=== PATIENT | male | born 1955 | race Caucasian/White ===

== ENCOUNTER 2017-11-09 10:06 | Outpatient (CLI) | payer MEDICAID | END 2017-11-09 10:07 | disposition critical access hospital (66) | LOC: EMS 10:06 | PROVIDERS: ATTEND Surgery | DX: R07.9 Chest pain, unspecified (principal); R00.2 Palpitations; R06.02 Shortness of breath | CPT/HCPCS: A0425; A0427 ==

== ENCOUNTER 2017-11-09 10:30 | Emergency (ER) | payer MEDICAID ==
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
[2017-11-09 10:54] LABS: BASOPHILS # (AUTO) 0.1 10^3/uL (0.0-0.1); BASOPHILS % (AUTO) 0.6 %; EOSINOPHILS # (AUTO) 0.1 10^3/uL (0.0-0.7); EOSINOPHILS % (AUTO) 1.2 %; HGB - HEMOGLOBIN 14.5 g/dL (14.0-18.0); LYMPHOCYTES # (AUTO) 1.8 10^3/uL (1.5-3.5); LYMPHOCYTES % (AUTO) 19.7 %; MEAN CORPUSCULAR HEMOGLOBIN 30.2 pg (27.0-31.0); MEAN CORPUSCULAR HGB CONC 33.7 g/dL (32.0-36.0); MEAN CORPUSCULAR VOLUME 89.5 fL (80.0-94.0); MEAN PLATELET VOLUME 8.1 fL (7.4-11.4); MONOCYTES # (AUTO) 0.6 10^3/uL (0.0-1.0); MONOCYTES % (AUTO) 6.6 %; NEUTROPHILS # (AUTO) 6.4 10^3/uL (1.5-6.6); NEUTROPHILS % (AUTO) 71.9 %; PLT - PLATELET COUNT 297 10^3/uL (130-450); RED BLOOD COUNT 4.79 10^6/uL (4.70-6.10); RED CELL DISTRIBUTION WIDTH 13.5 % (12.0-15.0)
[2017-11-09 11:07] LABS: ALBUMIN 4.2 g/dL (3.2-5.5); ALBUMIN/GLOBULIN RATIO 1.2 (1.0-2.2); BILIRUBIN,TOTAL 0.7 mg/dL (0.2-1.0); CALCIUM 9.1 mg/dL (8.5-10.3); CREATININE 0.8 mg/dL (0.6-1.2); TOTAL PROTEIN 7.6 g/dL (6.7-8.2)
--- NOTE | 2017-11-09 11:44 | XRAY Report ---
EXAM: CHEST RADIOGRAPHY EXAM DATE: 11/09/2017 11:29 AM. CLINICAL HISTORY: Chest pain. COMPARISON: None. TECHNIQUE: 1 view. FINDINGS: Lungs/Pleura: There are bandlike opacities of the lower lungs. Bodies may represent atelectasis or co nsolidation. This is seen in the context of low lung volumes. Mediastinum: Within exam limitations, the cardiomediastinal contour appears likely normal. IMPRESSION: Low lung volumes. Bibasilar bandlike opacities are nonspecific. Atelectasis versus consol idation. Follow-up is available as indicated. [facility] Referring Provider Line: [phone] SITE ID: [id number]
[2017-11-09 13:14] VITALS: BP 131/87
== END 2017-11-09 13:22 | disposition home or self-care (01) ==
LOC: ED 10:30
DX: R07.89 Other chest pain (principal); I10 Essential (primary) hypertension; I48.91 Unspecified atrial fibrillation; E78.00 Pure hypercholesterolemia, unspecified; J44.9 Chronic obstructive pulmonary disease, unspecified; Z79.01 Long term (current) use of anticoagulants
CPT/HCPCS: 36415; 71045; 80053; 83690; 84484; 85025; 93005; 99284

== ENCOUNTER 2019-08-25 03:03 | Outpatient (CLI) | payer MEDICARE, MEDICAID | END 2019-08-25 03:04 | disposition critical access hospital (66) | LOC: EMS 03:03 | PROVIDERS: ATTEND Surgery | DX: R47.81 Slurred speech (principal); R53.1 Weakness; R29.810 Facial weakness | CPT/HCPCS: A0425; A0429 ==

== ENCOUNTER 2019-08-25 03:17 | Emergency (ER) | payer MEDICARE, MEDICAID ==
--- NOTE | 2019-08-25 03:20 | ED Physician Documentation ---
History of Present Illness - Stated complaint Stated Complaint: SLURRED SPEECH - History obtained from History obtained from: Patient (the patient is a 63 y/o m who is a poor historian presents via EMS with a cc of right shoulder pain. patient states he was drinking etoh tonight and fell around 7 hours prior to presenting to the ed. he states he called 911 because he could not get up and his right shoulder was hurting him, he is on xarelto and has a hx of a previous cva that left him with chronic left sided weakness. remainder of the history is unknown.) Review of Systems Constitutional: reports: Reviewed and negative Eyes: reports: Reviewed and negative Ears: reports: Reviewed and negative Nose: reports: Reviewed and negative Throat: reports: Reviewed and negative Cardiac: reports: Reviewed and negative Respiratory: reports: Reviewed and negative GI: reports: Reviewed and negative : reports: Reviewed and negative Skin: reports: Reviewed and negative Musculoskeletal: reports: Extremity pain, Other (right shoulder pain) Neurologic: reports: Reviewed and negative Psychiatric: reports: Reviewed and negative Endocrine: reports: Reviewed and negative Immunocompromised: reports: Reviewed and negative PD PAST MEDICAL HISTORY - Past Medical History Cardiovascular: Hypertension, High cholesterol, Atrial fibrillation Respiratory: COPD Psych: Anxiety, Bipolar disorder - Past Surgical History Past Surgical History: Yes Ortho: Arthroscopic surgery - Present Medications Home Medications: Ambulatory Orders Medication Instructions Recorded Confirmed Amitriptyline [Elavil] 25 mg PO QPM 11/09/17 11/09/17 Atorvastatin [Lipitor] 80 mg 11/09/17 Benzonatate 100 mg PO 11/09/17 Levothyroxine [Synthroid] 75 mcg PO QDAC 11/09/17 11/09/17 Losartan [Cozaar] 100 mg ORAL DAILY 11/09/17 11/09/17 Omeprazole 40 mg PO 11/09/17 Rivaroxaban [Xarelto] 20 mg PO 11/09/17 diltiaZEM [Cardizem] 240 mg ORAL DAILY 11/09/17 11/09/17 - Allergies Allergies/Adverse Reactions: Allergies Allergy/AdvReac Type Severity Reaction Status Date / Time Penicillins Allergy Unknown Verified 08/25/19 03:32 - Social History Does the pt smoke?: Yes Smoking Status: Former smoker Does the pt drink ETOH?: No Does the pt have substance abuse?: No - Immunizations Immunizations are current?: No Immunizations: TDAP >10years/unknown PD ED PE NORMAL - Vitals Vital signs reviewed: Yes - General General: No acute distress, Well developed/nourished, Other (non toxic and non septic appearing, awake, protecting his airway, no obvious facial droop, chronic left sided weakness.) - HEENT HEENT: Atraumatic, PERRL - Neck Neck: Supple, no meningeal sign, No JVD - Cardiac Cardiac: RRR, No murmur, Strong equal pulses - Respiratory Respiratory: No respiratory distress, Clear bilaterally - Abdomen Abdomen: Normal bowel sounds, Soft, Non tender, Non distended, No organomegaly - Back Back: No CVA TTP, No spinal TTP - Derm Derm: Normal color, Warm and dry, No rash - Extremities Extremities: Other (right shoulder is tender to palpation diffusely, decreased ROM secondary to pain, compartments are soft, nv intact, cap refill < 2 sec, no open wound, no gross deformity, ) - Neuro Neuro: Alert and oriented X 3, Other (chronic left sided deficits in upper and lower extremity. ) - Psych Psych: Normal mood, Normal affect Results - Vitals Vitals: Vital Signs - 24 hr 08/25/19 08/25/19 03:20 05:41 Temperature 36.5 C Heart Rate 79 88 Respiratory 17 17 Rate Blood Pressure 110/59 L 127/83 H O2 Saturation 94 94 Oxygen O2 Source Room air - EKG (time done) 03:35 Rate: Other (no stemi) - Labs Labs: Laboratory Tests 08/25/19 08/25/19 08/25/19 03:30 03:30 03:30 WBC 14.5 H RBC 4.93 Hgb 14.1 Hct 44.9 MCV 91.1 MCH 28.6 MCHC 31.4 L RDW 14.0 Plt Count 317 MPV 9.9 Neut # (Auto) 11.7 H Lymph # (Auto) 1.7 [place] # (Auto) 0.9 Eos # (Auto) 0.1 Baso # (Auto) 0.1 Absolute Nucleated RBC 0.00 Nucleated RBC % 0.0 PT 29.1 H INR 2.7 H APTT 51.6 H Sodium 143 Potassium 3.9 Chloride 106 Carbon Dioxide 24 Anion Gap 13.0 BUN 12 Creatinine 0.7 Estimated GFR (MDRD) 113 Glucose 133 H Calcium 9.0 Total Bilirubin 0.3 AST 25 ALT 23 Alkaline Phosphatase 88 CK-MB (CK-2) Troponin I High Sens B-Natriuretic Peptide Total Protein 7.7 Albumin 4.4 Globulin 3.3 Albumin/Globulin Ratio 1.3 Lipase 27 Salicylates < 6.0 Acetaminophen < 10 L Ethyl Alcohol 170.1 08/25/19 08/25/19 08/25/19 03:30 03:30 03:30 WBC RBC Hgb Hct MCV MCH MCHC RDW Plt Count MPV Neut # (Auto) Lymph # (Auto) [place] # (Auto) Eos # (Auto) Baso # (Auto) Absolute Nucleated RBC Nucleated RBC % PT INR APTT Sodium Potassium Chloride Carbon Dioxide Anion Gap BUN Creatinine Estimated GFR (MDRD) Glucose Calcium Total Bilirubin AST ALT Alkaline Phosphatase CK-MB (CK-2) 4.9 Troponin I High Sens 4.4 B-Natriuretic Peptide 22 Total Protein Albumin Globulin Albumin/Globulin Ratio Lipase Salicylates Acetaminophen Ethyl Alcohol PD MEDICAL DECISION MAKING - ED course Complexity details: reviewed old records, reviewed results, re-evaluated patient (04:35 patient updated, he has slurred speech but unsure of his baseline, he is intoxicated. he has a closed right clavicle fracture. placed in sling, nv i ntact, compartments soft. ), considered differential (hx and exam are inconsistent and unreliable, patient and ems reports that his last known normal time was around 7 hours prior to arrival, patient's primary complaint is right shoulder pain, he is on xarelto and has chronic left sided deficits, last know normal was around 8 pm yesterday over 7 hours prior to presenting in the ed. will get cth as well as accucheck and right ue radiographs.), d/w patient (06:10 am Patient has a negative CT scan of the head, negative CTA of the head and neck. Had an extensive discussion with this patient and reexamined him multiple times. 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 Patient will be kept in a sling and discharge when he is sober and he should follow-up with his primary care provider. 06:26 I did offer to admit this patient for observation, however the patient is clinically sober at this time and admits to drinking alcohol last night and falling, states he has chronic left sided weakness and chronic slurred speech and would like to be dcd home at this time. i feel this is reasonable given he has a negative cth and neg cta h/n and he denies any new neurological symptoms now that he is sober and admits to etoh and a fall. ) - Critical Care Time(min): 30 Time Includes: Direct patient care, Review records, Reassess patient, Document care, Coordinate care Data interpretation: Labs, CXR Procedures included in critical care time: Peripheral IV Procedures excluded from critical care time: EKG Departure - Departure Disposition: Home, Self Care Clinical Impression: Right clavicle fracture Qualifiers: Encounter type: initial encounter Clavicle location: shaft Fracture type: closed Fracture alignment: displaced Qualified Code(s): S42.021A - Displaced fracture of shaft of right clavicle, initial encounter for closed fracture Alcohol intoxication Qualifiers: Complication of substance-induced condition: with unspecified complication Q ualified Code(s): F10.929 - Alcohol use, unspecified with intoxication, unspecified Leukocytosis Qualifiers: Leukocytosis type: unspecified Qualified Code(s): D72.829 - Elevated white blood cell count, unspecified Condition: Stable Instructions: ED Fx Clavicle, ED Alcohol Intoxication Follow-Up: Nora Briones DO [Primary Care Provider] - 08/25/19
[2019-08-25 03:40] LABS: BASOPHILS # (AUTO) 0.1 10^3/uL (0.0-0.1); BASOPHILS % (AUTO) 0.5 %; EOSINOPHILS # (AUTO) 0.1 10^3/uL (0.0-0.7); EOSINOPHILS % (AUTO) 0.5 %; HGB - HEMOGLOBIN 14.1 g/dL (14.0-18.0); LYMPHOCYTES # (AUTO) 1.7 10^3/uL (1.5-3.5); MEAN CORPUSCULAR HEMOGLOBIN 28.6 pg (27.0-31.0); MEAN CORPUSCULAR HGB CONC 31.4 g/dL (32.0-36.0); MEAN CORPUSCULAR VOLUME 91.1 fL (80.0-94.0); MEAN PLATELET VOLUME 9.9 fL (7.4-11.4); MONOCYTES # (AUTO) 0.9 10^3/uL (0.0-1.0); MONOCYTES % (AUTO) 5.9 %; NEUTROPHILS # (AUTO) 11.7 10^3/uL (1.5-6.6); NEUTROPHILS % (AUTO) 80.5 %; PLT - PLATELET COUNT 317 10^3/uL (130-450); RED BLOOD COUNT 4.93 10^6/uL (4.70-6.10); WHITE BLOOD COUNT 14.5 x10^3/uL (4.8-10.8)
[2019-08-25 03:46] LABS: INR 2.7 (0.8-1.2); PT - PROTHROMBIN TIME 29.1 secs (9.9-12.6)
[2019-08-25 03:53] LABS: PARTIAL THROMBOPLASTIN TIME 51.6 secs (24.9-33.3)
[2019-08-25 03:54] LABS: ACETAMINOPHEN < 10 ug/mL (10-30); ALBUMIN 4.4 g/dL (3.2-5.5); ALBUMIN/GLOBULIN RATIO 1.3 (1.0-2.2); ALKALINE PHOSPHATASE 88 IU/L (42-121); ALT ALANINE AMINOTRANSFERASE 23 IU/L (10-60); AST ASPARTATE AMINOTRANSFERASE 25 IU/L (10-42); BILIRUBIN,TOTAL 0.3 mg/dL (0.2-1.0); BUN - BLOOD UREA NITROGEN 12 mg/dL (6-20); CARBON DIOXIDE - CO2 24 mmol/L (21-32); CHLORIDE 106 mmol/L (101-111); CREATININE 0.7 mg/dL (0.6-1.2); GFR - MDRD 113 (>89); GLUCOSE 133 mg/dL (70-100); LIPASE 27 U/L (22-51); SALICYLATE < 6.0 mg/dL; SODIUM 143 mmol/L (135-145); TOTAL PROTEIN 7.7 g/dL (6.7-8.2)
--- NOTE | 2019-08-25 04:11 | CT Report ---
Reason: AMS Procedure Date: 08/25/2019 Accession Number: [id number] / [id number] Procedure: CT - HEAD WO CPT Code: Final Report FULL RESULT: EXAM: CT HEAD EXAM DATE: 08/25/2019 04:00 AM. CLINICAL HISTORY: Altered mental status. COMPARISON: None. TECHNIQUE: Multiaxial CT images were obtained from the foramen magnum to the vertex. Reformats: Sagittal and coronal. IV contrast: None. In accordance with CT protocol optimization, one or more of the following dose reduction techniques were utilized for this exam: automated exposure control, adjustment of mA and/or KV based on patient size, or use of iterative reconstructive technique. FINDINGS: Parenchyma: No intraparenchymal hemorrhage. No evidence of mass, midline shift, or CT findings of acute infarction. There is encephalomalacia involving the right insula and adjacent portions of the right frontal and superior temporal lobes compatible with a chronic infarct involving part of the right MCA territory. [place]-white matter differentiation otherwise appears distinct. Extraaxial Spaces: Normal for age. No subdural or epidural collections identified. Ventricles: No hydrocephalus. Sinuses and Orbits: There is moderate mucosal thickening in the right maxillary sinus and mild right ethmoid air cell mucosal thickening. Remaining visualized sinuses and mastoid air cells are clear. Visualized orbits are unremarkable. Bones: No evidence of fracture or calvarial defect. Other: None. IMPRESSION: 1. No acute intracranial abnormality. 2. No intracranial mass, mass-effect, or hydrocephalus. 3. Chronic infarct involving part of the right MCA distribution. [facility]
--- NOTE | 2019-08-25 04:13 | XRAY Report ---
Reason: pain Procedure Date: 08/25/2019 Accession Number: [id number] / [id number] Procedure: XR - Shoulder 3 View RT CPT Code: Final Report FULL RESULT: EXAM: RIGHT SHOULDER RADIOGRAPHY EXAM DATE: 08/25/2019 04:03 AM. CLINICAL HISTORY: Pain. COMPARISON: None. TECHNIQUE: 3 views. FINDINGS: Bones: Minimally displaced proximal right clavicular fracture. Joints: Glenohumeral osteoarthritis, with bulky humeral osteophytes. No dislocation. The acromioclavicular joint appears unremarkable. Soft tissues: The visualized hemithorax is unremarkable. No soft tissue swelling. IMPRESSION: Minimally displaced proximal right clavicular fracture. Osteoarthritis of the glenohumeral joint. [facility]
--- NOTE | 2019-08-25 04:14 | XRAY Report ---
Reason: AMS Procedure Date: 08/25/2019 Accession Number: [id number] / [id number] Procedure: XR - Chest 1 View X-Ray CPT Code: 15907 Final Report FULL RESULT: EXAM: CHEST RADIOGRAPHY EXAM DATE: 08/25/2019 03:55 AM. CLINICAL HISTORY: AMS. COMPARISON: CHEST 1 VIEW 11/09/2017 11:18 AM. TECHNIQUE: 1 view. FINDINGS: Lungs/Pleura: Low lung volumes, producing basilar atelectasis. No focal infiltrate, effusion, or pneumothorax. Mediastinum: Cardiomegaly. Atherosclerotic calcifications. Other: Minimally displaced medial right clavicle fracture. IMPRESSION: Low lung volumes. Cardiomegaly, but no evidence of acute cardiopulmonary disease. [facility]
[2019-08-25] MEDS ORDERED: MORPHINE 2 MG/ML CARPUJECT IVP STA (04:23)
[2019-08-25] MEDS ORDERED: ONDANSETRON 4 MG/2 ML VIAL IVP STA (04:23)
[2019-08-25] MEDS ORDERED: FOLIC ACID INJ 1 MG, THIAMINE INJ 100 MG, MAGNESIUM SULFATE 2 GM, MULTIVITAMIN 10 ML in... IV STA ×5 (04:25)
[2019-08-25] MEDS ORDERED: FOLIC ACID 5 MG/1 ML 10ML MDV ONE (04:29)
[2019-08-25] MEDS ORDERED: THIAMINE 100 MG/1 ML 2 ML MDV ONE (04:29)
[2019-08-25] MEDS ORDERED: MAGNESIUM SULFATE 1 GM/2 ML VIAL ONE (04:29)
[2019-08-25] MEDS ORDERED: IOVERSOL 320 100 ML VIAL IVP ONE ×2 (04:51→05:23)
--- NOTE | 2019-08-25 05:54 | CT Report ---
Reason: L sided facial droop Procedure Date: 08/25/2019 Accession Number: [id number] / [id number] Procedure: CT - ANGIO HEAD W/WO CPT Code: Final Report FULL RESULT: EXAM: CT ANGIOGRAM HEAD. CT SCAN OF THE HEAD WITH CONTRAST. EXAM DATE: 08/25/2019 05:27 AM CLINICAL HISTORY: L sided facial droop. COMPARISON: CT HEAD W/O 08/25/2019 3:44 AM. TECHNIQUE: - CT Scan Head: Using a multidetector scanner, axial images were acquired from the foramen magnum to the skull vertex following contrast administration. - CT Angiogram: Using a multidetector scanner, high-resolution axial images were acquired from the skull base through vertex following rapid infusion of intravenous contrast. Reformats: Multiplanar MIP reformats were reconstructed. NASCET criteria used for stenosis measurement. IV Contrast: OPTIRAY 320-80 mL. In accordance with CT protocol optimization, one or more of the following dose reduction techniques were utilized for this exam: automated exposure control, adjustment of mA and/or KV based on patient size, or use of iterative reconstructive technique. FINDINGS: POST-CONTRAST HEAD: Precontrast CT of the brain has been previously reported and demonstrated no obvious acute abnormality. There is a chronic infarct involving part of the right MCA distribution. Postcontrast imaging of the brain demonstrates no abnormal enhancement. CT ANGIOGRAM HEAD: There is no evidence of large vessel occlusion. There is atherosclerotic calcification in the carotid siphons bilaterally. This results in mild narrowing of the proximal supraclinoid ICAs bilaterally. There is no significant high-grade stenosis. The middle cerebral and anterior cerebral artery distributions appear patent bilaterally without significant stenosis. Mild atherosclerotic calcification in the V4 segments of bilateral vertebral arteries. There is no significant stenosis. Basilar artery is patent and normal in caliber. Posterior cerebral arteries and remainder the posterior circulation also appear patent. No aneurysm or AVM is identified. Dural venous sinuses are patent. IMPRESSION: CT Head with IV contrast: 1. No evidence of acute intracranial abnormality. 2. Chronic right MCA infarct. 3. No mass lesion, mass-effect, or abnormal enhancement. CTA Head: 1. No evidence of large vessel occlusion. 2. Atherosclerotic calcification involving bilateral carotid siphons results in mild narrowing of the proximal supraclinoid ICAs bilaterally. There is no significant intracranial stenosis. 3. No aneurysm is identified. 4. Dural venous sinuses are patent. [facility]
--- NOTE | 2019-08-25 06:03 | CT Report ---
Reason: L sided facial droop, L neck pain Procedure Date: 08/25/2019 Accession Number: [id number] / [id number] Procedure: CT - ANGIO NECK W CPT Code: Final Report FULL RESULT: EXAM: CT ANGIOGRAM NECK EXAM DATE: 08/25/2019 05:27 AM. CLINICAL HISTORY: L sided facial droop, L neck pain. COMPARISON: HEAD W/O 08/25/2019 3:44 AM. TECHNIQUE: Routine axial helical imaging was performed from the skull base through the aortic arch. Reconstructions: Routine multiplanar 3D MIP reconstructions. IV Contrast: OPTIRAY 320-80 cc. Evaluation of arterial stenosis is based on a NASCET method of measurement. In accordance with CT protocol optimization, one or more of the following dose reduction techniques were utilized for this exam: automated exposure control, adjustment of mA and/or KV based on patient size, or use of iterative reconstructive technique. FINDINGS: Aortic arch: There is mild scattered atherosclerotic calcification in the aortic arch. Visualized arch is otherwise unremarkable. Great vessels are patent without significant stenosis. Right Carotid: The common carotid, internal carotid, and external carotid arteries are widely patent. Mild calcified plaque in the distal common carotid and proximal internal carotid artery. There is no stenosis or dissection. Left Carotid: The common carotid, internal carotid, and external carotid arteries are widely patent. There is minimal calcified plaque in the left carotid bulb and proximal ICA. No evidence of stenosis or dissection. Vertebrals: Both vertebral arteries are patent and contribute to the basilar artery. The right vertebral artery is dominant and demonstrates no stenosis or dissection. There is a 50% stenosis at the origin of the left vertebral artery. The left vertebral artery is otherwise normal in caliber. No evidence of dissection. Other: Neck soft tissues and visualized lung apices are unremarkable. There is mild to moderate degenerative change of the cervical spine. No acute osseous abnormality is identified. IMPRESSION: 1. There is no evidence of carotid artery stenosis or dissection in the neck. There is minimal calcified plaque in the carotid bifurcations bilaterally. 2. Both vertebral arteries are patent. Right vertebral artery is dominant and normal in caliber. There is a 50% stenosis at the origin of the nondominant left vertebral artery. No evidence of vertebral artery dissection. [facility]
[2019-08-25 07:46] VITALS: BP 123/74
[2019-08-25] MEDS ORDERED: ACETAMINOPHEN 325 MG TABLET PO STA (07:50)
== END 2019-08-25 08:55 | disposition home or self-care (01) ==
LOC: EDUNIT# → ED 03:17
DX: S42.021A Displaced fracture of shaft of right clavicle, initial encounter for closed fracture (principal); W19.XXXA Unspecified fall, initial encounter; Y93.E9 Activity, other interior property and clothing maintenance; Y92.003 Bedroom of unspecified non-institutional (private) residence as the place of occurrence of the external cause; D72.829 Elevated white blood cell count, unspecified; F10.129 Alcohol abuse with intoxication, unspecified; I10 Essential (primary) hypertension; Z87.891 Personal history of nicotine dependence
CPT/HCPCS: 36415; 70496; 70498; 71045; 73030; 80053; 82553; 83690; 83880; 84484; 85025; 85610; 85730; 93005; 96365; 96366; 96375; 99284; 99291; A9270; J3411; Q9967; 70450; 80307; 80320; 80329

== ENCOUNTER 2020-05-08 19:15 | Outpatient (CLI) | payer MEDICARE, MEDICAID | END 2020-05-08 19:16 | disposition critical access hospital (66) | LOC: EMS 19:15 | PROVIDERS: ATTEND Surgery | DX: R06.00 Dyspnea, unspecified (principal); R22.1 Localized swelling, mass and lump, neck | CPT/HCPCS: A0425; A0427 ==

== ENCOUNTER 2020-05-08 19:35 | Emergency (ER) | payer MEDICARE, MEDICAID ==
--- NOTE | 2020-05-08 20:27 | ED Physician Documentation ---
History of Present Illness - Stated complaint Stated Complaint: - Chief complaint Chief Complaint: Resp - History obtained from History obtained from: Patient - History of Present Illness Timing: Prior to arrival - Additonal information Additional information: 64-year-old male presents the emergency department with 2 concerns. 1. He reports 3 days of shortness of air. He has a history of COPD but denies any new cough or fever. He had been using his albuterol nebulizers at home without relief. He reports compliance with his Spiriva and Advair inhalers. EMS was summoned to the house and he received nebulizer with marked improvement in his symptoms. He was also given 125 mg of Solu-Medrol. 2. He reports about 3 days of right submandibular pain and swelling. He reports that it hurts to chew or eat. He has grossly poor dentition with all of the teeth in his mouth rotted or missing to the gumline. This gentleman does have a history of COPD, previous cerebral vascular event with left-sided deficits as well as multiple pulmonary emboli in the past. He is on Xarelto and reports compliance with that medication. He denies that he has any unilateral leg swelling calf pain or tenderness. Patient presented via EMS with a nonrebreather mask in place. He was saturating 100%. He reports to me that he uses 2 L nasal cannula at home at nighttime only. The nonrebreather was removed and he was placed on 2 L nasal cannula. Saturations 94 to 97% PD PAST MEDICAL HISTORY - Past Medical History Past Medical History: Yes Cardiovascular: Hypertension, High cholesterol, Atrial fibrillation Respiratory: COPD Psych: Anxiety, Bipolar disorder - Past Surgical History Past Surgical History: Yes Ortho: Arthroscopic surgery - Present Medications Home Medications: Ambulatory Orders Medication Instructions Recorded Confirmed Amitriptyline [Elavil] 25 mg PO QPM 11/09/17 05/08/20 Atorvastatin [Lipitor] 80 mg PO DAILY 11/09/17 05/08/20 Benzonatate 100 mg PO 11/09/17 Levothyroxine [Synthroid] 75 mcg PO QDAC 11/09/17 05/08/20 Losartan [Cozaar] 100 mg ORAL DAILY 11/09/17 05/08/20 Omeprazole 40 mg PO DAILY 11/09/17 05/08/20 Rivaroxaban [Xarelto] 20 mg PO DAILY 06/04/18 12/01/20 diltiaZEM [Cardizem] 240 mg ORAL DAILY 11/09/17 05/08/20 Albuterol Sulf [Ventolin Hfa 05/08/20 Inhaler] Albuterol Sulf [Ventolin Hfa INH PRN 05/08/20 Inhaler] Azithromycin [Zithromax] 250 mg PO TID 05/08/20 05/08/20 predniSONE [Deltasone] 40 mg PO DAILY #8 tab 05/08/20 - Allergies Allergies/Adverse Reactions: Allergies Allergy/AdvReac Type Severity Reaction Status Date / Time Penicillins Allergy Unknown Verified 05/08/20 19:46 - Social History Does the pt smoke?: Yes Smoking Status: Current every day smoker Does the pt drink ETOH?: No Does the pt have substance abuse?: No - Immunizations Immunizations are current?: No Immunizations: TDAP >10years/unknown - POLST Patient has POLST: No PD ED PE EXPANDED - General General: Alert, No acute distress, Well developed/nourished - HEENT HEENT: Atraumatic (Left-sided facial droop at baseline.), PERRL, Other (Mild swelling and tenderness right submandibular area. No lymphadenopathy. No swelling under tongue or on floor of mouth. Full range of motion of neck. Patient has some dysphonia at bedside secondary to previous CVA.) - Cardiac Cardiac: Regular Rate, Murmur Present, Radial strong equal, Pedal strong equal, Cap refill < 2 sec - Respiratory Respiratory: Clear to ausultation meron. No: Distress, Labored, Stridor, Gasping - Abdomen Abdomen: Normal Bowel sounds. No: Tender to palpation - Extremities Extremities: Normal. No: Deformity, Tenderness - Neuro Neuro: Alert and Oriented X 3, Other (Mild left-sided facial droop at bedside with weakness in the left arm. No contractures). No: Nystagmus - GCS Eye Opening: Spontaneous Motor: Obeys Commands Verbal: Oriented Total: 15 Results - Vitals Vitals: Vital Signs - 24 hr 05/08/20 05/08/20 05/08/20 19:46 19:50 20:36 Temperature 36.5 C 36.5 C 36.5 C Heart Rate 82 81 80 Respiratory 28 H 25 H 27 H Rate Blood Pressure 129/90 H 129/90 H 126/87 H O2 Saturation 100 100 95 Oxygen O2 Source Nasal cannula Oxygen Flow Rate 11 - EKG (time done) 2013 Rate: Rate (enter#) (77) Rhythm: NSR [place]: Normal Intervals: Other (RBB and LAFB) QRS: LVH Ischemia: Normal ST segments Compare to prior EKG: Unchanged from prior EKG Computer interpretation: Agree with computer - Labs Labs: Laboratory Tests 05/08/20 05/08/20 05/08/20 20:16 20:26 20:26 WBC 10.4 RBC 4.64 L Hgb 14.0 Hct 42.6 MCV 91.8 MCH 30.2 MCHC 32.9 RDW 13.2 Plt Count 363 MPV 9.3 Neut # (Auto) 7.7 H Lymph # (Auto) 2.0 [place] # (Auto) 0.4 Eos # (Auto) 0.2 Baso # (Auto) 0.1 Absolute Nucleated RBC 0.00 Nucleated RBC % 0.0 Sodium 141 Potassium 4.0 Chloride 103 Carbon Dioxide 23 Anion Gap 15.0 H BUN 16 Creatinine 0.9 Estimated GFR (MDRD) 84 L Glucose 125 H Calcium 9.4 Total Bilirubin 0.7 AST 26 ALT 25 Alkaline Phosphatase 106 Troponin I High Sens Total Protein 7.7 Albumin 4.5 Globulin 3.2 Albumin/Globulin Ratio 1.4 Lipase 21 L Nasal Adenovirus (PCR) NOT DETECTED Nasal B. parapertussis DNA (PCR) NOT DETECTED Nasal Coronavir 229E PCR NOT DETECTED Nasal Coronavir HKU1 PCR NOT DETECTED Nasal Coronavir NL63 PCR NOT DETECTED Nasal Coronavir OC43 PCR NOT DETECTED Nasal Enterovir/Rhinovir PCR NOT DETECTED Nasal Influenza B PCR NOT DETECTED Nasal Influenza A PCR NOT DETECTED Nasal Parainfluen 1 PCR NOT DETECTED Nasal Parainfluen 2 PCR NOT DETECTED Nasal Parainfluen 3 PCR NOT DETECTED Nasal Parainfluen 4 PCR NOT DETECTED Nasal RSV (PCR) NOT DETECTED Nasal B.pertussis DNA PCR NOT DETECTED Nasal C.pneumoniae (PCR) NOT DETECTED Vinny Human Metapneumo PCR NOT DETECTED Nasal M.pneumoniae (PCR) NOT DETECTED Nasal SARS-CoV-2 (PCR) NOT DETECTED 05/08/20 20:26 WBC RBC Hgb Hct MCV MCH MCHC RDW Plt Count MPV Neut # (Auto) Lymph # (Auto) [place] # (Auto) Eos # (Auto) Baso # (Auto) Absolute Nucleated RBC Nucleated RBC % Sodium Potassium Chloride Carbon Dioxide Anion Gap BUN Creatinine Estimated GFR (MDRD) Glucose Calcium Total Bilirubin AST ALT Alkaline Phosphatase Troponin I High Sens 5.0 Total Protein Albumin Globulin Albumin/Globulin Ratio Lipase Nasal Adenovirus (PCR) Nasal B. parapertussis DNA (PCR) Nasal Coronavir 229E PCR Nasal Coronavir HKU1 PCR Nasal Coronavir NL63 PCR Nasal Coronavir OC43 PCR Nasal Enterovir/Rhinovir PCR Nasal Influenza B PCR Nasal Influenza A PCR Nasal Parainfluen 1 PCR Nasal Parainfluen 2 PCR Nasal Parainfluen 3 PCR Nasal Parainfluen 4 PCR Nasal RSV (PCR) Nasal B.pertussis DNA PCR Nasal C.pneumoniae (PCR) Vinny Human Metapneumo PCR Nasal M.pneumoniae (PCR) Nasal SARS-CoV-2 (PCR) - Rads (name of study) cxr Radiology: Final report received (Cardiomegaly and mild congestion. Left basilar atelectasis, small infiltrates cannot be excluded. No significant pleur al effusion or gross pneumothorax) [facility] ct Radiology: Final report received (Subcentimeter right submandibular lymph node measuring up to 7,000,000 m in short axis. No soft tissue mass or fluid collection. No lymphadenopathy by size criteria no abscess collection. Chronic appearing right-sided sinusitis. No nasal bone or facial fracture. Bilateral parotid glands and sub) PD MEDICAL DECISION MAKING - ED course Complexity details: reviewed results, re-evaluated patient, considered differential, d/w patient ED course: 64-year-old male presents the ER with 2 chief complaints. The first is 3 days of shortness of breath. He does have a history of 3 previously known pulmonary embolus and he is compliant with Xarelto. He had been using a nebulizer at without relief. He summoned 911 and EMS gave him 125 Solu-Medrol as well as a nebulizer. At the time he presented to the emergency department he reported that his shortness of air had resolved. Given the presence of Xarelto and the quickly resolved shortness of air it is unlikely that this represents a recurre nt or new pulmonary embolus. He denies that he has any new productive cough but this may represent a COPD exacerbation. Chest x-ray shows LEFT BASILAR ATELECTASIS, INFILTRATES COULD NOT BE excluded. However, as he denies a productive cough, has no fevers or leukocytosis, will defer tx for pna. Pt takes azithromycin daily secondary to COPD. I will plan to discharge this gentleman home with a 4-day burst of prednisone. Rapid PCR respiratory panel pending He also reported that he had 3 days of pain in the submandibular area on the right side of his jaw as well as pain with eating. He has globally poor dentition. He did have some very subtle swelling on the right side of the jaw. Clinically he did not have an exam consistent with [place]. ED CT of the max face was completed and it did show a small right submandibular lymph node measuring up to 7 mm but no suspicious lymphadenopathy by size criteria. Certainly no abscess collection was seen. defer abx at this time as no deeper sp vannesa infection exists This gentleman will be discharged home. During the time that he has been in the ER he has been clinically stable. He has been on 2 L nasal cannula with saturations of 94 to 97%. The shortness of air that initially brought him to the emergency department was resolved following a nebulizer treatment given by EMS as well as Solu-Medrol. I will give him a additional 4-day course of prednisone burst. emergent return precautions discussed Departure - Departure Disposition: 01 Home, Self Care Clinical Impression: COPD exacerbation, Jaw pain, non-TMJ Condition: Stable Record reviewed to determine appropriate education?: Yes Instructions: COPD Dc Follow-Up: Ortiz Khan ARNP [Primary Care Provider] - Prescriptions: predniSONE [Deltasone] 40 mg PO DAILY #8 tab Comments: Suraj today the labs look pretty normal. The Covid testing that we did for you was negative. The shortness of air that you had may have been COPD ex acerbation. The nebulizer that the EMS gave you as well as the steroids seem to have helped. I would like you to take the steroids every day for the next [address] of your face and neck did not show any abscesses or deep infections. The tenderness that you have is a mildly swollen lymph node. This should get better on its own. No further treatment is needed. If at any point you develop chest pain, have a return of shortness of air, have any fevers or productive cough please return immediately to the ER
--- NOTE | 2020-05-08 20:32 | XRAY Report ---
PROCEDURE: Chest 1 View X-Ray INDICATIONS: Chest Pain TECHNIQUE: One view of the chest was acquired. COMPARISON: 08/25/2019 FINDINGS: Surgical changes and devices: None. Lungs and pleura: No pleural effusions or pneumothorax. Mild pulmonary vascular congestion is seen w ith left basilar platelike atelectasis/small infiltrates. Mediastinum: Mediastinal contours appear normal. Heart size is enlarged. Bones and chest wall: No suspicious bony lesions. Overlying soft tissues appear unremarkable. IMPRESSION: Cardiomegaly and mild congestion. Left basilar atelectasis, small infiltrates cannot be excluded. No significant pleural effusion or gross pneumothorax. Reviewed by: Chuckie Payne MD on 05/08/2020 8:31 PM PST Approved by: Chuckie Payne MD on 05/08/2020 8:31 PM PST Station ID: [id number]
[2020-05-08] MEDS ORDERED: IOVERSOL 320 100 ML VIAL IVP ONE ×2 (20:34→21:23)
[2020-05-08 20:48] LABS: BASOPHILS # (AUTO) 0.1 10^3/uL (0.0-0.1); BASOPHILS % (AUTO) 0.6 %; EOSINOPHILS # (AUTO) 0.2 10^3/uL (0.0-0.7); EOSINOPHILS % (AUTO) 1.8 %; LYMPHOCYTES % (AUTO) 19.6 %; MEAN CORPUSCULAR HEMOGLOBIN 30.2 pg (27.0-31.0); MEAN CORPUSCULAR HGB CONC 32.9 g/dL (32.0-36.0); MEAN CORPUSCULAR VOLUME 91.8 fL (80.0-94.0); MEAN PLATELET VOLUME 9.3 fL (7.4-11.4); MONOCYTES # (AUTO) 0.4 10^3/uL (0.0-1.0); MONOCYTES % (AUTO) 3.7 %; NEUTROPHILS # (AUTO) 7.7 10^3/uL (1.5-6.6); NEUTROPHILS % (AUTO) 73.9 %; PLT - PLATELET COUNT 363 10^3/uL (130-450); RED BLOOD COUNT 4.64 10^6/uL (4.70-6.10); RED CELL DISTRIBUTION WIDTH 13.2 % (12.0-15.0); WHITE BLOOD COUNT 10.4 x10^3/uL (4.8-10.8)
[2020-05-08 20:57] LABS: ALBUMIN 4.5 g/dL (3.2-5.5); ALBUMIN/GLOBULIN RATIO 1.4 (1.0-2.2); BILIRUBIN,TOTAL 0.7 mg/dL (0.2-1.0); CALCIUM 9.4 mg/dL (8.5-10.3); CREATININE 0.9 mg/dL (0.6-1.2); TOTAL PROTEIN 7.7 g/dL (6.7-8.2)
[2020-05-08 21:29] LABS: C. PNEUMONIAE- RESP PCR PANEL NOT DETECTED
--- NOTE | 2020-05-08 21:40 | CT Report ---
PROCEDURE: MAXILLOFACIAL W INDICATIONS: rigth submandibular swelling CONTRAST: IV CONTRAST: Optiray 320 ml: 100 PO CONTRAST: *NO PO CONTRAST TECHNIQUE: After the administration of intravenous contrast, 3.0 mm axial sections acquired from the mid-neck to the frontal sinuses, with coronal reformatting. For radiation dose reduction, the following was use d: automated exposure control, adjustment of mA and/or kV according to patient size. COMPARISON: None. FINDINGS: Image quality: Excellent. Soft tissues: No edema, masses, or fluid collections. No enlarged lymph nodes. Small right submand ibular lymph nodes are noted measures up to 7 mm in short axis diameter. Vascular: Visualized vascular structures appear patent throughout. Bony vascular foramina and canal s appear normal. Bones: Facial bones appear intact, without fractures, erosions, or destruction. Visualized portions of the skull base and auditory canals also appear normal. Sinuses: Large retention cyst versus mucocele is seen within right maxillary sinus. Mild mucosal thic kening is noted in right sphenoid and ethmoid sinuses. Mastoid air cells are aerated. IMPRESSION: 1. Subcentimeter right submandibular lymph node measures up to 7 mm in short axis diameter. No soft t issue mass or fluid collection. No lymphadenopathy by size criteria. No abscess collection. 2. Chronic appearing right-sided sinusitis. 3. No nasal bone or facial bone fracture. No suspicious bony lesion. 4. Bilateral parotid glands and submandibular glands are within normal limits. Reviewed by: Chuckie Payne MD on 05/08/2020 9:39 PM PST Approved by: Chuckie Payne MD on 05/08/2020 9:39 PM PST Station ID: [id number]
[2020-05-08 23:02] VITALS: BP 132/82
== END 2020-05-08 23:00 | disposition home or self-care (01) ==
LOC: EDUNIT# → ED 19:35
DX: J44.1 Chronic obstructive pulmonary disease with (acute) exacerbation (principal); R59.0 Localized enlarged lymph nodes; I10 Essential (primary) hypertension; I48.91 Unspecified atrial fibrillation; F17.200 Nicotine dependence, unspecified, uncomplicated; Z86.711 Personal history of pulmonary embolism; Z79.01 Long term (current) use of anticoagulants; Z20.828 Contact with and (suspected) exposure to other viral communicable diseases
CPT/HCPCS: 36415; 70487; 71045; 80053; 83690; 84484; 85025; 87631; 93005; 99283; 99284; Q9967; 0202U

== ENCOUNTER 2020-09-15 22:49 | Outpatient (CLI) | payer MEDICARE, MEDICAID | END 2020-09-15 22:50 | disposition critical access hospital (66) | LOC: EMS 22:49 | DX: R06.00 Dyspnea, unspecified (principal); R42 Dizziness and giddiness | CPT/HCPCS: A0425; A0427 ==

== ENCOUNTER 2020-09-15 23:07 | Emergency (ER) | payer MEDICARE, MEDICAID ==
--- NOTE | 2020-09-15 23:07 | ED Physician Documentation ---
PD HPI DYSPNEA - Stated complaint Stated Complaint: SOA - History obtained from History obtained from: Patient, EMS - History of Present Illness Timing - onset: Today (this morning) Timing - onset during: Light activity Timing - duration: Hours Timing - details: Gradual onset, Still present Pain level max: 0 Pain level now: 0 Improved by: O2, Rest Worsened by: Exertion Associated symptoms: Cough (nonproductive). No: Fever, Hemoptysis, Wheezing, Chest pain / discomfort, Bilateral edema, Unilateral edema Similar symptoms before: Diagnosis (COPD) Recently seen: Not recently seen - Additional information Additional information: BIBA. Patient c/o gradual onset dyspnea since this morning. He uses oxygen but only at night. He has COPD but had inadequate improvement in symptoms despite using his nebulizer prior to calling 911. Also has h/o DVT and PE. Given 125mg IV solumedrol by medics en route but not given neb treatments, as he had just completed an albuterol neb when they arrived and was in no obvious respiratory distress with clear breath sounds on auscultation Review of Systems Constitutional: denies: Fever, Chills, Sweats Cardiac: reports: Reviewed and negative Respiratory: reports: Dyspnea, Cough. denies: Hemoptysis, Wheezing GI: reports: Reviewed and negative Musculoskeletal: reports: Reviewed and negative PD PAST MEDICAL HISTORY - Past Medical History Past Medical History: Yes Cardiovascular: Hypertension, High cholesterol, Deep vein thrombosis, Pulmonary embolism Respiratory: COPD Endocrine/Autoimmune: HyPOthyroidism - Present Medications Home Medications: Ambulatory Orders Medication Instructions Recorded Confirmed Amitriptyline [Elavil] 25 mg PO QPM 11/09/17 09/16/20 Atorvastatin [Lipitor] 80 mg PO DAILY 11/09/17 09/16/20 Benzonatate 100 mg PO 11/09/17 Levothyroxine [Synthroid] 75 mcg PO QDAC 11/09/17 09/16/20 Losartan [Cozaar] 100 mg ORAL DAILY 11/09/17 09/16/20 Omeprazole 40 mg PO DAILY 11/09/17 09/16/20 Rivaroxaban [Xarelto] 20 mg PO DAILY 11/09/17 09/16/20 diltiaZEM [Cardizem] 240 mg ORAL DAILY 11/09/17 09/16/20 Albuterol Sulf [Ventolin Hfa 05/08/20 Inhaler] Azithromycin [Zithromax] 250 mg PO TID 05/08/20 09/16/20 predniSONE [Deltasone] 40 mg PO DAILY #8 tab 05/08/20 09/16/20 predniSONE [Deltasone] 40 mg PO DAILY 4 Days #8 tablet 09/16/20 - Allergies Allergies/Adverse Reactions: Allergies Allergy/AdvReac Type Severity Reaction Status Date / Time Penicillins Allergy Unknown Verified 09/15/20 23:17 - Living Situation Living Arrangement: reports: At home PD ED PE NORMAL - Vitals Vital signs reviewed: Yes - General General: Alert and oriented X 3, No acute distress, Well developed/nourished - HEENT HEENT: Moist mucous membranes - Neck Neck: Supple, no meningeal sign - Cardiac Cardiac: RRR, No murmur (occasional extra beats) - Respiratory Respiratory: No respiratory distress, Clear bilaterally - Abdomen Abdomen: Soft, Non tender - Derm Derm: Normal color, Warm and dry - Extremities Extremities: No edema Results - Vitals Vitals: Vital Signs - 24 hr 09/15/20 09/15/20 09/16/20 23:17 23:27 00:25 Temperature 36.9 C 36.9 C 36.7 C Heart Rate 90 90 97 Respiratory 18 18 22 Rate Blood Pressure 136/99 H 136/99 H 133/81 H O2 Saturation 98 98 95 09/16/20 09/16/20 09/16/20 01:30 01:49 02:49 Temperature 36.2 C L Heart Rate 90 89 89 Respiratory 20 22 18 Rate Blood Pressure 124/95 H 131/85 H O2 Saturation 95 94 09/16/20 09/16/20 09/16/20 04:26 05:06 06:01 Temperature 36.7 C Heart Rate 88 99 93 Respiratory 18 25 H 19 Rate Blood Pressure 131/84 H 137/81 H 125/89 H O2 Saturation 94 99 94 09/16/20 06:12 Temperature Heart Rate 96 Respiratory 18 Rate Blood Pressure 146/89 H O2 Saturation 96 Oxygen O2 Source Room air Oxygen Flow Rate 2 - EKG (time done) No standard instances Rate: Rate (enter#) (91) Rhythm: NSR [place]: LAD Intervals: Prolonged DC, RBBB Ischemia: Normal ST segments Compare to prior EKG: Unchanged from prior EKG - Labs Labs: Laboratory Tests 09/15/20 09/15/20 09/15/20 23:41 23:41 23:41 WBC 9.0 RBC 4.58 L Hgb 13.8 L Hct 41.6 L MCV 90.8 MCH 30.1 MCHC 33.2 RDW 13.0 Plt Count 393 MPV 9.4 Neut # (Auto) 4.9 Lymph # (Auto) 3.3 [place] # (Auto) 0.7 Eos # (Auto) 0.1 Baso # (Auto) 0.1 Absolute Nucleated RBC 0.00 Nucleated RBC % 0.0 Sodium 139 Potassium 4.2 Chloride 106 Carbon Dioxide 21 Anion Gap 12.0 BUN 20 Creatinine 0.9 Estimated GFR (MDRD) 84 L Glucose 134 H Calcium 9.0 Total Bilirubin 0.9 AST 26 ALT 26 Alkaline Phosphatase 94 Troponin I High Sens B-Natriuretic Peptide 30 Total Protein 7.6 Albumin 4.7 Globulin 2.9 Albumin/Globulin Ratio 1.6 Lipase 26 Nasal Adenovirus (PCR) Nasal B. parapertussis DNA (PCR) Nasal Coronavir 229E PCR Nasal Coronavir HKU1 PCR Nasal Coronavir NL63 PCR Nasal Coronavir OC43 PCR Nasal Enterovir/Rhinovir PCR Nasal Influenza B PCR Nasal Influenza A PCR Nasal Parainfluen 1 PCR Nasal Parainfluen 2 PCR Nasal Parainfluen 3 PCR Nasal Parainfluen 4 PCR Nasal RSV (PCR) Nasal B.pertussis DNA PCR Nasal C.pneumoniae (PCR) [place] Human Metapneumo PCR Nasal M.pneumoniae (PCR) Nasal SARS-CoV-2 (PCR) 09/15/20 09/15/20 23:41 23:44 WBC RBC Hgb Hct MCV MCH MCHC RDW Plt Count MPV Neut # (Auto) Lymph # (Auto) [place] # (Auto) Eos # (Auto) Baso # (Auto) Absolute Nucleated RBC Nucleated RBC % Sodium Potassium Chloride Carbon Dioxide Anion Gap BUN Creatinine Estimated GFR (MDRD) Glucose Calcium Total Bilirubin AST ALT Alkaline Phosphatase Troponin I High Sens 5.8 B-Natriuretic Peptide Total Protein Albumin Globulin Albumin/Globulin Ratio Lipase Nasal Adenovirus (PCR) NOT DETECTED Nasal B. parapertussis DNA (PCR) NOT DETECTED Nasal Coronavir 229E PCR NOT DETECTED Nasal Coronavir HKU1 PCR NOT DETECTED Nasal Coronavir NL63 PCR NOT DETECTED Nasal Coronavir OC43 PCR NOT DETECTED Nasal Enterovir/Rhinovir PCR NOT DETECTED Nasal Influenza B PCR NOT DETECTED Nasal Influenza A PCR NOT DETECTED Nasal Parainfluen 1 PCR NOT DETECTED Nasal Parainfluen 2 PCR NOT DETECTED Nasal Parainfluen 3 PCR NOT DETECTED Nasal Parainfluen 4 PCR NOT DETECTED Nasal RSV (PCR) NOT DETECTED Nasal B.pertussis DNA PCR NOT DETECTED Nasal C.pneumoniae (PCR) NOT DETECTED [place] Human Metapneumo PCR NOT DETECTED Nasal M.pneumoniae (PCR) NOT DETECTED Nasal SARS-CoV-2 (PCR) NOT DETECTED - Rads (name of study) chest xray Radiology: Prelim report reviewed, See rad report PD MEDICAL DECISION MAKING - ED course Complexity details: reviewed old records, reviewed results, re-evaluated patient, considered differential, d/w patient ED course: NAD on arrival as well as on reexamination after tests resulted. His lungs are CTA bilaterally and test results do not demonstrate new or emergent pathology. On reevaluation, he says he still feels dyspneic and is thus given duoneb; on subsequent reevaluation he is asleep and in NAD with stable vital signs in cluding mid-90s pulse ox on 2 liters [place] oxygen. Departure - Departure Disposition: 01 Home, Self Care Clinical Impression: COPD exacerbation Condition: Good Instructions: ED COPD Flare Follow-Up: Ortiz Khan ARNP [Primary Care Provider] - Within 3 Days Prescriptions: predniSONE [Deltasone] 40 mg PO DAILY 4 Days #8 tablet Discharge Date/Time: 09/16/20 06:21
[2020-09-15 23:47] LABS: BASOPHILS # (AUTO) 0.1 10^3/uL (0.0-0.1); BASOPHILS % (AUTO) 0.7 %; EOSINOPHILS # (AUTO) 0.1 10^3/uL (0.0-0.7); EOSINOPHILS % (AUTO) 1.6 %; HCT - HEMATOCRIT 41.6 % (42.0-52.0); HGB - HEMOGLOBIN 13.8 g/dL (14.0-18.0); LYMPHOCYTES # (AUTO) 3.3 10^3/uL (1.5-3.5); LYMPHOCYTES % (AUTO) 36.4 %; MEAN CORPUSCULAR HEMOGLOBIN 30.1 pg (27.0-31.0); MEAN CORPUSCULAR HGB CONC 33.2 g/dL (32.0-36.0); MEAN CORPUSCULAR VOLUME 90.8 fL (80.0-94.0); MEAN PLATELET VOLUME 9.4 fL (7.4-11.4); MONOCYTES # (AUTO) 0.7 10^3/uL (0.0-1.0); MONOCYTES % (AUTO) 7.4 %; NEUTROPHILS # (AUTO) 4.9 10^3/uL (1.5-6.6); NEUTROPHILS % (AUTO) 53.8 %; PLT - PLATELET COUNT 393 10^3/uL (130-450); RED BLOOD COUNT 4.58 10^6/uL (4.70-6.10)
--- OUTSIDE RECORDS SUMMARY | 2020-09-15 23:57 | EXTERNAL MEDICAL SUMMARY RPT | Continuity of Care Document ---
:1955 Demographics Phone Unavailable Preferred Language Vietnamese Marital Status Unknown Voodoo Affiliation Unknown Race Unknown Ethnic Group Unknown Author Organization [facility] Address [address] [phone] Phone Care Team Providers Name Role Phone Bill Unavailable Unavailable Problems date description facility [id number] Chronic obstructive pulmonary disease w [facility] ([facility] Social History date description facility [phone]
[2020-09-16 00:04] LABS: ALBUMIN 4.7 g/dL (3.2-5.5); ALBUMIN/GLOBULIN RATIO 1.6 (1.0-2.2); BILIRUBIN,TOTAL 0.9 mg/dL (0.2-1.0); CREATININE 0.9 mg/dL (0.6-1.2); POTASSIUM 4.2 mmol/L (3.5-5.0); TOTAL PROTEIN 7.6 g/dL (6.7-8.2)
[2020-09-16 00:35] LABS: B. PARAPERTUSSIS- RESP PCR PAN NOT DETECTED; B. PERTUSSIS- RESP PCR PANEL NOT DETECTED; C. PNEUMONIAE- RESP PCR PANEL NOT DETECTED; CORONAVIRUS 229E-RESP PCR NOT DETECTED; CORONAVIRUS HKU1-RESP PCR NOT DETECTED; CORONAVIRUS NL63-RESP PCR NOT DETECTED; CORONAVIRUS OC43-RESP PCR NOT DETECTED; HUMAN METAPNEUMOVIRUS NOT DETECTED; INFLUENZA A- RESP PCR PANEL NOT DETECTED; INFLUENZA B - RESP PCR PANEL NOT DETECTED; M. PNEUMONIAE- RESP PCR PANEL NOT DETECTED; PARAINFLUENZA VIRUS 1 NOT DETECTED; PARAINFLUENZA VIRUS 2 NOT DETECTED; PARAINFLUENZA VIRUS 3 NOT DETECTED; PARAINFLUENZA VIRUS 4 NOT DETECTED; RHINOVIRUS/ENTEROVIRUS NOT DETECTED; RSV- RESP PCR PANEL NOT DETECTED; SARS-CoV-2 -RESP PCR PANEL NOT DETECTED
[2020-09-16] MEDS ORDERED: IPRATROPIUM/ALBUTEROL 3 ML NEB INH STA (01:14)
[2020-09-16 06:13] VITALS: BP 146/89
--- NOTE | 2020-09-16 07:24 | XRAY Report ---
PROCEDURE: Chest 2 View X-Ray INDICATIONS: dyspnea TECHNIQUE: 2 view(s) of the chest. COMPARISON: 05/08/2020, 08/25/2019 FINDINGS: Surgical changes and devices: None. Lungs and pleura: An incomplete inspiratory result is noted, with low lung volumes and crowding of t he vascular markings. No focal infiltrates are seen. No large pneumothorax or large pleural effusion can be seen. Stable minimal reticular markings are seen. Mediastinum: Mediastinal contours are normal. Heart size is normal. Calcification is seen of the a ortic arch. Bones and chest wall: No suspicious bony abnormalities. Age-appropriate degenerative changes are se en. There is accentuated thoracic kyphosis. Soft tissues appear unremarkable. IMPRESSION: Low lung volumes, without a kendall, acute abnormality seen. Stable reticular markings are seen, which are consistent with mild underlying fibrotic change. Note: No significant discrepancy from the preliminary report. Reviewed by: Sebas Tilley MD on 09/16/2020 6:23 AM LUCIA Approved by: Sebas Tilley MD on 09/16/2020 6:23 AM LUCIA Station ID: [id number]
== END 2020-09-16 06:21 | disposition home or self-care (01) ==
LOC: EDUNIT# → ED 23:07
DX: J44.1 Chronic obstructive pulmonary disease with (acute) exacerbation (principal); Z20.822 Contact with and (suspected) exposure to COVID-19; I49.3 Ventricular premature depolarization; I45.10 Unspecified right bundle-branch block; I10 Essential (primary) hypertension; Z86.718 Personal history of other venous thrombosis and embolism; Z86.711 Personal history of pulmonary embolism; Z79.01 Long term (current) use of anticoagulants
CPT/HCPCS: 0202U; 36415; 80053; 83690; 83880; 84484; 85025; 93005; 94640; 99284

== ENCOUNTER 2020-10-25 | Outpatient (CLI) | payer MEDICARE, MEDICAID | END 2020-10-25 13:01 | disposition short-term general hospital (02) | CPT/HCPCS: A0425; A0429 ==

== ENCOUNTER 2021-05-25 05:09 | Outpatient (CLI) | payer MEDICARE, MEDICAID | END 2021-05-25 05:10 | disposition short-term general hospital (02) | LOC: EMS 05:09 | DX: R06.02 Shortness of breath (principal); F41.9 Anxiety disorder, unspecified | CPT/HCPCS: A0425; A0429 ==

== ENCOUNTER 2021-06-04 21:00 | Emergency (ER) | payer MEDICARE, MEDICAID ==
[2021-06-04] MEDS ORDERED: ALBUTEROL NEB 2.5 MG/3 ML INH STA (21:07)
[2021-06-04] MEDS ORDERED: IPRATROPIUM/ALBUTEROL 3 ML NEB INH STA (21:07)
--- NOTE | 2021-06-04 21:11 | ED Physician Documentation ---
History of Present Illness - Stated complaint Stated Complaint: COPD - Chief complaint Chief Complaint: Resp - History obtained from History obtained from: Patient - Additonal information Additional information: 65-year-old man with history of COPD on 2 L home of oxygen, A. fib with right bundle branch block, presents with shortness of breath he states is consistent with his usual COPD exacerbation. Patient was discharged 10 days ago from [facility] for COPD exacerbation and states his been short of breath since that time. He has not refilled his albuterol. He called EMS and was given 1 DuoNeb and 125 of IV Solu-Medrol. Denies fever, hemoptysis, productive cough, leg swelling, orthopnea. Review of Systems Ten Systems: 10 systems reviewed and negative Constitutional: denies: Fever Cardiac: denies: Chest pain / pressure Respiratory: reports: Dyspnea, Cough (nonproductive) PD PAST MEDICAL HISTORY - Past Medical History Cardiovascular: Hypertension, High cholesterol, Deep vein thrombosis, Pulmonary embolism Respiratory: COPD Neuro: CVA Endocrine/Autoimmune: HyPOthyroidism Psych: Anxiety, Bipolar disorder - Past Surgical History Past Surgical History: Yes Ortho: Arthroscopic surgery - Present Medications Home Medications: Ambulatory Orders Medication Instructions Recorded Confirmed Amitriptyline [Elavil] 25 mg PO QPM 11/09/17 09/16/20 Atorvastatin [Lipitor] 80 mg PO DAILY 11/09/17 09/16/20 Benzonatate 100 mg PO 11/09/17 Levothyroxine [Synthroid] 75 mcg PO QDAC 11/09/17 09/16/20 Losartan [Cozaar] 100 mg ORAL DAILY 11/09/17 09/16/20 Omeprazole 40 mg PO DAILY 11/09/17 09/16/20 Rivaroxaban [Xarelto] 20 mg PO DAILY 11/09/17 09/16/20 diltiaZEM [Cardizem] 240 mg ORAL DAILY 11/09/17 09/16/20 Albuterol Sulf [Ventolin Hfa 05/08/20 Inhaler] Azithromycin [Zithromax] 250 mg PO TID 05/08/20 09/16/20 predniSONE [Deltasone] 40 mg PO DAILY #8 tab 05/08/20 09/16/20 predniSONE [Deltasone] 40 mg PO DAILY 4 Days #8 tablet 09/16/20 - Allergies Allergies/Adverse Reactions: Allergies Allergy/AdvReac Type Severity Reaction Status Date / Time Penicillins Allergy Unknown Verified 06/04/21 21:05 - Social History Does the pt smoke?: Yes Smoking Status: Current every day smoker Does the pt drink ETOH?: Yes Does the pt have substance abuse?: No - Immunizations Immunizations are current?: No Immunizations: TDAP >10years/unknown - POLST Patient has POLST: No PD ED PE NORMAL - Vitals Vital signs reviewed: Yes - General General: Alert and oriented X 3, Well developed/nourished, Other (mild respiratory distress) - HEENT HEENT: Atraumatic, PERRL, EOMI - Neck Neck: Supple, no meningeal sign - Cardiac Cardiac: RRR - Respiratory Respiratory: No respiratory distress, Clear bilaterally - Abdomen Abdomen: Non tender, Non distended - Derm Derm: Normal color, Warm and dry - Extremities Extremities: No deformity, No edema - Neuro Neuro: Alert and oriented X 3 - Psych Psych: Other (anxious affect) Results - Vitals Vitals: Vital Signs - 24 hr 06/04/21 06/04/21 06/04/21 21:05 21:18 21:38 Temperature 36.9 C Heart Rate 91 88 106 H Respiratory 27 H 22 21 Rate Blood Pressure 131/95 H 133/92 H O2 Saturation 96 95 06/04/21 22:08 Temperature Heart Rate 91 Respiratory 22 Rate Blood Pressure 137/99 H O2 Saturation 93 Oxygen O2 Source Nasal cannula - EKG (time done) 2200 Rate: Rate (enter#) (102) Rhythm: Sinus tachycardia Other comments: Other comments (RBBB) Compare to prior EKG: Unchanged from prior EKG (09/15/20) - Labs Labs: Laboratory Tests 06/04/21 06/04/21 06/04/21 21:13 21:13 21:13 WBC 15.2 H RBC 4.60 L Hgb 13.3 L Hct 41.3 L MCV 89.8 MCH 28.9 MCHC 32.2 RDW 15.2 H Plt Count 403 MPV 9.3 Neut # (Auto) 9.6 H Lymph # (Auto) 4.2 H Bertie # (Auto) 1.3 H Eos # (Auto) 0.0 Baso # (Auto) 0.0 Absolute Nucleated RBC 0.00 Nucleated RBC % 0.0 VBG pH 7.373 VBG pCO2 38.3 L VBG pO2 51.3 H VBG HCO3 21.8 L VBG Total CO2 23.0 L VBG O2 Saturation 84.1 H VBG Base Excess -3.0 L Sodium 140 Potassium 4.3 Chloride 102 Carbon Dioxide 25 Anion Gap 13.0 BUN 13 Creatinine 1.0 Estimated GFR (MDRD) 75 L Glucose 124 H Calcium 9.6 Total Bilirubin 0.7 AST 22 ALT 33 Alkaline Phosphatase 69 Total Protein 7.6 Albumin 4.4 Globulin 3.2 Albumin/Globulin Ratio 1.4 Lipase 25 PD MEDICAL DECISION MAKING - ED course ED course: 65yM, noncompliant with meds, p/w SOA bibems despite refusing care en route. steroids and first neb given by ems. will administer additional treatments here. patient with o2 sat in low to mid 90s on RA. Placed on 2L o2 since he says he uses that amount at home. Patient noncompliant in the ED, arguing with staff, refusing to stay in his room, ripped out IV and took off oxygen. VBG normal with elevated oxygen. Leukocytosis may be c/w his recent steroid administration today and 10 days ago vs infectious cause. patient refusing further blood draws for blood culture and lactic acid. I d/w him that he has fluid on his lungs and possible pneumonia and he states he is currently undertaking a full course of doxycycline at home and is not having fever or productive cough. Patient is AOX3 and has capacity to refuse care. Advised him he needs to f/u with his PMD for referral to pulmonology. Will dc home with strict return precautions. Departure - Departure Disposition: 01 Home, Self Care Clinical Impression: Pleural effusion, Shortness of breath Condition: Stable Instructions: Effusion Pleural Comments: You were seen in the emergency department for evaluation of shortness of breath. Your labwork doesn't look like you are having a copd exacerbation but you do have fluid on your lungs on xray (pleural effusion) and need to see your primary doctor for referral to pulmonology. Return to the ED if you have new or worsening symptoms or other concerns.
[2021-06-04] MEDS ORDERED: LORazepam 2 MG/ML VIAL IVP STA (21:12)
[2021-06-04 21:19] LABS: BASOPHILS % (AUTO) 0.2 %; EOSINOPHILS % (AUTO) 0.1 %; HCT - HEMATOCRIT 41.3 % (42.0-52.0); HGB - HEMOGLOBIN 13.3 g/dL (14.0-18.0); LYMPHOCYTES # (AUTO) 4.2 10^3/uL (1.5-3.5); LYMPHOCYTES % (AUTO) 27.7 %; MEAN CORPUSCULAR HEMOGLOBIN 28.9 pg (27.0-31.0); MEAN CORPUSCULAR HGB CONC 32.2 g/dL (32.0-36.0); MEAN CORPUSCULAR VOLUME 89.8 fL (80.0-94.0); MEAN PLATELET VOLUME 9.3 fL (7.4-11.4); MONOCYTES # (AUTO) 1.3 10^3/uL (0.0-1.0); MONOCYTES % (AUTO) 8.3 %; NEUTROPHILS # (AUTO) 9.6 10^3/uL (1.5-6.6); NEUTROPHILS % (AUTO) 63.2 %; PLT - PLATELET COUNT 403 10^3/uL (130-450); RED CELL DISTRIBUTION WIDTH 15.2 % (12.0-15.0); WHITE BLOOD COUNT 15.2 x10^3/uL (4.8-10.8)
[2021-06-04 21:23] LABS: VBG HCO3 21.8 mmol/L (23-28); VBG OXYGEN SATURATION 84.1 % (60-80); VBG PCO2 38.3 mmHg (41-51); VBG PH 7.373 (7.31-7.41); VBG PO2 51.3 mmHg (25-47)
[2021-06-04 21:35] LABS: ALBUMIN 4.4 g/dL (3.2-5.5); ALBUMIN/GLOBULIN RATIO 1.4 (1.0-2.2); BILIRUBIN,TOTAL 0.7 mg/dL (0.2-1.0); CALCIUM 9.6 mg/dL (8.5-10.3); POTASSIUM 4.3 mmol/L (3.5-5.0); TOTAL PROTEIN 7.6 g/dL (6.7-8.2)
--- NOTE | 2021-06-04 22:08 | XRAY Report ---
PROCEDURE: Chest 1 View X-Ray INDICATIONS: Chest Pain TECHNIQUE: One view of the chest was acquired. COMPARISON: 09/15/2020 FINDINGS: Surgical changes and devices: None. Lungs and pleura: There are low lung volumes. There is persistent pulmonary edema which appears viki lar to the prior study. Left retrocardiac opacities consistent with atelectasis or consolidation also appear similar to the prior study. There is a small left pleural effusion which appears slightly inc reased. Mediastinum: Mediastinal contours appear unchanged. Heart size is enlarged. Bones and chest wall: No suspicious bony lesions. Overlying soft tissues appear unremarkable. IMPRESSION: 1. Persistent pulmonary edema with small left pleural effusion and left retrocardiac atelectasis or c onsolidation. Reviewed by: Greg Chamberlain MD on 06/04/2021 10:07 PM PST Approved by: Greg Chamberlain MD on 06/04/2021 10:07 PM [facility] Station ID: [id number]
[2021-06-04] MEDS ORDERED: SODIUM CHLORIDE 0.9% 500 ML IV STA (22:14)
[2021-06-04 23:08] VITALS: BP 135/89
== END 2021-06-04 23:06 | disposition home or self-care (01) ==
LOC: EDUNIT# → ED 21:00
DX: J90 Pleural effusion, not elsewhere classified (principal); F17.200 Nicotine dependence, unspecified, uncomplicated
CPT/HCPCS: 36415; 71045; 80053; 82803; 83690; 85025; 93005; 94640; 94664; 96374; 99283; 99284; J2060; 83605; 87040

== ENCOUNTER 2021-08-31 20:51 | Emergency (ER) | payer MEDICARE, MEDICAID ==
--- NOTE | 2021-08-31 21:12 | ED Physician Documentation ---
PD HPI DYSPNEA - Stated complaint Stated Complaint: DIFF BREATHING - Chief complaint Chief Complaint: Resp - History obtained from History obtained from: Patient - Additional information Additional information: Patient is a 65-year-old gentleman with a history significant for COPD. This evening he noticed sugar ants in his kitchen And sprayed Zevo And spray in the kitchen. He then started to watch we [place] but was breathing the fumes and felt shortness of breath.He activated EMS. When EMS arrived, his O2 saturations were 90% on room air. He is supposed to wear 2 L of oxygen. He was given an MDI inhaler and Solu-Medrol 125 mg. He reports improvement in his symptoms. He reports being hospitalized approximately 1 month ago for pneumonia and completed a course of prednisone and Antibiotics.He denies recent illness otherwise. He denies recent fever, productive cough, chest pain, abdominal pain, leg swelling. Review of Systems Constitutional: denies: Fever Nose: denies: Congestion Cardiac: denies: Chest pain / pressure Respiratory: reports: Dyspnea, Cough GI: denies: Abdominal Pain, Vomiting : denies: Dysuria Skin: denies: Rash Musculoskeletal: denies: Back pain Neurologic: denies: Headache PD PAST MEDICAL HISTORY - Past Medical History Cardiovascular: Hypertension, High cholesterol, Deep vein thrombosis, Pulmonary embolism Respiratory: COPD Neuro: CVA Endocrine/Autoimmune: HyPOthyroidism Psych: Anxiety, Bipolar disorder - Past Surgical History Past Surgical History: Yes Ortho: Arthroscopic surgery - Present Medications Home Medications: Ambulatory Orders Medication Instructions Recorded Confirmed Amitriptyline [Elavil] 25 mg PO QPM 11/09/17 09/16/20 Atorvastatin [Lipitor] 80 mg PO DAILY 11/09/17 09/16/20 Benzonatate 100 mg PO 11/09/17 Levothyroxine [Synthroid] 75 mcg PO QDAC 11/09/17 09/16/20 Losartan [Cozaar] 100 mg ORAL DAILY 11/09/17 09/16/20 Omeprazole 40 mg PO DAILY 11/09/17 09/16/20 Rivaroxaban [Xarelto] 20 mg PO DAILY 11/09/17 09/16/20 diltiaZEM [Cardizem] 240 mg ORAL DAILY 11/09/17 09/16/20 Albuterol Sulf [Ventolin Hfa 05/08/20 Inhaler] Azithromycin [Zithromax] 250 mg PO TID 05/08/20 09/16/20 predniSONE [Deltasone] 40 mg PO DAILY #8 tab 05/08/20 09/16/20 predniSONE [Deltasone] 40 mg PO DAILY 4 Days #8 tablet 09/16/20 predniSONE [Deltasone] 40 mg PO DAILY 5 Days #10 tablet 08/31/21 - Allergies Allergies/Adverse Reactions: Allergies Allergy/AdvReac Type Severity Reaction Status Date / Time Penicillins Allergy Unknown Verified 08/31/21 21:06 - Social History Does the pt smoke?: Yes Smoking Status: Current every day smoker Does the pt drink ETOH?: Yes Does the pt have substance abuse?: No - Immunizations Immunizations are current?: No Immunizations: TDAP >10years/unknown - POLST Patient has POLST: No PD ED PE NORMAL - General General: Alert and oriented X 3, No acute distress, Well developed/nourished - HEENT HEENT: Atraumatic - Neck Neck: Supple, no meningeal sign - Cardiac Cardiac: RRR, No murmur, Strong equal pulses - Respiratory Respiratory: No respiratory distress, Clear bilaterally - Abdomen Abdomen: Normal bowel sounds, Soft, Non tender, Non distended - Derm Derm: Normal color, Warm and dry - Extremities Extremities: No edema, No calf tenderness / cord - Neuro Neuro: Alert and oriented X 3, No motor deficit, Normal speech - Psych Psych: Normal mood, Normal affect Results - Vitals Vitals: Vital Signs - 24 hr 08/31/21 08/31/21 08/31/21 20:58 21:05 22:57 Temperature 37.2 C 37.2 C 37.0 C Heart Rate 101 H 101 H 90 Respiratory 23 23 20 Rate Blood Pressure 136/74 H 136/74 H 130/76 O2 Saturation 98 98 98 08/31/21 23:54 Temperature 37.0 C Heart Rate 88 Respiratory 18 Rate Blood Pressure 128/78 O2 Saturation 94 Oxygen O2 Source Room air Oxygen Flow Rate 4 - EKG (time done) 1 Rate: Rate (enter#) (79) Rhythm: NSR Intervals: Prolonged SC (226), RBBB Ischemia: No: ST elevation c/w ischemia - Labs Labs: Laboratory Tests 08/31/21 08/31/21 08/31/21 21:14 21:14 21:14 WBC 6.7 RBC 4.58 L Hgb 13.2 L Hct 40.1 L MCV 87.6 MCH 28.8 MCHC 32.9 RDW 14.9 Plt Count 398 MPV 9.1 Neut # (Auto) 2.7 Lymph # (Auto) 3.1 [place] # (Auto) 0.7 Eos # (Auto) 0.1 Baso # (Auto) 0.1 Absolute Nucleated RBC 0.00 Nucleated RBC % 0.0 Sodium 144 Potassium 4.1 Chloride 105 Carbon Dioxide 25 Anion Gap 14.0 H BUN 19 Creatinine 1.1 Estimated GFR (MDRD) 67 L Glucose 119 H Calcium 8.9 Total Bilirubin 0.6 AST 30 ALT 31 Alkaline Phosphatase 78 Troponin I High Sens 5.9 Total Protein 7.7 Albumin 4.5 Globulin 3.2 Albumin/Globulin Ratio 1.4 PD MEDICAL DECISION MAKING - ED course ED course: Patient evaluated for shortness of breath after usingAnd spray at his home. EMS had given him breathing treatment and steroids prior to my assessment. Upon my assessment he is nonlabored with clear breath sounds and reassuring vital signs. EKG is without acute ischemic changes, labs are reassuring, x-ray without focal consolidation. COPD likely triggered by fragrance related to the ant spray he had used. Patient is breathing comfortably here and is comfortable with plan for discharge. 1015 - Patient is sleeping, Not labored with breathing. Upon awakening, states his breathing feels improved.Heart rate has improved into the 80s. Oxygen saturation is stable. Discussed labs and x-ray findings.Lung sounds are clear. Patient agreeable to discharge.Aware of strict return precautions. He has breathing treatments available at home. Will give a short course of prednisone. Departure - Departure Disposition: 01 Home, Self Care Clinical Impression: COPD exacerbation Condition: Stable Instructions: ED COPD Flare Prescriptions: predniSONE [Deltasone] 40 mg PO DAILY 5 Days #10 tablet Comments: You were evaluated for issues related to your breathing. I believe you have had an exacerbation of your COPD. Please use your nebulizers at home as prescribed. You will also be given a short course of steroid pills. Prescription was sent to the [facility] in [place].Please wear your oxygen as prescribed. If your breathing worsens or you develop new symptoms such as chest pain,Abdominal pain, weakness Return to the emergency department. Otherwise please follow-up with your primary care doctor in 1 week. A Covid swab was performed tonight and results will be available in the next 1 to 2 days. If it is abnormal you will receive a phone call. Discharge Date/Time: 08/31/21 23:54
[2021-08-31 21:22] LABS: BASOPHILS # (AUTO) 0.1 10^3/uL (0.0-0.1); BASOPHILS % (AUTO) 0.7 %; EOSINOPHILS # (AUTO) 0.1 10^3/uL (0.0-0.7); EOSINOPHILS % (AUTO) 1.9 %; HCT - HEMATOCRIT 40.1 % (42.0-52.0); HGB - HEMOGLOBIN 13.2 g/dL (14.0-18.0); LYMPHOCYTES # (AUTO) 3.1 10^3/uL (1.5-3.5); LYMPHOCYTES % (AUTO) 46.3 %; MEAN CORPUSCULAR HEMOGLOBIN 28.8 pg (27.0-31.0); MEAN CORPUSCULAR HGB CONC 32.9 g/dL (32.0-36.0); MEAN CORPUSCULAR VOLUME 87.6 fL (80.0-94.0); MEAN PLATELET VOLUME 9.1 fL (7.4-11.4); MONOCYTES # (AUTO) 0.7 10^3/uL (0.0-1.0); MONOCYTES % (AUTO) 9.7 %; NEUTROPHILS # (AUTO) 2.7 10^3/uL (1.5-6.6); NEUTROPHILS % (AUTO) 41.1 %; PLT - PLATELET COUNT 398 10^3/uL (130-450); RED BLOOD COUNT 4.58 10^6/uL (4.70-6.10); RED CELL DISTRIBUTION WIDTH 14.9 % (12.0-15.0); WHITE BLOOD COUNT 6.7 x10^3/uL (4.8-10.8)
[2021-08-31 21:34] LABS: ALBUMIN 4.5 g/dL (3.2-5.5); ALBUMIN/GLOBULIN RATIO 1.4 (1.0-2.2); BILIRUBIN,TOTAL 0.6 mg/dL (0.2-1.0); CALCIUM 8.9 mg/dL (8.5-10.3); CREATININE 1.1 mg/dL (0.6-1.2); POTASSIUM 4.1 mmol/L (3.5-5.0); TOTAL PROTEIN 7.7 g/dL (6.7-8.2)
--- OUTSIDE RECORDS SUMMARY | 2021-08-31 21:51 | EXTERNAL MEDICAL SUMMARY RPT | Continuity of Care Document ---
:1955 Author Organization [facility] Address [address] [place] [address] Phone Care Team Providers Name Role Phone Bill Unavailable Unavailable Allergies No information. Encounters No information. Medications date description facility [id number] Losartan Potassium 100 MG Oral Tablet [facility] [id number] Albuterol 0.83 MG/ML Inhalant Solution [facility] Problems Procedures date description facility [id number] General Physician [facility] Results No information.
--- NOTE | 2021-08-31 22:20 | XRAY Report ---
PROCEDURE: Chest 1 View X-Ray INDICATIONS: SOB TECHNIQUE: One view of the chest was acquired. COMPARISON: Chest plain films from 06/04/2021 and 09/16/2020 reviewed. FINDINGS: Surgical changes and devices: None. Lungs and pleura: No pleural effusions or pneumothorax. Lungs are difficult to accurately assess du e to body habitus and reduced inspiratory volume. Crowding of the bronchovascular markings may simply represent atelectasis. A focal pneumonia or evidence of pneumothorax is not seen.. Mediastinum: Mediastinal contours appear normal. Heart size is normal. Bones and chest wall: No suspicious bony lesions. Overlying soft tissues appear unremarkable. IMPRESSION: Large body habitus, reduced inspiration, probable atelectasis rather than CHF or mild generalized pne umonia. Reviewed by: Raffi Richardson MD on 08/31/2021 10:18 PM PDT Approved by: Raffi Richardson MD on 08/31/2021 10:18 PM PDT Station ID: [id number]
[2021-08-31 23:55] VITALS: BP 128/78
== END 2021-08-31 23:54 | disposition home or self-care (01) ==
LOC: EDUNIT# → ED 20:51
DX: J44.1 Chronic obstructive pulmonary disease with (acute) exacerbation (principal); Z99.81 Dependence on supplemental oxygen; I10 Essential (primary) hypertension; Z86.718 Personal history of other venous thrombosis and embolism; Z79.01 Long term (current) use of anticoagulants; F17.200 Nicotine dependence, unspecified, uncomplicated
CPT/HCPCS: 36415; 71045; 80053; 84484; 85025; 93005; 99284; U0004

== ENCOUNTER 2021-09-14 16:04 | Outpatient (CLI) | payer MEDICARE, MEDICAID | END 2021-09-14 16:05 | disposition EMS.NT | LOC: EMS 16:04 | DX: S80.11XA Contusion of right lower leg, initial encounter (principal); X58.XXXA Exposure to other specified factors, initial encounter ==

== ENCOUNTER 2021-10-09 17:23 | Outpatient (CLI) | payer MEDICARE, MEDICAID | END 2021-10-09 17:24 | disposition critical access hospital (66) | LOC: EMS 17:23 | DX: R06.02 Shortness of breath (principal); R41.0 Disorientation, unspecified | CPT/HCPCS: A0425; A0427 ==

== ENCOUNTER 2021-10-09 17:43 | Emergency (ER) | payer MEDICARE, MEDICAID ==
[2021-10-09] MEDS ORDERED: IPRATROPIUM/ALBUTEROL 3 ML NEB INH STA (17:49)
[2021-10-09] MEDS ORDERED: methylPREDNISolone SUCCINATE 125 MG/2 ML VIAL IVP STA (17:50)
--- NOTE | 2021-10-09 17:52 | ED Physician Documentation ---
History of Present Illness - Stated complaint Stated Complaint: SOA - History obtained from History obtained from: Patient, EMS - History of Present Illness Timing: Today Pain level max: 0 Pain level now: 0 - Additonal information Additional information: Patient is a 65-year-old male who presents to the emergency department with difficulty breathing. He states that this started today. Has a history of oxygen dependent COPD. He is supposed to be on 2 to 3 L at home. He states that he uses this intermittently. He states that today he has used his inhalers 4-5 times and continues to have difficulty breathing. 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 No fevers. No chills. Mild dry cough, chronic, unchanged. Review of Systems Ten Systems: 10 systems reviewed and negative Constitutional: denies: Fever, Chills Nose: denies: Rhinorrhea / runny nose Throat: denies: Sore throat Cardiac: denies: Chest pain / pressure Respiratory: reports: Dyspnea, Wheezing Skin: denies: Rash Musculoskeletal: denies: Neck pain, Back pain Neurologic: denies: Headache PD PAST MEDICAL HISTORY - Past Medical History Cardiovascular: Hypertension, High cholesterol, Deep vein thrombosis, Pulmonary embolism Respiratory: COPD Neuro: CVA Endocrine/Autoimmune: HyPOthyroidism Psych: Anxiety, Bipolar disorder - Past Surgical History Past Surgical History: Yes Ortho: Arthroscopic surgery - Present Medications Home Medications: Ambulatory Orders Medication Instructions Recorded Confirmed Amitriptyline [Elavil] 25 mg PO QPM 11/09/17 10/09/21 Atorvastatin [Lipitor] 80 mg PO DAILY 11/09/17 10/09/21 Levothyroxine [Synthroid] 75 mcg PO QDAC 11/09/17 10/09/21 Losartan [Cozaar] 100 mg ORAL DAILY 11/09/17 10/09/21 Omeprazole 40 mg PO DAILY 11/09/17 10/09/21 Rivaroxaban [Xarelto] 20 mg PO DAILY 11/09/17 10/09/21 diltiaZEM [Cardizem] 240 mg ORAL DAILY 11/09/17 10/09/21 Albuterol 1 amp NEB PRN PRN 10/09/21 10/09/21 predniSONE [Deltasone] 10 mg PO [id number] #42 tab 10/09/21 - Allergies Allergies/Adverse Reactions: Allergies Allergy/AdvReac Type Severity Reaction Status Date / Time Penicillins Allergy Unknown Verified 10/09/21 17:53 - Social History Does the pt smoke?: Yes Smoking Status: Current every day smoker Does the pt drink ETOH?: Yes Does the pt have substance abuse?: No - Immunizations Immunizations are current?: No Immunizations: TDAP >10years/unknown - POLST Patient has POLST: No PD ED PE NORMAL - Vitals Vital signs reviewed: Yes - General General: Alert and oriented X 3, Other (Mild respiratory distress.) - HEENT HEENT: PERRL, Moist mucous membranes - Neck Neck: Supple, no meningeal sign - Cardiac Cardiac: RRR - Respiratory Respiratory: Other (Diminished breath sounds and wheezing bilaterally) - Abdomen Abdomen: Soft, Non tender, Non distended - Derm Derm: Warm and dry, No rash - Extremities Extremities: No edema, No calf tenderness / cord - Neuro Neuro: Alert and oriented X 3 - Psych Psych: Normal mood, Normal affect Results - Vitals Vitals: Vital Signs - 24 hr 10/09/21 10/09/21 10/09/21 17:50 18:02 18:57 Temperature 36.9 C Heart Rate 79 70 126 H Respiratory 20 22 21 Rate Blood Pressure 161/107 H O2 Saturation 94 10/09/21 10/09/21 19:53 20:24 Temperature 36.8 C Heart Rate 87 85 Respiratory 14 15 Rate Blood Pressure 126/83 H 126/81 H O2 Saturation 93 93 Oxygen O2 Source Nasal cannula Oxygen Flow Rate 2 - Labs Labs: Laboratory Tests 10/09/21 10/09/21 10/09/21 18:00 18:07 18:07 WBC 7.8 RBC 4.67 L Hgb 13.2 L Hct 41.1 L MCV 88.0 MCH 28.3 MCHC 32.1 RDW 15.0 Plt Count 440 MPV 9.4 Neut # (Auto) 3.8 Lymph # (Auto) 3.2 [place] # (Auto) 0.7 Eos # (Auto) 0.1 Baso # (Auto) 0.1 Absolute Nucleated RBC 0.00 Nucleated RBC % 0.0 Sodium 144 Potassium 4.3 Chloride 106 Carbon Dioxide 26 Anion Gap 12.0 BUN 14 Creatinine 1.1 Estimated GFR (MDRD) 67 L Glucose 105 H Calcium 9.3 Total Bilirubin 0.6 AST 26 ALT 25 Alkaline Phosphatase 79 Total Protein 7.8 Albumin 4.5 Globulin 3.3 Albumin/Globulin Ratio 1.4 Nasal Adenovirus (PCR) NOT DETECTED Nasal B. parapertussis DNA (PCR) NOT DETECTED Nasal Coronavir 229E PCR NOT DETECTED Nasal Coronavir HKU1 PCR NOT DETECTED Nasal Coronavir NL63 PCR NOT DETECTED Nasal Coronavir OC43 PCR NOT DETECTED Nasal Enterovir/Rhinovir PCR NOT DETECTED Nasal Influenza B PCR NOT DETECTED Nasal Influenza A PCR NOT DETECTED Nasal Parainfluen 1 PCR NOT DETECTED Nasal Parainfluen 2 PCR NOT DETECTED Nasal Parainfluen 3 PCR NOT DETECTED Nasal Parainfluen 4 PCR NOT DETECTED Nasal RSV (PCR) NOT DETECTED Nasal B.pertussis DNA PCR NOT DETECTED Nasal C.pneumoniae (PCR) NOT DETECTED Vinny Human Metapneumo PCR NOT DETECTED Nasal M.pneumoniae (PCR) NOT DETECTED Nasal SARS-CoV-2 (PCR) NOT DETECTED - Rads (name of study) Chest x-ray Radiology: Final report received, EMP read contemporaneously, See rad report (Trace costophrenic angle blunting possibly related to scarring versus trace eff usions. ) PD MEDICAL DECISION MAKING - ED course Complexity details: reviewed results, re-evaluated patient, considered differential, d/w patient ED course: 65-year-old male with COPD appears to have an acute exacerbation. Given Solu- Medrol as well as breathing treatments. Tachypnea and dyspnea resolved. He is stable on his home O2 at approximately 94%. Ambulating without any difficulty. We will place on a steroid taper for home. He states he has plenty of inhalers at home. No fevers. No chills. No evidence of pneumonia. No indication for antibiotics. Patient counseled regarding signs and symptoms for which I believe and urgent re-evaluation would be necessary. Patient with good understanding of and agreement to plan and is comfortable going home at this time This document was made in part using voice recognition software. While efforts are made to proofread this document, sound alike and grammatical errors may occur. Departure - Departure Disposition: 01 Home, Self Care Clinical Impression: COPD exacerbation Condition: Good Instructions: ED COPD Flare Follow-Up: your,doctor in 1 week [Other] Prescriptions: predniSONE [Deltasone] 10 mg PO [id number] #42 tab Comments: Continue your current medications at home. Please follow-up with your doctor for further care. Return if you worsen. Your prescriptions were sent to [facility]. Discharge Date/Time: 10/09/21 20:35
[2021-10-09 18:13] LABS: BASOPHILS # (AUTO) 0.1 10^3/uL (0.0-0.1); BASOPHILS % (AUTO) 0.9 %; EOSINOPHILS # (AUTO) 0.1 10^3/uL (0.0-0.7); HCT - HEMATOCRIT 41.1 % (42.0-52.0); HGB - HEMOGLOBIN 13.2 g/dL (14.0-18.0); LYMPHOCYTES # (AUTO) 3.2 10^3/uL (1.5-3.5); LYMPHOCYTES % (AUTO) 40.9 %; MEAN CORPUSCULAR HEMOGLOBIN 28.3 pg (27.0-31.0); MEAN CORPUSCULAR HGB CONC 32.1 g/dL (32.0-36.0); MEAN PLATELET VOLUME 9.4 fL (7.4-11.4); MONOCYTES # (AUTO) 0.7 10^3/uL (0.0-1.0); MONOCYTES % (AUTO) 8.4 %; NEUTROPHILS # (AUTO) 3.8 10^3/uL (1.5-6.6); NEUTROPHILS % (AUTO) 48.5 %; PLT - PLATELET COUNT 440 10^3/uL (130-450); RED BLOOD COUNT 4.67 10^6/uL (4.70-6.10); WHITE BLOOD COUNT 7.8 x10^3/uL (4.8-10.8)
--- NOTE | 2021-10-09 18:17 | XRAY Report ---
PROCEDURE: Chest 1 View X-Ray INDICATIONS: dyspnea, wheezing TECHNIQUE: One view of the chest was acquired. COMPARISON: Chest x-ray 08/31/2021 FINDINGS: Surgical changes and devices: None. Lungs and pleura: There is trace costophrenic angle blunting, unchanged. Mediastinum: Mediastinal contours appear normal. Heart size is enlarged. Bones and chest wall: No suspicious bony lesions. Overlying soft tissues appear unremarkable. IMPRESSION: Trace costophrenic angle blunting possibly related to scarring versus trace effusions. Reviewed by: Sapna Lopez MD on 10/09/2021 5:15 PM [facility] Approved by: Sanpa Lopez MD on 10/09/2021 5:15 PM [facility] Station ID: [id number]
[2021-10-09 18:26] LABS: ALBUMIN 4.5 g/dL (3.2-5.5); ALBUMIN/GLOBULIN RATIO 1.4 (1.0-2.2); BILIRUBIN,TOTAL 0.6 mg/dL (0.2-1.0); CALCIUM 9.3 mg/dL (8.5-10.3); CREATININE 1.1 mg/dL (0.6-1.2); POTASSIUM 4.3 mmol/L (3.5-5.0); TOTAL PROTEIN 7.8 g/dL (6.7-8.2)
[2021-10-09] MEDS ORDERED: ALBUTEROL NEB 2.5 MG/3 ML INH STA (18:35)
[2021-10-09] MEDS ORDERED: ACETAMINOPHEN 325 MG TABLET PO STA (18:39)
[2021-10-09 19:07] LABS: CORONAVIRUS 229E-RESP PCR NOT DETECTED; CORONAVIRUS HKU1-RESP PCR NOT DETECTED; CORONAVIRUS NL63-RESP PCR NOT DETECTED; CORONAVIRUS OC43-RESP PCR NOT DETECTED; HUMAN METAPNEUMOVIRUS NOT DETECTED; RHINOVIRUS/ENTEROVIRUS NOT DETECTED; SARS-CoV-2 -RESP PCR PANEL NOT DETECTED
[2021-10-09 19:08] LABS: B. PARAPERTUSSIS- RESP PCR PAN NOT DETECTED; B. PERTUSSIS- RESP PCR PANEL NOT DETECTED; C. PNEUMONIAE- RESP PCR PANEL NOT DETECTED; INFLUENZA A- RESP PCR PANEL NOT DETECTED; INFLUENZA B - RESP PCR PANEL NOT DETECTED; M. PNEUMONIAE- RESP PCR PANEL NOT DETECTED; PARAINFLUENZA VIRUS 1 NOT DETECTED; PARAINFLUENZA VIRUS 2 NOT DETECTED; PARAINFLUENZA VIRUS 3 NOT DETECTED; PARAINFLUENZA VIRUS 4 NOT DETECTED; RSV- RESP PCR PANEL NOT DETECTED
[2021-10-09 20:25] VITALS: BP 126/81
== END 2021-10-09 20:35 | disposition home or self-care (01) ==
LOC: EDUNIT# → ED 17:43
DX: J44.1 Chronic obstructive pulmonary disease with (acute) exacerbation (principal); Z99.81 Dependence on supplemental oxygen; I10 Essential (primary) hypertension; F17.200 Nicotine dependence, unspecified, uncomplicated
CPT/HCPCS: 36415; 71045; 80053; 85025; 87633; 94640; 96374; 99283; 99285; A9270

== ENCOUNTER 2021-10-10 22:57 | Outpatient (CLI) | payer MEDICARE, MEDICAID | END 2021-10-10 23:59 | disposition critical access hospital (66) | LOC: EMS 22:57 | DX: R06.00 Dyspnea, unspecified (principal); R07.89 Other chest pain | CPT/HCPCS: A0425; A0427 ==

== ENCOUNTER 2021-10-10 23:16 | Emergency (ER) | payer MEDICARE, MEDICAID ==
[2021-10-10] MEDS ORDERED: LORazepam 2 MG/ML VIAL IVP STA (23:25)
--- NOTE | 2021-10-10 23:29 | ED Physician Documentation ---
History of Present Illness - Stated complaint Stated Complaint: SOA - Chief complaint Chief Complaint: Resp - History obtained from History obtained from: Patient, EMS - Additonal information Additional information: The patient is brought to the emergency department by EMS for chief complaint of difficulty breathing. Patient has a history of COPD and was just seen here yesterday for the same symptoms. However, he states that although he has been on steroids and his inhalers at home, he believes that this particular episode was triggered by himself getting upset with the pharmacy because they did not have his medication ready. He states they told him they had never received the prescription and he had to call back a couple of times because they would hang up on him. Patient states he got upset and it triggered some difficulty breathing. The patient tried taking his inhalers at home and it did not seem to help. The patient called EMS, who found the patient to not be wearing his oxygen and his O2 sat was 79% on room air. When they put him in the ambulance, they initially put him on a nonrebreather at 100%, and his sats very quickly came up to 100% on that. They removed the nonrebreather and found the patient was 94% on room air. They gave him a DuoNeb which they state he was only partially compliant with, and he maintained his oxygen saturation of 94% the entire way. Patient seems to have calm down in the ambulance, per medics, and is doing much better. The patient states that he does not want another breathing treatment because it will just tire him out. No fevers recently. The patient's chest x- ray yesterday was unremarkable and labs were also done and unremarkable. Review of Systems Ten Systems: 10 systems reviewed and negative Constitutional: reports: Reviewed and negative Eyes: reports: Reviewed and negative Ears: reports: Reviewed and negative Nose: reports: Reviewed and negative Throat: reports: Reviewed and negative Cardiac: reports: Reviewed and negative Respiratory: reports: Dyspnea, Wheezing GI: reports: Reviewed and negative : reports: Reviewed and negative Skin: reports: Reviewed and negative Musculoskeletal: reports: Reviewed and negative Neurologic: reports: Reviewed and negative Psychiatric: reports: Reviewed and negative Endocrine: reports: Reviewed and negative Immunocompromised: reports: Reviewed and negative PD PAST MEDICAL HISTORY - Past Medical History Cardiovascular: Hypertension, High cholesterol, Deep vein thrombosis, Pulmonary embolism Respiratory: COPD Neuro: CVA Endocrine/Autoimmune: HyPOthyroidism Psych: Anxiety, Bipolar disorder - Past Surgical History Past Surgical History: Yes Ortho: Arthroscopic surgery - Present Medications Home Medications: Ambulatory Orders Medication Instructions Recorded Confirmed Amitriptyline [Elavil] 25 mg PO QPM 11/09/17 10/09/21 Atorvastatin [Lipitor] 80 mg PO DAILY 11/09/17 10/09/21 Levothyroxine [Synthroid] 75 mcg PO QDAC 11/09/17 10/09/21 Losartan [Cozaar] 100 mg ORAL DAILY 11/09/17 10/09/21 Omeprazole 40 mg PO DAILY 11/09/17 10/09/21 Rivaroxaban [Xarelto] 20 mg PO DAILY 11/09/17 10/09/21 diltiaZEM [Cardizem] 240 mg ORAL DAILY 11/09/17 10/09/21 Albuterol 1 amp NEB PRN PRN 10/09/21 10/09/21 predniSONE [Deltasone] 10 mg PO [id number] #42 tab 10/09/21 - Allergies Allergies/Adverse Reactions: Allergies Allergy/AdvReac Type Severity Reaction Status Date / Time Penicillins Allergy Unknown Verified 10/09/21 17:53 - Social History Does the pt smoke?: Yes Smoking Status: Current every day smoker Does the pt drink ETOH?: Yes Does the pt have substance abuse?: No - Immunizations Immunizations are current?: No Immunizations: TDAP >10years/unknown - POLST Patient has POLST: No PD ED PE NORMAL - Vitals Vital signs reviewed: Yes - General General: Alert and oriented X 3, Well developed/nourished, Other (Patient appears somewhat anxious, but is speaking in full sentences and is in mild respiratory distress as evidenced by mildly labored respirations.) - HEENT HEENT: Atraumatic, PERRL, EOMI, Moist mucous membranes - Neck Neck: Supple, no meningeal sign - Cardiac Cardiac: RRR, No murmur, Strong equal pulses - Respiratory Respiratory: Clear bilaterally, Other (Mild laboring of respirations but patient speaks in full sentences. Moderately diminished air movement in bilateral lower lung beltran.) - Abdomen Abdomen: Soft, Non tender, Non distended - Derm Derm: Normal color, Warm and dry, No rash - Extremities Extremities: No deformity, No edema, No calf tenderness / cord - Neuro Neuro: Alert and oriented X 3, product safety professional 2-12 intact, Normal speech - Psych Psych: Normal mood, Normal affect Results - Vitals Vitals: Vital Signs - 24 hr 10/10/21 10/10/21 10/10/21 23:05 23:27 23:35 Heart Rate 92 89 Respiratory 23 22 Rate Blood Pressure 150/94 H 132/84 H O2 Saturation 93 93 90 L 10/10/21 10/11/21 10/11/21 23:52 00:05 00:23 Heart Rate 95 Respiratory Rate Blood Pressure O2 Saturation 89 L 96 93 Oxygen O2 Source Room air - EKG (time done) 2325 Rate: Rate (enter#) (95), Tachy Rhythm: NSR [place]: Normal Intervals: Normal CT, RBBB, Other (Left anterior fascicular block) QRS: Normal Ischemia: Normal ST segments Compare to prior EKG: Old EKG unavailable Computer interpretation: Agree with computer PD MEDICAL DECISION MAKING - ED course Complexity details: reviewed results, re-evaluated patient, considered differential, d/w patient ED course: The patient did not wish to have another breathing treatment and actually, his oxygen saturation was 94% consistently in the emergency department on just room air and his lungs were clear though breath sounds were diminished at the bases, consistent with his COPD. The patient was already on steroids and his episode of shortness of breath seem to be more related to emotional upset than anything. He had also been given a DuoNeb in route and an IV dose of Solu-Medrol by medics, as well. He was given a milligram of Ativan IV. After some observation time, the patient was found to be feeling much better and was ready to be discharged. I have advised him to continue his home inhalers and nebulizer treatment, as well as his prescribed steroids. We have discussed the usual indications for return. Departure - Departure Disposition: 01 Home, Self Care Clinical Impression: Anxiety, COPD exacerbation Condition: Stable Instructions: COPD Dc
[2021-10-10 23:36] VITALS: BP 132/84
== END 2021-10-11 00:37 | disposition home or self-care (01) ==
LOC: EDUNIT# → ED 23:16
DX: J44.1 Chronic obstructive pulmonary disease with (acute) exacerbation (principal); F41.9 Anxiety disorder, unspecified; F17.200 Nicotine dependence, unspecified, uncomplicated
CPT/HCPCS: 93005; 96374; 99283; J2060

== ENCOUNTER 2021-10-12 02:02 | Outpatient (CLI) | payer MEDICARE, MEDICAID | END 2021-10-12 02:03 | disposition critical access hospital (66) | LOC: EMS 02:02 | DX: R06.02 Shortness of breath (principal); J44.9 Chronic obstructive pulmonary disease, unspecified | CPT/HCPCS: A0425; A0427 ==

== ENCOUNTER 2021-10-12 02:20 | Observation (INO) | payer MEDICARE, MEDICAID ==
--- NOTE | 2021-10-12 02:41 | ED Physician Documentation ---
PD HPI DYSPNEA - Stated complaint Stated Complaint: SOA - Chief complaint Chief Complaint: Resp - History obtained from History obtained from: Patient, EMS - History of Present Illness Timing - onset: How many days ago (4-5) Timing - onset during: Rest, Light activity Timing - duration: Days (4-5) Timing - details: Gradual onset, Still present (worsening dyspnea at rest and with just walking in house over baseline the past several days, despite increased home nebs and now 2 days of oral steroid dosing. Seen here the past 2 nights in ER for same, with transient improvement with nebs. Has nebulizer at home, O2 at night and PRN.) Inciting event(s): No: Out of meds, URI (did not feel having fevers, chills, aches. Has some sputum production over baseline.) Improved by: Inhaler/neb (but only briefly, has albuterol for nebulizer at home.), Sitting up Worsened by: Exertion (just walking in room at home, to bathroom, etc. This is worse than baseline, per patient.), Laying flat, Coughing Associated symptoms: Cough, Wheezing, Anxiety. 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 Home nebs and MDIs, inhaled steroids. Oxygen concentrator uses at night for sleep.) Recently seen: Emergency Dept (2 nights ago and last night, with brief improvement with nebs. Patient says not consistent improved and having worse breathing again today despite nebs at home.) Review of Systems Constitutional: reports: Fatigue. denies: Fever, Chills Nose: reports: Congestion. denies: Rhinorrhea / runny nose Throat: denies: Sore throat Cardiac: denies: Chest pain / pressure, Palpitations, Pedal edema Respiratory: reports: Dyspnea, Cough, Wheezing GI: reports: Nausea. denies: Abdominal Pain, Vomiting, Diarrhea Skin: denies: Rash, Lesions Neurologic: reports: Generalized weakness. denies: Near syncope PD PAST MEDICAL HISTORY - Past Medical History Cardiovascular: Hypertension, High cholesterol, Deep vein thrombosis, Pulmonary embolism Respiratory: COPD Neuro: CVA Endocrine/Autoimmune: HyPOthyroidism Psych: Anxiety, Bipolar disorder - Past Surgical History Past Surgical History: Yes Ortho: Arthroscopic surgery - Present Medications Home Medications: Ambulatory Orders Medication Instructions Recorded Confirmed Amitriptyline [Elavil] 25 mg PO QPM 11/09/17 10/12/21 Atorvastatin [Lipitor] 80 mg PO DAILY 11/09/17 10/12/21 Levothyroxine [Synthroid] 75 mcg PO QDAC 11/09/17 10/12/21 Losartan [Cozaar] 100 mg ORAL DAILY 11/09/17 10/12/21 Omeprazole 40 mg PO DAILY 11/09/17 10/12/21 Rivaroxaban [Xarelto] 20 mg PO DAILY 11/09/17 10/12/21 diltiaZEM [Cardizem] 240 mg ORAL DAILY 11/09/17 10/12/21 Albuterol 1 amp NEB PRN PRN 10/09/21 10/12/21 predniSONE [Deltasone] 10 mg PO [id number] #42 tab 10/09/21 10/12/21 - Allergies Allergies/Adverse Reactions: Allergies Allergy/AdvReac Type Severity Reaction Status Date / Time Penicillins Allergy Unknown Verified 10/12/21 02:29 - Social History Does the pt smoke?: Yes Smoking Status: Current every day smoker Does the pt drink ETOH?: Yes Does the pt have substance abuse?: No - Immunizations Immunizations are current?: No Immunizations: TDAP >10years/unknown - POLST Patient has POLST: No PD ED PE NORMAL - Vitals Vital signs reviewed: Yes - General General: Alert and oriented X 3, Well developed/nourished, Other (appears anxious, and also with few word conversational dyspnea initially. ) - HEENT HEENT: Pharynx benign - Neck Neck: Supple, no meningeal sign, No adenopathy, No JVD - Cardiac Cardiac: No: RRR (tachycardia but regular. ) - Respiratory Respiratory: Other (partial sentence dyspnea, accessory muscle use initially, and anxious. ). No: Clear bilaterally - Abdomen Abdomen: Soft, Non tender - Derm Derm: Normal color, Warm and dry - Extremities Extremities: Normal ROM s pain, No edema, No calf tenderness / cord - Neuro Neuro: Alert and oriented X 3, No motor deficit. No: Normal speech (articulate, but partial sentence dyspnea. ) Eye Opening: Spontaneous Motor: Obeys Commands Verbal: Oriented GCS Score: 15 - Psych Psych: No: Normal affect (anxious) Results - Vitals Vitals: Vital Signs - 24 hr 10/12/21 10/12/21 10/12/21 02:23 02:44 03:00 Temperature 37.1 C Heart Rate 102 H 92 100 Respiratory 25 H 22 22 Rate Blood Pressure 140/65 H 117/73 O2 Saturation 94 97 10/12/21 04:20 Temperature Heart Rate 97 Respiratory 26 H Rate Blood Pressure O2 Saturation Oxygen O2 Source Room air - EKG (time done) 03:43 Rate: Rate (enter#) (98) Rhythm: NSR [place]: LAD Intervals: Wide QRS, RBBB QRS: Poor R wave progression Ischemia: Non specific changes - Labs Labs: Laboratory Tests 10/12/21 10/12/21 10/12/21 03:01 03:01 03:01 WBC 13.3 H RBC 4.42 L Hgb 12.6 L Hct 38.7 L MCV 87.6 MCH 28.5 MCHC 32.6 RDW 15.5 H Plt Count 456 H MPV 9.7 Neut # (Auto) 11.2 H Lymph # (Auto) 1.1 L [place] # (Auto) 0.9 Eos # (Auto) 0.0 Baso # (Auto) 0.0 Absolute Nucleated RBC 0.00 Nucleated RBC % 0.0 Sodium 140 Potassium 3.7 Chloride 105 Carbon Dioxide 20 L Anion Gap 15.0 H BUN 22 H Creatinine 0.8 Estimated GFR (MDRD) 96 Glucose 190 H Calcium 9.3 Magnesium 2.3 Total Bilirubin 0.5 AST 28 ALT 27 Alkaline Phosphatase 67 B-Natriuretic Peptide 117 H Total Protein 7.7 Albumin 4.5 Globulin 3.2 Albumin/Globulin Ratio 1.4 Lipase 25 - Rads (name of study) chest xray Radiology: Prelim report reviewed, EMP read contemporaneously (low lung volumes. No focal infiltrate. ), See rad report PD MEDICAL DECISION MAKING - ED course Complexity details: reviewed old records, re-evaluated patient (after nebs x 3 (EMS and 2 here)), considered differential, d/w patient ED course: Increased dysepna and exac COPD over baseline for several days despite increased nebs and oral steroids. Third ED visit. Having accessory muscle use and anxious, dpsyena. Sats are adequate at 92-94% but still worsening general symptoms. [place] [facility] [place], this would fit for Observation criteria. I talked with Hospitlaist. Departure - Departure Disposition: ED Place in Observation Clinical Impression: COPD exacerbation, Failure of outpatient treatment Dyspnea Qualifiers: Dyspnea type: shortness of breath Qualified Code(s): R06.02 - Shortness of breath Condition: Stable Record reviewed to determine appropriate education?: Yes
[2021-10-12] MEDS ORDERED: IPRATROPIUM/ALBUTEROL 3 ML NEB INH STA ×2 (02:44→03:32)
[2021-10-12] MEDS ORDERED: MORPHINE 2 MG/ML CARPUJECT IVP STA (02:45)
[2021-10-12 03:07] LABS: BASOPHILS % (AUTO) 0.1 %; HCT - HEMATOCRIT 38.7 % (42.0-52.0); HGB - HEMOGLOBIN 12.6 g/dL (14.0-18.0); LYMPHOCYTES # (AUTO) 1.1 10^3/uL (1.5-3.5); LYMPHOCYTES % (AUTO) 8.4 %; MEAN CORPUSCULAR HEMOGLOBIN 28.5 pg (27.0-31.0); MEAN CORPUSCULAR HGB CONC 32.6 g/dL (32.0-36.0); MEAN CORPUSCULAR VOLUME 87.6 fL (80.0-94.0); MEAN PLATELET VOLUME 9.7 fL (7.4-11.4); MONOCYTES # (AUTO) 0.9 10^3/uL (0.0-1.0); MONOCYTES % (AUTO) 6.5 %; NEUTROPHILS # (AUTO) 11.2 10^3/uL (1.5-6.6); NEUTROPHILS % (AUTO) 84.5 %; PLT - PLATELET COUNT 456 10^3/uL (130-450); RED BLOOD COUNT 4.42 10^6/uL (4.70-6.10); RED CELL DISTRIBUTION WIDTH 15.5 % (12.0-15.0); WHITE BLOOD COUNT 13.3 x10^3/uL (4.8-10.8)
[2021-10-12 03:22] LABS: ALBUMIN 4.5 g/dL (3.2-5.5); ALBUMIN/GLOBULIN RATIO 1.4 (1.0-2.2); BILIRUBIN,TOTAL 0.5 mg/dL (0.2-1.0); CALCIUM 9.3 mg/dL (8.5-10.3); CREATININE 0.8 mg/dL (0.6-1.2); MAGNESIUM 2.3 mg/dL (1.7-2.8); POTASSIUM 3.7 mmol/L (3.5-5.0); TOTAL PROTEIN 7.7 g/dL (6.7-8.2)
[2021-10-12] MEDS ORDERED: LORazepam 2 MG/ML VIAL IVP STA (03:33)
[2021-10-12] MEDS ORDERED: cefTRIAXone 1 GM VIAL IVP STA (03:54)
[2021-10-12] MEDS ORDERED: ONDANSETRON 4 MG/2 ML VIAL IVP PRN (05:09)
[2021-10-12] MEDS ORDERED: SODIUM CHLORIDE FLUSH 0.9% 10 ML SYRINGE IVP PRN (05:09)
[2021-10-12] MEDS ORDERED: IPRATROPIUM/ALBUTEROL 3 ML NEB INH PRN (05:13)
[2021-10-12 05:16] LABS: B. PARAPERTUSSIS- RESP PCR PAN NOT DETECTED; B. PERTUSSIS- RESP PCR PANEL NOT DETECTED; C. PNEUMONIAE- RESP PCR PANEL NOT DETECTED; CORONAVIRUS 229E-RESP PCR NOT DETECTED; CORONAVIRUS HKU1-RESP PCR NOT DETECTED; CORONAVIRUS NL63-RESP PCR NOT DETECTED; CORONAVIRUS OC43-RESP PCR NOT DETECTED; HUMAN METAPNEUMOVIRUS NOT DETECTED; INFLUENZA A- RESP PCR PANEL NOT DETECTED; INFLUENZA B - RESP PCR PANEL NOT DETECTED; M. PNEUMONIAE- RESP PCR PANEL NOT DETECTED; PARAINFLUENZA VIRUS 1 NOT DETECTED; PARAINFLUENZA VIRUS 2 NOT DETECTED; PARAINFLUENZA VIRUS 3 NOT DETECTED; PARAINFLUENZA VIRUS 4 NOT DETECTED; RHINOVIRUS/ENTEROVIRUS NOT DETECTED; RSV- RESP PCR PANEL NOT DETECTED; SARS-CoV-2 -RESP PCR PANEL NOT DETECTED
[2021-10-12] MEDS ORDERED: FUROSEMIDE 20 MG/2 ML VIAL IVP STA (05:17)
--- NOTE | 2021-10-12 05:30 | HISTORY & PHYSICAL EXAMINATION ---
Chief Complaint - Chief Complaint Chief Complaint: SOB History of Present Illness - Admitted From Admitted From:: ED - History Obtained From History obtained from: ED provider and the patient - History of Present Illness HPI Comment/Other: This is a 65-year-old white male with history of COPD, on home oxygen at 2 to 3 L continuously but he wears it only at night or as needed. He has a nebulizer machine at home and sees a Cell Room Operator at . He has a history of HTN, Hy potjyroidism, prior "DVT and PE and takes Xarelto. The patient was seen in our ED 2 days ago for worsening shortness of breath and a cough, chest x-ray showed no evidence of pneumonia, he received nebulizers, iv steroids and was able to be sent home with oral steroids prescribed. He presented to the ED again yesterday for shortness of breath but this time it appeared to be related to him being anxious over a delay in his pharmacy releasing his medications. He then again received nebulizers and IV steroids and was sent home. He presented again today at 0200 with complaints of worsening shortness of breath, despite taking oral steroids for 2 days and using his nebulizer, he has had no improvement. He describes a wet cough but cannot expectorate the sputum. there has been no fever. He has respiratory distress with visible increased work of breathing and conversational tachypnea. In the ED, he received IV morphine, IV lorazepam, nebulizer treatment and is presented to the Hospitalist team for further management of a COPD exacerbation, having failed outpatient treatment. We discussed his CODE BLUE wishes and he wants to be a Full Code. History - Past Medical History Cardiovascular: reports: Hypertension, High cholesterol, Deep vein thrombosis, Pulmonary embolism Respiratory: reports: COPD Neuro: reports: CVA Endocrine/Autoimmune: reports: HyPOthyroidism GI: reports: None : reports: None HEENT: reports: None Psych: reports: Anxiety, Bipolar disorder MRSA Hx?: No - Past Surgical History Ortho: reports: Arthroscopic surgery - Family & Social History Family History: Mother: (Mother after heart transplant, father d of pneumonia), Father: , Brother: Alcoholism, Mental Illness Family History Comment/Other: There is family history of diabetes. His mother had a heart transplant after having scarlet fever. He has 2 half-brothers and 2 natural brothers. 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 Living arrangement: At home Living Situation: Alone Social History Notes: He used to drink beer heavily, now only 2 beers per week. He used to smoke unfiltered cigarettes, but quit cigarette smoking 10 years ago. He used to use "drugs" and marijuana, but none currently. - Substance History Use: Uses substance without health or social issues: NONE - POLST Patient has POLST: No Meds/Allgy - Home Medications Home Medications: Ambulatory Orders Medication Instructions Recorded Confirmed Amitriptyline [Elavil] 25 mg PO QPM 11/09/17 10/12/21 Atorvastatin [Lipitor] 80 mg PO DAILY 11/09/17 10/12/21 Levothyroxine [Synthroid] 75 mcg PO QDAC 11/09/17 10/12/21 Losartan [Cozaar] 100 mg ORAL DAILY 11/09/17 10/12/21 Omeprazole 40 mg PO DAILY 11/09/17 10/12/21 Rivaroxaban [Xarelto] 20 mg PO DAILY 11/09/17 10/12/21 diltiaZEM [Cardizem] 240 mg ORAL DAILY 11/09/17 10/12/21 Albuterol 1 amp NEB PRN PRN 10/09/21 10/12/21 predniSONE [Deltasone] 10 mg PO [id number] #42 tab 10/09/21 10/12/21 - Allergies Allergies/Adverse Reactions: Allergies Allergy/AdvReac Type Severity Reaction Status Date / Time Penicillins Allergy Unknown Verified 10/12/21 02:29 Review of Systems - Respiratory Respiratory: reports: Cough, Wheezing, SOB at rest, SOB with exertion - All Other Systems All Other Systems: reports: Reviewed and negative Exam - Vital Signs Vital Signs: Vital Signs x48h Temp Pulse Resp BP Pulse Ox 10/12/21 04:20 97 26 H 10/12/21 03:00 100 22 10/12/21 02:44 92 22 117/73 97 10/12/21 02:23 37.1 C 102 H 25 H 140/65 H 94 - Physical Exam General Appearance: positive: Mild distress (He has a wet cough, is short of breath and has to pause for a breath during speaking) Eyes Bilateral: positive: Normal inspection ENT: positive: No signs of dehydration Neck: positive: Nml inspection, No JVD Respiratory: positive: Wheezes (prolonged expiratory phase, diminished breath sounds in all lung field) Cardiovascular: positive: Regular rate & rhythm, No murmur Abdomen: positive: Non-tender, No distention Skin: positive: Warm, Dry, Other (Many tattoos of his upper extremities and jewelry on fingers.) Extremities: positive: Non-tender, Nml appearance, No pedal edema Neurologic/Psychiatric: positive: Oriented x3 (Non-focal) Conclusion/Plan - Problem List (1) COPD exacerbation Conclusion/Plan: The patient has presented for his third day in a row to the ED because of marked shortness of breath. He has visible increased work of breathing, use of accessory muscles, is tachypneic with resp rate 26. His saturations are adequate however he is on supplemental oxygen. He is COVID neg. There was some improvement with nebulizer treatments and with IV steroids that he has received for the past 2 days and today also. Will place the patient in Observation status for further aggressive management of his COPD to include DuoNebs scheduled q.i.d and prn every 4 hours, add inhaled steroids, continue tid IV Solu-Medrol, supplemental oxygen, start Singulair at bedtime and give empiric antibiotics for probable bronchitis causing this COPD exacerbation. (2) RBBB Conclusion/Plan: His RBBB suggests he has significant COPD Will obtain an echo to evaluate his RV size and function (3) Pleural effusion Conclusion/Plan: Patient is a mildly elevated BNP of 117. His CXR shows blunted costophrenic angles consistent with pleural effusion, which may be adding to his shortness of breath. Will give a single dose of IV Lasix 20 mg IV. Follow I's and O's and BNP daily Will obtain an echo to evaluate for depressed LVEF (4) Hypothyroidism Conclusion/Plan: Will check the patient's TSH to assess if his thyroid replacement dose is adequate and continue his home Synthroid (5) Hx of pulmonary embolus Conclusion/Plan: We will continue with his oral anticoagulant (Eliquis will be substituted for Xarelto, which is nonformulary here) - Lab Results Fish Bones: 10/12/21 03:01 10/12/21 03:01 - Diagnostic Imaging Results Diagnostic Imaging Results: positive: Final report reviewed - EKG Results EKG Interpreted Independently: Yes EKG Comparison: Unchanged from prior EKG
[2021-10-12] MEDS ORDERED: methylPREDNISolone SUCCINATE 40 MG/ML VIAL IVP SCH (06:00)
[2021-10-12] MEDS: LEVOTHYROXINE 75 MCG TABLET PO SCH (06:16)
[2021-10-12] MEDS: PANTOPRAZOLE 40 MG TABLET PO SCH (06:16)
[2021-10-12] MEDS: BUDESONIDE 0.5 MG/2 ML NEB INH SCH ×2 (07:08→19:27)
[2021-10-12] MEDS: IPRATROPIUM/ALBUTEROL 3 ML NEB INH SCH ×4 (07:08→19:27)
--- NOTE | 2021-10-12 08:12 | XRAY Report ---
PROCEDURE: Chest 1 View X-Ray INDICATIONS: chest pain TECHNIQUE: One view of the chest was acquired. COMPARISON: Chest x-ray one view, 08/09/2021. FINDINGS: Surgical changes and devices: None. Lungs and pleura: Retrocardiac opacity may be infiltrate or atelectasis. No pleural effusions or pneu mothorax. Lungs are clear. Mediastinum: Mediastinal contours appear normal. Heart size is normal. Bones and chest wall: No suspicious bony lesions. Overlying soft tissues appear unremarkable. Mariama re left and moderate right glenohumeral joint degeneration. Superior migration of the left humeral he ad suggesting chronic rotator cuff tendon tear. IMPRESSION: Retrocardiac infiltrate or atelectasis. No significant discrepancy with the preliminary interpretation. Reviewed by: Antonio Downey MD on 10/12/2021 7:11 AM LUCIA Approved by: Antonio Downey MD on 10/12/2021 7:11 AM AKTYLOR Station ID: [id number]
[2021-10-12] MEDS: diltiaZEM CD 240 MG CAPSULE PO SCH (08:16)
[2021-10-12] MEDS: SODIUM CHLORIDE FLUSH 0.9% 10 ML SYRINGE IVP SCH ×2 (08:16→17:30)
[2021-10-12] MEDS: AZITHROMYCIN 250 MG TABLET PO SCH (08:16)
[2021-10-12] MEDS: LOSARTAN 50 MG TABLET PO SCH (08:16)
[2021-10-12] MEDS: APIXABAN 5 MG TABLET PO SCH ×2 (08:16→21:43)
[2021-10-12] MEDS ORDERED: NON FORMULARY MED (Omeprazole [Omeprazole] 40 MG Capsule.Dr) PO SCH (09:00)
--- NOTE | 2021-10-12 09:53 | PHARMACY PROGRESS NOTE ---
- Best Possible Medication History Admit Date and Time: 10/12/21 0509 Processed by: Nursing Medication History completed: Yes As the person ultimately responsible for medication therapy, providers are able to order a medication from an existing home medication list in [facility] via the "Reconcile Routine" prior to Confirmation of that medication by director decision support. Such practice is discouraged except when the physician, in their clinical judgment, deems that a medical need exists for a medication without regard to previous use.
[2021-10-12] MEDS: levETIRAcetam 250 MG TABLET PO SCH ×2 (11:11→21:43)
[2021-10-12] MEDS: methylPREDNISolone SUCCINATE 125 MG/2 ML VIAL IVP SCH ×2 (13:35→21:42)
[2021-10-12] MEDS ORDERED: METOPROLOL 5 MG/5 ML VIAL IVP STA (13:39)
[2021-10-12] MEDS: ACETAMINOPHEN 325 MG TABLET PO PRN ×2 (15:02→22:05)
[2021-10-12] MEDS ORDERED: AMITRIPTYLINE 25 MG TABLET PO SCH (21:00)
[2021-10-12] MEDS ORDERED: LORazepam 0.5 MG TABLET PO PRN (21:50)
[2021-10-12] MEDS ORDERED: LEVETIRACETAM 750 MG PO SCH (22:00)
[2021-10-12] MEDS ORDERED: levETIRAcetam 250 MG TABLET PO SCH (22:00)
[2021-10-12] MEDS: guaiFENesin 600 MG TABLET PO SCH (22:05)
[2021-10-13] MEDS: SODIUM CHLORIDE FLUSH 0.9% 10 ML SYRINGE IVP SCH ×2 (00:11→08:19)
[2021-10-13] MEDS: PANTOPRAZOLE 40 MG TABLET PO SCH (06:02)
[2021-10-13] MEDS: methylPREDNISolone SUCCINATE 125 MG/2 ML VIAL IVP SCH (06:02)
[2021-10-13] MEDS: LEVOTHYROXINE 75 MCG TABLET PO SCH (06:02)
[2021-10-13] MEDS: ACETAMINOPHEN 325 MG TABLET PO PRN (06:03)
[2021-10-13] MEDS: IPRATROPIUM/ALBUTEROL 3 ML NEB INH SCH ×2 (06:13→10:35)
[2021-10-13] MEDS: BUDESONIDE 0.5 MG/2 ML NEB INH SCH (06:13)
[2021-10-13] MEDS: guaiFENesin 600 MG TABLET PO SCH (08:18)
[2021-10-13] MEDS: AZITHROMYCIN 250 MG TABLET PO SCH (08:18)
[2021-10-13] MEDS: LOSARTAN 50 MG TABLET PO SCH (08:18)
[2021-10-13] MEDS: APIXABAN 5 MG TABLET PO SCH (08:18)
[2021-10-13] MEDS: levETIRAcetam 250 MG TABLET PO SCH (08:18)
[2021-10-13] MEDS: diltiaZEM CD 240 MG CAPSULE PO SCH (08:18)
[2021-10-13 08:24] LABS: BASOPHILS % (AUTO) 0.1 %; HCT - HEMATOCRIT 36.9 % (42.0-52.0); LYMPHOCYTES # (AUTO) 0.8 10^3/uL (1.5-3.5); LYMPHOCYTES % (AUTO) 7.9 %; MEAN CORPUSCULAR HEMOGLOBIN 28.7 pg (27.0-31.0); MEAN CORPUSCULAR HGB CONC 32.5 g/dL (32.0-36.0); MEAN CORPUSCULAR VOLUME 88.3 fL (80.0-94.0); MONOCYTES # (AUTO) 0.4 10^3/uL (0.0-1.0); MONOCYTES % (AUTO) 3.7 %; NEUTROPHILS # (AUTO) 8.7 10^3/uL (1.5-6.6); NEUTROPHILS % (AUTO) 87.7 %; PLT - PLATELET COUNT 372 10^3/uL (130-450); RED BLOOD COUNT 4.18 10^6/uL (4.70-6.10); RED CELL DISTRIBUTION WIDTH 15.4 % (12.0-15.0); WHITE BLOOD COUNT 9.9 x10^3/uL (4.8-10.8)
[2021-10-13 08:38] LABS: CALCIUM 9.2 mg/dL (8.5-10.3); CREATININE 0.9 mg/dL (0.6-1.2); POTASSIUM 4.1 mmol/L (3.5-5.0)
[2021-10-13] MEDS ORDERED: FLUTICASONE NASAL SPRAY NAS SCH (09:00)
--- NOTE | 2021-10-13 10:01 | DISCHARGE SUMMARY ---
Discharge Summary Admit Date: 10/12/21 Discharge Date: 10/13/21 Discharging Provider: Amaya Albarran Primary Care Provider: Ortiz Khan Code Status: Attempt Resuscitation Condition at Discharge: Stable Discharge Disposition: 01 Home, Self Care - DIAGNOSES Admission Diagnoses: COPD exacerbation Right bundle branch block Pleural effusion Hypothyroidism History of pulmonary embolus Discharge Diagnoses with Status of Each Condition: COPD exacerbation: Acute on chronic. Improved/resolved. Patient breathing comfortably on room air with oxygen saturation at 93% by time of discharge. He uses 2 L of oxygen via nasal cannula at night at home Right bundle branch block: 2/2 COPD Pleural effusion: Improved with lasix IV Hypothyroidism: Chronic. Stable. Continue home medication History of pulmonary embolus: On eliquis - HPI History of Present Illness: This is a 65-year-old white male with history of COPD, on home oxygen at 2 to 3 L continuously but he wears it only at night or as needed. He has a nebulizer machine at home and sees a Marketing Graphics Specialist at . He has a history of HTN, H ypotjyroidism, prior "DVT and PE and takes Xarelto. The patient was seen in our ED 2 days ago for worsening shortness of breath and a cough, chest x-ray showed no evidence of pneumonia, he received nebulizers, iv steroids and was able to be sent home with oral steroids prescribed. He presented to the ED again yesterday for shortness of breath but this time it appeared to be related to him being anxious over a delay in his pharmacy releasing his medications. He then again received nebulizers and IV steroids and was sent home. He presented again today at 0200 with complaints of worsening shortness of breath, despite taking oral steroids for 2 days and using his nebulizer, he has had no improvement. He describes a wet cough but cannot expectorate the sputum. there has been no fever. He has respiratory distress with visible increased work of breathing and conversational tachypnea. In the ED, he received IV morphine, IV lorazepam, nebulizer treatment and is presented to the Hospitalist team for further management of a COPD exacerbation, having failed outpatient treatment. We discussed his CODE BLUE wishes and he wants to be a Full Code. - HOSPITAL COURSE Hospital Course: Patient was admitted to the [facility] floor started on Solu-Medrol 80 mg IV 3 times daily, DuoNeb every 4 hours as needed. He also received 1 dose of Lasix 20 mg IV. Over the course of his 24-hour hospital stay he is resting status improved. By the time of discharge she was breathing comfortably on room air with oxygen saturation at 93%. At baseline he uses 2 L of oxygen at home. The rest of his hospital stay was unremarkable. He is to resume his home medications which include a pulmonary regimen upon discharge. He is to follow-up with his primary care physician as needed. - ALLERGIES Allergies/Adverse Reactions: Allergies Allergy/AdvReac Type Severity Reaction Status Date / Time Penicillins Allergy Unknown Verified 10/12/21 02:29 - MEDICATIONS Home Medications: Ambulatory Orders Medication Instructions Recorded Confirmed Amitriptyline [Elavil] 50 mg PO QPM 11/09/17 10/12/21 Atorvastatin [Lipitor] 80 mg PO DAILY 11/09/17 10/12/21 Levothyroxine [Synthroid] 75 mcg PO QDAC 11/09/17 10/12/21 Losartan [Cozaar] 100 mg ORAL DAILY 11/09/17 10/12/21 Omeprazole 40 mg PO DAILY 11/09/17 10/12/21 Rivaroxaban [Xarelto] 20 mg PO QDDINNER 11/09/17 10/12/21 diltiaZEM [Cardizem] 240 mg ORAL DAILY 11/09/17 10/12/21 Albuterol 1 amp NEB PRN PRN 10/09/21 10/12/21 predniSONE [Deltasone] 10 mg PO [id number] #[id number] tab 10/09/21 10/12/21 Fluticasone [Flonase] 2 sprays ZAHEER DAILY 10/12/21 10/12/21 Fluticasone/Salmeterol [Advair Hfa 2 puffs INH BID 10/12/21 10/12/21 230-21 Mcg Inhaler] Levetiracetam [Keppra] 1,125 mg PO BID 10/12/21 10/12/21 Tiotropium Dawn [Spiriva] 1 puffs INJ DAILY 10/12/21 10/12/21 - PHYSICAL EXAM AT DISCHARGE General Appearance: positive: No acute distress, Alert Eyes Bilateral: positive: PERRL, EOMI ENT: positive: No signs of dehydration Neck: positive: No JVD, Trachea midline Respiratory: positive: Chest non-tender, No respiratory distress, Breath sounds nml. negative: Wheezes Cardiovascular: positive: Regular rate & rhythm, No murmur Abdomen: positive: Non-tender, No organomegaly, Nml bowel sounds, No distention. negative: Guarding, Rebound Skin: positive: Color nml, No rash, Warm Extremities: positive: Non-tender, Full ROM, Nml appearance, No pedal edema Neurologic/Psychiatric: positive: Oriented x3, Motor nml, Mood/affect nml - LABS Result Diagrams: 10/13/21 04:39 10/13/21 04:39 - TIME SPENT Time Spent in Discharge (Minutes): 15
--- NOTE | 2021-10-13 10:07 | Discharge Plan ---
Discharge Plan Problem Reviewed?: Yes Disposition: Home, Self Care Condition: Stable Diet: Cardiac Activity Restrictions: Activity as Tolerated Instruction Topics: COPD Dc Health Concerns: You were admitted on 10/12/21 with complaint of shortness of breath. It was felt that you had a mild exacerbation of COPD. You were given DuoNeb breathing treatments through the course of your hospital stay. He also received Solu-Medrol IV steroids and a dose of Lasix IV. Your respiratory status improved significantly prior to discharge. By the time of discharge you were breathing comfortably on room air with oxygen saturation at 93% respiratory rate 20. At home use 2 L of oxygen via nasal cannula at baseline. You are to continue your home pulmonary regimen upon discharge. You may follow-up with your primary care physician as needed. The above plan was explained to you, you expressed understanding and agreeable with the plan. No Smoking: If you smoke, Please STOP! Call for help. Follow-up with: Ortiz Khan ARNP [Primary Care Provider] -
[2021-10-13 10:32] VITALS: BP 138/85
== END 2021-10-13 13:00 | disposition home or self-care (01) ==
LOC: EDUNIT# → ED 02:20 → MS2 05:09
PROVIDERS: ADMIT Internal Medicine; ATTEND Internal Medicine
DX: J44.1 Chronic obstructive pulmonary disease with (acute) exacerbation (principal); I45.10 Unspecified right bundle-branch block; J90 Pleural effusion, not elsewhere classified; E03.9 Hypothyroidism, unspecified; Z86.711 Personal history of pulmonary embolism; Z79.01 Long term (current) use of anticoagulants; Z99.81 Dependence on supplemental oxygen; Z20.822 Contact with and (suspected) exposure to COVID-19; I10 Essential (primary) hypertension; Z86.718 Personal history of other venous thrombosis and embolism
CPT/HCPCS: 36415; 71045; 80048; 80053; 83690; 83735; 83880; 84443; 84484; 85025; 87633; 93005; 94640; 96374; 96375; 96376; 99284; 99285; A9270; G0378; J2060; J7626

== ENCOUNTER 2021-12-27 13:13 | Outpatient (CLI) | payer MEDICARE, MEDICAID | END 2021-12-27 13:14 | disposition short-term general hospital (02) | LOC: EMS 13:13 | DX: S69.91XA Unspecified injury of right wrist, hand and finger(s), initial encounter (principal); S59.902A Unspecified injury of left elbow, initial encounter; W19.XXXA Unspecified fall, initial encounter; Y92.002 Bathroom of unspecified non-institutional (private) residence as the place of occurrence of the external cause | CPT/HCPCS: A0425; A0429 ==

== ENCOUNTER 2021-12-28 15:45 | Outpatient (CLI) | payer MEDICARE, MEDICAID | END 2021-12-28 15:46 | disposition EMS.NT | LOC: EMS 15:45 | DX: M25.521 Pain in right elbow (principal) ==

== ENCOUNTER 2021-12-28 18:06 | Outpatient (CLI) | payer MEDICARE, MEDICAID | END 2021-12-28 18:07 | disposition critical access hospital (66) | LOC: EMS 18:06 | DX: R51.9 Headache, unspecified (principal); M25.521 Pain in right elbow | CPT/HCPCS: A0425; A0429 ==

== ENCOUNTER 2021-12-28 18:25 | Emergency (ER) | payer MEDICARE, MEDICAID ==
[2021-12-28] MEDS ORDERED: ACETAMINOPHEN 500 MG TABLET PO STA (18:34)
--- OUTSIDE RECORDS SUMMARY | 2021-12-28 18:34 | EXTERNAL MEDICAL SUMMARY RPT | Continuity of Care Document ---
:1955 Author Organization [facility] Address [address] [place] [address] Phone Allergies and Intolerances date description facility type (no date) [facility] (unknown) Encounters No information. Functional Status No information. Immunizations No information. Medications date description facility +0000 Cephalexin 500 MG Oral Capsule [facility] Problems No information. Procedures date description facility +0000 General Physician [facility] Results/Labs test date author facility value unit interpret ation Result panel 1 (unknown) (no (unknown) (unknown) (no value) (units (unk nown) date) unknown) (unknown) (no (unknown) (unknown) [address] [place] [address] (units (unknown) date) unknown) (unknown) (no (unknown) (unknown) [place], [place] (units ( unknown) date) [id number] unknown) (unknown) (no (unknown) (unknown) [facility] (units (unknown) date) unknown) (unknown) (no (unknown) (unknown) Signed (units (unkno wn) date) unknown) (unknown) (no (unknown) (unknown) XRay Report (units (un known) date) unknown) (unknown) (no (unknown) (unknown) (no value) (units (unk nown) date) unknown) (unknown) (no (unknown) (unknown) 12/27/21 (units (unkno wn) date) unknown) (unknown) (no (unknown) (unknown) Approved by: (units (u nknown) date) Chuckie Payne M.D. on unknown) 12/27/2021 at 14:16 (unknown) (no (unknown) (unknown) Bones: Patient (units (unknown) date) is status post unknown) prior fusion of right wrist rate surgical (unknown) (no (unknown) (unknown) COMPARISON: (units (un known) date) None. unknown) (unknown) (no (unknown) (unknown) Dictated by: (units (u nknown) date) Chuckie Payne M.D. on unknown) 12/27/2021 at 14:06 (unknown) (no (unknown) (unknown) FINDINGS: (units (unkn own) date) unknown) (unknown) (no (unknown) (unknown) IMPRESSION: (units (un known) date) Likely old unknown) fracture involving 5th metacarpal shaft. Prior fusion (unknown) (no (unknown) (unknown) INDICATIONS: (units (u nknown) date) trauma unknown) (unknown) (no (unknown) (unknown) No gross acute (units (unknown) date) fracture or unknown) dislocation. Osteoarthritic changes are noted (unknown) (no (unknown) (unknown) Soft tissues: (units ( unknown) date) No suspicious unknown) soft tissue calcifications. (unknown) (no (unknown) (unknown) TECHNIQUE: 3 (units ( unknown) date) views of the unknown) wrist were acquired. (unknown) (no (unknown) (unknown) extending from (units (unknown) date) distal radial unknown) shaft to 3rd metacarpal shaft. There is (unknown) (no (unknown) (unknown) hardware (units (unkno wn) date) loosening or unknown) failure. Wrist joint osteoarthritis. Diffuse (unknown) (no (unknown) (unknown) joint with (units (unk nown) date) surgical hardware unknown) in place. No acute fracture or dislocation. No (unknown) (no (unknown) (unknown) old healed (units (unk nown) date) fracture is noted unknown) in 5th metacarpal shaft with chronic appearing (unknown) (no (unknown) (unknown) wrist joints. (units ( unknown) date) No suspicious unknown) bony lesion. No gross hardware loosening or (unknown) (no (unknown) (unknown) [id number] (units (unkno wn) date) unknown) (unknown) (no (unknown) (unknown) Accession (units (unkn own) date) Number: unknown) [id number] (unknown) (no (unknown) (unknown) Age/Sex: 66 / M (units (unknown) date) Date of unknown) Service: (unknown) (no (unknown) (unknown) : 1955 (units (unknown) date) Acct:[id number] unknown) (unknown) (no (unknown) (unknown) Loc: ED (units (unkno wn) date) unknown) (unknown) (no (unknown) (unknown) Ordering (units (unkno wn) date) Provider: unknown) Benedict Camacho MD (unknown) (no (unknown) (unknown) PROCEDURE: XR (units (unknown) date) WRIST RT MIN 3V unknown) (unknown) (no (unknown) (unknown) Patient: (units (unkno wn) date) Suraj Ellis unknown) MR#: [id number] (unknown) (no (unknown) (unknown) Procedure: XR (units ( unknown) date) wrist RT min 3V unknown) (unknown) (no (unknown) (unknown) deformity. (units (unk nown) date) unknown) (unknown) (no (unknown) (unknown) failure. (units (unkno wn) date) unknown) (unknown) (no (unknown) (unknown) gross (units (unkno wn) date) unknown) (unknown) (no (unknown) (unknown) hardware (units (unkno wn) date) unknown) (unknown) (no (unknown) (unknown) of wrist (units (unkno wn) date) unknown) (unknown) (no (unknown) (unknown) osteopenia. (units (un known) date) unknown) (unknown) (no (unknown) (unknown) osteopenia. (units (un known) date) Likely unknown) (unknown) (no (unknown) (unknown) throughout (units (unk nown) date) unknown) Result panel 2 (unknown) (no (unknown) (unknown) Qty: 1 (units (unkno wn) date) unknown) (unknown) (no (unknown) (unknown) (no value) (units (unk nown) date) unknown) (unknown) (no (unknown) (unknown) Date of Service: (units (unknown) date) 12/27/21 unknown) (unknown) (no (unknown) (unknown) (no value) (units (unk nown) date) unknown) (unknown) (no (unknown) (unknown) 1 cap INHALATION (units (unknown) date) DAILY unknown) (unknown) (no (unknown) (unknown) 100 mg PO DAILY (units (unknown) date) Qty: 90 2RF unknown) (unknown) (no (unknown) (unknown) 2 liters at night (units (unknown) date) unknown) (unknown) (no (unknown) (unknown) 2 puff INHALATION (units (unknown) date) BID unknown) (unknown) (no (unknown) (unknown) 2.5 mg INHALATION (units (unknown) date) .COMPLEX Qty: 540 unknown) 12RF (unknown) (no (unknown) (unknown) 20 mg PO QPM Qty: (units (unknown) date) 90 2RF unknown) (unknown) (no (unknown) (unknown) 240 mg PO DAILY (units (unknown) date) Qty: 90 2RF unknown) (unknown) (no (unknown) (unknown) 250 mg PO DAILY (units (unknown) date) unknown) (unknown) (no (unknown) (unknown) 40 mg PO DAILY (units (unknown) date) unknown) (unknown) (no (unknown) (unknown) 50 mg PO BEDTIME (units (unknown) date) Qty: 180 2RF unknown) (unknown) (no (unknown) (unknown) 75 mcg PO DAILY (units (unknown) date) Qty: 90 3RF unknown) (unknown) (no (unknown) (unknown) 750 mg PO Q12H (units (unknown) date) unknown) (unknown) (no (unknown) (unknown) 80 mg PO DAILY (units (unknown) date) Qty: 90 2RF unknown) (unknown) (no (unknown) (unknown) Allergies (units (unkn own) date) unknown) (unknown) (no (unknown) (unknown) As directed (units (un known) date) unknown) (unknown) (no (unknown) (unknown) Dose Instruction: (units (unknown) date) unknown) (unknown) (no (unknown) (unknown) ED Orders (units (unkn own) date) unknown) (unknown) (no (unknown) (unknown) Emergency Report (units (unknown) date) unknown) (unknown) (no (unknown) (unknown) Home Medications (units (unknown) date) unknown) (unknown) (no (unknown) (unknown) [facility] (units (unknown) date) [address] unknown) [place] [address] (unknown) (no (unknown) (unknown) Label Comments: (units (unknown) date) unknown) (unknown) (no (unknown) (unknown) Previous Rx's (units ( unknown) date) unknown) (unknown) (no (unknown) (unknown) Rx Instructions: (units (unknown) date) unknown) (unknown) (no (unknown) (unknown) See Rx (units (unkno wn) date) Instructions unknown) .ROUTE .COMPLEX Qty: 18 11RF (unknown) (no (unknown) (unknown) Stop: 12/27/21 (units (unknown) date) 13:55 unknown) (unknown) (no (unknown) (unknown) Use one vial with (units (unknown) date) nebulizer six unknown) times a day. (unknown) (no (unknown) (unknown) inhale 2 puffs by (units (unknown) date) mouth and INTO THE unknown) LUNGS twice a day Rinse mouth after use (unknown) (no (unknown) (unknown) inhale 2 puffs by (units (unknown) date) mouth every 4 to 6 unknown) hours if needed for shortness of breath (unknown) (no (unknown) (unknown) inhale contents (units (unknown) date) of 1 capsule by unknown) mouth once daily (unknown) (no (unknown) (unknown) take 1 tablet by (units (unknown) date) mouth once daily unknown) (unknown) (no (unknown) (unknown) (no value) (units (unk nown) date) unknown) (unknown) (no (unknown) (unknown) (DME) oxygen (units (u nknown) date) unknown) (unknown) (no (unknown) (unknown) Advair HFA 230-21 (units (unknown) date) mcg/actuation HFA unknown) aerosol inhaler (unknown) (no (unknown) (unknown) Spiriva with (units (u nknown) date) HandiHaler 18 mcg unknown) capsule, w/inhalation device (unknown) (no (unknown) (unknown) Xarelto 20 mg (units ( unknown) date) tablet unknown) (unknown) (no (unknown) (unknown) albuterol sulfate (units (unknown) date) 2.5 mg /3 mL unknown) (0.083 %) solution for nebulization (unknown) (no (unknown) (unknown) albuterol sulfate (units (unknown) date) [Ventolin HFA] 90 unknown) mcg/actuation HFA aerosol inhaler (unknown) (no (unknown) (unknown) amitriptyline 25 (units (unknown) date) mg tablet unknown) (unknown) (no (unknown) (unknown) atorvastatin 80 (units (unknown) date) mg tablet unknown) (unknown) (no (unknown) (unknown) azithromycin 250 (units (unknown) date) mg tablet unknown) (unknown) (no (unknown) (unknown) diltiazem HCl 240 (units (unknown) date) mg unknown) capsule,extended release 24 hr (unknown) (no (unknown) (unknown) levetiracetam 750 (units (unknown) date) mg tablet unknown) (unknown) (no (unknown) (unknown) levothyroxine 75 (units (unknown) date) mcg tablet unknown) (unknown) (no (unknown) (unknown) losartan 100 mg (units (unknown) date) tablet unknown) (unknown) (no (unknown) (unknown) omeprazole 40 mg (units (unknown) date) capsule,delayed unknown) release(DR/EC) (unknown) (no (unknown) (unknown) Medication (units (unk nown) date) Instructions unknown) Recorded (unknown) (no (unknown) (unknown) Medication (units (unk nown) date) Instructions unknown) Recorded Confirmed (unknown) (no (unknown) (unknown) (0.083 %) (units (unkn own) date) solution for unknown) nebulization #540 mL (unknown) (no (unknown) (unknown) [id number] (units (unkno wn) date) unknown) (unknown) (no (unknown) (unknown) 12/27/21 13:54 (units (unknown) date) unknown) (unknown) (no (unknown) (unknown) 58-year-old man (units (unknown) date) who lives unknown) independently with a history of stroke and is very (unknown) (no (unknown) (unknown) Acetaminophen (units ( unknown) date) (Acetaminophen 325 unknown) Mg Tablet) 975 mg PO NOW ONE (unknown) (no (unknown) (unknown) Age/Sex: 66 / M (units (unknown) date) unknown) (unknown) (no (unknown) (unknown) Allergy/AdvReac (units (unknown) date) Type Severity unknown) Reaction Status Date / Time (unknown) (no (unknown) (unknown) Asthma (units (unkno wn) date) unknown) (unknown) (no (unknown) (unknown) Atrial (units (unkno wn) date) fibrillation unknown) (unknown) (no (unknown) (unknown) BACK: Normal (units ( unknown) date) inspection, no CVA unknown) tenderness. (unknown) (no (unknown) (unknown) CARDIOVASCULAR: (units (unknown) date) Normal rate and unknown) rhythm without murmur gallop or rub. (unknown) (no (unknown) (unknown) COPD (chronic (units ( unknown) date) obstructive unknown) pulmonary disease) (unknown) (no (unknown) (unknown) Colon cancer (units (u nknown) date) screening unknown) (unknown) (no (unknown) (unknown) Course (units (unkno wn) date) unknown) (unknown) (no (unknown) (unknown) : 1955 (units (unknown) date) Acct:[id number] unknown) (unknown) (no (unknown) (unknown) Departure (units (unkn own) date) unknown) (unknown) (no (unknown) (unknown) Discharge Plan (units (unknown) date) unknown) (unknown) (no (unknown) (unknown) Discontinued (units (u nknown) date) Medications unknown) (unknown) (no (unknown) (unknown) Dyslipidemia (units (u nknown) date) unknown) (unknown) (no (unknown) (unknown) ENT: No (units (unkno wn) date) rhinorrhea. unknown) Oropharynx is moist. Mouth exam is benign. (unknown) (no (unknown) (unknown) ER Physician: (units ( unknown) date) Benedict Camacho MD unknown) (unknown) (no (unknown) (unknown) EXTREMITIES: No (units (unknown) date) edema, full range unknown) of motion. Fused right wrist is tender but (unknown) (no (unknown) (unknown) EYES: Sclera are (units (unknown) date) clear without unknown) icterus. Extraocular movements are full. (unknown) (no (unknown) (unknown) Exam (units (unkno wn) date) unknown) (unknown) (no (unknown) (unknown) Exam Narrative: (units (unknown) date) unknown) (unknown) (no (unknown) (unknown) GASTROINTESTINAL: (units (unknown) date) Abdomen soft, unknown) non-tender, nondistended. (unknown) (no (unknown) (unknown) GENERAL: Alert, (units (unknown) date) cooperative and in unknown) no distress. (unknown) (no (unknown) (unknown) GERD (units (unkno wn) date) (gastroesophageal unknown) reflux disease) (unknown) (no (unknown) (unknown) General (units (unkno wn) date) unknown) (unknown) (no (unknown) (unknown) HEAD: Atraumatic. (units (unknown) date) Normocephalic. unknown) (unknown) (no (unknown) (unknown) HFA inhaler (units (un known) date) (Advair HFA) unknown) (unknown) (no (unknown) (unknown) HPI - Fall (units (unk nown) date) unknown) (unknown) (no (unknown) (unknown) HPI Narrative: (units (unknown) date) unknown) (unknown) (no (unknown) (unknown) History of (units (unk nown) date) Present Illness unknown) (unknown) (no (unknown) (unknown) History of (units (unk nown) date) cerebrovascular unknown) accident (unknown) (no (unknown) (unknown) History of (units (unk nown) date) pulmonary embolism unknown) (unknown) (no (unknown) (unknown) History of (units (unk nown) date) seizures unknown) (unknown) (no (unknown) (unknown) Hx of hand (units (unk nown) date) surgery unknown) (unknown) (no (unknown) (unknown) Hyperglycemia (units ( unknown) date) unknown) (unknown) (no (unknown) (unknown) Ibuprofen (units (unkn own) date) (Ibuprofen 400 Mg unknown) Tablet) 800 mg PO NOW ONE (unknown) (no (unknown) (unknown) Medical History (units (unknown) date) (Updated 07/01/21 unknown) @ 10:48 by LINDSAY Coffman) (unknown) (no (unknown) (unknown) NECK: Supple. (units (unknown) date) Full range of unknown) motion. (unknown) (no (unknown) (unknown) NEURO: Nonfocal (units (unknown) date) examination, unknown) normal speech, normal gait. (unknown) (no (unknown) (unknown) Narrative (units (unkn own) date) unknown) (unknown) (no (unknown) (unknown) Narrative: (units (unk nown) date) unknown) (unknown) (no (unknown) (unknown) No Action (units (unkn own) date) unknown) (unknown) (no (unknown) (unknown) Occult blood (units (u nknown) date) positive stool unknown) (unknown) (no (unknown) (unknown) Ordered: (units (unkno wn) date) unknown) (unknown) (no (unknown) (unknown) Orders (units (unkno wn) date) unknown) (unknown) (no (unknown) (unknown) PSYCH: Normally (units (unknown) date) oriented. Normal unknown) range of affect. Appropriate behavior (unknown) (no (unknown) (unknown) Patient History (units (unknown) date) unknown) (unknown) (no (unknown) (unknown) Patient: (units (unkno wn) date) Suraj Ellis W unknown) MR#: [id number] (unknown) (no (unknown) (unknown) Penicillins (units (un known) date) Allergy unknown) Intermediate hives Verified 11/13/20 10:14 (unknown) (no (unknown) (unknown) Prescriptions: (units (unknown) date) unknown) (unknown) (no (unknown) (unknown) Pulmonary (units (unkn own) date) hypertension unknown) (unknown) (no (unknown) (unknown) RESPIRATORY: Clear (units (unknown) date) to auscultation. unknown) Breath sounds equal bilaterally. No wheezes, (unknown) (no (unknown) (unknown) Referrals: (units (unk nown) date) unknown) (unknown) (no (unknown) (unknown) Related Data (units (u nknown) date) unknown) (unknown) (no (unknown) (unknown) Review of Systems (units (unknown) date) unknown) (unknown) (no (unknown) (unknown) Review of systems (units (unknown) date) is difficult at unknown) best because this patient is very very (unknown) (no (unknown) (unknown) Ortiz Khan, (units ( unknown) date) [employer] [Primary Care unknown) Provider] - (unknown) (no (unknown) (unknown) SKIN: No rash or (units (unknown) date) erythema of unknown) visible areas (unknown) (no (unknown) (unknown) Signed By: (units (unk nown) date) unknown) (unknown) (no (unknown) (unknown) Smoking Status: (units (unknown) date) Former smoker unknown) (unknown) (no (unknown) (unknown) Smoking Status: (units (unknown) date) Former smoker unknown) (unknown) (no (unknown) (unknown) Social History (units (unknown) date) (Reviewed 05/25/21 unknown) @ 06:00 by Mally Mendes DO) (unknown) (no (unknown) (unknown) Stated Complaint: (units (unknown) date) Fall 2 days ago unknown) (unknown) (no (unknown) (unknown) Stroke (units (unkno wn) date) unknown) (unknown) (no (unknown) (unknown) Substance Use (units ( unknown) date) Type: does not use unknown) (unknown) (no (unknown) (unknown) Surgical History (units (unknown) date) (Reviewed 07/01/21 unknown) @ 10:45 by LINDSAY Coffman) (unknown) (no (unknown) (unknown) Time Seen by (units (u nknown) date) Provider: 12/27/21 unknown) 13:53 (unknown) (no (unknown) (unknown) Tobacco: How many (units (unknown) date) years used: 40 unknown) (unknown) (no (unknown) (unknown) XR wrist RT 2V (units (unknown) date) Stat unknown) (unknown) (no (unknown) (unknown) aerosol inhaler (units (unknown) date) (Ventolin HFA) unknown) .COMPLEX #18 grams (unknown) (no (unknown) (unknown) albuterol sulfate (units (unknown) date) 2.5 mg/3 mL 2.5 mg unknown) (3 mL) inhalation .COMPLEX 07/01/21 (unknown) (no (unknown) (unknown) albuterol sulfate (units (unknown) date) 90 mcg/actuation unknown) See Rx Instructions .Route 07/01/21 (unknown) (no (unknown) (unknown) alcohol intake (units (unknown) date) frequency: unknown) holidays/special occasions only (unknown) (no (unknown) (unknown) alcohol intake: (units (unknown) date) never unknown) (unknown) (no (unknown) (unknown) amitriptyline 25 (units (unknown) date) mg tablet 50 mg PO unknown) BEDTIME #180 tabs 07/01/21 (unknown) (no (unknown) (unknown) atorvastatin 80 (units (unknown) date) mg tablet 80 mg PO unknown) DAILY #90 tabs 07/01/21 (unknown) (no (unknown) (unknown) azithromycin 250 (units (unknown) date) mg tablet 250 mg unknown) PO DAILY 10/25/20 11/13/20 (unknown) (no (unknown) (unknown) denies having hit (units (unknown) date) his head. unknown) (unknown) (no (unknown) (unknown) difficult to (units (u nknown) date) understand at unknown) baseline and also has a history of seizures, TIA, a (unknown) (no (unknown) (unknown) difficult to (units (u nknown) date) understand when he unknown) speaks. (unknown) (no (unknown) (unknown) diltiazem HCl 240 (units (unknown) date) mg capsule,24 240 unknown) mg PO DAILY #90 caps 07/01/21 (unknown) (no (unknown) (unknown) fluticasone (units (un known) date) propionate 230 2 unknown) puff inhalation BID 10/25/20 11/13/20 (unknown) (no (unknown) (unknown) has been having (units (unknown) date) wrist pain and unknown) elbow pain since then. Denies any other illness (unknown) (no (unknown) (unknown) household (units (unkn own) date) members: none unknown) (unknown) (no (unknown) (unknown) hr,extended (units (un known) date) release unknown) (unknown) (no (unknown) (unknown) is baseline (units (un known) date) according to them. unknown) They say that he fell a couple of days ago and (unknown) (no (unknown) (unknown) levetiracetam 750 (units (unknown) date) mg tablet 750 mg unknown) PO Q12H 07/01/21 07/01/21 (unknown) (no (unknown) (unknown) levothyroxine 75 (units (unknown) date) mcg tablet 75 mcg unknown) PO DAILY #90 tabs 02/08/21 (unknown) (no (unknown) (unknown) losartan 100 mg (units (unknown) date) tablet 100 mg PO unknown) DAILY #90 tabs 07/01/21 (unknown) (no (unknown) (unknown) mcg-salmeterol 21 (units (unknown) date) mcg/actuation unknown) (unknown) (no (unknown) (unknown) not mobile. It (units (unknown) date) is not warm or unknown) red. Left elbow has full range of motion and a (unknown) (no (unknown) (unknown) omeprazole 40 mg (units (unknown) date) capsule,delayed 40 unknown) mg PO DAILY 04/27/18 11/13/20 (unknown) (no (unknown) (unknown) or injury. Says (units (unknown) date) he has some neck unknown) pain but does not think he broke his neck. He (unknown) (no (unknown) (unknown) or wheezing (units (un known) date) unknown) (unknown) (no (unknown) (unknown) oxygen #1 ea (units (u nknown) date) 08/02/18 11/13/20 unknown) (unknown) (no (unknown) (unknown) rales, or (units (unkn own) date) rhonchi. unknown) (unknown) (no (unknown) (unknown) release (units (unkno wn) date) unknown) (unknown) (no (unknown) (unknown) rivaroxaban 20 mg (units (unknown) date) tablet (Xarelto) unknown) 20 mg PO QPM #90 tabs 07/01/21 (unknown) (no (unknown) (unknown) small abrasion at (units (unknown) date) the tip of the unknown) olecranon. Mild olecranon bursa swelling. No (unknown) (no (unknown) (unknown) tiotropium (units (unk nown) date) bromide 18 mcg unknown) capsule 1 cap inhalation DAILY 10/25/20 11/13/20 (unknown) (no (unknown) (unknown) trial (units (unkno wn) date) fibrillation, unknown) COPD, hypertension comes to the ER by EMS because of right (unknown) (no (unknown) (unknown) typically do lots (units (unknown) date) of extra movements unknown) and very difficult to understand but this (unknown) (no (unknown) (unknown) warmth or (units (unkn own) date) redness. unknown) (unknown) (no (unknown) (unknown) with HandiHaler) (units (unknown) date) unknown) (unknown) (no (unknown) (unknown) with inhalation (units (unknown) date) device (Spiriva unknown) (unknown) (no (unknown) (unknown) wrist and left (units (unknown) date) elbow pain. EMS unknown) contacted him frequently and found him as they Result panel 3 (unknown) (no (unknown) (unknown) Qty: 1 (units (unkno wn) date) unknown) (unknown) (no (unknown) (unknown) (no value) (units (unk nown) date) unknown) (unknown) (no (unknown) (unknown) Radiologist's (units ( unknown) date) Impression: unknown) (unknown) (no (unknown) (unknown) Date of Service: (units (unknown) date) 12/27/21 unknown) (unknown) (no (unknown) (unknown) (no value) (units (unk nown) date) unknown) (unknown) (no (unknown) (unknown) 1 cap INHALATION (units (unknown) date) DAILY unknown) (unknown) (no (unknown) (unknown) 100 mg PO DAILY (units (unknown) date) Qty: 90 2RF unknown) (unknown) (no (unknown) (unknown) 2 liters at night (units (unknown) date) unknown) (unknown) (no (unknown) (unknown) 2 puff INHALATION (units (unknown) date) BID unknown) (unknown) (no (unknown) (unknown) 2.5 mg INHALATION (units (unknown) date) .COMPLEX Qty: 540 unknown) 12RF (unknown) (no (unknown) (unknown) 20 mg PO QPM Qty: (units (unknown) date) 90 2RF unknown) (unknown) (no (unknown) (unknown) 240 mg PO DAILY (units (unknown) date) Qty: 90 2RF unknown) (unknown) (no (unknown) (unknown) 250 mg PO DAILY (units (unknown) date) unknown) (unknown) (no (unknown) (unknown) 40 mg PO DAILY (units (unknown) date) unknown) (unknown) (no (unknown) (unknown) 50 mg PO BEDTIME (units (unknown) date) Qty: 180 2RF unknown) (unknown) (no (unknown) (unknown) 75 mcg PO DAILY (units (unknown) date) Qty: 90 3RF unknown) (unknown) (no (unknown) (unknown) 750 mg PO Q12H (units (unknown) date) unknown) (unknown) (no (unknown) (unknown) 80 mg PO DAILY (units (unknown) date) Qty: 90 2RF unknown) (unknown) (no (unknown) (unknown) Allergies (units (unkn own) date) unknown) (unknown) (no (unknown) (unknown) As directed (units (un known) date) unknown) (unknown) (no (unknown) (unknown) Documented By: AT (units (unknown) date) unknown) (unknown) (no (unknown) (unknown) Dose Instruction: (units (unknown) date) unknown) (unknown) (no (unknown) (unknown) ED Orders (units (unkn own) date) unknown) (unknown) (no (unknown) (unknown) Emergency Report (units (unknown) date) unknown) (unknown) (no (unknown) (unknown) Home Medications (units (unknown) date) unknown) (unknown) (no (unknown) (unknown) [facility] (units (unknown) date) [address] [place] [address] unknown) [place] [address] (unknown) (no (unknown) (unknown) Label Comments: (units (unknown) date) unknown) (unknown) (no (unknown) (unknown) Last Admin: (units (un known) date) 12/27/21 14:06 unknown) Dose: 975 mg (unknown) (no (unknown) (unknown) Last Admin: (units (un known) date) 12/27/21 14:12 unknown) Dose: 800 mg (unknown) (no (unknown) (unknown) Previous Rx's (units ( unknown) date) unknown) (unknown) (no (unknown) (unknown) Rx Instructions: (units (unknown) date) unknown) (unknown) (no (unknown) (unknown) See Rx (units (unkno wn) date) Instructions unknown) .ROUTE .COMPLEX Qty: 18 11RF (unknown) (no (unknown) (unknown) Stop: 12/27/21 (units (unknown) date) 13:55 unknown) (unknown) (no (unknown) (unknown) Use one vial with (units (unknown) date) nebulizer six unknown) times a day. (unknown) (no (unknown) (unknown) Vital Signs - 8 (units (unknown) date) hr unknown) (unknown) (no (unknown) (unknown) inhale 2 puffs by (units (unknown) date) mouth and INTO THE unknown) LUNGS twice a day Rinse mouth after use (unknown) (no (unknown) (unknown) inhale 2 puffs by (units (unknown) date) mouth every 4 to 6 unknown) hours if needed for shortness of breath (unknown) (no (unknown) (unknown) inhale contents (units (unknown) date) of 1 capsule by unknown) mouth once daily (unknown) (no (unknown) (unknown) take 1 tablet by (units (unknown) date) mouth once daily unknown) (unknown) (no (unknown) (unknown) (no value) (units (unk nown) date) unknown) (unknown) (no (unknown) (unknown) (DME) oxygen (units (u nknown) date) unknown) (unknown) (no (unknown) (unknown) Advair HFA 230-21 (units (unknown) date) mcg/actuation HFA unknown) aerosol inhaler (unknown) (no (unknown) (unknown) Spiriva with (units (u nknown) date) HandiHaler 18 mcg unknown) capsule, w/inhalation device (unknown) (no (unknown) (unknown) Xarelto 20 mg (units ( unknown) date) tablet unknown) (unknown) (no (unknown) (unknown) albuterol sulfate (units (unknown) date) 2.5 mg /3 mL unknown) (0.083 %) solution for nebulization (unknown) (no (unknown) (unknown) albuterol sulfate (units (unknown) date) [Ventolin HFA] 90 unknown) mcg/actuation HFA aerosol inhaler (unknown) (no (unknown) (unknown) amitriptyline 25 (units (unknown) date) mg tablet unknown) (unknown) (no (unknown) (unknown) atorvastatin 80 (units (unknown) date) mg tablet unknown) (unknown) (no (unknown) (unknown) azithromycin 250 (units (unknown) date) mg tablet unknown) (unknown) (no (unknown) (unknown) diltiazem HCl 240 (units (unknown) date) mg unknown) capsule,extended release 24 hr (unknown) (no (unknown) (unknown) levetiracetam 750 (units (unknown) date) mg tablet unknown) (unknown) (no (unknown) (unknown) levothyroxine 75 (units (unknown) date) mcg tablet unknown) (unknown) (no (unknown) (unknown) losartan 100 mg (units (unknown) date) tablet unknown) (unknown) (no (unknown) (unknown) omeprazole 40 mg (units (unknown) date) capsule,delayed unknown) release(DR/EC) (unknown) (no (unknown) (unknown) 12/27/21 (units (unkno wn) date) unknown) (unknown) (no (unknown) (unknown) Fall, Contusion (units (unknown) date) of right wrist, unknown) Contusion of elbow, left (unknown) (no (unknown) (unknown) Medication (units (unk nown) date) Instructions unknown) Recorded (unknown) (no (unknown) (unknown) Medication (units (unk nown) date) Instructions unknown) Recorded Confirmed (unknown) (no (unknown) (unknown) (0.083 %) (units (unkn own) date) solution for unknown) nebulization #540 mL (unknown) (no (unknown) (unknown) [id number] (units (unkno wn) date) unknown) (unknown) (no (unknown) (unknown) 12/27/21 13:54 (units (unknown) date) unknown) (unknown) (no (unknown) (unknown) 13:50 (units (unkno wn) date) unknown) (unknown) (no (unknown) (unknown) 58-year-old man (units (unknown) date) who lives unknown) independently with a history of stroke and is very (unknown) (no (unknown) (unknown) ? (units (unkno wn) date) unknown) (unknown) (no (unknown) (unknown) Acetaminophen (units ( unknown) date) (Acetaminophen 325 unknown) Mg Tablet) 975 mg PO NOW ONE (unknown) (no (unknown) (unknown) Age/Sex: 66 / M (units (unknown) date) unknown) (unknown) (no (unknown) (unknown) Allergy/AdvReac (units (unknown) date) Type Severity unknown) Reaction Status Date / Time (unknown) (no (unknown) (unknown) Approved by: Chuckie (units (unknown) date) Armin Payne on unknown) 12/27/2021 at 14:16 ? (unknown) (no (unknown) (unknown) Asthma (units (unkno wn) date) unknown) (unknown) (no (unknown) (unknown) Atrial (units (unkno wn) date) fibrillation unknown) (unknown) (no (unknown) (unknown) BACK: Normal (units ( unknown) date) inspection, no CVA unknown) tenderness. (unknown) (no (unknown) (unknown) Blood Pressure (units (unknown) date) 135/81 12/27/21 unknown) 13:50 (unknown) (no (unknown) (unknown) Blood Pressure (units (unknown) date) 135/81 unknown) (unknown) (no (unknown) (unknown) CARDIOVASCULAR: (units (unknown) date) Normal rate and unknown) rhythm without murmur gallop or rub. (unknown) (no (unknown) (unknown) COPD (chronic (units ( unknown) date) obstructive unknown) pulmonary disease) (unknown) (no (unknown) (unknown) Chief Complaint: (units (unknown) date) Fall unknown) (unknown) (no (unknown) (unknown) Clinical (units (unkno wn) date) Impression: unknown) (unknown) (no (unknown) (unknown) Colon cancer (units (u nknown) date) screening unknown) (unknown) (no (unknown) (unknown) Course (units (unkno wn) date) unknown) (unknown) (no (unknown) (unknown) : 1955 (units (unknown) date) Acct:[id number] unknown) (unknown) (no (unknown) (unknown) Departure (units (unkn own) date) unknown) (unknown) (no (unknown) (unknown) Dictated by: Chuckie (units (unknown) date) Armin Payne on unknown) 12/27/2021 at 14:06 ? ? (unknown) (no (unknown) (unknown) Discharge Plan (units (unknown) date) unknown) (unknown) (no (unknown) (unknown) Discontinued (units (u nknown) date) Medications unknown) (unknown) (no (unknown) (unknown) Dyslipidemia (units (u nknown) date) unknown) (unknown) (no (unknown) (unknown) ENT: No (units (unkno wn) date) rhinorrhea. unknown) Oropharynx is moist. Mouth exam is benign. (unknown) (no (unknown) (unknown) ER Physician: (units ( unknown) date) Benedict Camacho MD unknown) (unknown) (no (unknown) (unknown) EXTREMITIES: No (units (unknown) date) edema, full range unknown) of motion. Fused right wrist is tender but (unknown) (no (unknown) (unknown) EYES: Sclera are (units (unknown) date) clear without unknown) icterus. Extraocular movements are full. (unknown) (no (unknown) (unknown) Exam (units (unkno wn) date) unknown) (unknown) (no (unknown) (unknown) Exam Narrative: (units (unknown) date) unknown) (unknown) (no (unknown) (unknown) Extremity x-ray (units (unknown) date) #1: unknown) (unknown) (no (unknown) (unknown) GASTROINTESTINAL: (units (unknown) date) Abdomen soft, unknown) non-tender, nondistended. (unknown) (no (unknown) (unknown) GENERAL: Alert, (units (unknown) date) cooperative and in unknown) no distress. (unknown) (no (unknown) (unknown) GERD (units (unkno wn) date) (gastroesophageal unknown) reflux disease) (unknown) (no (unknown) (unknown) General (units (unkno wn) date) unknown) (unknown) (no (unknown) (unknown) HEAD: Atraumatic. (units (unknown) date) Normocephalic. unknown) (unknown) (no (unknown) (unknown) HFA inhaler (units (un known) date) (Advair HFA) unknown) (unknown) (no (unknown) (unknown) HPI - Fall (units (unk nown) date) unknown) (unknown) (no (unknown) (unknown) HPI Narrative: (units (unknown) date) unknown) (unknown) (no (unknown) (unknown) History of (units (unk nown) date) Present Illness unknown) (unknown) (no (unknown) (unknown) History of (units (unk nown) date) cerebrovascular unknown) accident (unknown) (no (unknown) (unknown) History of (units (unk nown) date) pulmonary embolism unknown) (unknown) (no (unknown) (unknown) History of (units (unk nown) date) seizures unknown) (unknown) (no (unknown) (unknown) Hx of hand (units (unk nown) date) surgery unknown) (unknown) (no (unknown) (unknown) Hyperglycemia (units ( unknown) date) unknown) (unknown) (no (unknown) (unknown) IMPRESSION:? (units (u nknown) date) Likely old unknown) fracture involving 5th metacarpal shaft.? Prior fusion (unknown) (no (unknown) (unknown) Ibuprofen (units (unkn own) date) (Ibuprofen 400 Mg unknown) Tablet) 800 mg PO NOW ONE (unknown) (no (unknown) (unknown) Imaging Data (units (u nknown) date) unknown) (unknown) (no (unknown) (unknown) Initial Vital (units ( unknown) date) Signs unknown) (unknown) (no (unknown) (unknown) Initial Vital (units ( unknown) date) Signs: unknown) (unknown) (no (unknown) (unknown) MDM - Fall (units (unk nown) date) unknown) (unknown) (no (unknown) (unknown) Medical History (units (unknown) date) (Updated 12/27/21 unknown) @ 14:37 by Benedict Camacho MD) (unknown) (no (unknown) (unknown) NECK: Supple. (units (unknown) date) Full range of unknown) motion. (unknown) (no (unknown) (unknown) NEURO: Nonfocal (units (unknown) date) examination, unknown) normal speech, normal gait. (unknown) (no (unknown) (unknown) Narrative (units (unkn own) date) unknown) (unknown) (no (unknown) (unknown) Narrative: (units (unk nown) date) unknown) (unknown) (no (unknown) (unknown) No Action (units (unkn own) date) unknown) (unknown) (no (unknown) (unknown) Occult blood (units (u nknown) date) positive stool unknown) (unknown) (no (unknown) (unknown) Ordered: (units (unkno wn) date) unknown) (unknown) (no (unknown) (unknown) Orders (units (unkno wn) date) unknown) (unknown) (no (unknown) (unknown) Oxygen Delivery (units (unknown) date) Method 12/27/21 unknown) 13:50 (unknown) (no (unknown) (unknown) Oxygen Delivery (units (unknown) date) Method Nasal unknown) Cannula (unknown) (no (unknown) (unknown) Oxygen Flow Rate (units (unknown) date) 2 12/27/21 13:50 unknown) (unknown) (no (unknown) (unknown) Oxygen Flow Rate (units (unknown) date) 2 unknown) (unknown) (no (unknown) (unknown) PSYCH: Normally (units (unknown) date) oriented. Normal unknown) range of affect. Appropriate behavior (unknown) (no (unknown) (unknown) Patient (units (unkno wn) date) Disposition: Home unknown) (unknown) (no (unknown) (unknown) Patient History (units (unknown) date) unknown) (unknown) (no (unknown) (unknown) Patient: (units (unkno wn) date) Suraj Ellis unknown) MR#: [id number] (unknown) (no (unknown) (unknown) Penicillins (units (un known) date) Allergy unknown) Intermediate hives Verified 12/27/21 13:59 (unknown) (no (unknown) (unknown) Prescriptions: (units (unknown) date) unknown) (unknown) (no (unknown) (unknown) Pulmonary (units (unkn own) date) hypertension unknown) (unknown) (no (unknown) (unknown) Pulse Oximetry (units (unknown) date) 94 12/27/21 unknown) 13:50 (unknown) (no (unknown) (unknown) Pulse Oximetry 94 (units (unknown) date) unknown) (unknown) (no (unknown) (unknown) Pulse Rate 95 H (units (unknown) date) 12/27/21 13:50 unknown) (unknown) (no (unknown) (unknown) Pulse Rate 95 H (units (unknown) date) unknown) (unknown) (no (unknown) (unknown) RESPIRATORY: Clear (units (unknown) date) to auscultation. unknown) Breath sounds equal bilaterally. No wheezes, (unknown) (no (unknown) (unknown) Referrals: (units (unk nown) date) unknown) (unknown) (no (unknown) (unknown) Related Data (units (u nknown) date) unknown) (unknown) (no (unknown) (unknown) Respiratory Rate (units (unknown) date) 20 12/27/21 unknown) 13:50 (unknown) (no (unknown) (unknown) Respiratory Rate (units (unknown) date) 20 unknown) (unknown) (no (unknown) (unknown) Review of Systems (units (unknown) date) unknown) (unknown) (no (unknown) (unknown) Review of systems (units (unknown) date) is difficult at unknown) best because this patient is very very (unknown) (no (unknown) (unknown) Ortiz Khan, (units ( unknown) date) [employer] [Primary Care unknown) Provider] - (unknown) (no (unknown) (unknown) SKIN: No rash or (units (unknown) date) erythema of unknown) visible areas (unknown) (no (unknown) (unknown) Signed By: (units (unk nown) date) unknown) (unknown) (no (unknown) (unknown) Smoking Status: (units (unknown) date) Former smoker unknown) (unknown) (no (unknown) (unknown) Smoking Status: (units (unknown) date) Former smoker unknown) (unknown) (no (unknown) (unknown) Social History (units (unknown) date) (Reviewed 05/25/21 unknown) @ 06:00 by Mally Mendes DO) (unknown) (no (unknown) (unknown) Stated Complaint: (units (unknown) date) Fall 2 days ago unknown) (unknown) (no (unknown) (unknown) Stroke (units (unkno wn) date) unknown) (unknown) (no (unknown) (unknown) Substance Use (units ( unknown) date) Type: does not use unknown) (unknown) (no (unknown) (unknown) Surgical History (units (unknown) date) (Reviewed 07/01/21 unknown) @ 10:45 by LINDSAY Coffman) (unknown) (no (unknown) (unknown) Temperature 99.0 (units (unknown) date) F 12/27/21 13:50 unknown) (unknown) (no (unknown) (unknown) Temperature 99.0 (units (unknown) date) F unknown) (unknown) (no (unknown) (unknown) Time Seen by (units (u nknown) date) Provider: 12/27/21 unknown) 13:53 (unknown) (no (unknown) (unknown) Tobacco: How many (units (unknown) date) years used: 40 unknown) (unknown) (no (unknown) (unknown) Vital Signs (units (un known) date) unknown) (unknown) (no (unknown) (unknown) Vital signs: (units (u nknown) date) unknown) (unknown) (no (unknown) (unknown) XR wrist RT min (units (unknown) date) 3V Stat unknown) (unknown) (no (unknown) (unknown) aerosol inhaler (units (unknown) date) (Ventolin HFA) unknown) .COMPLEX #18 grams (unknown) (no (unknown) (unknown) albuterol sulfate (units (unknown) date) 2.5 mg/3 mL 2.5 mg unknown) (3 mL) inhalation .COMPLEX 07/01/21 (unknown) (no (unknown) (unknown) albuterol sulfate (units (unknown) date) 90 mcg/actuation unknown) See Rx Instructions .Route 07/01/21 (unknown) (no (unknown) (unknown) alcohol intake (units (unknown) date) frequency: unknown) holidays/special occasions only (unknown) (no (unknown) (unknown) alcohol intake: (units (unknown) date) never unknown) (unknown) (no (unknown) (unknown) amitriptyline 25 (units (unknown) date) mg tablet 50 mg PO unknown) BEDTIME #180 tabs 07/01/21 (unknown) (no (unknown) (unknown) atorvastatin 80 (units (unknown) date) mg tablet 80 mg PO unknown) DAILY #90 tabs 07/01/21 (unknown) (no (unknown) (unknown) atrial (units (unkno wn) date) fibrillation, unknown) COPD, hypertension comes to the ER by EMS because of right (unknown) (no (unknown) (unknown) azithromycin 250 (units (unknown) date) mg tablet 250 mg unknown) PO DAILY 10/25/20 11/13/20 (unknown) (no (unknown) (unknown) denies having hit (units (unknown) date) his head. unknown) (unknown) (no (unknown) (unknown) difficult to (units (u nknown) date) understand at unknown) baseline and also has a history of seizures, TIA, (unknown) (no (unknown) (unknown) difficult to (units (u nknown) date) understand when he unknown) speaks. (unknown) (no (unknown) (unknown) diltiazem HCl 240 (units (unknown) date) mg capsule,24 240 unknown) mg PO DAILY #90 caps 07/01/21 (unknown) (no (unknown) (unknown) fluticasone (units (un known) date) propionate 230 2 unknown) puff inhalation BID 10/25/20 11/13/20 (unknown) (no (unknown) (unknown) gross (units (unkno wn) date) unknown) (unknown) (no (unknown) (unknown) hardware loosening (units (unknown) date) or failure.? Wrist unknown) joint osteoarthritis.? Diffuse osteopenia. (unknown) (no (unknown) (unknown) has been having (units (unknown) date) wrist pain and unknown) elbow pain since then. Denies any other illness (unknown) (no (unknown) (unknown) household (units (unkn own) date) members: none unknown) (unknown) (no (unknown) (unknown) hr,extended (units (un known) date) release unknown) (unknown) (no (unknown) (unknown) is baseline (units (un known) date) according to them. unknown) They say that he fell a couple of days ago and (unknown) (no (unknown) (unknown) joint with (units (unk nown) date) surgical hardware unknown) in place.? No acute fracture or dislocation.? No (unknown) (no (unknown) (unknown) levetiracetam 750 (units (unknown) date) mg tablet 750 mg unknown) PO Q12H 07/01/21 07/01/21 (unknown) (no (unknown) (unknown) levothyroxine 75 (units (unknown) date) mcg tablet 75 mcg unknown) PO DAILY #90 tabs 02/08/21 (unknown) (no (unknown) (unknown) losartan 100 mg (units (unknown) date) tablet 100 mg PO unknown) DAILY #90 tabs 07/01/21 (unknown) (no (unknown) (unknown) mcg-salmeterol 21 (units (unknown) date) mcg/actuation unknown) (unknown) (no (unknown) (unknown) not mobile. It (units (unknown) date) is not warm or unknown) red. Left elbow has full range of motion and a (unknown) (no (unknown) (unknown) of wrist (units (unkno wn) date) unknown) (unknown) (no (unknown) (unknown) omeprazole 40 mg (units (unknown) date) capsule,delayed 40 unknown) mg PO DAILY 04/27/18 11/13/20 (unknown) (no (unknown) (unknown) or injury. Says (units (unknown) date) he has some neck unknown) pain but does not think he broke his neck. He (unknown) (no (unknown) (unknown) or wheezing (units (un known) date) unknown) (unknown) (no (unknown) (unknown) oxygen #1 ea (units (u nknown) date) 08/02/18 11/13/20 unknown) (unknown) (no (unknown) (unknown) rales, or (units (unkn own) date) rhonchi. unknown) (unknown) (no (unknown) (unknown) release (units (unkno wn) date) unknown) (unknown) (no (unknown) (unknown) rivaroxaban 20 mg (units (unknown) date) tablet (Xarelto) unknown) 20 mg PO QPM #90 tabs 07/01/21 (unknown) (no (unknown) (unknown) small abrasion at (units (unknown) date) the tip of the unknown) olecranon. Mild olecranon bursa swelling. No (unknown) (no (unknown) (unknown) tiotropium (units (unk nown) date) bromide 18 mcg unknown) capsule 1 cap inhalation DAILY 10/25/20 11/13/20 (unknown) (no (unknown) (unknown) typically do lots (units (unknown) date) of extra movements unknown) and very difficult to understand but this (unknown) (no (unknown) (unknown) warmth or (units (unkn own) date) redness. unknown) (unknown) (no (unknown) (unknown) with HandiHaler) (units (unknown) date) unknown) (unknown) (no (unknown) (unknown) with inhalation (units (unknown) date) device (Spiriva unknown) (unknown) (no (unknown) (unknown) wrist and left (units (unknown) date) elbow pain. EMS unknown) contacted him frequently and found him as they Result panel 4 (unknown) (no (unknown) (unknown) Qty: 1 (units (unkno wn) date) unknown) (unknown) (no (unknown) (unknown) (no value) (units (unk nown) date) unknown) (unknown) (no (unknown) (unknown) Radiologist's (units ( unknown) date) Impression: unknown) (unknown) (no (unknown) (unknown) Date of Service: (units (unknown) date) 12/27/21 unknown) (unknown) (no (unknown) (unknown) (no value) (units (unk nown) date) unknown) (unknown) (no (unknown) (unknown) <Electronically (units (unknown) date) signed by Benedict unknown) MD Janice> (unknown) (no (unknown) (unknown) 12/27/21 1442 (units ( unknown) date) unknown) (unknown) (no (unknown) (unknown) 1 cap INHALATION (units (unknown) date) DAILY unknown) (unknown) (no (unknown) (unknown) 100 mg PO DAILY (units (unknown) date) Qty: 90 2RF unknown) (unknown) (no (unknown) (unknown) 2 liters at night (units (unknown) date) unknown) (unknown) (no (unknown) (unknown) 2 puff INHALATION (units (unknown) date) BID unknown) (unknown) (no (unknown) (unknown) 2.5 mg INHALATION (units (unknown) date) .COMPLEX Qty: 540 unknown) 12RF (unknown) (no (unknown) (unknown) 20 mg PO QPM Qty: (units (unknown) date) 90 2RF unknown) (unknown) (no (unknown) (unknown) 240 mg PO DAILY (units (unknown) date) Qty: 90 2RF unknown) (unknown) (no (unknown) (unknown) 250 mg PO DAILY (units (unknown) date) unknown) (unknown) (no (unknown) (unknown) 40 mg PO DAILY (units (unknown) date) unknown) (unknown) (no (unknown) (unknown) 50 mg PO BEDTIME (units (unknown) date) Qty: 180 2RF unknown) (unknown) (no (unknown) (unknown) 500 mg PO QID 7 (units (unknown) date) Days Qty: 28 0RF unknown) (unknown) (no (unknown) (unknown) 75 mcg PO DAILY (units (unknown) date) Qty: 90 3RF unknown) (unknown) (no (unknown) (unknown) 750 mg PO Q12H (units (unknown) date) unknown) (unknown) (no (unknown) (unknown) 80 mg PO DAILY (units (unknown) date) Qty: 90 2RF unknown) (unknown) (no (unknown) (unknown) Allergies (units (unkn own) date) unknown) (unknown) (no (unknown) (unknown) As directed (units (un known) date) unknown) (unknown) (no (unknown) (unknown) Documented By: AT (units (unknown) date) unknown) (unknown) (no (unknown) (unknown) Dose Instruction: (units (unknown) date) unknown) (unknown) (no (unknown) (unknown) ED Orders (units (unkn own) date) unknown) (unknown) (no (unknown) (unknown) Emergency Report (units (unknown) date) unknown) (unknown) (no (unknown) (unknown) Home Medications (units (unknown) date) unknown) (unknown) (no (unknown) (unknown) [facility] (units (unknown) date) [address] unknown) [place] [address] (unknown) (no (unknown) (unknown) Label Comments: (units (unknown) date) unknown) (unknown) (no (unknown) (unknown) Last Admin: (units (un known) date) 12/27/21 14:06 unknown) Dose: 975 mg (unknown) (no (unknown) (unknown) Last Admin: (units (un known) date) 12/27/21 14:12 unknown) Dose: 800 mg (unknown) (no (unknown) (unknown) Previous Rx's (units ( unknown) date) unknown) (unknown) (no (unknown) (unknown) Rx Instructions: (units (unknown) date) unknown) (unknown) (no (unknown) (unknown) See Rx (units (unkno wn) date) Instructions unknown) .ROUTE .COMPLEX Qty: 18 11RF (unknown) (no (unknown) (unknown) Stop: 12/27/21 (units (unknown) date) 13:55 unknown) (unknown) (no (unknown) (unknown) Use one vial with (units (unknown) date) nebulizer six unknown) times a day. (unknown) (no (unknown) (unknown) Vital Signs - 8 (units (unknown) date) hr unknown) (unknown) (no (unknown) (unknown) inhale 2 puffs by (units (unknown) date) mouth and INTO THE unknown) LUNGS twice a day Rinse mouth after use (unknown) (no (unknown) (unknown) inhale 2 puffs by (units (unknown) date) mouth every 4 to 6 unknown) hours if needed for shortness of breath (unknown) (no (unknown) (unknown) inhale contents (units (unknown) date) of 1 capsule by unknown) mouth once daily (unknown) (no (unknown) (unknown) take 1 tablet by (units (unknown) date) mouth once daily unknown) (unknown) (no (unknown) (unknown) (no value) (units (unk nown) date) unknown) (unknown) (no (unknown) (unknown) (DME) oxygen (units (u nknown) date) unknown) (unknown) (no (unknown) (unknown) Advair HFA 230-21 (units (unknown) date) mcg/actuation HFA unknown) aerosol inhaler (unknown) (no (unknown) (unknown) Spiriva with (units (u nknown) date) HandiHaler 18 mcg unknown) capsule, w/inhalation device (unknown) (no (unknown) (unknown) Xarelto 20 mg (units ( unknown) date) tablet unknown) (unknown) (no (unknown) (unknown) albuterol sulfate (units (unknown) date) 2.5 mg /3 mL unknown) (0.083 %) solution for nebulization (unknown) (no (unknown) (unknown) albuterol sulfate (units (unknown) date) [Ventolin HFA] 90 unknown) mcg/actuation HFA aerosol inhaler (unknown) (no (unknown) (unknown) amitriptyline 25 (units (unknown) date) mg tablet unknown) (unknown) (no (unknown) (unknown) atorvastatin 80 (units (unknown) date) mg tablet unknown) (unknown) (no (unknown) (unknown) azithromycin 250 (units (unknown) date) mg tablet unknown) (unknown) (no (unknown) (unknown) cephalexin 500 mg (units (unknown) date) capsule unknown) (unknown) (no (unknown) (unknown) diltiazem HCl 240 (units (unknown) date) mg unknown) capsule,extended release 24 hr (unknown) (no (unknown) (unknown) levetiracetam 750 (units (unknown) date) mg tablet unknown) (unknown) (no (unknown) (unknown) levothyroxine 75 (units (unknown) date) mcg tablet unknown) (unknown) (no (unknown) (unknown) losartan 100 mg (units (unknown) date) tablet unknown) (unknown) (no (unknown) (unknown) omeprazole 40 mg (units (unknown) date) capsule,delayed unknown) release(DR/EC) (unknown) (no (unknown) (unknown) 12/27/21 (units (unkno wn) date) unknown) (unknown) (no (unknown) (unknown) Fall, Contusion (units (unknown) date) of right wrist, unknown) Contusion of elbow, left, Cellulitis (unknown) (no (unknown) (unknown) Medication (units (unk nown) date) Instructions unknown) Recorded (unknown) (no (unknown) (unknown) Medication (units (unk nown) date) Instructions unknown) Recorded Confirmed (unknown) (no (unknown) (unknown) (0.083 %) (units (unkn own) date) solution for unknown) nebulization #540 mL (unknown) (no (unknown) (unknown) [id number] (units (unkno wn) date) unknown) (unknown) (no (unknown) (unknown) 12/27/21 13:54 (units (unknown) date) unknown) (unknown) (no (unknown) (unknown) 13:50 (units (unkno wn) date) unknown) (unknown) (no (unknown) (unknown) 58-year-old man (units (unknown) date) who lives unknown) independently with a history of stroke and is very (unknown) (no (unknown) (unknown) ? (units (unkno wn) date) unknown) (unknown) (no (unknown) (unknown) Acetaminophen (units ( unknown) date) (Acetaminophen 325 unknown) Mg Tablet) 975 mg PO NOW ONE (unknown) (no (unknown) (unknown) Activity (units (unkno wn) date) Restrictions/Addit unknown) ional Instructions: (unknown) (no (unknown) (unknown) Age/Sex: 66 / M (units (unknown) date) unknown) (unknown) (no (unknown) (unknown) Allergy/AdvReac (units (unknown) date) Type Severity unknown) Reaction Status Date / Time (unknown) (no (unknown) (unknown) Approved by: Chuckie Becerraunits (unknown) date) Armin Payne on unknown) 12/27/2021 at 14:16 ? (unknown) (no (unknown) (unknown) Asthma (units (unkno wn) date) unknown) (unknown) (no (unknown) (unknown) Atrial (units (unkno wn) date) fibrillation unknown) (unknown) (no (unknown) (unknown) BACK: Normal (units ( unknown) date) inspection, no CVA unknown) tenderness. (unknown) (no (unknown) (unknown) Blood Pressure (units (unknown) date) 135/81 12/27/21 unknown) 13:50 (unknown) (no (unknown) (unknown) Blood Pressure (units (unknown) date) 135 unknown) (unknown) (no (unknown) (unknown) CARDIOVASCULAR: (units (unknown) date) Normal rate and unknown) rhythm without murmur gallop or rub. (unknown) (no (unknown) (unknown) COPD (chronic (units ( unknown) date) obstructive unknown) pulmonary disease) (unknown) (no (unknown) (unknown) Chief Complaint: (units (unknown) date) Fall unknown) (unknown) (no (unknown) (unknown) Clinical (units (unkno wn) date) Impression: unknown) (unknown) (no (unknown) (unknown) Colon cancer (units (u nknown) date) screening unknown) (unknown) (no (unknown) (unknown) Course (units (unkno wn) date) unknown) (unknown) (no (unknown) (unknown) : 1955 (units (unknown) date) Acct:[id number] unknown) (unknown) (no (unknown) (unknown) Departure (units (unkn own) date) unknown) (unknown) (no (unknown) (unknown) Dictated by: Chuckie (units (unknown) date) Armin Payne on unknown) 12/27/2021 at 14:06 ? ? (unknown) (no (unknown) (unknown) Discharge Plan (units (unknown) date) unknown) (unknown) (no (unknown) (unknown) Discontinued (units (u nknown) date) Medications unknown) (unknown) (no (unknown) (unknown) Dyslipidemia (units (u nknown) date) unknown) (unknown) (no (unknown) (unknown) ENT: No (units (unkno wn) date) rhinorrhea. unknown) Oropharynx is moist. Mouth exam is benign. (unknown) (no (unknown) (unknown) ER Physician: (units ( unknown) date) Benedict Camacho MD unknown) (unknown) (no (unknown) (unknown) EXTREMITIES: No (units (unknown) date) edema, full range unknown) of motion. Fused right wrist is tender but (unknown) (no (unknown) (unknown) EYES: Sclera are (units (unknown) date) clear without unknown) icterus. Extraocular movements are full. (unknown) (no (unknown) (unknown) Exam (units (unkno wn) date) unknown) (unknown) (no (unknown) (unknown) Exam Narrative: (units (unknown) date) unknown) (unknown) (no (unknown) (unknown) Extremity x-ray (units (unknown) date) #1: unknown) (unknown) (no (unknown) (unknown) GASTROINTESTINAL: (units (unknown) date) Abdomen soft, unknown) non-tender, nondistended. (unknown) (no (unknown) (unknown) GENERAL: Alert, (units (unknown) date) cooperative and in unknown) no distress. (unknown) (no (unknown) (unknown) GERD (units (unkno wn) date) (gastroesophageal unknown) reflux disease) (unknown) (no (unknown) (unknown) General (units (unkno wn) date) unknown) (unknown) (no (unknown) (unknown) HEAD: Atraumatic. (units (unknown) date) Normocephalic. unknown) (unknown) (no (unknown) (unknown) HFA inhaler (units (un known) date) (Advair HFA) unknown) (unknown) (no (unknown) (unknown) HPI - Fall (units (unk nown) date) unknown) (unknown) (no (unknown) (unknown) HPI Narrative: (units (unknown) date) unknown) (unknown) (no (unknown) (unknown) History of (units (unk nown) date) Present Illness unknown) (unknown) (no (unknown) (unknown) History of (units (unk nown) date) cerebrovascular unknown) accident (unknown) (no (unknown) (unknown) History of (units (unk nown) date) pulmonary embolism unknown) (unknown) (no (unknown) (unknown) History of (units (unk nown) date) seizures unknown) (unknown) (no (unknown) (unknown) Hx of hand (units (unk nown) date) surgery unknown) (unknown) (no (unknown) (unknown) Hyperglycemia (units ( unknown) date) unknown) (unknown) (no (unknown) (unknown) IMPRESSION:? (units (u nknown) date) Likely old unknown) fracture involving 5th metacarpal shaft.? Prior fusion (unknown) (no (unknown) (unknown) Ibuprofen (units (unkn own) date) (Ibuprofen 400 Mg unknown) Tablet) 800 mg PO NOW ONE (unknown) (no (unknown) (unknown) Imaging Data (units (u nknown) date) unknown) (unknown) (no (unknown) (unknown) Initial Vital (units ( unknown) date) Signs unknown) (unknown) (no (unknown) (unknown) Initial Vital (units ( unknown) date) Signs: unknown) (unknown) (no (unknown) (unknown) MDM - Fall (units (unk nown) date) unknown) (unknown) (no (unknown) (unknown) Medical History (units (unknown) date) (Updated 12/27/21 unknown) @ 14:40 by Benedict Camacho MD) (unknown) (no (unknown) (unknown) NECK: Supple. (units (unknown) date) Full range of unknown) motion. (unknown) (no (unknown) (unknown) NEURO: Nonfocal (units (unknown) date) examination, unknown) normal speech, normal gait. (unknown) (no (unknown) (unknown) Narrative (units (unkn own) date) unknown) (unknown) (no (unknown) (unknown) Narrative: (units (unk nown) date) unknown) (unknown) (no (unknown) (unknown) New (units (unkno wn) date) unknown) (unknown) (no (unknown) (unknown) No Action (units (unkn own) date) unknown) (unknown) (no (unknown) (unknown) Occult blood (units (u nknown) date) positive stool unknown) (unknown) (no (unknown) (unknown) Ordered: (units (unkno wn) date) unknown) (unknown) (no (unknown) (unknown) Orders (units (unkno wn) date) unknown) (unknown) (no (unknown) (unknown) Oxygen Delivery (units (unknown) date) Method 12/27/21 unknown) 13:50 (unknown) (no (unknown) (unknown) Oxygen Delivery (units (unknown) date) Method Nasal unknown) Cannula (unknown) (no (unknown) (unknown) Oxygen Flow Rate (units (unknown) date) 2 12/27/21 13:50 unknown) (unknown) (no (unknown) (unknown) Oxygen Flow Rate (units (unknown) date) 2 unknown) (unknown) (no (unknown) (unknown) PSYCH: Normally (units (unknown) date) oriented. Normal unknown) range of affect. Appropriate behavior (unknown) (no (unknown) (unknown) Patient (units (unkno wn) date) Disposition: Home unknown) (unknown) (no (unknown) (unknown) Patient History (units (unknown) date) unknown) (unknown) (no (unknown) (unknown) Patient: (units (unkno wn) date) Suraj Ellis W unknown) MR#: [id number] (unknown) (no (unknown) (unknown) Penicillins (units (un known) date) Allergy unknown) Intermediate hives Verified 12/27/21 13:59 (unknown) (no (unknown) (unknown) Prescriptions: (units (unknown) date) unknown) (unknown) (no (unknown) (unknown) Pulmonary (units (unkn own) date) hypertension unknown) (unknown) (no (unknown) (unknown) Pulse Oximetry (units (unknown) date) 94 12/27/21 unknown) 13:50 (unknown) (no (unknown) (unknown) Pulse Oximetry 94 (units (unknown) date) unknown) (unknown) (no (unknown) (unknown) Pulse Rate 95 H (units (unknown) date) 12/27/21 13:50 unknown) (unknown) (no (unknown) (unknown) Pulse Rate 95 H (units (unknown) date) unknown) (unknown) (no (unknown) (unknown) RESPIRATORY: Clear (units (unknown) date) to auscultation. unknown) Breath sounds equal bilaterally. No wheezes, (unknown) (no (unknown) (unknown) Referrals: (units (unk nown) date) unknown) (unknown) (no (unknown) (unknown) Related Data (units (u nknown) date) unknown) (unknown) (no (unknown) (unknown) Respiratory Rate (units (unknown) date) 20 12/27/21 unknown) 13:50 (unknown) (no (unknown) (unknown) Respiratory Rate (units (unknown) date) 20 unknown) (unknown) (no (unknown) (unknown) Review of Systems (units (unknown) date) unknown) (unknown) (no (unknown) (unknown) Review of systems (units (unknown) date) is difficult at unknown) best because this patient is very very (unknown) (no (unknown) (unknown) Ortiz Khan, (units ( unknown) date) [employer] [Primary Care unknown) Provider] - (unknown) (no (unknown) (unknown) SKIN: No rash or (units (unknown) date) erythema of unknown) visible areas (unknown) (no (unknown) (unknown) Signed By: (units (unk nown) date) unknown) (unknown) (no (unknown) (unknown) Smoking Status: (units (unknown) date) Former smoker unknown) (unknown) (no (unknown) (unknown) Smoking Status: (units (unknown) date) Former smoker unknown) (unknown) (no (unknown) (unknown) Social History (units (unknown) date) (Reviewed 05/25/21 unknown) @ 06:00 by Mally Mendes DO) (unknown) (no (unknown) (unknown) Stated Complaint: (units (unknown) date) Fall 2 days ago unknown) (unknown) (no (unknown) (unknown) Stroke (units (unkno wn) date) unknown) (unknown) (no (unknown) (unknown) Substance Use (units ( unknown) date) Type: does not use unknown) (unknown) (no (unknown) (unknown) Surgical History (units (unknown) date) (Reviewed 07/01/21 unknown) @ 10:45 by LINDSAY Coffman) (unknown) (no (unknown) (unknown) Temperature 99.0 (units (unknown) date) F 12/27/21 13:50 unknown) (unknown) (no (unknown) (unknown) Temperature 99.0 (units (unknown) date) F unknown) (unknown) (no (unknown) (unknown) The right wrist (units (unknown) date) x-ray looks okay. unknown) It is located treated with pain medicine like (unknown) (no (unknown) (unknown) Time Seen by (units (u nknown) date) Provider: 12/27/21 unknown) 13:53 (unknown) (no (unknown) (unknown) Tobacco: How many (units (unknown) date) years used: 40 unknown) (unknown) (no (unknown) (unknown) Tylenol and (units (un known) date) ibuprofen for the unknown) next few days. Follow-up with your doctor in (unknown) (no (unknown) (unknown) Vital Signs (units (un known) date) unknown) (unknown) (no (unknown) (unknown) Vital signs: (units (u nknown) date) unknown) (unknown) (no (unknown) (unknown) XR wrist RT min (units (unknown) date) 3V Stat unknown) (unknown) (no (unknown) (unknown) about a week if (units (unknown) date) it still hurts. unknown) The left elbow is not fractured but there may (unknown) (no (unknown) (unknown) aerosol inhaler (units (unknown) date) (Ventolin HFA) unknown) .COMPLEX #18 grams (unknown) (no (unknown) (unknown) albuterol sulfate (units (unknown) date) 2.5 mg/3 mL 2.5 mg unknown) (3 mL) inhalation .COMPLEX 07/01/21 (unknown) (no (unknown) (unknown) albuterol sulfate (units (unknown) date) 90 mcg/actuation unknown) See Rx Instructions .Route 07/01/21 (unknown) (no (unknown) (unknown) alcohol intake (units (unknown) date) frequency: unknown) holidays/special occasions only (unknown) (no (unknown) (unknown) alcohol intake: (units (unknown) date) never unknown) (unknown) (no (unknown) (unknown) amitriptyline 25 (units (unknown) date) mg tablet 50 mg PO unknown) BEDTIME #180 tabs 07/01/21 (unknown) (no (unknown) (unknown) antibiotic. I (units (unknown) date) will send the unknown) antibiotic to your pharmacy. Follow-up with your (unknown) (no (unknown) (unknown) atorvastatin 80 (units (unknown) date) mg tablet 80 mg PO unknown) DAILY #90 tabs 07/01/21 (unknown) (no (unknown) (unknown) atrial (units (unkno wn) date) fibrillation, unknown) COPD, hypertension comes to the ER by EMS because of right (unknown) (no (unknown) (unknown) azithromycin 250 (units (unknown) date) mg tablet 250 mg unknown) PO DAILY 10/25/20 11/13/20 (unknown) (no (unknown) (unknown) be a little bit (units (unknown) date) of a skin unknown) infection there and I wanted treated with an (unknown) (no (unknown) (unknown) cephalexin 500 mg (units (unknown) date) capsule 500 mg PO unknown) QID 7 days #28 caps 12/27/21 (unknown) (no (unknown) (unknown) denies having hit (units (unknown) date) his head. unknown) (unknown) (no (unknown) (unknown) difficult to (units (u nknown) date) understand at unknown) baseline and also has a history of seizures, TIA, (unknown) (no (unknown) (unknown) difficult to (units (u nknown) date) understand when he unknown) speaks. (unknown) (no (unknown) (unknown) diltiazem HCl 240 (units (unknown) date) mg capsule,24 240 unknown) mg PO DAILY #90 caps 07/01/21 (unknown) (no (unknown) (unknown) doctor next week (units (unknown) date) if things are not unknown) way better. (unknown) (no (unknown) (unknown) does have a (units (un known) date) little bit of unknown) redness tracking medially to the swelling of the (unknown) (no (unknown) (unknown) fluticasone (units (un known) date) propionate 230 2 unknown) puff inhalation BID 10/25/20 11/13/20 (unknown) (no (unknown) (unknown) gross (units (unkno wn) date) unknown) (unknown) (no (unknown) (unknown) hardware loosening (units (unknown) date) or failure.? Wrist unknown) joint osteoarthritis.? Diffuse osteopenia. (unknown) (no (unknown) (unknown) has been having (units (unknown) date) wrist pain and unknown) elbow pain since then. Denies any other illness (unknown) (no (unknown) (unknown) household (units (unkn own) date) members: none unknown) (unknown) (no (unknown) (unknown) hr,extended (units (un known) date) release unknown) (unknown) (no (unknown) (unknown) is baseline (units (un known) date) according to them. unknown) They say that he fell a couple of days ago and (unknown) (no (unknown) (unknown) joint with (units (unk nown) date) surgical hardware unknown) in place.? No acute fracture or dislocation.? No (unknown) (no (unknown) (unknown) levetiracetam 750 (units (unknown) date) mg tablet 750 mg unknown) PO Q12H 07/01/21 07/01/21 (unknown) (no (unknown) (unknown) levothyroxine 75 (units (unknown) date) mcg tablet 75 mcg unknown) PO DAILY #90 tabs 02/08/21 (unknown) (no (unknown) (unknown) losartan 100 mg (units (unknown) date) tablet 100 mg PO unknown) DAILY #90 tabs 07/01/21 (unknown) (no (unknown) (unknown) mcg-salmeterol 21 (units (unknown) date) mcg/actuation unknown) (unknown) (no (unknown) (unknown) not mobile. It (units (unknown) date) is not warm or unknown) red. Left elbow has full range of motion and a (unknown) (no (unknown) (unknown) of wrist (units (unkno wn) date) unknown) (unknown) (no (unknown) (unknown) olecranon. This (units (unknown) date) redness is unknown) slightly warm. (unknown) (no (unknown) (unknown) omeprazole 40 mg (units (unknown) date) capsule,delayed 40 unknown) mg PO DAILY 04/27/18 11/13/20 (unknown) (no (unknown) (unknown) or injury. Says (units (unknown) date) he has some neck unknown) pain but does not think he broke his neck. He (unknown) (no (unknown) (unknown) or wheezing (units (un known) date) unknown) (unknown) (no (unknown) (unknown) oxygen #1 ea (units (u nknown) date) 08/02/18 11/13/20 unknown) (unknown) (no (unknown) (unknown) rales, or (units (unkn own) date) rhonchi. unknown) (unknown) (no (unknown) (unknown) release (units (unkno wn) date) unknown) (unknown) (no (unknown) (unknown) rivaroxaban 20 mg (units (unknown) date) tablet (Xarelto) unknown) 20 mg PO QPM #90 tabs 07/01/21 (unknown) (no (unknown) (unknown) small abrasion at (units (unknown) date) the tip of the unknown) olecranon. Mild olecranon bursa swelling. He (unknown) (no (unknown) (unknown) tiotropium (units (unk nown) date) bromide 18 mcg unknown) capsule 1 cap inhalation DAILY 10/25/20 11/13/20 (unknown) (no (unknown) (unknown) typically do lots (units (unknown) date) of extra movements unknown) and very difficult to understand but this (unknown) (no (unknown) (unknown) with HandiHaler) (units (unknown) date) unknown) (unknown) (no (unknown) (unknown) with inhalation (units (unknown) date) device (Spiriva unknown) (unknown) (no (unknown) (unknown) wrist and left (units (unknown) date) elbow pain. EMS unknown) contacted him frequently and found him as they Social History date description facility (no date) Ex-smoker (finding) [facility] Vital Signs date measurement value units +0000 BP_diastolic BP_diastolic 81 mm[H g] +0000 BP_systolic BP_systolic 135 mm[Hg] +0000 heart_rate heart_rate 95 /min +0000 respiration_rate respiration_rate 20 /min [id number]+0000 temperature_metric temperature_metric 37.22 C +0000 temperature_standard temperature_standard 9 9 F
[2021-12-28] MEDS ORDERED: ceFAZolin 1 GM in SODIUM CHLORIDE 0.9% MINIBAG 100 ML IV STA (18:35)
--- NOTE | 2021-12-28 18:35 | ED Physician Documentation ---
PD HPI HEAD INJURY - Stated complaint Stated Complaint: HEADACHE - History obtained from History obtained from: Patient - Additional information Additional information: 66-year-old gentleman on Xarelto for atrial fibrillation took a fall yesterday. States he was in the shower and slipped. He hit his right elbow and his head. He was seen at [facility] where he had reportedly an x-ray of his wrist and they also put him on antibiotics which she did not fill. He called the ambulance few times today with varying complaints noting that they recommended for him to take NSAIDs and he did not have any NSAIDs and then complained of he adache but the time duration was variable depending on when I asked. Review of Systems Ten Systems: 10 systems reviewed and negative Constitutional: reports: Reviewed and negative Eyes: reports: Reviewed and negative Ears: reports: Reviewed and negative PD PAST MEDICAL HISTORY - Past Medical History Cardiovascular: Hypertension, High cholesterol, Deep vein thrombosis, Pulmonary embolism Respiratory: COPD Neuro: CVA Endocrine/Autoimmune: HyPOthyroidism GI: None : None HEENT: None Psych: Anxiety, Bipolar disorder - Past Surgical History Past Surgical History: Yes Ortho: Arthroscopic surgery - Present Medications Home Medications: Ambulatory Orders Medication Instructions Recorded Confirmed Amitriptyline [Elavil] 50 mg PO QPM 11/09/17 10/12/21 Atorvastatin [Lipitor] 80 mg PO DAILY 11/09/17 10/12/21 Levothyroxine [Synthroid] 75 mcg PO QDAC 11/09/17 10/12/21 Losartan [Cozaar] 100 mg ORAL DAILY 11/09/17 10/12/21 Omeprazole 40 mg PO DAILY 11/09/17 10/12/21 Rivaroxaban [Xarelto] 20 mg PO QDDINNER 11/09/17 10/12/21 diltiaZEM [Cardizem] 240 mg ORAL DAILY 11/09/17 10/12/21 Albuterol 1 amp NEB PRN PRN 10/09/21 10/12/21 predniSONE [Deltasone] 10 mg PO [id number] #42 tab 10/09/21 10/12/21 Fluticasone [Flonase] 2 sprays ZAHEER DAILY 10/12/21 10/12/21 Fluticasone/Salmeterol [Advair Hfa 2 puffs INH BID 10/12/21 10/12/21 230-21 Mcg Inhaler] Levetiracetam [Keppra] 1,125 mg PO BID 10/12/21 10/12/21 Tiotropium [place] [Spiriva] 1 puffs INJ DAILY 10/12/21 10/12/21 Doxycycline Monohydrate 100 mg PO BID #20 cap 11/08/21 predniSONE [Deltasone] 10 mg PO [id number] #42 tab 11/08/21 - Allergies Allergies/Adverse Reactions: Allergies Allergy/AdvReac Type Severity Reaction Status Date / Time Penicillins Allergy Unknown Verified 11/08/21 18:28 - Social History Does the pt smoke?: Yes Smoking Status: Current every day smoker Does the pt drink ETOH?: Yes Does the pt have substance abuse?: No - Immunizations Immunizations are current?: No Immunizations: TDAP >10years/unknown - POLST Patient has POLST: No PD ED PE NORMAL - Vitals Vital signs reviewed: Yes - General General: Alert and oriented X 3, Other (Slightly slurred speech, smells of alcohol) - HEENT HEENT: PERRL, EOMI (With nystagmus) - Neck Neck: Supple, no meningeal sign, No bony TTP - Cardiac Cardiac: RRR, No murmur - Respiratory Respiratory: No respiratory distress - Abdomen Abdomen: Soft, Non tender - Back Back: No CVA TTP, No spinal TTP - Derm Derm: Normal color, Warm and dry - Extremities Extremities: Other (Mild tenderness of the right olecranon and unable to extend it fully. Left olecranon is nontender but with a little bit of purulent drainage at a wound at the elbow. Full range of motion on that side.) - Neuro Neuro: Alert and oriented X 3, Normal speech Results - Vitals Vitals: Vital Signs - 24 hr 12/28/21 12/28/21 18:32 19:25 Temperature 36.7 C Heart Rate 88 91 Respiratory 19 18 Rate Blood Pressure 130/81 H 133/80 H O2 Saturation 92 93 Oxygen O2 Source Nasal cannula - Labs Labs: Laboratory Tests 12/28/21 12/28/21 18:43 18:43 WBC 9.3 RBC 4.37 L Hgb 12.6 L Hct 38.9 L MCV 89.0 MCH 28.8 MCHC 32.4 RDW 15.8 H Plt Count 429 MPV 9.1 Neut # (Auto) 5.4 Lymph # (Auto) 2.9 Stephenson # (Auto) 0.8 Eos # (Auto) 0.2 Baso # (Auto) 0.1 Absolute Nucleated RBC 0.00 Nucleated RBC % 0.0 Sodium 142 Potassium 4.0 Chloride 105 Carbon Dioxide 27 Anion Gap 10.0 BUN 17 Creatinine 0.8 Estimated GFR (MDRD) 96 Glucose 137 H Calcium 9.0 Ethyl Alcohol 235.5 PD MEDICAL DECISION MAKING - ED course ED course: 66-year-old gentleman presents by ambulance for evaluation of head injury and a lso injuries to both elbows with left elbow cellulitis for which she also already received an prescription for Keflex but did not fill. He is intoxicated. CT of the head, neck, and bilateral x-rays of the elbows were done and negative for acute findings. He received 1 g of Ancef IV here. Given the intoxication he was observed for a few hours with improvement to clinical sobriety. He could not find a ride home and was given a cab voucher. Departure - Departure Disposition: 01 Home, Self Care Clinical Impression: Anticoagulation adequate, Cellulitis of left elbow Head injury Qualifiers: Encounter type: initial encounter Qualified Code(s): S09.90XA - Unspecified injury of head, initial encounter Contusion of right elbow Qualifiers: Encounter type: initial encounter Qualified Code(s): S50.01XA - Contusion of right elbow, initial encounter Left elbow contusion Qualifiers: Encounter type: initial encounter Qualified Code(s): S50.02XA - Contusion of left elbow, initial encounter Alcohol intoxication Qualifiers: Complication of substance-induced condition: uncomplicated Qualified Code(s): F10.920 - Alcohol use, unspecified with intoxication, uncomplicated Condition: Good Record reviewed to determine appropriate education?: Yes Instructions: ED Infec Skin Cellulitis, ED Alcohol Intoxication, ED Head Injury Closed Comments: Today we did x-rays of both elbows, and a CAT scan of your head and neck. No fractures were identified. The only abnormality we saw was the old stroke ca using your left-sided weakness. We also did labs which demonstrated a blood alcohol of 235. Please refrain from alcohol use. You should fill the antibiotics given to you by [facility] yesterday. We did give you an IV dose here. Call your doctor to arrange a follow-up appointment, make the next available appointment. In the interim, return anytime if worse or if new symptoms develop.
[2021-12-28 18:49] LABS: BASOPHILS # (AUTO) 0.1 10^3/uL (0.0-0.1); EOSINOPHILS # (AUTO) 0.2 10^3/uL (0.0-0.7); EOSINOPHILS % (AUTO) 1.7 %; HCT - HEMATOCRIT 38.9 % (42.0-52.0); HGB - HEMOGLOBIN 12.6 g/dL (14.0-18.0); LYMPHOCYTES # (AUTO) 2.9 10^3/uL (1.5-3.5); LYMPHOCYTES % (AUTO) 31.2 %; MEAN CORPUSCULAR HEMOGLOBIN 28.8 pg (27.0-31.0); MEAN CORPUSCULAR HGB CONC 32.4 g/dL (32.0-36.0); MEAN PLATELET VOLUME 9.1 fL (7.4-11.4); MONOCYTES # (AUTO) 0.8 10^3/uL (0.0-1.0); MONOCYTES % (AUTO) 8.5 %; NEUTROPHILS # (AUTO) 5.4 10^3/uL (1.5-6.6); NEUTROPHILS % (AUTO) 57.5 %; PLT - PLATELET COUNT 429 10^3/uL (130-450); RED BLOOD COUNT 4.37 10^6/uL (4.70-6.10); RED CELL DISTRIBUTION WIDTH 15.8 % (12.0-15.0); WHITE BLOOD COUNT 9.3 x10^3/uL (4.8-10.8)
[2021-12-28] MEDS ORDERED: ceFAZolin 1 GM VIAL ONE (18:55)
[2021-12-28 18:57] LABS: CREATININE 0.8 mg/dL (0.6-1.2); ETOH - ETHANOL 235.5 mg/dL
--- NOTE | 2021-12-28 19:28 | CT Report ---
PROCEDURE: HEAD WO INDICATIONS: head inj TECHNIQUE: Noncontrast 4.5 mm thick angled axial sections acquired from the foramen magnum to the vertex. For r adiation dose reduction, the following was used: automated exposure control, adjustment of mA and/or kV according to patient size. COMPARISON: None. FINDINGS: Image quality: Excellent. CSF spaces: Basal cisterns are patent. No extra-axial fluid collections. Ventricles are normal in size and shape. Brain: No midline shift. 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 No in tracranial masses or hemorrhage. [place]-white matter interface is normal. Skull and face: Calvarium and visualized facial bones are intact, without suspicious lesions. Sinuses: Visualized sinuses and mastoids are clear. IMPRESSION: 1. No acute intracranial abnormality. 2. Remote infarct involving part of the right MCA distribution. Reviewed by: Sergio Fields on 12/28/2021 7:27 PM PDT Approved by: Sergio Fields on 12/28/2021 7:27 PM PDT Station ID: [id number]
--- NOTE | 2021-12-28 19:31 | CT Report ---
PROCEDURE: CERVICAL SPINE WO INDICATIONS: head inj TECHNIQUE: Noncontrast 3 mm thick sections acquired from the skull base to the T4 level. Sagittal and coronal r eformats were then constructed. For radiation dose reduction, the following was used: automated exp osure control, adjustment of mA and/or kV according to patient size. COMPARISON: None. FINDINGS: Image quality: Excellent. Bones: No fractures or dislocations. Visualized superior ribs are intact. Mild multilevel degenera tive changes. Soft tissues: Prevertebral soft tissues are normal in thickness. No paravertebral hematomas. No ap ical pneumothoraces. IMPRESSION: No acute traumatic abnormality of the cervical spine. Reviewed by: Sergio Fields on 12/28/2021 7:30 PM PDT Approved by: Sergio Fields on 12/28/2021 7:30 PM PDT Station ID: [id number]
--- NOTE | 2021-12-28 19:34 | XRAY Report ---
PROCEDURE: Elbow 3 View BILAT INDICATIONS: elbow inj b TECHNIQUE: 6 views of the elbow were acquired. COMPARISON: None FINDINGS: Bones: No definite fracture is identified. There is remodeling of the radial head likely due to prior trauma. A step-off of the medial aspect of the ulna on the AP view (image 1) is likely remote and ap pears well corticated. No suspicious bony lesions. Soft tissues: No elbow joint effusion. No suspicious soft tissue calcifications. IMPRESSION: No definite fracture is identified. Consider CT if clinically indicated. Reviewed by: Sergio Fields on 12/28/2021 7:33 PM PDT Approved by: Sergio Fields on 12/28/2021 7:33 PM PDT Station ID: [id number]
[2021-12-28 22:04] VITALS: BP 144/80
== END 2021-12-28 21:55 | disposition home or self-care (01) ==
LOC: EDUNIT# → ED 18:25
DX: L03.114 Cellulitis of left upper limb (principal); S09.90XA Unspecified injury of head, initial encounter; S50.01XA Contusion of right elbow, initial encounter; S50.02XA Contusion of left elbow, initial encounter; F10.129 Alcohol abuse with intoxication, unspecified; F17.200 Nicotine dependence, unspecified, uncomplicated; I48.91 Unspecified atrial fibrillation; Z79.01 Long term (current) use of anticoagulants; W18.2XXA Fall in (into) shower or empty bathtub, initial encounter; I10 Essential (primary) hypertension; E03.9 Hypothyroidism, unspecified; F10.120 Alcohol abuse with intoxication, uncomplicated
CPT/HCPCS: 36415; 70450; 72125; 73080; 80048; 85025; 96365; 99282; 99284; A9270; G0480; 80320

== ENCOUNTER 2021-12-29 11:21 | Outpatient (CLI) | payer MEDICARE, MEDICAID | END 2021-12-29 11:22 | disposition critical access hospital (66) | LOC: EMS 11:21 | DX: S30.810A Abrasion of lower back and pelvis, initial encounter (principal); X58.XXXA Exposure to other specified factors, initial encounter; Y92.009 Unspecified place in unspecified non-institutional (private) residence as the place of occurrence of the external cause | CPT/HCPCS: A0425; A0429 ==

== ENCOUNTER 2021-12-29 11:42 | Emergency (ER) | payer MEDICARE, MEDICAID ==
--- NOTE | 2021-12-29 11:51 | ED Physician Documentation ---
PD HPI Fall - Stated complaint Stated Complaint: GLF - History obtained from History obtained from: Patient - History of Present Illness Mechanism of injury: Tripped, Lost balance Fall distance: Standing position Where injury occurred: Home Timing - onset: Today (this morning) Injury(ies) location: Chest (Has acute pain in the right posterolateral back lower aspect to the right flank as well as the thoracolumbar spine area. No numbness or weakness. Some pain to the right side abdomen but no general abdominal pain.), Abdomen, Back. No: Head, Neck Quality of pain: Aching, Sharp Associated symptoms: Other (anxious and shaky). No: LOC, AMS Similar symptoms before: Has not had sx before (has not had rib/back pains recently.) Recently seen: Emergency Dept (He had had recent falls over the last several days. Seen yesterday here after fall with striking his head. Denied any injury of the chest at that time. Had normal head and neck CT. Fall several days prior to that and seen for elbow pain with negative x-ray.) Review of Systems Constitutional: denies: Fever, Chills Nose: denies: Rhinorrhea / runny nose, Congestion Throat: denies: Sore throat Cardiac: reports: Chest pain / pressure (right posterior). denies: Palpitations, Pedal edema, Calf pain Respiratory: reports: Dyspnea, Wheezing. denies: Cough GI: reports: Nausea. denies: Abdominal Pain, Vomiting, Diarrhea Skin: denies: Abrasion (s), Laceration (s) Musculoskeletal: reports: Back pain. denies: Neck pain Neurologic: reports: Generalized weakness, Confused. denies: Focal weakness, Numbness, Headache PD PAST MEDICAL HISTORY - Past Medical History Cardiovascular: Hypertension, High cholesterol, Deep vein thrombosis, Pulmonary embolism Respiratory: COPD Neuro: CVA Endocrine/Autoimmune: HyPOthyroidism GI: None : None HEENT: None Psych: Anxiety, Bipolar disorder - Past Surgical History Past Surgical History: Yes Ortho: Arthroscopic surgery - Present Medications Home Medications: Ambulatory Orders Medication Instructions Recorded Confirmed Amitriptyline [Elavil] 50 mg PO QPM 11/09/17 10/12/21 Atorvastatin [Lipitor] 80 mg PO DAILY 11/09/17 10/12/21 Levothyroxine [Synthroid] 75 mcg PO QDAC 11/09/17 10/12/21 Losartan [Cozaar] 100 mg ORAL DAILY 11/09/17 10/12/21 Omeprazole 40 mg PO DAILY 11/09/17 10/12/21 Rivaroxaban [Xarelto] 20 mg PO QDDINNER 11/09/17 10/12/21 diltiaZEM [Cardizem] 240 mg ORAL DAILY 11/09/17 10/12/21 Albuterol 1 amp NEB PRN PRN 10/09/21 10/12/21 predniSONE [Deltasone] 10 mg PO [id number] #42 tab 10/09/21 10/12/21 Fluticasone [Flonase] 2 sprays ZAHEER DAILY 10/12/21 10/12/21 Fluticasone/Salmeterol [Advair Hfa 2 puffs INH BID 10/12/21 10/12/21 230-21 Mcg Inhaler] Levetiracetam [Keppra] 1,125 mg PO BID 10/12/21 10/12/21 Tiotropium [place] [Spiriva] 1 puffs INJ DAILY 10/12/21 10/12/21 Doxycycline Monohydrate 100 mg PO BID #20 cap 11/08/21 predniSONE [Deltasone] 10 mg PO [id number] #42 tab 11/08/21 - Allergies Allergies/Adverse Reactions: Allergies Allergy/AdvReac Type Severity Reaction Status Date / Time Penicillins Allergy Unknown Verified 11/08/21 18:28 - Social History Does the pt smoke?: Yes Smoking Status: Current every day smoker Does the pt drink ETOH?: Yes Does the pt have substance abuse?: No - Immunizations Immunizations are current?: No Immunizations: TDAP >10years/unknown - POLST Patient has POLST: No PD ED PE NORMAL - Vitals Vital signs reviewed: Yes - General General: Alert and oriented X 3, Well developed/nourished, Other (appears in pain due to back/ splinting breathing. ) - Neck Neck: Supple, no meningeal sign, No adenopathy - Cardiac Cardiac: No murmur. No: RRR (rapid and somewhat irregular) - Respiratory Respiratory: No: Clear bilaterally (diminished right lower, with mild diffuse wheezing. ) - Abdomen Abdomen: Normal bowel sounds, Soft, Other (some tenderness right upper abd. ) Results - Vitals Vitals: Vital Signs - 24 hr 12/29/21 12/29/21 12/29/21 12:13 14:57 16:35 Temperature 36.7 C 36.6 C Heart Rate 116 H 103 H 109 H Respiratory 26 H 17 Rate Blood Pressure 120/70 127/94 H O2 Saturation 97 98 94 Oxygen O2 Source Room air - EKG (time done) 15:36 Rate: Rate (enter#) (104) Rhythm: Sinus tachycardia Milo: Normal Intervals: Wide QRS, RBBB Ischemia: Non specific changes Compare to prior EKG: Unchanged from prior EKG - Labs Labs: Laboratory Tests 12/29/21 12/29/21 12/29/21 12:11 12:11 15:24 WBC 16.4 H RBC 4.36 L Hgb 12.7 L Hct 39.0 L MCV 89.4 MCH 29.1 MCHC 32.6 RDW 15.4 H Plt Count 392 MPV 9.3 Neut # (Auto) 13.7 H Lymph # (Auto) 1.4 L [place] # (Auto) 1.1 H Eos # (Auto) 0.1 Baso # (Auto) 0.1 Absolute Nucleated RBC 0.00 Nucleated RBC % 0.0 PT 18.5 H INR 1.7 H APTT 33.6 H Sodium 141 Potassium 4.2 Chloride 102 Carbon Dioxide 22 Anion Gap 17.0 H BUN 20 Creatinine 0.8 Estimated GFR (MDRD) 96 Glucose 168 H Calcium 9.2 Magnesium 2.0 Total Bilirubin 1.1 H AST 57 H ALT 38 Alkaline Phosphatase 75 Total Protein 7.2 Albumin 4.0 Globulin 3.2 Albumin/Globulin Ratio 1.3 Lipase 29 Ethyl Alcohol 63.9 SARS-CoV-2 (PCR) 12/29/21 15:28 WBC RBC Hgb Hct MCV MCH MCHC RDW Plt Count MPV Neut # (Auto) Lymph # (Auto) [place] # (Auto) Eos # (Auto) Baso # (Auto) Absolute Nucleated RBC Nucleated RBC % PT INR APTT Sodium Potassium Chloride Carbon Dioxide Anion Gap BUN Creatinine Estimated GFR (MDRD) Glucose Calcium Magnesium Total Bilirubin AST ALT Alkaline Phosphatase Total Protein Albumin Globulin Albumin/Globulin Ratio Lipase Ethyl Alcohol SARS-CoV-2 (PCR) NOT DETECTED - Rads (name of study) chest/abd/pelvic CT Radiology: Prelim report reviewed (Multiple right rib fractures in the posterolateral aspect 01/14/2010 and 12. L1 transverse process fracture nondisplaced and L2 compression fracture acute.), See rad report head CT Radiology: Prelim report reviewed (no ICH. prior CVA noted. No interval change. ), See rad report PD MEDICAL DECISION MAKING - ED course Complexity details: reviewed results, re-evaluated patient (Pain improved with pain medicine. Tremoring and anxiety improved with benzodiazepine. He is still having splinted breathing and significant back pain in fracture areas.), considered differential (Patient with fall and chest and back pain. He is on anticoagulants. Having some tremor consistent with possible withdrawal from alcohol as well. Modified trauma due to criteria. Concern for rib or organ injury so CT scans were ordered with contrast.), d/w patient, d/w information security consultant (Spoke with [facility] transfer center who discussed with the ER attending for direct transfer by criteria. Patient accepted by Dr. Jacob.) - Critical Care Time(min): 55 Time Includes: Direct patient care, Reassess patient, Document care, Coordinate care Data interpretation: Labs, CXR, See progress note (CT scans) Departure - Departure Disposition: 02 Transfer Acute Care Hosp Clinical Impression: Fall from slip, trip, or stumble, Alcohol abuse, Ribs, multiple fractures, Lumbar transverse process fracture, Lumbar compression fracture, Anticoagulant long-term use, Atrial fibrillation, COPD (chronic obstructive pulmonary disease) Condition: Stable
[2021-12-29] MEDS ORDERED: diazePAM INJ 5 MG/ML SYRINGE IVP STA (12:01)
[2021-12-29] MEDS ORDERED: SODIUM CHLORIDE 0.9% 1,000 ML IV STA ×2 (12:01→15:17)
[2021-12-29] MEDS ORDERED: HYDROmorphone 0.5 MG/0.5 ML SYRINGE IVP STA ×2 (12:02→16:31)
[2021-12-29 12:16] LABS: BASOPHILS # (AUTO) 0.1 10^3/uL (0.0-0.1); BASOPHILS % (AUTO) 0.5 %; EOSINOPHILS # (AUTO) 0.1 10^3/uL (0.0-0.7); EOSINOPHILS % (AUTO) 0.6 %; HGB - HEMOGLOBIN 12.7 g/dL (14.0-18.0); LYMPHOCYTES # (AUTO) 1.4 10^3/uL (1.5-3.5); LYMPHOCYTES % (AUTO) 8.7 %; MEAN CORPUSCULAR HEMOGLOBIN 29.1 pg (27.0-31.0); MEAN CORPUSCULAR HGB CONC 32.6 g/dL (32.0-36.0); MEAN CORPUSCULAR VOLUME 89.4 fL (80.0-94.0); MEAN PLATELET VOLUME 9.3 fL (7.4-11.4); MONOCYTES # (AUTO) 1.1 10^3/uL (0.0-1.0); MONOCYTES % (AUTO) 6.4 %; NEUTROPHILS # (AUTO) 13.7 10^3/uL (1.5-6.6); NEUTROPHILS % (AUTO) 83.5 %; PLT - PLATELET COUNT 392 10^3/uL (130-450); RED BLOOD COUNT 4.36 10^6/uL (4.70-6.10); RED CELL DISTRIBUTION WIDTH 15.4 % (12.0-15.0); WHITE BLOOD COUNT 16.4 x10^3/uL (4.8-10.8)
--- OUTSIDE RECORDS SUMMARY | 2021-12-29 12:24 | EXTERNAL MEDICAL SUMMARY RPT | Continuity of Care Document ---
:1955 Author Organization [facility] Address [address] [place] [address] Phone Allergies and Intolerances date description facility type (no date) [facility] (unknown) Encounters No information. Functional Status No information. Immunizations No information. Medications date description facility +0000 Cephalexin 500 MG Oral Capsule [facility] Problems No information. Procedures date description facility +0000 General Physician [facility] Results/Labs test date author facility value unit interpret ation Result panel 1 (unknown) (no (unknown) (unknown) (no value) (units (unk nown) date) unknown) (unknown) (no (unknown) (unknown) [address] [place] [address] (units (unknown) date) unknown) (unknown) (no (unknown) (unknown) [place], [place] (units ( unknown) date) [address] unknown) (unknown) (no (unknown) (unknown) [facility] (units (unknown) date) unknown) (unknown) (no (unknown) [...] hardware loosening or (unknown) (no (unknown) (unknown) [id number] (units (unkno wn) date) unknown) (unknown) (no (unknown) (unknown) Accession (units (unkn own) date) Number: unknown) [id number] (unknown) (no (unknown) (unknown) Age/Sex: 66 / M (units (unknown) date) Date of unknown) Service: (unknown) (no (unknown) (unknown) : 1955 (units (unknown) date) Acct:[id number] unknown) (unknown) (no (unknown) (unknown) Loc: ED [...] (unknown) date) unknown) (unknown) (no (unknown) (unknown) [facility] (units (unknown) date) [address] unknown) [place] [address] (unknown) (no (unknown) (unknown) Label Comments: (units [...] nebulization #540 mL (unknown) (no (unknown) (unknown) [id number] (units (unkno wn) date) unknown) (unknown) (no [...] (unknown) (unknown) : 1955 (units (unknown) date) Acct:[id number] unknown) (unknown) (no (unknown) (unknown) Departure (units [...] (unknown) Ortiz Khan, (units ( unknown) date) CLINICAL LAB TECHNOLOGIST [Primary Care unknown) Provider] - (unknown) (no [...] (unknown) date) unknown) (unknown) (no (unknown) (unknown) [facility] (units (unknown) date) [address] [place] [address] unknown) [place] [address] (unknown) (no (unknown) (unknown) Label Comments: (units [...] nebulization #540 mL (unknown) (no (unknown) (unknown) [id number] (units (unkno wn) date) unknown) (unknown) (no [...] (unknown) (unknown) : 1955 (units (unknown) date) Acct:[id number] unknown) (unknown) (no (unknown) (unknown) Departure (units [...] (unknown) Ortiz Khan, (units ( unknown) date) CLINICAL LAB TECHNOLOGIST [Primary Care unknown) Provider] - (unknown) (no [...] (unknown) date) unknown) (unknown) (no (unknown) (unknown) [facility] (units (unknown) date) [address] unknown) [place] [address] (unknown) (no (unknown) (unknown) Label Comments: (units [...] nebulization #540 mL (unknown) (no (unknown) (unknown) [id number] (units (unkno wn) date) unknown) (unknown) (no [...] (unknown) (unknown) : 1955 (units (unknown) date) Acct:[id number] unknown) (unknown) (no (unknown) (unknown) Departure (units [...] (unknown) Ortiz Khan, (units ( unknown) date) CLINICAL LAB TECHNOLOGIST [Primary Care unknown) Provider] - (unknown) (no [...] date description facility (no date) Ex-smoker (finding) [facility] Vital Signs date measurement value units +0000 BP_diastolic BP_diastolic 81 mm[H g] +0000 BP_systolic BP_systolic 135 mm[Hg] +0000 heart_rate heart_rate 95 /min +0000 respiration_rate respiration_rate 20 /min [id number]+0000 temperature_metric temperature_metric 37.22 C +0000 temperature_standard temperature_standard 9 9 F
[2021-12-29 12:29] LABS: ALBUMIN/GLOBULIN RATIO 1.3 (1.0-2.2); BILIRUBIN,TOTAL 1.1 mg/dL (0.2-1.0); CALCIUM 9.2 mg/dL (8.5-10.3); CREATININE 0.8 mg/dL (0.6-1.2); ETOH - ETHANOL 63.9 mg/dL; POTASSIUM 4.2 mmol/L (3.5-5.0); TOTAL PROTEIN 7.2 g/dL (6.7-8.2)
[2021-12-29] MEDS ORDERED: iohexoL-300 100 ML VIAL ONE (13:16)
[2021-12-29] MEDS ORDERED: iohexoL-300 100 ML VIAL IVP ONE (13:36)
[2021-12-29] MEDS ORDERED: LORazepam 2 MG/ML VIAL IVP STA (14:11)
--- NOTE | 2021-12-29 14:17 | CT Report ---
PROCEDURE: CHEST W INDICATIONS: fall with anterior chest/abd pain CONTRAST: IV CONTRAST: Optiray 320 ml: 100 PO CONTRAST: *NO PO CONTRAST TECHNIQUE: After the administration of intravenous contrast, 1 mm axial images were acquired from the pulmonary apices through the posterior costophrenic angles. Axial 5 mm soft tissue kernel reconstructions were performed as well as 8 mm axial MIP and coronal and sagittal 5 mm reformations. For radiation dose reduction, the following was used: automated exposure control, adjustment of mA and/or kV according to patient size. COMPARISON: None. FINDINGS: Image quality: Adequate. Lungs and pleura: Trace scattered foci of extrapleural gas seen medially adjacent to the right upper lobe, and anteriorly adjacent to the right middle lobe. There are atelectatic changes and slight pleu ral thickening posteriorly and laterally in the right lung. No visible pleural effusions. Central and peripheral airways are patent. Mediastinum: Normal heart size. No pericardial effusion. No mediastinal hematoma. Great vessels are n ormal caliber. No mediastinal or hilar adenopathy. The esophagus is normal without hiatal hernia. Bones and chest wall: Severe degenerative changes in the right glenohumeral joint. There is a healed, partially imaged proximal right clavicle fracture. No visible acute fractures of either clavicle. Pr obable nondisplaced posterior right fourth and fifth rib fracture. Minimally displaced right lateral eighth, ninth, 10th rib fractures and possible posterior Right 12th rib fracture. no visible left-becki ed rib fractures. Nondisplaced right L1 transverse process fracture. Anterior wedge deformity of the T3 vertebral body of uncertain chronicity. Moderate compression fracture of L2, potentially acute. Abdomen: See separately dictated study. IMPRESSION: 1. Very tiny right extrapleural gas foci consistent with trace pneumothorax. 2. Numerous right rib fractures, nondisplaced. 3. Probably acute L2 vertebral body fracture without retropulsion of fracture fragments. 4. Mild T3 anterior wedge deformity of uncertain chronicity. Correlate clinically. 5. Small peripheral areas of parenchymal opacity in the right lung, likely related to contusions. Reviewed by: Carolina Moseley MD on 12/29/2021 2:16 PM PDT Approved by: Carolina Moseley MD on 12/29/2021 2:16 PM PDT Station ID: [id number]
--- NOTE | 2021-12-29 14:23 | CT Report ---
PROCEDURE: Abdomen/Pelvis W INDICATIONS: fall with thoracolumbar pain; on DOAC. CONTRAST: IV CONTRAST: Optiray 320 ml: 100 PO CONTRAST: *NO PO CONTRAST TECHNIQUE: After the administration of IV contrast, 5 mm thick sections acquired from the diaphragms to the symp hysis. 5 mm thick coronal and sagittal reformats were acquired. For radiation dose reduction, the f ollowing was used: automated exposure control, adjustment of mA and/or kV according to patient size. COMPARISON: None. FINDINGS: Image quality: Excellent. ABDOMEN: Lung bases: Please see separately dictated study Solid organs: Liver and spleen are normal in size and enhancement. No lacerations or subcapsular he matoma. Gallbladder is normal. Biliary system is non dilated. Pancreas appears intact. No adrenal n odules. Kidneys demonstrate normal size and enhancement, without hydronephrosis. No perinephric hem atoma. Peritoneum and bowel: The stomach and small bowel loops are decompressed. No interloop fluid. As mateo tity of solid stool present in the colon. No pericolonic inflammation. Normal appendix. Nodes and vessels: No retroperitoneal or mesenteric adenopathy by size criteria. Aorta and inferior vena cava are normal in size. Moderate atherosclerotic calcification. No retroperitoneal hematoma. Miscellaneous: No ventral hernias. No subcutaneous soft tissue contusions. PELVIS: Genitourinary: Urinary bladder is significantly distended. Bladder wall thickness is normal. The pr ostate gland is mildly enlarged. Miscellaneous: No inguinal hernias or adenopathy. Bones: No suspicious bony lesions. Moderate L1 compression fracture and right L1 transverse process fracture. Moderate leftward scoliosis due to degenerative disc height loss on the right at L2-3. Mariama re disc degeneration L5-S1. L5-S1 anterolisthesis due to L5 pars defects. IMPRESSION: 1. No evidence of solid organ or hollow viscus injury in the abdomen or pelvis. 2. Recommend urinary bladder distention. 3. Acute L1 compression fracture and right transverse process fracture. Reviewed by: Carolina Moseley MD on 12/29/2021 2:21 PM PDT Approved by: Carolina Moseley MD on 12/29/2021 2:21 PM PDT Station ID: [id number]
[2021-12-29] MEDS ORDERED: THIAMINE 100 MG/1 ML 2 ML MDV IM STA (15:15)
[2021-12-29 15:39] LABS: INR 1.7 (0.8-1.2); PT - PROTHROMBIN TIME 18.5 secs (9.9-12.6)
[2021-12-29 15:46] LABS: PARTIAL THROMBOPLASTIN TIME 33.6 secs (24.9-33.3)
[2021-12-29 16:36] VITALS: BP 127/94
--- NOTE | 2021-12-29 16:48 | CT Report ---
PROCEDURE: HEAD WO INDICATIONS: fall on DOAC TECHNIQUE: Noncontrast 4.5 mm thick angled axial sections acquired from the foramen magnum to the vertex. For r adiation dose reduction, the following was used: automated exposure control, adjustment of mA and/or kV according to patient size. COMPARISON: 12/28/2021, 08/25/2019 FINDINGS: Image quality: Motion artifact is noted. Images were repeated, with some improvement. CSF spaces: Basal cisterns are patent. No extra-axial fluid collections. Ventricles are normal in size and shape. Brain: No midline shift. No intracranial masses or hemorrhage. [place]-white matter interface is norm al. A broad area of low density can be seen involving the right frontal lobe and right insula. Skull and face: Calvarium and visualized facial bones are intact, without suspicious lesions. Sinuses: Visualized sinuses and mastoids are clear. IMPRESSION: No interval development of intracranial hemorrhage can be seen. Stable low-density of the right frontal lobe and right insula again seen, which is attributed to a re mote infarction and is not significantly changed compared to 08/25/2019 examination. Reviewed by: Sebas Tilley MD on 12/29/2021 3:47 PM LUCIA Approved by: Sebas Tilley MD on 12/29/2021 3:47 PM LUCIA Station ID: [id number]
== END 2021-12-29 16:53 | disposition short-term general hospital (02) ==
LOC: EDUNIT# → ED 11:42
DX: F17.200 Nicotine dependence, unspecified, uncomplicated (principal); F10.10 Alcohol abuse, uncomplicated; S22.41XA Multiple fractures of ribs, right side, initial encounter for closed fracture; S32.019A Unspecified fracture of first lumbar vertebra, initial encounter for closed fracture; S32.020A Wedge compression fracture of second lumbar vertebra, initial encounter for closed fracture; W01.0XXA Fall on same level from slipping, tripping and stumbling without subsequent striking against object, initial encounter; Y93.01 Activity, walking, marching and hiking; I48.91 Unspecified atrial fibrillation; Z79.01 Long term (current) use of anticoagulants; J44.9 Chronic obstructive pulmonary disease, unspecified; Z20.822 Contact with and (suspected) exposure to COVID-19
CPT/HCPCS: 36415; 70450; 71260; 74177; 80053; 83690; 83735; 85025; 85610; 85730; 87635; 93005; 96372; 96374; 96375; 99285; 99291; G0480; J1170; J2060; J3411; Q9967; 80320

== ENCOUNTER 2021-12-29 16:53 | Outpatient (CLI) | payer MEDICARE, MEDICAID | END 2021-12-29 16:54 | disposition short-term general hospital (02) | LOC: EMS 16:53 | PROVIDERS: ATTEND Emergency Medicine | DX: S22.41XA Multiple fractures of ribs, right side, initial encounter for closed fracture (principal); W01.0XXA Fall on same level from slipping, tripping and stumbling without subsequent striking against object, initial encounter; Y92.002 Bathroom of unspecified non-institutional (private) residence as the place of occurrence of the external cause | CPT/HCPCS: A0425; A0426 ==

== ENCOUNTER 2022-04-15 03:35 | Outpatient (CLI) | payer MEDICARE, MEDICAID | END 2022-04-15 03:36 | disposition critical access hospital (66) | LOC: EMS 03:35 | DX: R06.02 Shortness of breath (principal); R06.2 Wheezing | CPT/HCPCS: A0425; A0427 ==

== ENCOUNTER 2022-04-15 04:12 | Emergency (ER) | payer MEDICARE, MEDICAID ==
--- OUTSIDE RECORDS SUMMARY | 2022-04-15 04:24 | EXTERNAL MEDICAL SUMMARY RPT | Continuity of Care Document ---
:1955 Author Organization [place] Address [address] [place] [address] Phone Care Team Providers Name Role Phone Ortiz Khan Unavailable Unavailable Allergies No information. Encounters No information. Functional Status No information. Immunizations No information. Medications date description facility [id number] [facility] Problems No information. Procedures No information. Results/Labs test date author facility value unit interpret ation Result panel 1 (unknown) (no (unknown) (unknown) (no value) (units (unk nown) date) unknown) (unknown) (no (unknown) (unknown) 07/01/21 [Rx (units (u nknown) date) Confirmed unknown) 02/03/22] (unknown) (no (unknown) (unknown) [id number] (units (unkno wn) date) unknown) (unknown) (no (unknown) (unknown) 02/03/22 (units (unkno wn) date) unknown) (unknown) (no (unknown) (unknown) 02/03/22] (units (unkn own) date) unknown) (unknown) (no (unknown) (unknown) 14:27 (units (unkno wn) date) unknown) (unknown) (no (unknown) (unknown) Accompanied by: (units (unknown) date) Self / Same As unknown) Patient (unknown) (no (unknown) (unknown) Age/Sex: 66 / M (units (unknown) date) Date of Service: unknown) (unknown) (no (unknown) (unknown) Allergies (units (unkn own) date) unknown) (unknown) (no (unknown) (unknown) [place], [place] (units ( unknown) date) [id number] unknown) (unknown) (no (unknown) (unknown) Asthma (units (unkno wn) date) unknown) (unknown) (no (unknown) (unknown) Atrial (units (unkno wn) date) fibrillation unknown) (unknown) (no (unknown) (unknown) Attending Dr: (units ( unknown) date) Ortiz MONTOYA unknown) (unknown) (no (unknown) (unknown) BMI 27.6 (units (unkno wn) date) unknown) (unknown) (no (unknown) (unknown) BP 136/68 (units (unkn own) date) unknown) (unknown) (no (unknown) (unknown) Blood Pressure (units (unknown) date) Location Lt unknown) brachial (unknown) (no (unknown) (unknown) COPD (chronic (units ( unknown) date) obstructive unknown) pulmonary disease) (unknown) (no (unknown) (unknown) Colon cancer (units (u nknown) date) screening unknown) (unknown) (no (unknown) (unknown) Confirmed (units (unkn own) date) 02/03/22] unknown) (unknown) (no (unknown) (unknown) : 1955 (units (unknown) date) Acct:[id number] unknown) (unknown) (no (unknown) (unknown) Dept at (units (unkno wn) date) . unknown) (unknown) (no (unknown) (unknown) Documented By: (units (unknown) date) Ortiz Khan unknown) 02/03/22 1426 (unknown) (no (unknown) (unknown) Draft (units (unkno wn) date) unknown) (unknown) (no (unknown) (unknown) Dyslipidemia (units (u nknown) date) unknown) (unknown) (no (unknown) (unknown) Family Practice (units (unknown) date) Office Visit unknown) (unknown) (no (unknown) (unknown) [facility] ([facility] unknown) (unknown) (no (unknown) (unknown) GERD (units (unkno wn) date) (gastroesophageal unknown) reflux disease) (unknown) (no (unknown) (unknown) HFA) 2 puff (units (un known) date) inhalation BID unknown) 10/25/20 [History Confirmed 02/03/22] (unknown) (no (unknown) (unknown) HandiHaler) 1 cap (units (unknown) date) inhalation DAILY unknown) 10/25/20 [History Confirmed 02/03/22] (unknown) (no (unknown) (unknown) Health Management (units (unknown) date) reviewed with unknown) patient: Yes (unknown) (no (unknown) (unknown) Health Management (units (unknown) date) unknown) (unknown) (no (unknown) (unknown) Height 5 ft 8 in (units (unknown) date) unknown) (unknown) (no (unknown) [...] unknown) date) unknown) (unknown) (no (unknown) (unknown) Instructions (units (u nknown) date) .Route .COMPLEX unknown) #18 grams 07/01/21 [Rx Confirmed 02/03/22] (unknown) (no (unknown) (unknown) Intake Note: (units (u nknown) date) unknown) (unknown) (no (unknown) (unknown) Intake performed (units (unknown) date) by: Mitali Torres unknown) M (unknown) (no (unknown) (unknown) Intake (units (unkno wn) date) unknown) (unknown) (no (unknown) (unknown) Intake- Clincial (units (unknown) date) Staff unknown) (unknown) (no (unknown) (unknown) Loc: [facility] (units (unkno wn) date) unknown) (unknown) (no (unknown) (unknown) Medical History (units (unknown) date) (Updated 01/11/22 unknown) @ 00:00 by ) (unknown) (no (unknown) (unknown) Medications (units (un known) date) unknown) (unknown) (no (unknown) (unknown) Occult blood (units (u nknown) date) positive stool unknown) (unknown) (no (unknown) (unknown) Oxygen Delivery (units (unknown) date) Method room air unknown) (unknown) (no (unknown) (unknown) PFSH (units (unkno wn) date) unknown) (unknown) (no (unknown) (unknown) Patient: (units (unkno wn) date) Suraj Ellis unknown) MR#: [id number] (unknown) (no (unknown) (unknown) Penicillins (units (un known) date) Allergy unknown) (Intermediate, Verified 02/03/22 14:26) (unknown) (no (unknown) (unknown) Position Sitting (units (unknown) date) unknown) (unknown) (no (unknown) (unknown) Pulmonary (units (unkn own) date) hypertension unknown) (unknown) (no (unknown) (unknown) Pulse 82 (units (unkno wn) date) unknown) (unknown) (no (unknown) (unknown) Pulse Oximetry (units (unknown) date) (%) 94 unknown) (unknown) (no (unknown) (unknown) Pulse Source (units (u nknown) date) Monitor unknown) (unknown) (no (unknown) (unknown) Reason For Visit (units (unknown) date) unknown) (unknown) (no (unknown) (unknown) Respiration 16 (units (unknown) date) unknown) (unknown) (no (unknown) (unknown) Signed By: (units (unk nown) date) unknown) (unknown) (no (unknown) (unknown) Smoking Status: (units (unknown) date) Former smoker unknown) (unknown) (no (unknown) (unknown) Social History (units (unknown) date) unknown) (unknown) (no (unknown) (unknown) Stroke (units (unkno wn) date) unknown) (unknown) (no (unknown) (unknown) Surgical History (units (unknown) date) (Reviewed 07/01/21 unknown) @ 10:45 by LINDSAY Coffman) (unknown) (no (unknown) (unknown) Temp 97.5 F L (units ( unknown) date) unknown) (unknown) (no (unknown) (unknown) Temp Source (units (un known) date) Temporal Artery unknown) Scan (unknown) (no (unknown) (unknown) This note may (units ( unknown) date) have been all or unknown) partially generated using voice recognition (unknown) (no (unknown) (unknown) Tobacco + (units (unkn own) date) Substance Use unknown) (unknown) (no (unknown) (unknown) Tobacco Status (units (unknown) date) unknown) (unknown) (no (unknown) (unknown) Tobacco: How many (units (unknown) date) years used: 40 unknown) (unknown) (no (unknown) (unknown) Visit Reasons: (units (unknown) date) F/U [facility] + unknown) spinal center (unknown) (no (unknown) (unknown) Vitals (units (unkno wn) date) unknown) (unknown) (no (unknown) (unknown) Weight 181 lb 6 (units (unknown) date) oz unknown) (unknown) (no (unknown) (unknown) albuterol sulfate (units (unknown) date) 2.5 mg/3 mL (0.083 unknown) %) solution for nebulization 2.5 mg (3 mL) (unknown) (no (unknown) (unknown) albuterol sulfate (units (unknown) date) 90 mcg/actuation unknown) aerosol inhaler (Ventolin HFA) See Rx (unknown) (no (unknown) (unknown) alcohol intake: (units (unknown) date) never unknown) (unknown) (no (unknown) (unknown) amitriptyline 25 (units (unknown) date) mg tablet 50 mg PO unknown) BEDTIME #180 tabs 07/01/21 [Rx Confirmed (unknown) (no (unknown) (unknown) atorvastatin 80 (units (unknown) date) mg tablet 80 mg PO unknown) DAILY #90 tabs 07/01/21 [Rx Confirmed (unknown) (no (unknown) (unknown) diltiazem HCl 240 (units (unknown) date) mg capsule,24 unknown) hr,extended release 240 mg PO DAILY #90 caps (unknown) (no (unknown) (unknown) f/u [facility] + (units (unknown) date) spinal center unknown) (unknown) (no (unknown) (unknown) fluticasone (units (un known) date) propionate 230 unknown) mcg-salmeterol 21 mcg/actuation HFA inhaler (Advair (unknown) (no (unknown) (unknown) have occurred. If (units (unknown) date) there are any unknown) questions, please contact the Medical Records (unknown) (no (unknown) (unknown) hives (units (unkno wn) date) unknown) (unknown) (no (unknown) (unknown) household (units (unkn own) date) members: none unknown) (unknown) (no (unknown) (unknown) inhalation (units (unk nown) date) .COMPLEX #540 mL unknown) 07/01/21 [Rx Confirmed 02/03/22] (unknown) (no (unknown) (unknown) levetiracetam 750 (units (unknown) date) mg tablet 750 mg unknown) PO Q12H 07/01/21 [History Confirmed 02/03/22] (unknown) (no (unknown) (unknown) levothyroxine 75 (units (unknown) date) mcg tablet 75 mcg unknown) PO DAILY #90 tabs 02/08/21 [Rx Confirmed (unknown) (no (unknown) (unknown) losartan 100 mg (units (unknown) date) tablet 100 mg PO unknown) DAILY #90 tabs 07/01/21 [Rx Confirmed 02/03/22] (unknown) (no (unknown) (unknown) may occur. (units (unk nown) date) Occasional unknown) wrong-word or 'sound-alike' substitutions may have (unknown) (no (unknown) (unknown) occurred due to (units (unknown) date) the inherent unknown) limitations of voice recognition software. Please (unknown) (no (unknown) (unknown) omeprazole 40 mg (units (unknown) date) capsule,delayed unknown) release 40 mg PO DAILY 04/27/18 [History (unknown) (no (unknown) (unknown) oxygen #1 ea (units (u nknown) date) 08/02/18 [History unknown) Confirmed 02/03/22] (unknown) (no (unknown) (unknown) read the note (units ( unknown) date) carefully and unknown) recognize, using context, where these substitutions (unknown) (no (unknown) (unknown) rivaroxaban 20 mg (units (unknown) date) tablet (Xarelto) unknown) 20 mg PO QPM #90 tabs 07/01/21 [Rx Confirmed (unknown) (no (unknown) (unknown) software. (units (unkn own) date) Although every unknown) effort is made to edit content, system administrator errors (unknown) (no (unknown) (unknown) tiotropium (units (unk nown) date) bromide 18 mcg unknown) capsule with inhalation device (Spiriva with Result panel 2 (unknown) (no (unknown) (unknown) (no value) (units (unk nown) date) unknown) (unknown) (no (unknown) (unknown) 07/01/21 [Rx (units (u nknown) date) Confirmed unknown) 02/03/22] (unknown) (no (unknown) (unknown) [id number] (units (unkno wn) date) unknown) (unknown) (no (unknown) (unknown) 02/03/22 (units (unkno wn) date) unknown) (unknown) (no (unknown) (unknown) 02/03/22] (units (unkn own) date) unknown) (unknown) (no (unknown) (unknown) 14:27 (units (unkno wn) date) unknown) (unknown) (no (unknown) (unknown) 65-year-old male (units (unknown) date) presents to unknown) follow-up on visit to the ED on May 25 for (unknown) (no (unknown) (unknown) Accompanied by: (units (unknown) date) Self / Same As unknown) Patient (unknown) (no (unknown) (unknown) Age/Sex: 66 / M (units (unknown) date) Date of Service: unknown) (unknown) (no (unknown) (unknown) Allergies (units (unkn own) date) unknown) (unknown) (no (unknown) (unknown) [place], [place] (units ( unknown) date) [id number] unknown) (unknown) (no (unknown) (unknown) Asthma (units (unkno wn) date) unknown) (unknown) (no (unknown) (unknown) Atrial (units (unkno wn) date) fibrillation unknown) (unknown) (no (unknown) (unknown) Attending Dr: (units ( unknown) date) Ortiz MONOTYA unknown) (unknown) (no (unknown) (unknown) BMI 27.6 (units (unkno wn) date) unknown) (unknown) (no (unknown) (unknown) BP 136/68 (units (unkn own) date) unknown) (unknown) (no (unknown) (unknown) Blood Pressure (units (unknown) date) Location Lt unknown) brachial (unknown) (no (unknown) (unknown) COPD (chronic (units ( unknown) date) obstructive unknown) pulmonary disease) (unknown) (no (unknown) (unknown) Chief Complaint (units (unknown) date) unknown) (unknown) (no (unknown) (unknown) Chief Complaint: (units (unknown) date) Follow-up unknown) hospitalization (unknown) (no (unknown) (unknown) Colon cancer (units (u nknown) date) screening unknown) (unknown) (no (unknown) (unknown) Confirmed (units (unkn own) date) 02/03/22] unknown) (unknown) (no (unknown) (unknown) : 1955 (units (unknown) date) Acct:[id number] unknown) (unknown) (no (unknown) (unknown) Dept at (units (unkno wn) date) . unknown) (unknown) (no (unknown) (unknown) Details: (units (unkno wn) date) unknown) (unknown) (no (unknown) (unknown) Documented By: (units (unknown) date) Ortiz Khan unknown) 02/03/22 1426 (unknown) (no (unknown) (unknown) Draft (units (unkno wn) date) unknown) (unknown) (no (unknown) (unknown) Dyslipidemia (units (u nknown) date) unknown) (unknown) (no (unknown) (unknown) Family Practice (units (unknown) date) Office Visit unknown) (unknown) (no (unknown) (unknown) [facility] unknown) (unknown) (no (unknown) (unknown) GERD (units (unkno wn) date) (gastroesophageal unknown) reflux disease) (unknown) (no (unknown) (unknown) HFA) 2 puff (units (un known) date) inhalation BID unknown) 10/25/20 [History Confirmed 02/03/22] (unknown) (no (unknown) (unknown) HPI (units (unkno wn) date) unknown) (unknown) (no (unknown) (unknown) HandiHaler) 1 cap (units (unknown) date) inhalation DAILY unknown) 10/25/20 [History Confirmed 02/03/22] (unknown) (no (unknown) (unknown) Health Management (units (unknown) date) reviewed with unknown) patient: Yes (unknown) (no (unknown) (unknown) Health Management (units (unknown) date) unknown) (unknown) (no (unknown) (unknown) Height 172.72 cm (units (unknown) date) unknown) (unknown) (no (unknown) [...] unknown) date) unknown) (unknown) (no (unknown) (unknown) Instructions (units (u nknown) date) .Route .COMPLEX unknown) #18 grams 07/01/21 [Rx Confirmed 02/03/22] (unknown) (no (unknown) (unknown) Intake Note: (units (u nknown) date) unknown) (unknown) (no (unknown) (unknown) Intake performed (units (unknown) date) by: Mitali Torres unknown) M (unknown) (no (unknown) (unknown) Intake (units (unkno wn) date) unknown) (unknown) (no (unknown) (unknown) Intake- Clincial (units (unknown) date) Staff unknown) (unknown) (no (unknown) (unknown) Loc: [facility] (units (unkno wn) date) unknown) (unknown) (no (unknown) (unknown) Medical History (units (unknown) date) (Updated 01/11/22 unknown) @ 00:00 by ) (unknown) (no (unknown) (unknown) Medications (units (un known) date) unknown) (unknown) (no (unknown) (unknown) No pulmonary (units (u nknown) date) embolism or unknown) pneumothorax or other acute abnormality of the chest (unknown) (no (unknown) (unknown) Occult blood (units (u nknown) date) positive stool unknown) (unknown) (no (unknown) (unknown) Oxygen Delivery (units (unknown) date) Method room air unknown) (unknown) (no (unknown) (unknown) PFSH (units (unkno wn) date) unknown) (unknown) (no (unknown) (unknown) Patient has had (units (unknown) date) the Isidro + unknown) Isidro COVID-19 vaccine and is due for booster. (unknown) (no (unknown) (unknown) Patient reports (units (unknown) date) that his shortness unknown) of breath has improved but still not back to (unknown) (no (unknown) (unknown) Patient: (units (unkno wn) date) Suraj Ellis unknown) MR#: [id number] (unknown) (no (unknown) (unknown) Penicillins (units (un known) date) Allergy unknown) (Intermediate, Verified 02/03/22 14:26) (unknown) (no (unknown) (unknown) Position Sitting (units (unknown) date) unknown) (unknown) (no (unknown) (unknown) Pulmonary (units (unkn own) date) hypertension unknown) (unknown) (no (unknown) (unknown) Pulse 82 (units (unkno wn) date) unknown) (unknown) (no (unknown) (unknown) Pulse Oximetry (units (unknown) date) (%) 94 unknown) (unknown) (no (unknown) (unknown) Pulse Source (units (u nknown) date) Monitor unknown) (unknown) (no (unknown) (unknown) Reason For Visit (units (unknown) date) unknown) (unknown) (no (unknown) (unknown) Respiration 16 (units (unknown) date) unknown) (unknown) (no (unknown) (unknown) Signed By: (units (unk nown) date) unknown) (unknown) (no (unknown) (unknown) Smoking Status: (units (unknown) date) Former smoker unknown) (unknown) (no (unknown) (unknown) Social History (units (unknown) date) unknown) (unknown) (no (unknown) (unknown) Stroke (units (unkno wn) date) unknown) (unknown) (no (unknown) (unknown) Surgical History (units (unknown) date) (Reviewed 07/01/21 unknown) @ 10:45 by LINDSAY Coffman) (unknown) (no (unknown) (unknown) Temp 97.5 F L (units ( unknown) date) unknown) (unknown) (no (unknown) (unknown) Temp Source (units (un known) date) Temporal Artery unknown) Scan (unknown) (no (unknown) (unknown) This note may (units ( unknown) date) have been all or unknown) partially generated using voice recognition (unknown) (no (unknown) (unknown) Tobacco + (units (unkn own) date) Substance Use unknown) (unknown) (no (unknown) (unknown) Tobacco Status (units (unknown) date) unknown) (unknown) (no (unknown) (unknown) Tobacco: How many (units (unknown) date) years used: 40 unknown) (unknown) (no (unknown) (unknown) Visit Reasons: (units (unknown) date) F/U [facility] + unknown) spinal center (unknown) (no (unknown) (unknown) Vitals (units (unkno wn) date) unknown) (unknown) (no (unknown) (unknown) Weight 82.27 kg (units (unknown) date) unknown) (unknown) (no (unknown) (unknown) a year but he (units ( unknown) date) states he is unknown) overdue for a telehealth appointment with her. (unknown) (no (unknown) (unknown) albuterol sulfate (units (unknown) date) 2.5 mg/3 mL (0.083 unknown) %) solution for nebulization 2.5 mg (3 mL) (unknown) (no (unknown) (unknown) albuterol sulfate (units (unknown) date) 90 mcg/actuation unknown) aerosol inhaler (Ventolin HFA) See Rx (unknown) (no (unknown) (unknown) alcohol intake: (units (unknown) date) never unknown) (unknown) (no (unknown) (unknown) amitriptyline 25 (units (unknown) date) mg tablet 50 mg PO unknown) BEDTIME #180 tabs 07/01/21 [Rx Confirmed (unknown) (no (unknown) (unknown) atorvastatin 80 (units (unknown) date) mg tablet 80 mg PO unknown) DAILY #90 tabs 07/01/21 [Rx Confirmed (unknown) (no (unknown) (unknown) baseline. Denies (units (unknown) date) cough, unknown) fever/chills, nasal congestion, sore throat, (unknown) (no (unknown) (unknown) baseline. Patient (units (unknown) date) typically takes a unknown) daily walk but has not been able to return (unknown) (no (unknown) (unknown) chest (units (unkno wn) date) pain/shortness of unknown) breath/cough. After performing lab work, EKG,, CT, (unknown) (no (unknown) (unknown) chest x-ray, (units (u nknown) date) Patient was unknown) discharged with prescription for doxycycline and (unknown) (no (unknown) (unknown) continues to use (units (unknown) date) medications which unknown) are part of a respiratory regimen ordered by (unknown) (no (unknown) (unknown) diltiazem HCl 240 (units (unknown) date) mg capsule,24 unknown) hr,extended release 240 mg PO DAILY #90 caps (unknown) (no (unknown) (unknown) f/u [facility] + (units (unknown) date) spinal center unknown) (unknown) (no (unknown) (unknown) fluticasone (units (un known) date) propionate 230 unknown) mcg-salmeterol 21 mcg/actuation HFA inhaler (Advair (unknown) (no (unknown) (unknown) have occurred. 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) Spiriva, Advair, albuterol HFA as needed, albuterol (unknown) (no (unknown) (unknown) hives (units (unkno wn) date) unknown) (unknown) (no (unknown) (unknown) household (units (unkn own) date) members: none unknown) (unknown) (no (unknown) (unknown) inhalation (units (unk nown) date) .COMPLEX #540 mL unknown) 07/01/21 [Rx Confirmed 02/03/22] (unknown) (no (unknown) (unknown) levetiracetam 750 (units (unknown) date) mg tablet 750 mg unknown) PO Q12H 07/01/21 [History Confirmed 02/03/22] (unknown) (no (unknown) (unknown) levothyroxine 75 (units (unknown) date) mcg tablet 75 mcg unknown) PO DAILY #90 tabs 02/08/21 [Rx Confirmed (unknown) (no (unknown) (unknown) losartan 100 mg (units (unknown) date) tablet 100 mg PO unknown) DAILY #90 tabs 07/01/21 [Rx Confirmed 02/03/22] (unknown) (no (unknown) (unknown) may occur. (units (unk nown) date) Occasional unknown) wrong-word or 'sound-alike' substitutions may have (unknown) (no (unknown) (unknown) nausea/vomiting/d (units (unknown) date) iarrhea. He tested unknown) negative for COVID-19 in the ED. Patient (unknown) (no (unknown) (unknown) nebulizer (units (unkn own) date) scheduled. He only unknown) sees pulmonology for an in-person appointment once (unknown) (no (unknown) (unknown) noted on CT. (units (u nknown) date) Coronary artery unknown) calcifications were noted. (unknown) (no (unknown) (unknown) occurred due to (units (unknown) date) the inherent unknown) limitations of voice recognition software. Please (unknown) (no (unknown) (unknown) omeprazole 40 mg (units (unknown) date) capsule,delayed unknown) release 40 mg PO DAILY 04/27/18 [History (unknown) (no (unknown) (unknown) oxygen #1 ea (units (u nknown) date) 08/02/18 [History unknown) Confirmed 02/03/22] (unknown) (no (unknown) (unknown) prednisone taper. (units (unknown) date) unknown) (unknown) (no (unknown) (unknown) read the note (units ( unknown) date) carefully and unknown) recognize, using context, where these substitutions (unknown) (no (unknown) (unknown) rivaroxaban 20 mg (units (unknown) date) tablet (Xarelto) unknown) 20 mg PO QPM #90 tabs 07/01/21 [Rx Confirmed (unknown) (no (unknown) (unknown) software. (units (unkn own) date) Although every unknown) effort is made to edit content, system administrator errors (unknown) (no (unknown) (unknown) tiotropium (units (unk nown) date) bromide 18 mcg unknown) capsule with inhalation device (Spiriva with (unknown) (no (unknown) (unknown) to that yet as he (units (unknown) date) still has some unknown) degree of shortness of breath beyond his Result panel 3 (unknown) (no (unknown) (unknown) (no value) (units (unk nown) date) unknown) (unknown) (no (unknown) (unknown) 07/01/21 [Rx (units (u nknown) date) Confirmed unknown) 02/03/22] (unknown) (no (unknown) (unknown) [id number] (units (unkno wn) date) unknown) (unknown) (no (unknown) (unknown) 02/03/22 (units (unkno wn) date) unknown) (unknown) (no (unknown) (unknown) 02/03/22] (units (unkn own) date) unknown) (unknown) (no (unknown) (unknown) 14:27 (units (unkno wn) date) unknown) (unknown) (no (unknown) (unknown) 65-year-old male (units (unknown) date) presents to unknown) follow-up on visit to the ED on May 25 for (unknown) (no (unknown) (unknown) Accompanied by: (units (unknown) date) Self / Same As unknown) Patient (unknown) (no (unknown) (unknown) Age/Sex: 66 / M (units (unknown) date) Date of Service: unknown) (unknown) (no (unknown) (unknown) Allergies (units (unkn own) date) unknown) (unknown) (no (unknown) (unknown) [place] (units ( unknown) date) [id number] unknown) (unknown) (no (unknown) (unknown) Asthma (units (unkno wn) date) unknown) (unknown) (no (unknown) (unknown) Atrial (units (unkno wn) date) fibrillation unknown) (unknown) (no (unknown) (unknown) Attending Dr: (units ( unknown) date) Ortiz MONTOYA unknown) (unknown) (no (unknown) (unknown) BMI 27.6 (units (unkno wn) date) unknown) (unknown) (no (unknown) (unknown) BP 136/68 (units (unkn own) date) unknown) (unknown) (no (unknown) (unknown) Blood Pressure (units (unknown) date) Location Lt unknown) brachial (unknown) (no (unknown) (unknown) COPD (chronic (units ( unknown) date) obstructive unknown) pulmonary disease) (unknown) (no (unknown) (unknown) Chief Complaint (units (unknown) date) unknown) (unknown) (no (unknown) (unknown) Chief Complaint: (units (unknown) date) Follow-up unknown) hospitalization (unknown) (no (unknown) (unknown) Colon cancer (units (u nknown) date) screening unknown) (unknown) (no (unknown) (unknown) Confirmed (units (unkn own) date) 02/03/22] unknown) (unknown) (no (unknown) (unknown) : 1955 (units (unknown) date) Acct:[id number] unknown) (unknown) (no (unknown) (unknown) Dept at (units (unkno wn) date) . unknown) (unknown) (no (unknown) (unknown) Details: (units (unkno wn) date) unknown) (unknown) (no (unknown) (unknown) Documented By: (units (unknown) date) Ortiz Khan unknown) 02/03/22 1426 (unknown) (no (unknown) (unknown) Draft (units (unkno wn) date) unknown) (unknown) (no (unknown) (unknown) Dyslipidemia (units (u nknown) date) unknown) (unknown) (no (unknown) (unknown) [facility] (units (unknown) date) Office Visit unknown) (unknown) (no (unknown) (unknown) [facility] (units (unknown[facility] date) [facility] unknown) (unknown) (no (unknown) (unknown) GERD (units (unkno wn) date) (gastroesophageal unknown) reflux disease) (unknown) (no (unknown) (unknown) HFA) 2 puff (units (un known) date) inhalation BID unknown) 10/25/20 [History Confirmed 02/03/22] (unknown) (no (unknown) (unknown) HPI (units (unkno wn) date) unknown) (unknown) (no (unknown) (unknown) HandiHaler) 1 cap (units (unknown) date) inhalation DAILY unknown) 10/25/20 [History Confirmed 02/03/22] (unknown) (no (unknown) (unknown) Health Management (units (unknown) date) reviewed with unknown) patient: Yes (unknown) (no (unknown) (unknown) Health Management (units (unknown) date) unknown) (unknown) (no (unknown) (unknown) Height 172.72 cm (units (unknown) date) unknown) (unknown) (no (unknown) [...] unknown) date) unknown) (unknown) (no (unknown) (unknown) Instructions (units (u nknown) date) .Route .COMPLEX unknown) #18 grams 07/01/21 [Rx Confirmed 02/03/22] (unknown) (no (unknown) (unknown) Intake Note: (units (u nknown) date) unknown) (unknown) (no (unknown) (unknown) Intake performed (units (unknown) date) by: Mitali Torres unknown) M (unknown) (no (unknown) (unknown) Intake (units (unkno wn) date) unknown) (unknown) (no (unknown) (unknown) Intake- Clincial (units (unknown) date) Staff unknown) (unknown) (no (unknown) (unknown) Loc: [facility] (units (unkno wn) date) unknown) (unknown) (no (unknown) (unknown) Medical History (units (unknown) date) (Updated 01/11/22 unknown) @ 00:00 by ) (unknown) (no (unknown) (unknown) Medications (units (un known) date) unknown) (unknown) (no (unknown) (unknown) No pulmonary (units (u nknown) date) embolism or unknown) pneumothorax or other acute abnormality of the chest (unknown) (no (unknown) (unknown) Occult blood (units (u nknown) date) positive stool unknown) (unknown) (no (unknown) (unknown) Oxygen Delivery (units (unknown) date) Method room air unknown) (unknown) (no (unknown) (unknown) PFSH (units (unkno wn) date) unknown) (unknown) (no (unknown) (unknown) Patient has had (units (unknown) date) the Isidro + unknown) Isidro COVID-19 vaccine and is due for booster. (unknown) (no (unknown) (unknown) Patient reports (units (unknown) date) that his shortness unknown) of breath has improved but still not back to (unknown) (no (unknown) (unknown) Patient: (units (unkno wn) date) Suraj Ellis unknown) MR#: [id number] (unknown) (no (unknown) (unknown) Penicillins (units (un known) date) Allergy unknown) (Intermediate, Verified 02/03/22 14:26) (unknown) (no (unknown) (unknown) Position Sitting (units (unknown) date) unknown) (unknown) (no (unknown) (unknown) Pulmonary (units (unkn own) date) hypertension unknown) (unknown) (no (unknown) (unknown) Pulse 82 (units (unkno wn) date) unknown) (unknown) (no (unknown) (unknown) Pulse Oximetry (units (unknown) date) (%) 94 unknown) (unknown) (no (unknown) (unknown) Pulse Source (units (u nknown) date) Monitor unknown) (unknown) (no (unknown) (unknown) Reason For Visit (units (unknown) date) unknown) (unknown) (no (unknown) (unknown) Remebers waking (units (unknown) date) up on floor in unknown) bathroom, thinks hit vanity. called 911. (unknown) (no (unknown) (unknown) Respiration 16 (units (unknown) date) unknown) (unknown) (no (unknown) (unknown) Signed By: (units (unk nown) date) unknown) (unknown) (no (unknown) (unknown) Smoking Status: (units (unknown) date) Former smoker unknown) (unknown) (no (unknown) (unknown) Social History (units (unknown) date) unknown) (unknown) (no (unknown) (unknown) Stroke (units (unkno wn) date) unknown) (unknown) (no (unknown) (unknown) Surgical History (units (unknown) date) (Reviewed 07/01/21 unknown) @ 10:45 by LINDSAY Coffman) (unknown) (no (unknown) (unknown) Temp 97.5 F L (units ( unknown) date) unknown) (unknown) (no (unknown) (unknown) Temp Source (units (un known) date) Temporal Artery unknown) Scan (unknown) (no (unknown) (unknown) This note may (units ( unknown) date) have been all or unknown) partially generated using voice recognition (unknown) (no (unknown) (unknown) Tobacco + (units (unkn own) date) Substance Use unknown) (unknown) (no (unknown) (unknown) Tobacco Status (units (unknown) date) unknown) (unknown) (no (unknown) (unknown) Tobacco: How many (units (unknown) date) years used: 40 unknown) (unknown) (no (unknown) (unknown) Visit Reasons: (units (unknown) date) F/U [facility] + unknown) spinal center (unknown) (no (unknown) (unknown) Vitals (units (unkno wn) date) unknown) (unknown) (no (unknown) (unknown) Weight 82.27 kg (units (unknown) date) unknown) (unknown) (no (unknown) (unknown) a year but he (units ( unknown) date) states he is unknown) overdue for a telehealth appointment with her. (unknown) (no (unknown) (unknown) albuterol sulfate (units (unknown) date) 2.5 mg/3 mL (0.083 unknown) %) solution for nebulization 2.5 mg (3 mL) (unknown) (no (unknown) (unknown) albuterol sulfate (units (unknown) date) 90 mcg/actuation unknown) aerosol inhaler (Ventolin HFA) See Rx (unknown) (no (unknown) (unknown) alcohol intake: (units (unknown) date) never unknown) (unknown) (no (unknown) (unknown) amitriptyline 25 (units (unknown) date) mg tablet 50 mg PO unknown) BEDTIME #180 tabs 07/01/21 [Rx Confirmed (unknown) (no (unknown) (unknown) atorvastatin 80 (units (unknown) date) mg tablet 80 mg PO unknown) DAILY #90 tabs 07/01/21 [Rx Confirmed (unknown) (no (unknown) (unknown) baseline. Denies (units (unknown) date) cough, unknown) fever/chills, nasal congestion, sore throat, (unknown) (no (unknown) (unknown) baseline. Patient (units (unknown) date) typically takes a unknown) daily walk but has not been able to return (unknown) (no (unknown) (unknown) chest (units (unkno wn) date) pain/shortness of unknown) breath/cough. After performing lab work, EKG,, CT, chris (unknown) (no (unknown) (unknown) continues to use (units (unknown) date) medications which unknown) are part of a respiratory regimen ordered by (unknown) (no (unknown) (unknown) diltiazem HCl 240 (units (unknown) date) mg capsule,24 unknown) hr,extended release 240 mg PO DAILY #90 caps (unknown) (no (unknown) (unknown) f/u [facility] + (units (unknown) date) spinal center unknown) (unknown) (no (unknown) (unknown) fluticasone (units (un known) date) propionate 230 unknown) mcg-salmeterol 21 mcg/actuation HFA inhaler (Advair (unknown) (no (unknown) (unknown) have occurred. 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) Spiriva, Advair, albuterol HFA as needed, albuterol (unknown) (no (unknown) (unknown) hives (units (unkno wn) date) unknown) (unknown) (no (unknown) (unknown) household (units (unkn own) date) members: none unknown) (unknown) (no (unknown) (unknown) inhalation (units (unk nown) date) .COMPLEX #540 mL unknown) 07/01/21 [Rx Confirmed 02/03/22] (unknown) (no (unknown) (unknown) levetiracetam 750 (units (unknown) date) mg tablet 750 mg unknown) PO Q12H 07/01/21 [History Confirmed 02/03/22] (unknown) (no (unknown) (unknown) levothyroxine 75 (units (unknown) date) mcg tablet 75 mcg unknown) PO DAILY #90 tabs 02/08/21 [Rx Confirmed (unknown) (no (unknown) (unknown) losartan 100 mg (units (unknown) date) tablet 100 mg PO unknown) DAILY #90 tabs 07/01/21 [Rx Confirmed 02/03/22] (unknown) (no (unknown) (unknown) may occur. (units (unk nown) date) Occasional unknown) wrong-word or 'sound-alike' substitutions may have (unknown) (no (unknown) (unknown) nausea/vomiting/d (units (unknown) date) iarrhea. He tested unknown) negative for COVID-19 in the ED. Patient (unknown) (no (unknown) (unknown) nebulizer (units (unkn own) date) scheduled. He only unknown) sees pulmonology for an in-person appointment once (unknown) (no (unknown) (unknown) noted on CT. (units (u nknown) date) Coronary artery unknown) calcifications were noted. (unknown) (no (unknown) (unknown) occurred due to (units (unknown) date) the inherent unknown) limitations of voice recognition software. Please (unknown) (no (unknown) (unknown) omeprazole 40 mg (units (unknown) date) capsule,delayed unknown) release 40 mg PO DAILY 04/27/18 [History (unknown) (no (unknown) (unknown) oxygen #1 ea (units (u nknown) date) 08/02/18 [History unknown) Confirmed 02/03/22] (unknown) (no (unknown) (unknown) prednisone taper. (units (unknown) date) unknown) (unknown) (no (unknown) (unknown) read the note (units ( unknown) date) carefully and unknown) recognize, using context, where these substitutions (unknown) (no (unknown) (unknown) rivaroxaban 20 mg (units (unknown) date) tablet (Xarelto) unknown) 20 mg PO QPM #90 tabs 07/01/21 [Rx Confirmed (unknown) (no (unknown) (unknown) software. (units (unkn own) date) Although every unknown) effort is made to edit content, system administrator errors (unknown) (no (unknown) (unknown) st x-ray, Patient (units (unknown) date) was discharged unknown) with prescription for doxycycline and (unknown) (no (unknown) (unknown) tiotropium (units (unk nown) date) bromide 18 mcg unknown) capsule with inhalation device (Spiriva with (unknown) (no (unknown) (unknown) to that yet as he (units (unknown) date) still has some unknown) degree of shortness of breath beyond his Result panel 4 (unknown) (no (unknown) (unknown) (no value) (units (unk nown) date) unknown) (unknown) (no (unknown) (unknown) 07/01/21 [Rx (units (u nknown) date) Confirmed unknown) 02/03/22] (unknown) (no (unknown) (unknown) [id number] (units (unkno wn) date) unknown) (unknown) (no (unknown) (unknown) 02/03/22 (units (unkno wn) date) unknown) (unknown) (no (unknown) (unknown) 02/03/22] (units (unkn own) date) unknown) (unknown) (no (unknown) (unknown) 14:27 (units (unkno wn) date) unknown) (unknown) (no (unknown) (unknown) 65-year-old male (units (unknown) date) presents to unknown) follow-up on visit to the ED on May 25 for (unknown) (no (unknown) (unknown) ALSO NEEDS TO (units ( unknown) date) SCHEDULE F/U TH unknown) [facility]. (unknown) (no (unknown) (unknown) Accompanied by: (units (unknown) date) Self / Same As unknown) Patient (unknown) (no (unknown) (unknown) Age/Sex: 66 / M (units (unknown) date) Date of Service: unknown) (unknown) (no (unknown) (unknown) Allergies (units (unkn own) date) unknown) (unknown) (no (unknown) (unknown) [place], [place] (units ( unknown) date) [id number] unknown) (unknown) (no (unknown) (unknown) Asthma (units (unkno wn) date) unknown) (unknown) (no (unknown) (unknown) Atrial (units (unkno wn) date) fibrillation unknown) (unknown) (no (unknown) (unknown) Attending Dr: (units ( unknown) date) Ortiz MONTOYA unknown) (unknown) (no (unknown) (unknown) BMI 27.6 (units (unkno wn) date) unknown) (unknown) (no (unknown) (unknown) BP 136/68 (units (unkn own) date) unknown) (unknown) (no (unknown) (unknown) Blood Pressure (units (unknown) date) Location Lt unknown) brachial (unknown) (no (unknown) (unknown) COPD (chronic (units ( unknown) date) obstructive unknown) pulmonary disease) (unknown) (no (unknown) (unknown) Chief Complaint (units (unknown) date) unknown) (unknown) (no (unknown) (unknown) Chief Complaint: (units (unknown) date) Follow-up unknown) hospitalization (unknown) (no (unknown) (unknown) Colon cancer (units (u nknown) date) screening unknown) (unknown) (no (unknown) (unknown) Confirmed (units (unkn own) date) 02/03/22] unknown) (unknown) (no (unknown) (unknown) : 1955 (units (unknown) date) Acct:[id number] unknown) (unknown) (no (unknown) (unknown) Dept at (units (unkno wn) date) . unknown) (unknown) (no (unknown) (unknown) Details: (units (unkno wn) date) unknown) (unknown) (no (unknown) (unknown) Documented By: (units (unknown) date) Ortiz Khan unknown) 02/03/22 1426 (unknown) (no (unknown) (unknown) Draft (units (unkno wn) date) unknown) (unknown) (no (unknown) (unknown) Dyslipidemia (units (u nknown) date) unknown) (unknown) (no (unknown) (unknown) Family Practice (units (unknown) date) Office Visit unknown) (unknown) (no (unknown) (unknown) [facility] (units ([facility] date) [facility] unknown) (unknown) (no (unknown) (unknown) GERD (units (unkno wn) date) (gastroesophageal unknown) reflux disease) (unknown) (no (unknown) (unknown) HAVE NURSING (units (u nknown) date) STAFF ARRANGE FOR unknown) PT TO GET STUDIES DONE HERE THEN SCHEDULE F/U TH (unknown) (no (unknown) (unknown) HFA) 2 puff (units (un known) date) inhalation BID unknown) 10/25/20 [History Confirmed 02/03/22] (unknown) (no (unknown) (unknown) HPI (units (unkno wn) date) unknown) (unknown) (no (unknown) (unknown) HandiHaler) 1 cap (units (unknown) date) inhalation DAILY unknown) 10/25/20 [History Confirmed 02/03/22] (unknown) (no (unknown) (unknown) Health Management (units (unknown) date) reviewed with unknown) patient: Yes (unknown) (no (unknown) (unknown) Health Management (units (unknown) date) unknown) (unknown) (no (unknown) (unknown) Height 172.72 cm (units (unknown) date) unknown) (unknown) (no (unknown) [...] unknown) date) unknown) (unknown) (no (unknown) (unknown) Instructions (units (u nknown) date) .Route .COMPLEX unknown) #18 grams 07/01/21 [Rx Confirmed 02/03/22] (unknown) (no (unknown) (unknown) Intake Note: (units (u nknown) date) unknown) (unknown) (no (unknown) (unknown) Intake performed (units (unknown) date) by: Mitali Torres unknown) M (unknown) (no (unknown) (unknown) Intake (units (unkno wn) date) unknown) (unknown) (no (unknown) (unknown) Intake- Clincial (units (unknown) date) Staff unknown) (unknown) (no (unknown) (unknown) Loc: [facility] (units (unkno wn) date) unknown) (unknown) (no (unknown) (unknown) Medical History (units (unknown) date) (Updated 01/11/22 unknown) @ 00:00 by ) (unknown) (no (unknown) (unknown) Medications (units (un known) date) unknown) (unknown) (no (unknown) (unknown) No pulmonary (units (u nknown) date) embolism or unknown) pneumothorax or other acute abnormality of the chest (unknown) (no (unknown) (unknown) Occult blood (units (u nknown) date) positive stool unknown) (unknown) (no (unknown) (unknown) Oxygen Delivery (units (unknown) date) Method room air unknown) (unknown) (no (unknown) (unknown) PFSH (units (unkno wn) date) unknown) (unknown) (no (unknown) (unknown) Patient has had (units (unknown) date) the Isidro + unknown) Isidro COVID-19 vaccine and is due for booster. (unknown) (no (unknown) (unknown) Patient reports (units (unknown) date) that his shortness unknown) of breath has improved but still not back to (unknown) (no (unknown) (unknown) Patient: (units (unkno wn) date) Suraj Ellis unknown) MR#: [id number] (unknown) (no (unknown) (unknown) Penicillins (units (un known) date) Allergy unknown) (Intermediate, Verified 02/03/22 14:26) (unknown) (no (unknown) (unknown) Position Sitting (units (unknown) date) unknown) (unknown) (no (unknown) (unknown) Pulmonary (units (unkn own) date) hypertension unknown) (unknown) (no (unknown) (unknown) Pulse 82 (units (unkno wn) date) unknown) (unknown) (no (unknown) (unknown) Pulse Oximetry (units (unknown) date) (%) 94 unknown) (unknown) (no (unknown) (unknown) Pulse Source (units (u nknown) date) Monitor unknown) (unknown) (no (unknown) (unknown) Reason For Visit (units (unknown) date) unknown) (unknown) (no (unknown) (unknown) Remebers waking (units (unknown) date) up on floor in unknown) bathroom, thinks hit vanity. called 911. (unknown) (no (unknown) (unknown) Respiration 16 (units (unknown) date) unknown) (unknown) (no (unknown) (unknown) Signed By: (units (unk nown) date) unknown) (unknown) (no (unknown) (unknown) Smoking Status: (units (unknown) date) Former smoker unknown) (unknown) (no (unknown) (unknown) Social History (units (unknown) date) unknown) (unknown) (no (unknown) (unknown) Stroke (units (unkno wn) date) unknown) (unknown) (no (unknown) (unknown) Surgical History (units (unknown) date) (Reviewed 07/01/21 unknown) @ 10:45 by LINDSAY Coffman) (unknown) (no (unknown) (unknown) Temp 97.5 F L (units ( unknown) date) unknown) (unknown) (no (unknown) (unknown) Temp Source (units (un known) date) Temporal Artery unknown) Scan (unknown) (no (unknown) (unknown) This note may (units ( unknown) date) have been all or unknown) partially generated using voice recognition (unknown) (no (unknown) (unknown) Tobacco + (units (unkn own) date) Substance Use unknown) (unknown) (no (unknown) (unknown) Tobacco Status (units (unknown) date) unknown) (unknown) (no (unknown) (unknown) Tobacco: How many (units (unknown) date) years used: 40 unknown) (unknown) (no (unknown) (unknown) VISIT WITH (units (unk nown) date) PULMONOLOGY. unknown) (unknown) (no (unknown) (unknown) Visit Reasons: (units (unknown) date) F/U [facility] + unknown) spinal center (unknown) (no (unknown) (unknown) Vitals (units (unkno wn) date) unknown) (unknown) (no (unknown) (unknown) Weight 82.27 kg (units (unknown) date) unknown) (unknown) (no (unknown) (unknown) a year but he (units ( unknown) date) states he is unknown) overdue for a telehealth appointment with her. (unknown) (no (unknown) (unknown) albuterol sulfate (units (unknown) date) 2.5 mg/3 mL (0.083 unknown) %) solution for nebulization 2.5 mg (3 mL) (unknown) (no (unknown) (unknown) albuterol sulfate (units (unknown) date) 90 mcg/actuation unknown) aerosol inhaler (Ventolin HFA) See Rx (unknown) (no (unknown) (unknown) alcohol intake: (units (unknown) date) never unknown) (unknown) (no (unknown) (unknown) amitriptyline 25 (units (unknown) date) mg tablet 50 mg PO unknown) BEDTIME #180 tabs 07/01/21 [Rx Confirmed (unknown) (no (unknown) (unknown) atorvastatin 80 (units (unknown) date) mg tablet 80 mg PO unknown) DAILY #90 tabs 07/01/21 [Rx Confirmed (unknown) (no (unknown) (unknown) baseline. Denies (units (unknown) date) cough, unknown) fever/chills, nasal congestion, sore throat, (unknown) (no (unknown) (unknown) baseline. Patient (units (unknown) date) typically takes a unknown) daily walk but has not been able to return (unknown) (no (unknown) (unknown) chest (units (unkno wn) date) pain/shortness of unknown) breath/cough. After performing lab work, EKG,, CT, (unknown) (no (unknown) (unknown) chest x-ray, (units (u nknown) date) Patient was unknown) discharged with prescription for doxycycline and (unknown) (no (unknown) (unknown) continues to use (units (unknown) date) medications which unknown) are part of a respiratory regimen ordered by (unknown) (no (unknown) (unknown) diltiazem HCl 240 (units (unknown) date) mg capsule,24 unknown) hr,extended release 240 mg PO DAILY #90 caps (unknown) (no (unknown) (unknown) f/u [facility] + (units (unknown) date) spinal center unknown) (unknown) (no (unknown) (unknown) fluticasone (units (un known) date) propionate 230 unknown) mcg-salmeterol 21 mcg/actuation HFA inhaler (Advair (unknown) (no (unknown) (unknown) have occurred. 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) Spiriva, Advair, albuterol HFA as needed, albuterol (unknown) (no (unknown) (unknown) hives (units (unkno wn) date) unknown) (unknown) (no (unknown) (unknown) household (units (unkn own) date) members: none unknown) (unknown) (no (unknown) (unknown) inhalation (units (unk nown) date) .COMPLEX #540 mL unknown) 07/01/21 [Rx Confirmed 02/03/22] (unknown) (no (unknown) (unknown) levetiracetam 750 (units (unknown) date) mg tablet 750 mg unknown) PO Q12H 07/01/21 [History Confirmed 02/03/22] (unknown) (no (unknown) (unknown) levothyroxine 75 (units (unknown) date) mcg tablet 75 mcg unknown) PO DAILY #90 tabs 02/08/21 [Rx Confirmed (unknown) (no (unknown) (unknown) losartan 100 mg (units (unknown) date) tablet 100 mg PO unknown) DAILY #90 tabs 07/01/21 [Rx Confirmed 02/03/22] (unknown) (no (unknown) (unknown) may occur. (units (unk nown) date) Occasional unknown) wrong-word or 'sound-alike' substitutions may have (unknown) (no (unknown) (unknown) nausea/vomiting/d (units (unknown) date) iarrhea. He tested unknown) negative for COVID-19 in the ED. Patient (unknown) (no (unknown) (unknown) nebulizer (units (unkn own) date) scheduled. He only unknown) sees pulmonology for an in-person appointment once (unknown) (no (unknown) (unknown) noted on CT. (units (u nknown) date) Coronary artery unknown) calcifications were noted. (unknown) (no (unknown) (unknown) occurred due to (units (unknown) date) the inherent unknown) limitations of voice recognition software. Please (unknown) (no (unknown) (unknown) omeprazole 40 mg (units (unknown) date) capsule,delayed unknown) release 40 mg PO DAILY 04/27/18 [History (unknown) (no (unknown) (unknown) oxygen #1 ea (units (u nknown) date) 08/02/18 [History unknown) Confirmed 02/03/22] (unknown) (no (unknown) (unknown) prednisone taper. (units (unknown) date) unknown) (unknown) (no (unknown) (unknown) read the note (units ( unknown) date) carefully and unknown) recognize, using context, where these substitutions (unknown) (no (unknown) (unknown) rivaroxaban 20 mg (units (unknown) date) tablet (Xarelto) unknown) 20 mg PO QPM #90 tabs 07/01/21 [Rx Confirmed (unknown) (no (unknown) (unknown) software. (units (unkn own) date) Although every unknown) effort is made to edit content, system administrator errors (unknown) (no (unknown) (unknown) states drinks 1 (units (unknown) date) 6pack per week unknown) craft beer. (unknown) (no (unknown) (unknown) tiotropium (units (unk nown) date) bromide 18 mcg unknown) capsule with inhalation device (Spiriva with (unknown) (no (unknown) (unknown) to that yet as he (units (unknown) date) still has some unknown) degree of shortness of breath beyond his Result panel 5 (unknown) (no (unknown) (unknown) (no value) (units (unk nown) date) unknown) (unknown) (no (unknown) (unknown) 07/01/21 [Rx (units (u nknown) date) Confirmed unknown) 02/03/22] (unknown) (no (unknown) (unknown) [id number] (units (unkno wn) date) unknown) (unknown) (no (unknown) (unknown) 02/03/22 (units (unkno wn) date) unknown) (unknown) (no (unknown) (unknown) 02/03/22] (units (unkn own) date) unknown) (unknown) (no (unknown) (unknown) 14:27 (units (unkno wn) date) unknown) (unknown) (no (unknown) (unknown) 65-year-old male (units (unknown) date) presents to unknown) follow-up on visit to the ED on May 25 for (unknown) (no (unknown) (unknown) ALSO NEEDS TO (units ( unknown) date) SCHEDULE F/U TH unknown) [facility]IT WITH [facility]. (unknown) (no (unknown) (unknown) Accompanied by: (units (unknown) date) Self / Same As unknown) Patient (unknown) (no (unknown) (unknown) Age/Sex: 66 / M (units (unknown) date) Date of Service: unknown) (unknown) (no (unknown) (unknown) Allergies (units (unkn own) date) unknown) (unknown) (no (unknown) (unknown) [place], [place] (units ( unknown) date) [id number] unknown) (unknown) (no (unknown) (unknown) Assessment + Plan (units (unknown) date) unknown) (unknown) (no (unknown) (unknown) Asthma (units (unkno wn) date) unknown) (unknown) (no (unknown) (unknown) Atrial (units (unkno wn) date) fibrillation unknown) (unknown) (no (unknown) (unknown) Attending Dr: (units ( unknown) date) Ortiz MONTOYA unknown) (unknown) (no (unknown) (unknown) BMI 27.6 (units (unkno wn) date) unknown) (unknown) (no (unknown) (unknown) BP 136/68 (units (unkn own) date) unknown) (unknown) (no (unknown) (unknown) Blood Pressure (units (unknown) date) Location Lt unknown) brachial (unknown) (no (unknown) (unknown) COPD (chronic (units ( unknown) date) obstructive unknown) pulmonary disease) (unknown) (no (unknown) (unknown) Chief Complaint (units (unknown) date) unknown) (unknown) (no (unknown) (unknown) Chief Complaint: (units (unknown) date) Follow-up unknown) hospitalization (unknown) (no (unknown) (unknown) Colon cancer (units (u nknown) date) screening unknown) (unknown) (no (unknown) (unknown) Confirmed (units (unkn own) date) 02/03/22] unknown) (unknown) (no (unknown) (unknown) : 1955 (units (unknown) date) Acct:[id number] unknown) (unknown) (no (unknown) (unknown) Dept at (units (unkno wn) date) . unknown) (unknown) (no (unknown) (unknown) Details: (units (unkno wn) date) unknown) (unknown) (no (unknown) (unknown) Documented By: (units (unknown) date) Ortiz Khan unknown) 02/03/22 1426 (unknown) (no (unknown) (unknown) Draft (units (unkno wn) date) unknown) (unknown) (no (unknown) (unknown) Dyslipidemia (units (u nknown) date) unknown) (unknown) (no (unknown) (unknown) Family Practice (units (unknown) date) Office Visit unknown) (unknown) (no (unknown) (unknown) [facility] (units ([facility] date[facility] unknown) (unknown) (no (unknown) (unknown) GERD (units (unkno wn) date) (gastroesophageal unknown) reflux disease) (unknown) (no (unknown) (unknown) HAVE NURSING (units (u nknown) date) STAFF ARRANGE FOR unknown) PT TO GET STUDIES DONE HERE THEN SCHEDULE F/U TH (unknown) (no (unknown) (unknown) HFA) 2 puff (units (un known) date) inhalation BID unknown) 10/25/20 [History Confirmed 02/03/22] (unknown) (no (unknown) (unknown) HPI (units (unkno wn) date) unknown) (unknown) (no (unknown) (unknown) HandiHaler) 1 cap (units (unknown) date) inhalation DAILY unknown) 10/25/20 [History Confirmed 02/03/22] (unknown) (no (unknown) (unknown) Health Management (units (unknown) date) reviewed with unknown) patient: Yes (unknown) (no (unknown) (unknown) Health Management (units (unknown) date) unknown) (unknown) (no (unknown) (unknown) Height 172.72 cm (units (unknown) date) unknown) (unknown) (no (unknown) [...] unknown) date) unknown) (unknown) (no (unknown) (unknown) Instructions (units (u nknown) date) .Route .COMPLEX unknown) #18 grams 07/01/21 [Rx Confirmed 02/03/22] (unknown) (no (unknown) (unknown) Intake Note: (units (u nknown) date) unknown) (unknown) (no (unknown) (unknown) Intake performed (units (unknown) date) by: Mitali Torres unknown) M (unknown) (no (unknown) (unknown) Intake (units (unkno wn) date) unknown) (unknown) (no (unknown) (unknown) Intake- Clincial (units (unknown) date) Staff unknown) (unknown) (no (unknown) (unknown) Loc: [facility] (units (unkno wn) date) unknown) (unknown) (no (unknown) (unknown) Medical History (units (unknown) date) (Updated 01/11/22 unknown) @ 00:00 by ) (unknown) (no (unknown) (unknown) Medications (units (un known) date) unknown) (unknown) (no (unknown) (unknown) Medications: (units (u nknown) date) unknown) (unknown) (no (unknown) (unknown) New (units (unkno wn) date) unknown) (unknown) (no (unknown) (unknown) No pulmonary (units (u nknown) date) embolism or unknown) pneumothorax or other acute abnormality of the chest (unknown) (no (unknown) (unknown) Occult blood (units (u nknown) date) positive stool unknown) (unknown) (no (unknown) (unknown) Oxygen Delivery (units (unknown) date) Method room air unknown) (unknown) (no (unknown) (unknown) PFSH (units (unkno wn) date) unknown) (unknown) (no (unknown) (unknown) Patient has had (units (unknown) date) the Isidro + unknown) Isidro COVID-19 vaccine and is due for booster. (unknown) (no (unknown) (unknown) Patient reports (units (unknown) date) that his shortness unknown) of breath has improved but still not back to (unknown) (no (unknown) (unknown) Patient: (units (unkno wn) date) Suraj Ellis unknown) MR#: [id number] (unknown) (no (unknown) (unknown) Penicillins (units (un known) date) Allergy unknown) (Intermediate, Verified 02/03/22 14:26) (unknown) (no (unknown) (unknown) Position Sitting (units (unknown) date) unknown) (unknown) (no (unknown) (unknown) Pulmonary (units (unkn own) date) hypertension unknown) (unknown) (no (unknown) (unknown) Pulse 82 (units (unkno wn) date) unknown) (unknown) (no (unknown) (unknown) Pulse Oximetry (units (unknown) date) (%) 94 unknown) (unknown) (no (unknown) (unknown) Pulse Source (units (u nknown) date) Monitor unknown) (unknown) (no (unknown) (unknown) Reason For Visit (units (unknown) date) unknown) (unknown) (no (unknown) (unknown) Remebers waking (units (unknown) date) up on floor in unknown) bathroom, thinks hit vanity. called 911. (unknown) (no (unknown) (unknown) Respiration 16 (units (unknown) date) unknown) (unknown) (no (unknown) (unknown) Signed By: (units (unk nown) date) unknown) (unknown) (no (unknown) (unknown) Smoking Status: (units (unknown) date) Former smoker unknown) (unknown) (no (unknown) (unknown) Social History (units (unknown) date) unknown) (unknown) (no (unknown) (unknown) Stroke (units (unkno wn) date) unknown) (unknown) (no (unknown) (unknown) Surgical History (units (unknown) date) (Reviewed 07/01/21 unknown) @ 10:45 by LINDSAY Coffman) (unknown) (no (unknown) (unknown) Temp 97.5 F L (units ( unknown) date) unknown) (unknown) (no (unknown) (unknown) Temp Source (units (un known) date) Temporal Artery unknown) Scan (unknown) (no (unknown) (unknown) This note may (units ( unknown) date) have been all or unknown) partially generated using voice recognition (unknown) (no (unknown) (unknown) Tobacco + (units (unkn own) date) Substance Use unknown) (unknown) (no (unknown) (unknown) Tobacco Status (units (unknown) date) unknown) (unknown) (no (unknown) (unknown) Tobacco: How many (units (unknown) date) years used: 40 unknown) (unknown) (no (unknown) (unknown) VISIT WITH (units (unk nown) date) PULMONOLOGY. unknown) (unknown) (no (unknown) (unknown) Visit Reasons: (units (unknown) date) F/U [facility] + unknown) spinal center (unknown) (no (unknown) (unknown) Vitals (units (unkno wn) date) unknown) (unknown) (no (unknown) (unknown) Weight 82.27 kg (units (unknown) date) unknown) (unknown) (no (unknown) (unknown) a year but he (units ( unknown) date) states he is unknown) overdue for a telehealth appointment with her. (unknown) (no (unknown) (unknown) albuterol sulfate (units (unknown) date) 2.5 mg/3 mL (0.083 unknown) %) solution for nebulization 2.5 mg (3 mL) (unknown) (no (unknown) (unknown) albuterol sulfate (units (unknown) date) 90 mcg/actuation unknown) aerosol inhaler (Ventolin HFA) See Rx (unknown) (no (unknown) (unknown) alcohol intake: (units (unknown) date) never unknown) (unknown) (no (unknown) (unknown) amitriptyline 25 (units (unknown) date) mg tablet 50 mg PO unknown) BEDTIME #180 tabs 07/01/21 [Rx Confirmed (unknown) (no (unknown) (unknown) atorvastatin 80 (units (unknown) date) mg tablet 80 mg PO unknown) DAILY #90 tabs 07/01/21 [Rx Confirmed (unknown) (no (unknown) (unknown) baseline. Denies (units (unknown) date) cough, unknown) fever/chills, nasal congestion, sore throat, (unknown) (no (unknown) (unknown) baseline. Patient (units (unknown) date) typically takes a unknown) daily walk but has not been able to return (unknown) (no (unknown) (unknown) chest (units (unkno wn) date) pain/shortness of unknown) breath/cough. After performing lab work, EKG,, CT, (unknown) (no (unknown) (unknown) chest x-ray, (units (u nknown) date) Patient was unknown) discharged with prescription for doxycycline and (unknown) (no (unknown) (unknown) continues to use (units (unknown) date) medications which unknown) are part of a respiratory regimen ordered by (unknown) (no (unknown) (unknown) diltiazem HCl 240 (units (unknown) date) mg capsule,24 unknown) hr,extended release 240 mg PO DAILY #90 caps (unknown) (no (unknown) (unknown) f/u [facility] + (units (unknown) date) spinal center unknown) (unknown) (no (unknown) (unknown) fluticasone (units (un known) date) propionate 230 unknown) mcg-salmeterol 21 mcg/actuation HFA inhaler (Advair (unknown) (no (unknown) (unknown) gabapentin 300 mg (units (unknown) date) PO TID 90 caps 2RF unknown) (unknown) (no (unknown) (unknown) gabapentin 300 mg (units (unknown) date) capsule 300 mg PO unknown) TID #90 caps 02/03/22 [Rx Confirmed (unknown) (no (unknown) (unknown) have occurred. 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) Spiriva, Advair, albuterol HFA as needed, albuterol (unknown) (no (unknown) (unknown) hives (units (unkno wn) date) unknown) (unknown) (no (unknown) (unknown) household (units (unkn own) date) members: none unknown) (unknown) (no (unknown) (unknown) inhalation (units (unk nown) date) .COMPLEX #540 mL unknown) 07/01/21 [Rx Confirmed 02/03/22] (unknown) (no (unknown) (unknown) levetiracetam 750 (units (unknown) date) mg tablet 750 mg unknown) PO Q12H 07/01/21 [History Confirmed 02/03/22] (unknown) (no (unknown) (unknown) levothyroxine 75 (units (unknown) date) mcg tablet 75 mcg unknown) PO DAILY #90 tabs 02/08/21 [Rx Confirmed (unknown) (no (unknown) (unknown) losartan 100 mg (units (unknown) date) tablet 100 mg PO unknown) DAILY #90 tabs 07/01/21 [Rx Confirmed 02/03/22] (unknown) (no (unknown) (unknown) may occur. (units (unk nown) date) Occasional unknown) wrong-word or 'sound-alike' substitutions may have (unknown) (no (unknown) (unknown) nausea/vomiting/d (units (unknown) date) iarrhea. He tested unknown) negative for COVID-19 in the ED. Patient (unknown) (no (unknown) (unknown) nebulizer (units (unkn own) date) scheduled. He only unknown) sees pulmonology for an in-person appointment once (unknown) (no (unknown) (unknown) nerology. will (units (unknown) date) try stopping unknown) methocarbamol since pain gone, slight ttp l1. f/u (unknown) (no (unknown) (unknown) noted on CT. (units (u nknown) date) Coronary artery unknown) calcifications were noted. (unknown) (no (unknown) (unknown) occurred due to (units (unknown) date) the inherent unknown) limitations of voice recognition software. Please (unknown) (no (unknown) (unknown) omeprazole 40 mg (units (unknown) date) capsule,delayed unknown) release 40 mg PO DAILY 04/27/18 [History (unknown) (no (unknown) (unknown) oxygen #1 ea (units (u nknown) date) 08/02/18 [History unknown) Confirmed 02/03/22] (unknown) (no (unknown) (unknown) prednisone taper. (units (unknown) date) unknown) (unknown) (no (unknown) (unknown) prn if pain (units (un known) date) returns and wants unknown) us to refill methocrbamol. (unknown) (no (unknown) (unknown) read the note (units ( unknown) date) carefully and unknown) recognize, using context, where these substitutions (unknown) (no (unknown) (unknown) refilled (units (unkno wn) date) gabapentin helps unknown) with tremor L hand since stroke. will f/u with (unknown) (no (unknown) (unknown) rivaroxaban 20 mg (units (unknown) date) tablet (Xarelto) unknown) 20 mg PO QPM #90 tabs 07/01/21 [Rx Confirmed (unknown) (no (unknown) (unknown) software. (units (unkn own) date) Although every unknown) effort is made to edit content, system administrator errors (unknown) (no (unknown) (unknown) states drinks 1 (units (unknown) date) 6pack per week unknown) craft beer. (unknown) (no (unknown) (unknown) tiotropium (units (unk nown) date) bromide 18 mcg unknown) capsule with inhalation device (Spiriva with (unknown) (no (unknown) (unknown) to that yet as he (units (unknown) date) still has some unknown) degree of shortness of breath beyond his Result panel 6 (unknown) (no (unknown) (unknown) (no value) (units (unk nown) date) unknown) (unknown) (no (unknown) (unknown) (1) Compression (units (unknown) date) fracture of L1 unknown) lumbar vertebra: (unknown) (no (unknown) (unknown) (2) History of (units (unknown) date) seizures: unknown) (unknown) (no (unknown) (unknown) (3) Ribs, (units (unkn own) date) multiple unknown) fractures: (unknown) (no (unknown) (unknown) (4) Interstitial (units (unknown) date) lung disease: unknown) (unknown) (no (unknown) (unknown) (5) COPD (chronic (units (unknown) date) obstructive unknown) pulmonary disease): (unknown) (no (unknown) (unknown) 07/01/21 [Rx (units (u nknown) date) Confirmed unknown) 02/03/22] (unknown) (no (unknown) (unknown) [id number] (units (unkno wn) date) unknown) (unknown) (no (unknown) (unknown) 02/03/22 (units (unkno wn) date) unknown) (unknown) (no (unknown) (unknown) 02/03/22] (units (unkn own) date) unknown) (unknown) (no (unknown) (unknown) 02/07/22 1408 (units ( unknown) date) unknown) (unknown) (no (unknown) (unknown) 14:27 (units (unkno wn) date) unknown) (unknown) (no (unknown) (unknown) 66-year-old male (units (unknown) date) presents to unknown) follow-up on hospitalization at [facility] (unknown) (no (unknown) (unknown) Accompanied by: (units (unknown) date) Self / Same As unknown) Patient (unknown) (no (unknown) (unknown) Affect: normal (units (unknown) date) affect unknown) (unknown) (no (unknown) (unknown) Age/Sex: 66 / M (units (unknown) date) Date of Service: unknown) (unknown) (no (unknown) (unknown) All systems (units (un known) date) reviewed + are unknown) unremarkable except as noted in HPI and below (unknown) (no (unknown) (unknown) Allergies (units (unkn own) date) unknown) (unknown) (no (unknown) (unknown) [address] (units ( unknown) date) [id number] unknown) (unknown) (no (unknown) (unknown) Appearance: (units (un known) date) grossly normal unknown) (unknown) (no (unknown) (unknown) Assessment + Plan (units (unknown) date) unknown) (unknown) (no (unknown) (unknown) Asthma (units (unkno wn) date) unknown) (unknown) (no (unknown) (unknown) Atrial (units (unkno wn) date) fibrillation unknown) (unknown) (no (unknown) (unknown) Attending Dr: (units ( unknown) date) Ortiz MONTOYA unknown) (unknown) (no (unknown) (unknown) Attitude: (units (unkn own) date) cooperative unknown) (unknown) (no (unknown) (unknown) Auscultation: (units ( unknown) date) clear to unknown) auscultation bilaterally (unknown) (no (unknown) (unknown) BMI 27.6 (units (unkno wn) date) unknown) (unknown) (no (unknown) (unknown) BP 136/68 (units (unkn own) date) unknown) (unknown) (no (unknown) (unknown) Blood Pressure (units (unknown) date) Location Lt unknown) brachial (unknown) (no (unknown) (unknown) COPD (chronic (units ( unknown) date) obstructive unknown) pulmonary disease) (unknown) (no (unknown) (unknown) COPD type: (units (unk nown) date) unspecified COPD unknown) Qualified Code(s): J44.9 - Chronic (unknown) (no (unknown) (unknown) CT chest wo con (units (unknown) date) 02/04/22 J84.9 - unknown) Interstitial pulmonary disease, unspecified, (unknown) (no (unknown) (unknown) Cardio (units (unkno wn) date) unknown) (unknown) (no (unknown) (unknown) [facility] for [facility] (units (unknown) date) from ground level unknown) fall.? He does not recall what happened but (unknown) (no (unknown) (unknown) Chief Complaint (units (unknown) date) unknown) (unknown) (no (unknown) (unknown) Chief Complaint: (units (unknown) date) Follow-up unknown) hospitalization (unknown) (no (unknown) (unknown) Cognition: normal (units (unknown) date) cognition unknown) (unknown) (no (unknown) (unknown) Colon cancer (units (u nknown) date) screening unknown) (unknown) (no (unknown) (unknown) Compression (units (un known) date) fracture vertebra: unknown) Patient reports that he has gotten his x-ray (unknown) (no (unknown) (unknown) Confirmed (units (unkn own) date) 02/03/22] unknown) (unknown) (no (unknown) (unknown) Const (units (unkno wn) date) unknown) (unknown) (no (unknown) (unknown) : 1955 (units (unknown) date) Acct:[id number] unknown) (unknown) (no (unknown) (unknown) Dept at (units (unkno wn) date) . unknown) (unknown) (no (unknown) (unknown) Details: (units (unkno wn) date) unknown) (unknown) (no (unknown) (unknown) Documented By: (units (unknown) date) BillOrtiz mcelroy LINDSAY unknown) 02/03/22 1426 (unknown) (no (unknown) (unknown) Dyslipidemia (units (u nknown) date) unknown) (unknown) (no (unknown) (unknown) Effort + (units (unkno wn) date) Inspection: normal unknown) respiratory effort (unknown) (no (unknown) (unknown) Encounter type: (units (unknown) date) subsequent unknown) encounter Fracture healing: with routine (unknown) (no (unknown) (unknown) Encounter type: (units (unknown) date) subsequent unknown) encounter Fracture type: closed Laterality: (unknown) (no (unknown) (unknown) Exam (units (unkno wn) date) unknown) (unknown) (no (unknown) (unknown) Eyes (units (unkno wn) date) unknown) (unknown) (no (unknown) (unknown) Family Practice (units (unknown) date) Office Visit unknown) (unknown) (no (unknown) (unknown) [facility] (units (unknown[facility] date) [facility] unknown) (unknown) (no (unknown) (unknown) GERD (units (unkno wn) date) (gastroesophageal unknown) reflux disease) (unknown) (no (unknown) (unknown) General: (units (unkno wn) date) appearance normal, unknown) both eyes and all related structures (unknown) (no (unknown) (unknown) General: (units (unkno wn) date) cooperative and no unknown) acute distress (unknown) (no (unknown) (unknown) General: patient (units (unknown) date) alert, patient unknown) awake and patient oriented x3 (unknown) (no (unknown) (unknown) HFA) 2 puff (units (un known) date) inhalation BID unknown) 10/25/20 [History Confirmed 02/03/22] (unknown) (no (unknown) (unknown) HPI (units (unkno wn) date) unknown) (unknown) (no (unknown) (unknown) HandiHaler) 1 cap (units (unknown) date) inhalation DAILY unknown) 10/25/20 [History Confirmed 02/03/22] (unknown) (no (unknown) (unknown) [place], with (units (unknown) date) whom patient would unknown) have a telehealth follow-up.? (unknown) (no (unknown) (unknown) Health Management (units (unknown) date) reviewed with unknown) patient: Yes (unknown) (no (unknown) (unknown) Health Management (units (unknown) date) unknown) (unknown) (no (unknown) (unknown) Heart Sounds: S1 (units (unknown) date) normal, S2 normal, unknown) normal S1 and S2 and no murmurs (unknown) (no (unknown) (unknown) Height 172.72 cm (units (unknown) date) unknown) (unknown) (no (unknown) [...] unknown) date) unknown) (unknown) (no (unknown) (unknown) Instructions (units (u nknown) date) .Route .COMPLEX unknown) #18 grams 07/01/21 [Rx Confirmed 02/03/22] (unknown) (no (unknown) (unknown) Intake Note: (units (u nknown) date) unknown) (unknown) (no (unknown) (unknown) Intake performed (units (unknown) date) by: Mitali Torres unknown) M (unknown) (no (unknown) (unknown) Intake (units (unkno wn) date) unknown) (unknown) (no (unknown) (unknown) Intake- Clincial (units (unknown) date) Staff unknown) (unknown) (no (unknown) (unknown) Interstitial lung (units (unknown) date) disease and COPD: unknown) Nursing staff are working with the patient (unknown) (no (unknown) (unknown) Judgment: (units (unkn own) date) judgment good unknown) (unknown) (no (unknown) (unknown) Loc: [facility] (units (unkno wn) date) unknown) (unknown) (no (unknown) (unknown) Medical History (units (unknown) date) (Reviewed 02/07/22 unknown) @ 13:55 by LINDSAY Coffman) (unknown) (no (unknown) (unknown) Medications (units (un known) date) unknown) (unknown) (no (unknown) (unknown) Medications: (units (u nknown) date) unknown) (unknown) (no (unknown) (unknown) Mental Status: (units (unknown) date) mental status unknown) grossly normal (unknown) (no (unknown) (unknown) Mood: congruent (units (unknown) date) mood unknown) (unknown) (no (unknown) (unknown) Multiple (units (unkno wn) date) fractures of ribs, unknown) right side, subsequent encounter for fracture with (unknown) (no (unknown) (unknown) Musc (units (unkno wn) date) unknown) (unknown) (no (unknown) (unknown) Neck (units (unkno wn) date) unknown) (unknown) (no (unknown) (unknown) Neck: normal (units (u nknown) date) visual inspection unknown) and no lymphadenopathy (unknown) (no (unknown) (unknown) Neuro (units (unkno wn) date) unknown) (unknown) (no (unknown) (unknown) Neurology. (units (unk nown) date) unknown) (unknown) (no (unknown) (unknown) New (units (unkno wn) date) unknown) (unknown) (no (unknown) (unknown) No TTP, bony (units (u nknown) date) deformity, or unknown) step-off right side ribcage. TTP over L1 without (unknown) (no (unknown) (unknown) Occult blood (units (u nknown) date) positive stool unknown) (unknown) (no (unknown) (unknown) Orders (units (unkno wn) date) unknown) (unknown) (no (unknown) (unknown) Orders: (units (unkno wn) date) unknown) (unknown) (no (unknown) (unknown) Ortho Spine as (units (unknown) date) well as with unknown) Neurology who he will be seeing for follow-up for (unknown) (no (unknown) (unknown) Ortho spine (units (un known) date) recommended unknown) patient have repeat x-rays performed 1 week after (unknown) (no (unknown) (unknown) Ortho spine was (units (unknown) date) consulted for L1 unknown) compression fracture which was deemed (unknown) (no (unknown) (unknown) Other: (units (unkno wn) date) unknown) (unknown) (no (unknown) (unknown) Oxygen Delivery (units (unknown) date) Method room air unknown) (unknown) (no (unknown) (unknown) PFSH (units (unkno wn) date) unknown) (unknown) (no (unknown) (unknown) Patient is also (units (unknown) date) due 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) 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 [place] and needs to (unknown) (no (unknown) (unknown) Patient reports (units (unknown) date) that at this point unknown) the pain associated with the rib fractures (unknown) (no (unknown) (unknown) Patient was (units (un known) date) started on unknown) gabapentin while hospitalized, presumably as an adjunct (unknown) (no (unknown) (unknown) Patient: (units (unkno wn) date) Suraj Ellis unknown) MR#: [id number] (unknown) (no (unknown) (unknown) Penicillins (units (un known) date) Allergy unknown) (Intermediate, Verified 02/03/22 14:26) (unknown) (no (unknown) (unknown) Plan (units (unkno wn) date) unknown) (unknown) (no (unknown) (unknown) Position Sitting (units (unknown) date) unknown) (unknown) (no (unknown) (unknown) Psych (units (unkno wn) date) unknown) (unknown) (no (unknown) (unknown) Pulmonary (units (unkn own) date) hypertension unknown) (unknown) (no (unknown) (unknown) Pulse 82 (units (unkno wn) date) unknown) (unknown) (no (unknown) (unknown) Pulse Oximetry (units (unknown) date) (%) 94 unknown) (unknown) (no (unknown) (unknown) Pulse Source (units (u nknown) date) Monitor unknown) (unknown) (no (unknown) (unknown) Qualifiers: (units (un known) date) unknown) (unknown) (no (unknown) (unknown) R06.02 - (units (unkno wn) date) Shortness of unknown) breath (unknown) (no (unknown) (unknown) ROS (units (unkno wn) date) unknown) (unknown) (no (unknown) (unknown) Rate: regular (units ( unknown) date) rate unknown) (unknown) (no (unknown) (unknown) Reason For Visit (units (unknown) date) unknown) (unknown) (no (unknown) (unknown) Referral (units (unkno wn) date) Cardio/Pulmonary unknown) Rehab J84.9 - Interstitial pulmonary disease, (unknown) (no (unknown) (unknown) Referrals (units (unkn own) date) unknown) (unknown) (no (unknown) (unknown) Resp (units (unkno wn) date) unknown) (unknown) (no (unknown) (unknown) Respiration 16 (units (unknown) date) unknown) (unknown) (no (unknown) (unknown) Rhythm: regular (units (unknown) date) rhythm unknown) (unknown) (no (unknown) (unknown) Right rib (units (unkn own) date) fractures: Patient unknown) reports no significant residual pain. He states (unknown) (no (unknown) (unknown) Seizure disorder: (units (unknown) date) Advised the unknown) patient to schedule follow-up appointment with (unknown) (no (unknown) (unknown) Signed By: (units (unk nown) date) <Electronically unknown) signed by Ortiz Khan> (unknown) (no (unknown) (unknown) Signed (units (unkno wn) date) unknown) (unknown) (no (unknown) (unknown) Smoking Status: (units (unknown) date) Former smoker unknown) (unknown) (no (unknown) (unknown) Social History (units (unknown) date) unknown) (unknown) (no (unknown) (unknown) Speech: speech (units (unknown) date) normal unknown) (unknown) (no (unknown) (unknown) Status: Acute (units ( unknown) date) unknown) (unknown) (no (unknown) (unknown) Stroke (units (unkno wn) date) unknown) (unknown) (no (unknown) (unknown) Surgical History (units (unknown) date) (Reviewed 02/07/22 unknown) @ 13:55 by LINDSAY Coffman) (unknown) (no (unknown) (unknown) Temp 97.5 F L (units ( unknown) date) unknown) (unknown) (no (unknown) (unknown) Temp Source (units (un known) date) Temporal Artery unknown) Scan (unknown) (no (unknown) (unknown) This note may (units ( unknown) date) have been all or unknown) partially generated using voice recognition (unknown) (no (unknown) (unknown) Thought Content: (units (unknown) date) normal unknown) (unknown) (no (unknown) (unknown) Thought Process: (units (unknown) date) normal unknown) (unknown) (no (unknown) (unknown) Tobacco + (units (unkn own) date) Substance Use unknown) (unknown) (no (unknown) (unknown) Tobacco Status (units (unknown) date) unknown) (unknown) (no (unknown) (unknown) Tobacco: How many (units (unknown) date) years used: 40 unknown) (unknown) (no (unknown) (unknown) Visit Reasons: (units (unknown) date) F/U [facility] + unknown) spinal center (unknown) (no (unknown) (unknown) Vitals (units (unkno wn) date) unknown) (unknown) (no (unknown) (unknown) Weight 82.27 kg (units (unknown) date) unknown) (unknown) (no (unknown) (unknown) [facility] (units (unknown[facility] date) [facility] Center unknown) initially then was transported to [place] due (unknown) (no (unknown) (unknown) adequate O2 (units (un known) date) sats.? On hospital unknown) day 2 the patient was determined to have been in (unknown) (no (unknown) (unknown) albuterol sulfate (units (unknown) date) 2.5 mg/3 mL (0.083 unknown) %) solution for nebulization 2.5 mg (3 mL) (unknown) (no (unknown) (unknown) albuterol sulfate (units (unknown) date) 90 mcg/actuation unknown) aerosol inhaler (Ventolin HFA) See Rx (unknown) (no (unknown) (unknown) alcohol intake: (units (unknown) date) never unknown) (unknown) (no (unknown) (unknown) alcohol (units (unkno wn) date) withdrawal which unknown) was managed with benzodiazepines then subsequently (unknown) (no (unknown) (unknown) amitriptyline 25 (units (unknown) date) mg tablet 50 mg PO unknown) BEDTIME #180 tabs 07/01/21 [Rx Confirmed (unknown) (no (unknown) (unknown) and L1 fracture (units (unknown) date) is essentially unknown) resolved. (unknown) (no (unknown) (unknown) atorvastatin 80 (units (unknown) date) mg tablet 80 mg PO unknown) DAILY #90 tabs 07/01/21 [Rx Confirmed (unknown) (no (unknown) (unknown) consulted during (units (unknown) date) the unknown) hospitalization and recommended continuing the patient's (unknown) (no (unknown) (unknown) continue for this (units (unknown) date) reason. For the unknown) time being I have refilled this, although I (unknown) (no (unknown) (unknown) current Keppra (units (unknown) date) regimen and unknown) following up with outpatient neurologist.? There was (unknown) (no (unknown) (unknown) deemed to be (units (u nknown) date) nonoperative.? unknown) Patient required oxygen supplementation to maintain (unknown) (no (unknown) (unknown) deformity. (units (unk nown) date) unknown) (unknown) (no (unknown) (unknown) diltiazem HCl 240 (units (unknown) date) mg capsule,24 unknown) hr,extended release 240 mg PO DAILY #90 caps (unknown) (no (unknown) (unknown) discharge with (units ( unknown) date) coordination for unknown) results/report being forwarded to Ortho Spine at (unknown) (no (unknown) (unknown) done at an (units (unk n) date) outside facility unknown) but has not yet had a telehealth appointment with (unknown) (no (unknown) (unknown) f/u [facility] + (units (unknown) date) spinal center unknown) (unknown) (no (unknown) (unknown) facilitate (units (unk nown) date) scheduling this unknown) appointment. Patient has a new prescription for (unknown) (no (unknown) (unknown) fell. He was (units (u ) date) hospitalized from unknown) December 29 through January 11.? He presented to (unknown) (no (unknown) (unknown) felt he was doing (units (unknown) date) fine. Follow-up as unknown) needed for concerns. (unknown) (no (unknown) (unknown) fluticasone (units (un known) date) propionate 230 unknown) mcg-salmeterol 21 mcg/actuation HFA inhaler (Advair (unknown) (no (unknown) (unknown) for pain control (units (unknown) date) since there was no unknown) mention of adding this for his anti seizure (unknown) (no (unknown) (unknown) fracture. He (units (u nknown) date) notes that this unknown) seems to help with his tremor and would like to (unknown) (no (unknown) (unknown) gabapentin 300 mg (units (unknown) date) PO TID 90 caps 2RF unknown) (unknown) (no (unknown) (unknown) gabapentin 300 mg (units (unknown) date) capsule 300 mg PO unknown) TID #90 caps 02/03/22 [Rx Confirmed (unknown) (no (unknown) (unknown) gabapentin (units (unk nown) date) documented which unknown) is presumably to address pain associated with this (unknown) (no (unknown) (unknown) have occurred. If (units (unknown) date) there are any unknown) questions, please contact the Medical Records (unknown) (no (unknown) (unknown) have some studies (units (unknown) date) performed here unknown) prior to that appointment. (unknown) (no (unknown) (unknown) healing Qualified (units (unknown) date) Code(s): S32.010D unknown) - Wedge compression fracture of first (unknown) (no (unknown) (unknown) his left hand (units ( unknown) date) tremor which he unknown) has had since his CVA. (unknown) (no (unknown) (unknown) hives (units (unkno wn) date) unknown) (unknown) (no (unknown) (unknown) household (units (unkn own) date) members: none unknown) (unknown) (no (unknown) (unknown) inhalation (units (unk nown) date) .COMPLEX #540 mL unknown) 07/01/21 [Rx Confirmed 02/03/22] (unknown) (no (unknown) (unknown) levetiracetam 750 (units (unknown) date) mg tablet 750 mg unknown) PO Q12H 07/01/21 [History Confirmed 02/03/22] (unknown) (no (unknown) (unknown) levothyroxine 75 (units (unknown) date) mcg tablet 75 mcg unknown) PO DAILY #90 tabs 02/08/21 [Rx Confirmed (unknown) (no (unknown) (unknown) losartan 100 mg (units (unknown) date) tablet 100 mg PO unknown) DAILY #90 tabs 07/01/21 [Rx Confirmed 02/03/22] (unknown) (no (unknown) (unknown) lumbar vertebra, (units (unknown) date) subsequent unknown) encounter for fracture with routine healing (unknown) (no (unknown) (unknown) may occur. (units (unk nown) date) Occasional unknown) wrong-word or 'sound-alike' substitutions may have (unknown) (no (unknown) (unknown) no seizure (units (unk nown) date) activity noted unknown) during his hospitalization although there was concern (unknown) (no (unknown) (unknown) nonoperative.? (units (unknown) date) PT/OT evaluated unknown) the patient and advised home health services. (unknown) (no (unknown) (unknown) obstructive (units (un known) date) pulmonary disease, unknown) unspecified (unknown) (no (unknown) (unknown) occurred due to (units (unknown) date) the inherent unknown) limitations of voice recognition software. Please (unknown) (no (unknown) (unknown) omeprazole 40 mg (units (unknown) date) capsule,delayed unknown) release 40 mg PO DAILY 04/27/18 [History (unknown) (no (unknown) (unknown) oxygen #1 ea (units (u nknown) date) 08/02/18 [History unknown) Confirmed 02/03/22] (unknown) (no (unknown) (unknown) potentially lead (units (unknown) date) to alcohol unknown) withdrawal in this scenario.? Neurology was (unknown) (no (unknown) (unknown) pulmonology (units (un known) date) visit. unknown) (unknown) (no (unknown) (unknown) read the note (units ( unknown) date) carefully and unknown) recognize, using context, where these substitutions (unknown) (no (unknown) (unknown) recommend we (units (u nknown) date) re-evaluate this unknown) in the future. He can discuss this both with (unknown) (no (unknown) (unknown) regimen in the (units (unknown) date) note that I read. unknown) Patient states that this seems to help with (unknown) (no (unknown) (unknown) remembers waking (units (unknown) date) on the floor of unknown) his bathroom, thinks he hit his vanity when he (unknown) (no (unknown) (unknown) resolved prior to (units (unknown) date) discharge. unknown) ?However, patient maintains that he drinks only (unknown) (no (unknown) (unknown) right Fracture (units (unknown) date) healing: with unknown) routine healing Qualified Code(s): S22.41XD (unknown) (no (unknown) (unknown) rivaroxaban 20 mg (units (unknown) date) tablet (Xarelto) unknown) 20 mg PO QPM #90 tabs 07/01/21 [Rx Confirmed (unknown) (no (unknown) (unknown) routine healing (units (unknown) date) unknown) (unknown) (no (unknown) (unknown) seizure disorder. (units (unknown) date) unknown) (unknown) (no (unknown) (unknown) software. (units (unkn own) date) Although every unknown) effort is made to edit content, system administrator errors (unknown) (no (unknown) (unknown) that OT and PT (units (unknown) date) home health unknown) services were offered but he declined these as he (unknown) (no (unknown) (unknown) that seizure was (units (unknown) date) the reason for his unknown) initial fall that led to trauma. (unknown) (no (unknown) (unknown) the [facility] (units (unknown) date) Ortho Spine unknown) providers. I have asked our nursing staff to help (unknown) (no (unknown) (unknown) through 12, L1 and (units (unknown) date) L2 fractures of unknown) uncertain chronicity.? The rib fractures were (unknown) (no (unknown) (unknown) tiotropium (units (unk nown) date) bromide 18 mcg unknown) capsule with inhalation device (Spiriva with (unknown) (no (unknown) (unknown) to arrange for (units (unknown) date) him to get unknown) diagnostics done here prior to his upcoming (unknown) (no (unknown) (unknown) to the (units (unkno wn) date) extensiveness of unknown) the injuries.? He sustained right rib fractures 8 (unknown) (no (unknown) (unknown) unspecified, (units (u nknown) date) R06.02 - Shortness unknown) of breath (unknown) (no (unknown) (unknown) very (units (unkno wn) date) moderately--1 6 unknown) pack of craft beer per week--not nearly enough to have Result panel 7 (unknown) (no (unknown) (unknown) (no value) (units (unk nown) date) unknown) (unknown) (no (unknown) (unknown) [id number] (units (unkno wn) date) unknown) (unknown) (no (unknown) (unknown) 02/20/22 (units (unkno wn) date) unknown) (unknown) (no (unknown) (unknown) 1. Mild (units (unkno wn) date) nonspecific unknown) peripheral reticular thickening. Mild emphysematous (unknown) (no (unknown) (unknown) [address] [place] [address] (units (unknown) date) unknown) (unknown) (no (unknown) (unknown) 2. Secretions in (units (unknown) date) the right unknown) mainstem bronchus and trachea. This could represent (unknown) (no (unknown) (unknown) 3. Mild (units (unkno wn) date) dependent unknown) atelectasis. (unknown) (no (unknown) (unknown) 4. No pleural (units ( unknown) date) effusion. unknown) (unknown) (no (unknown) (unknown) Abdomen: (units (unkno wn) date) Visualized upper unknown) abdominal solid organs and bowel loops appear (unknown) (no (unknown) (unknown) Accession (units (unkn own) date) Number: unknown) [id number] (unknown) (no (unknown) (unknown) Age/Sex: 66 / M (units (unknown) date) Date of Service: unknown) (unknown) (no (unknown) (unknown) [place] (units ( unknown) date) [id number] unknown) (unknown) (no (unknown) (unknown) Approved by: (units (u nknown) date) Quoc Harding M.D. unknown) on 02/20/2022 at 14:43 (unknown) (no (unknown) (unknown) Bones and chest (units (unknown) date) wall: No unknown) suspicious bony lesions. Scoliosis. T5 intraosseous (unknown) (no (unknown) (unknown) COMPARISON: (units (un known) date) [facility], unknown) CT, CT ANGIO CHEST PE PROTOCOL, 05/25/2021, 7:32. (unknown) (no (unknown) (unknown) CT Scan Report (units (unknown) date) unknown) (unknown) (no (unknown) (unknown) : 1955 (units (unknown) date) Acct:[id number] unknown) (unknown) (no (unknown) (unknown) Dictated by: (units (u nknown) date) Quoc Harding M.D. unknown) on 02/20/2022 at 14:32 (unknown) (no (unknown) (unknown) Esophagus is (units (u nknown) date) normal in unknown) caliber. (unknown) (no (unknown) (unknown) FINDINGS: (units (unkn own) date) unknown) (unknown) (no (unknown) (unknown) IMPRESSION: (units (un known) date) unknown) (unknown) (no (unknown) (unknown) INDICATIONS: (units (u nknown) date) ILD, shortness of unknown) breath, change in progression (unknown) (no (unknown) (unknown) Image quality: (units (unknown) date) Good. unknown) (unknown) (no (unknown) (unknown) [facility] (units (unknown) date) unknown) (unknown) (no (unknown) (unknown) Loc: CT (units (unkno wn) date) unknown) (unknown) (no (unknown) (unknown) Lungs: There is (units (unknown) date) a dependent unknown) streaky opacity most pronounced at the left lung (unknown) (no (unknown) (unknown) Mediastinum: (units (u nknown) date) Heart size is unknown) normal. Moderate coronary artery calcifications. (unknown) (no (unknown) (unknown) No (units (unkno wn) date) unknown) (unknown) (no (unknown) (unknown) Noncontrast 1.0 (units (unknown) date) and 5.0 mm thick unknown) contiguous axial sections from the pulmonary (unknown) (no (unknown) (unknown) Ordering (units (unkno wn) date) Provider: unknown) Ortiz Khan (unknown) (no (unknown) (unknown) PROCEDURE: CT (units ( unknown) date) CHEST HIGH unknown) RESOLUTION (unknown) (no (unknown) (unknown) Patient: (units (unkno wn) date) Suraj Ellis W unknown) MR#: [id number] (unknown) (no (unknown) (unknown) Pleura: No (units (unk nown) date) pleural effusions unknown) or pneumothorax. (unknown) (no (unknown) (unknown) Procedure: CT (units ( unknown) date) chest high unknown) resolution (unknown) (no (unknown) (unknown) Respiratory (units (un known) date) unknown) (unknown) (no (unknown) (unknown) Signed (units (unkno wn) date) unknown) (unknown) (no (unknown) (unknown) TECHNIQUE: (units (unk nown) date) unknown) (unknown) (no (unknown) (unknown) angles in the (units ( unknown) date) unknown) (unknown) (no (unknown) (unknown) apex to the (units (un known) date) unknown) (unknown) (no (unknown) (unknown) aspiration or (units ( unknown) date) bronchitis. unknown) (unknown) (no (unknown) (unknown) atelectasis. (units (u nknown) date) There unknown) (unknown) (no (unknown) (unknown) automated (units (unkn own) date) exposure control, unknown) adjustment of mA and/or kV according to patient (unknown) (no (unknown) (unknown) base which (units (unk nown) date) unknown) (unknown) (no (unknown) (unknown) change. (units (unkno wn) date) unknown) (unknown) (no (unknown) (unknown) hemangioma. (units (un known) date) Minimal height unknown) loss at T3, unchanged. (unknown) (no (unknown) (unknown) in size. (units (unkno wn) date) unknown) (unknown) (no (unknown) (unknown) is mild (units (unkno wn) date) emphysematous unknown) change. No significant pulmonary nodules identified. (unknown) (no (unknown) (unknown) is mildly (units (unkn own) date) improved on the unknown) prone series. This is most consistent with (unknown) (no (unknown) (unknown) lungs. 1.0 mm (units ( unknown) date) unknown) (unknown) (no (unknown) (unknown) motion artifact. (units (unknown) date) There is unknown) secretions in the right mainstem bronchus and (unknown) (no (unknown) (unknown) normal. (units (unkno wn) date) unknown) (unknown) (no (unknown) (unknown) pericardial (units (un known) date) effusion. unknown) Thoracic aorta and central pulmonary arteries are normal (unknown) (no (unknown) (unknown) peripheral (units (unk nown) date) reticular unknown) thickening. No honeycombing. No bronchiectasis. (unknown) (no (unknown) (unknown) posterior (units (unkn own) date) costophrenic unknown) angles, with 7 mm thick coronal and sagittal MIP (unknown) (no (unknown) (unknown) prone (units (unkno wn) date) end-inspiration unknown) position. For radiation dose reduction, the following (unknown) (no (unknown) (unknown) reformats. 1 mm (units (unknown) date) unknown) (unknown) (no (unknown) (unknown) silent (units (unkno wn) date) unknown) (unknown) (no (unknown) (unknown) size. (units (unkno wn) date) unknown) (unknown) (no (unknown) (unknown) thick axial (units (un known) date) sections acquired unknown) from the elizabeth to the posterior costophrenic (unknown) (no (unknown) (unknown) thick dynamic (units ( unknown) date) expiratory images unknown) acquired through the upper, mid, and lower (unknown) (no (unknown) (unknown) trachea. Mild (units ( unknown) date) unknown) (unknown) (no (unknown) (unknown) was used: (units (unkn own) date) unknown) Social History date description facility +0000 Ex-smoker (finding) [facility] Vital Signs date measurement value units [id number] BMI BMI 27.6 kg/m2 [id number]+0000 BP_diastolic BP_diastolic 68 mmHg [id number]+0000 BP_systolic BP_systolic 136 mmHg [id number]+0000 heart_rate heart_rate 82 /min [id number]+0000 height_metric height_metric 172.72 cm [id number]+0000 height_standard height_standard 68 in [id number]+0000 respiration_rate respiration_rate 16 /min [id number]+0000 temperature_metric temperature_metric 36.39 C [id number]+0000 temperature_standard temperature_standard 9 7.5 F [id number]+0000 weight_metric weight_metric 82.27 g_ code [id number]+0000 weight_standard weight_standard 82.27 g_code
[2022-04-15] MEDS ORDERED: ALBUTEROL NEB 2.5 MG/3 ML INH STA (04:47)
--- NOTE | 2022-04-15 04:49 | ED Physician Documentation ---
History of Present Illness - Stated complaint Stated Complaint: SOA - Chief complaint Chief Complaint: Resp - History obtained from History obtained from: Patient - Additonal information Additional information: 66yM with pmh anxiety, PE on xarelto, copd on 2L home o2, daily smoker, p/w SOA over the past 3 days with chest congestion and feeling of inability to cough up phlegm properly. denies fever, hemoptysis, leg swelling, nausea, cp. Review of Systems Ten Systems: 10 systems reviewed and negative Constitutional: denies: Fever, Chills, Myalgias, Fatigue Cardiac: denies: Chest pain / pressure Respiratory: reports: Dyspnea, Cough GI: denies: Nausea, Vomiting PD PAST MEDICAL HISTORY - Past Medical History Past Medical History: Yes Cardiovascular: Hypertension, High cholesterol, Deep vein thrombosis, Pulmonary embolism Respiratory: COPD Neuro: CVA Endocrine/Autoimmune: HyPOthyroidism GI: None : None HEENT: None Psych: Anxiety, Bipolar disorder - Past Surgical History Past Surgical History: Yes Ortho: Arthroscopic surgery - Present Medications Home Medications: Ambulatory Orders Medication Instructions Recorded Confirmed Amitriptyline [Elavil] 50 mg PO QPM 11/09/17 10/12/21 Atorvastatin [Lipitor] 80 mg PO DAILY 11/09/17 10/12/21 Levothyroxine [Synthroid] 75 mcg PO QDAC 11/09/17 10/12/21 Losartan [Cozaar] 100 mg ORAL DAILY 11/09/17 10/12/21 Omeprazole 40 mg PO DAILY 11/09/17 10/12/21 Rivaroxaban [Xarelto] 20 mg PO QDDINNER 11/09/17 10/12/21 diltiaZEM [Cardizem] 240 mg ORAL DAILY 11/09/17 10/12/21 Albuterol 1 amp NEB PRN PRN 10/09/21 10/12/21 predniSONE [Deltasone] 10 mg PO [id number] #42 tab 10/09/21 10/12/21 Fluticasone [Flonase] 2 sprays ZAHEER DAILY 10/12/21 10/12/21 Fluticasone/Salmeterol [Advair Hfa 2 puffs INH BID 10/12/21 10/12/21 230-21 Mcg Inhaler] Levetiracetam [Keppra] 1,125 mg PO BID 10/12/21 10/12/21 Tiotropium [place] [Spiriva 1 puffs INJ DAILY 10/12/21 10/12/21 Handihaler] Doxycycline Monohydrate 100 mg PO BID #20 cap 11/08/21 predniSONE [Deltasone] 10 mg PO [id number] #42 tab 11/08/21 - Allergies Allergies/Adverse Reactions: Allergies Allergy/AdvReac Type Severity Reaction Status Date / Time Penicillins Allergy Unknown Verified 04/15/22 04:16 - Social History Does the pt smoke?: Yes Smoking Status: Current every day smoker Does the pt drink ETOH?: Yes Does the pt have substance abuse?: No - Immunizations Immunizations are current?: No Immunizations: TDAP >10years/unknown - POLST Patient has POLST: No PD ED PE NORMAL - Vitals Vital signs reviewed: Yes - General General: Alert and oriented X 3, No acute distress, Well developed/nourished - HEENT HEENT: Atraumatic, PERRL, EOMI, Moist mucous membranes, Pharynx benign - Neck Neck: Supple, no meningeal sign - Cardiac Cardiac: RRR - Respiratory Respiratory: No respiratory distress, Clear bilaterally, Other (mildly tachypneic) - Abdomen Abdomen: Non tender, Non distended - Derm Derm: Normal color, Warm and dry - Extremities Extremities: No edema - Neuro Neuro: No motor deficit, No sensory deficit - Psych Psych: Normal mood, Normal affect Results - Vitals Vitals: Vital Signs - 24 hr 04/15/22 04/15/22 04/15/22 04:16 05:25 06:19 Temperature 36.8 C Heart Rate 88 84 88 Respiratory 25 H 24 21 Rate Blood Pressure 147/91 H 147/83 H O2 Saturation 100 97 If not protocol 2 2 : Oxygen Flow, liters/minute Oxygen O2 Source Nasal cannula Oxygen Flow Rate 2 - Labs Labs: Laboratory Tests 04/15/22 04/15/22 04/15/22 05:21 05:40 05:40 WBC 6.1 RBC 4.62 L Hgb 11.7 L Hct 38.2 L MCV 82.7 MCH 25.3 L MCHC 30.6 L RDW 17.1 H Plt Count 364 MPV 9.3 Neut # (Auto) 4.1 Lymph # (Auto) 1.5 [place] # (Auto) 0.3 Eos # (Auto) 0.1 Baso # (Auto) 0.1 Absolute Nucleated RBC 0.00 Nucleated RBC % 0.0 VBG pH VBG pCO2 VBG pO2 VBG HCO3 VBG Total CO2 VBG O2 Saturation VBG Base Excess Sodium 140 Potassium 4.3 Chloride 107 Carbon Dioxide 23 Anion Gap 10.0 BUN 14 Creatinine 0.8 Estimated GFR (MDRD) 96 Glucose 115 H Calcium 8.8 Total Bilirubin 0.7 AST 21 ALT 22 Alkaline Phosphatase 99 Total Protein 7.6 Albumin 4.1 Globulin 3.5 Albumin/Globulin Ratio 1.2 Lipase 27 Nasal Adenovirus (PCR) NOT DETECTED Nasal B. parapertussis DNA (PCR) NOT DETECTED Nasal Coronavir 229E PCR NOT DETECTED Nasal Coronavir HKU1 PCR NOT DETECTED Nasal Coronavir NL63 PCR NOT DETECTED Nasal Coronavir OC43 PCR NOT DETECTED Nasal Enterovir/Rhinovir PCR NOT DETECTED Nasal Influenza B PCR NOT DETECTED Nasal Influenza A PCR NOT DETECTED Nasal Parainfluen 1 PCR NOT DETECTED Nasal Parainfluen 2 PCR NOT DETECTED Nasal Parainfluen 3 PCR NOT DETECTED Nasal Parainfluen 4 PCR NOT DETECTED Nasal RSV (PCR) NOT DETECTED Nasal B.pertussis DNA PCR NOT DETECTED Nasal C.pneumoniae (PCR) NOT DETECTED [place] Human Metapneumo PCR NOT DETECTED Nasal M.pneumoniae (PCR) NOT DETECTED Nasal SARS-CoV-2 (PCR) NOT DETECTED 04/15/22 05:40 WBC RBC Hgb Hct MCV MCH MCHC RDW Plt Count MPV Neut # (Auto) Lymph # (Auto) [place] # (Auto) Eos # (Auto) Baso # (Auto) Absolute Nucleated RBC Nucleated RBC % VBG pH 7.422 H VBG pCO2 40.6 L VBG pO2 77.2 H VBG HCO3 25.9 VBG Total CO2 27.1 VBG O2 Saturation 95.3 H VBG Base Excess 1.3 Sodium Potassium Chloride Carbon Dioxide Anion Gap BUN Creatinine Estimated GFR (MDRD) Glucose Calcium Total Bilirubin AST ALT Alkaline Phosphatase Total Protein Albumin Globulin Albumin/Globulin Ratio Lipase Nasal Adenovirus (PCR) Nasal B. parapertussis DNA (PCR) Nasal Coronavir 229E PCR Nasal Coronavir HKU1 PCR Nasal Coronavir NL63 PCR Nasal Coronavir OC43 PCR Nasal Enterovir/Rhinovir PCR Nasal Influenza B PCR Nasal Influenza A PCR Nasal Parainfluen 1 PCR Nasal Parainfluen 2 PCR Nasal Parainfluen 3 PCR Nasal Parainfluen 4 PCR Nasal RSV (PCR) Nasal B.pertussis DNA PCR Nasal C.pneumoniae (PCR) Zaheer Human Metapneumo PCR Nasal M.pneumoniae (PCR) Nasal SARS-CoV-2 (PCR) PD MEDICAL DECISION MAKING - ED course ED course: 66yM p/w SOA over past few days, worsening tonight and refractory to home nebulizer treatments. patient received solumedrol and nebs with ems with improvement. will eval further with labs, cxr. VBG with hyperventilatory pattern. Patient not retaining CO2 per bloodwork. Patient ambulatory to bathroom off of oxygen without difficulty. stating that the thickness in his chest is improved. Given he has no leukocytosis, no fever, I will abstain from treating for pneumonia at this time. Patient is compliant with his anticoagulation regimen and VBG pattern is fairly benign, so lower suspicion for PE as inciting cause of his SOA. Since he is improved, will plan to dc home and follow up outpatient with his PCP. return precautions given. Departure - Departure Disposition: 01 Home, Self Care Clinical Impression: Shortness of breath Condition: Stable Instructions: ED Dyspnea Shortness of Breath Comments: You were seen in the ED for shortness of breath. Your workup uncovered no emergent cause for your symptoms. Please follow up with your primary care provider for further management and return to the ED with any new or worsening symptoms or if you have other concerns.
[2022-04-15 05:50] LABS: BASOPHILS # (AUTO) 0.1 10^3/uL (0.0-0.1); BASOPHILS % (AUTO) 0.8 %; EOSINOPHILS # (AUTO) 0.1 10^3/uL (0.0-0.7); EOSINOPHILS % (AUTO) 1.8 %; HCT - HEMATOCRIT 38.2 % (42.0-52.0); HGB - HEMOGLOBIN 11.7 g/dL (14.0-18.0); LYMPHOCYTES # (AUTO) 1.5 10^3/uL (1.5-3.5); LYMPHOCYTES % (AUTO) 24.4 %; MEAN CORPUSCULAR HEMOGLOBIN 25.3 pg (27.0-31.0); MEAN CORPUSCULAR HGB CONC 30.6 g/dL (32.0-36.0); MEAN CORPUSCULAR VOLUME 82.7 fL (80.0-94.0); MEAN PLATELET VOLUME 9.3 fL (7.4-11.4); MONOCYTES # (AUTO) 0.3 10^3/uL (0.0-1.0); MONOCYTES % (AUTO) 5.1 %; NEUTROPHILS # (AUTO) 4.1 10^3/uL (1.5-6.6); NEUTROPHILS % (AUTO) 67.6 %; PLT - PLATELET COUNT 364 10^3/uL (130-450); RED BLOOD COUNT 4.62 10^6/uL (4.70-6.10); RED CELL DISTRIBUTION WIDTH 17.1 % (12.0-15.0); VBG BASE EXCESS 1.3 mmol/L (-2 - +2); VBG HCO3 25.9 mmol/L (23-28); VBG OXYGEN SATURATION 95.3 % (60-80); VBG PCO2 40.6 mmHg (41-51); VBG PH 7.422 (7.31-7.41); VBG PO2 77.2 mmHg (25-47); VBG TOTAL CO2 27.1 mmol/L (24-29); WHITE BLOOD COUNT 6.1 x10^3/uL (4.8-10.8)
[2022-04-15 06:04] LABS: ALBUMIN 4.1 g/dL (3.2-5.5); ALBUMIN/GLOBULIN RATIO 1.2 (1.0-2.2); BILIRUBIN,TOTAL 0.7 mg/dL (0.2-1.0); CALCIUM 8.8 mg/dL (8.5-10.3); CREATININE 0.8 mg/dL (0.6-1.2); POTASSIUM 4.3 mmol/L (3.5-5.0); TOTAL PROTEIN 7.6 g/dL (6.7-8.2)
[2022-04-15 06:20] VITALS: BP 147/83
[2022-04-15 06:24] LABS: B. PARAPERTUSSIS- RESP PCR PAN NOT DETECTED; B. PERTUSSIS- RESP PCR PANEL NOT DETECTED; C. PNEUMONIAE- RESP PCR PANEL NOT DETECTED; CORONAVIRUS 229E-RESP PCR NOT DETECTED; CORONAVIRUS HKU1-RESP PCR NOT DETECTED; CORONAVIRUS NL63-RESP PCR NOT DETECTED; CORONAVIRUS OC43-RESP PCR NOT DETECTED; HUMAN METAPNEUMOVIRUS NOT DETECTED; INFLUENZA A- RESP PCR PANEL NOT DETECTED; INFLUENZA B - RESP PCR PANEL NOT DETECTED; M. PNEUMONIAE- RESP PCR PANEL NOT DETECTED; PARAINFLUENZA VIRUS 1 NOT DETECTED; PARAINFLUENZA VIRUS 2 NOT DETECTED; PARAINFLUENZA VIRUS 3 NOT DETECTED; PARAINFLUENZA VIRUS 4 NOT DETECTED; RHINOVIRUS/ENTEROVIRUS NOT DETECTED; RSV- RESP PCR PANEL NOT DETECTED; SARS-CoV-2 -RESP PCR PANEL NOT DETECTED
--- NOTE | 2022-04-15 08:37 | XRAY Report ---
PROCEDURE: Chest 1 View X-Ray INDICATIONS: Chest Pain TECHNIQUE: One view of the chest was acquired. COMPARISON: CT chest 12/29/2021 FINDINGS: Surgical changes and devices: None. Lungs and pleura: No pleural effusions or pneumothorax. Retrocardiac opacity is present. Increased p ulmonary vascularity is noted. Mediastinum: Mediastinal contours appear normal. Heart size is lisbet l. Bones and chest wall: No suspicious bony lesions. Overlying soft tissues appear unremarkable. IMPRESSION: Increased vascular suggestive of edema. Prominent retrocardiac opacity which could represent pneumoni a. Underlying areas of edema and/or atelectasis cannot be excluded. The above findings are concordant with preliminary report. Reviewed by: Sapna Lopez MD on 04/15/2022 8:36 AM [facility] Approved by: Sapna Lopez MD on 04/15/2022 8:36 AM [facility] Station ID: [id number]
== END 2022-04-15 06:54 | disposition home or self-care (01) ==
LOC: EDUNIT# → ED 04:12
DX: R06.02 Shortness of breath (principal); Z86.711 Personal history of pulmonary embolism; Z79.01 Long term (current) use of anticoagulants; I10 Essential (primary) hypertension; Z86.718 Personal history of other venous thrombosis and embolism; Z20.822 Contact with and (suspected) exposure to COVID-19
CPT/HCPCS: 36415; 80053; 82803; 83690; 85025; 87633; 94640; 94664; 99282; 99284

== ENCOUNTER 2022-05-13 15:42 | Outpatient (CLI) | payer MEDICARE, MEDICAID | END 2022-05-13 15:43 | disposition critical access hospital (66) | LOC: EMS 15:42 | DX: R29.810 Facial weakness (principal); R47.81 Slurred speech | CPT/HCPCS: A0425; A0427 ==

== ENCOUNTER 2022-05-13 15:57 | Emergency (ER) | payer MEDICARE, MEDICAID ==
--- NOTE | 2022-05-13 16:08 | ED Physician Documentation ---
PD HPI FOCAL NEURO - Stated complaint Stated Complaint: CODE STROKE - Chief complaint Chief Complaint: Neuro - History obtained from History obtained from: Patient, EMS - History of Present Illness Timing - duration: Hours (2) Severity of deficit: Moderate Weakness: Face, Left Numbness: Face, Left Associated symptoms: No: Headache, Nausea / vomiting, Seizure, Syncope, Fall, Head injury, Chest pain Contributing factors: positive: Anticoagulated, Atrial fibrillation Baseline status: positive: A&OX3, ambulatory, indep - Additional information Additional information: Patient is a 66-year-old male who is brought in by EMS. He states he was shopping today when he touched the left side of his face and noticed that it felt numb. He states that he noticed this about 2 hours ago. Nothing seems to make it better or worse. He states he has a history of a stroke in the past. Does not recall the specific symptoms. He has dysarthria at baseline. He called 911 and was brought in for evaluation. Patient has no headache. No trauma. No fever. No cough. No abdominal pain. No vomiting. No diarrhea. He is on Xarelto for A. fib. Review of Systems Ten Systems: 10 systems reviewed and negative Constitutional: denies: Fever, Chills Throat: denies: Sore throat Cardiac: denies: Chest pain / pressure Respiratory: denies: Dyspnea, Cough GI: denies: Abdominal Pain, Nausea, Vomiting, Diarrhea Skin: denies: Rash Musculoskeletal: denies: Neck pain, Back pain Neurologic: denies: Headache PD PAST MEDICAL HISTORY - Past Medical History Cardiovascular: Hypertension, High cholesterol, Deep vein thrombosis, Pulmonary embolism Respiratory: COPD Neuro: CVA Endocrine/Autoimmune: HyPOthyroidism GI: None : None HEENT: None Psych: Anxiety, Bipolar disorder - Past Surgical History Past Surgical History: Yes Ortho: Arthroscopic surgery - Present Medications Home Medications: Ambulatory Orders Medication Instructions Recorded Confirmed Amitriptyline [Elavil] 50 mg PO QPM 11/09/17 05/13/22 Atorvastatin [Lipitor] 80 mg PO DAILY 11/09/17 05/13/22 Levothyroxine [Synthroid] 75 mcg PO QDAC 11/09/17 05/13/22 Losartan [Cozaar] 100 mg ORAL DAILY 11/09/17 10/12/21 Omeprazole 40 mg PO DAILY 11/09/17 05/13/22 Rivaroxaban [Xarelto] 20 mg PO QDDINNER 11/09/17 05/13/22 diltiaZEM [Cardizem] 240 mg ORAL DAILY 11/09/17 05/13/22 Albuterol 1 amp NEB PRN PRN 10/09/21 05/13/22 Fluticasone [Flonase] 2 sprays ZAHEER DAILY 10/12/21 05/13/22 Fluticasone/Salmeterol [Advair Hfa 2 puffs INH BID 10/12/21 05/13/22 230-21 Mcg Inhaler] Levetiracetam [Keppra] 1,125 mg PO BID 10/12/21 05/13/22 Tiotropium [place] [Spiriva 1 puffs INJ DAILY 10/12/21 05/13/22 Handihaler] Gabapentin [Neurontin] 300 mg PO TID 05/13/22 05/13/22 Valacyclovir HCl [Valtrex] 1,000 mg PO TID #21 tablet 05/13/22 predniSONE [Deltasone] 10 mg PO [id number] #42 tab 05/13/22 Azithromycin [Zithromax] 0 mg PO DAILY #6 tablet 05/14/22 Cefpodoxime Proxetil [Vantin] 200 mg PO Q12H #28 tablet 05/14/22 Furosemide [Lasix] 40 mg PO DAILY #7 tablet 05/14/22 - Allergies Allergies/Adverse Reactions: Allergies Allergy/AdvReac Type Severity Reaction Status Date / Time Penicillins Allergy Unknown Verified 05/13/22 16:02 - Social History Does the pt smoke?: Yes Smoking Status: Current every day smoker Does the pt drink ETOH?: Yes Does the pt have substance abuse?: No - Immunizations Immunizations are current?: No Immunizations: TDAP >10years/unknown - POLST Patient has POLST: No PD ED PE NORMAL - Vitals Vital signs reviewed: Yes - General General: Alert and oriented X 3, No acute distress, Well developed/nourished - HEENT HEENT: Atraumatic, PERRL, EOMI, Moist mucous membranes - Neck Neck: Supple, no meningeal sign - Cardiac Cardiac: RRR, Strong equal pulses - Respiratory Respiratory: No respiratory distress, Clear bilaterally - Abdomen Abdomen: Soft, Non tender, Non distended - Derm Derm: Warm and dry - Extremities Extremities: No edema, No calf tenderness / cord - Neuro Neuro: Alert and oriented X 3 Eye Opening: Spontaneous Motor: Obeys Commands Verbal: Oriented GCS Score: 15 - Psych Psych: Normal mood, Normal affect NIHSS - Time Time: 16:00 - Level of Consciousness Level of consciousness: (0) Alert, Keenly responsive LOC Questions: (0) Answers both Q's correct LOC Commands: (0) Performs both correctly - Gaze Best Gaze: (0) Normal - Visual Visual: (0) No loss - Facial Palsy Facial Palsy: (2) Partial paralysis - Motor Arms (both separate) Motor Arm (right): (0) No drift Motor Arm (left): (0) No drift - Motor Legs (both separate) Motor Leg (right): (0) No drift Motor Leg (left): (0) No drift - Limb Ataxia Limb Ataxia: (0) Absent - Sensory Sensory: (0) Normal - Best Language Best Language: (0) No aphasia - Dysarthria Dysarthria: (1) Plte-mq-[id number] dysarthria - Extinction and Inattention (formally neg Extinction and inattention: (0) No abnormality - Total Score/Results Total Score/Result: 3 Results - Vitals Vitals: Oxygen O2 Source Room air Oxygen Flow Rate 2 - EKG (time done) 1951 Rate: Rate (enter#) (86) Rhythm: NSR [place]: Anterior hemiblock (LAFB) Intervals: RBBB - Labs Labs: Laboratory Tests 05/13/22 05/13/22 05/13/22 16:32 16:32 16:32 WBC 8.0 RBC 5.03 Hgb 12.5 L Hct 41.5 L MCV 82.5 MCH 24.9 L MCHC 30.1 L RDW 19.3 H Plt Count 384 MPV 9.3 Neut # (Auto) 3.3 Lymph # (Auto) 3.6 H Ellis # (Auto) 0.9 Eos # (Auto) 0.1 Baso # (Auto) 0.1 Absolute Nucleated RBC 0.00 Nucleated RBC % 0.0 PT 11.5 INR 1.0 Sodium 141 Potassium 4.4 Chloride 104 Carbon Dioxide 25 Anion Gap 12.0 BUN 16 Creatinine 0.8 Estimated GFR (MDRD) 96 Glucose 110 H Calcium 8.9 Total Bilirubin 0.6 AST 25 ALT 24 Alkaline Phosphatase 86 Total Protein 7.5 Albumin 4.0 Globulin 3.5 Albumin/Globulin Ratio 1.1 Lipase 29 Urine Color Urine Clarity Urine pH Ur Specific [place] Urine Protein Urine Glucose (UA) Urine Ketones Urine Occult Blood Urine Nitrite Urine Bilirubin Urine Urobilinogen Ur Leukocyte Esterase Ur Microscopic Review Urine Culture Comments Urine Opiates Screen Ur Oxycodone Screen Urine Methadone Screen Ur Propoxyphene Screen Ur Barbiturates Screen Ur Tricyclics Screen Ur Phencyclidine Scrn Ur Amphetamine Screen U Methamphetamines Scrn U Benzodiazepines Scrn Urine Cocaine Screen U Cannabinoids Screen Ethyl Alcohol 05/13/22 05/13/22 16:32 17:56 WBC RBC Hgb Hct MCV MCH MCHC RDW Plt Count MPV Neut # (Auto) Lymph # (Auto) Ellis # (Auto) Eos # (Auto) Baso # (Auto) Absolute Nucleated RBC Nucleated RBC % PT INR Sodium Potassium Chloride Carbon Dioxide Anion Gap BUN Creatinine Estimated GFR (MDRD) Glucose Calcium Total Bilirubin AST ALT Alkaline Phosphatase Total Protein Albumin Globulin Albumin/Globulin Ratio Lipase Urine Color YELLOW Urine Clarity CLEAR Urine pH 6.0 Ur Specific [place] <=1.005 Urine Protein NEGATIVE Urine Glucose (UA) NEGATIVE Urine Ketones NEGATIVE Urine Occult Blood NEGATIVE Urine Nitrite NEGATIVE Urine Bilirubin NEGATIVE Urine Urobilinogen 0.2 (NORMAL) Ur Leukocyte Esterase NEGATIVE Ur Microscopic Review NOT INDICATED Urine Culture Comments NOT INDICATED Urine Opiates Screen NEGATIVE Ur Oxycodone Screen NEGATIVE Urine Methadone Screen NEGATIVE Ur Propoxyphene Screen NEGATIVE Ur Barbiturates Screen NEGATIVE Ur Tricyclics Screen POSITIVE H Ur Phencyclidine Scrn NEGATIVE Ur Amphetamine Screen NEGATIVE U Methamphetamines Scrn NEGATIVE U Benzodiazepines Scrn NEGATIVE Urine Cocaine Screen NEGATIVE U Cannabinoids Screen NEGATIVE Ethyl Alcohol 268.1 - Rads (name of study) CT angiogram head Radiology: Final report received, EMP read contemporaneously, See rad report CT angiogram neck Radiology: Final report received, EMP read contemporaneously, See rad report Brain MRI Radiology: Final report received, EMP read contemporaneously, See rad report PD MEDICAL DECISION MAKING - ED course Complexity details: reviewed results, re-evaluated patient, considered differential, d/w patient ED course: No acute findings on CT angiogram head, neck or brain MRI. 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 I did discuss the case with telestroke neurology. As he is anticoagulated he would not be a tPA candidate. He is also intoxicated and his speech did improve as his alcohol level decreased in the emergency department. He was also coughing. We will place on steroids for a COPD exacerbation. Feels better after nebulizer treatment. No hypoxia or respiratory distress. No indication for antibiotics at this time. No fevers. No chills. Patient counseled regarding signs and symptoms for which I believe and urgent re-evaluation would be necessary. Patient with good understanding of and agreement to plan and is comfortable going home at this time This document was made in part using voice recognition software. While efforts are made to proofread this document, sound alike and grammatical errors may occur. Departure - Departure Disposition: 01 Home, Self Care Clinical Impression: COPD exacerbation, Ronquillo's palsy Alcohol intoxication Qualifiers: Complication of substance-induced condition: uncomplicated Qualified Code(s): F10.920 - Alcohol use, unspecified with intoxication, uncomplicated Condition: Good Instructions: ED Perkins Palsy, ED COPD Flare, ED Alcohol Intoxication Follow-Up: your,doctor in 1 week [Other] Prescriptions: predniSONE [Deltasone] 10 mg PO [id number] #42 tab Valacyclovir HCl [Valtrex] 1,000 mg PO TID #21 tablet Comments: Your prescriptions were sent to [facility]. Please follow-up with your doctor for further care. Your CT scans do not show any acute abnormalities. Your MRI does not show any acute stroke. Please follow-up with your doctor for further care. Discharge Date/Time: 05/13/22 20:55
--- NOTE | 2022-05-13 16:25 | CT Report ---
PROCEDURE: Head W/O Stroke Protocol INDICATIONS: L sided facial weakness/numbness TECHNIQUE: Noncontrast 4.5 mm thick angled axial sections acquired from the foramen magnum to the vertex, with c oronal reformats. For radiation dose reduction, the following was used: automated exposure control, adjustment of mA and/or kV according to patient size. COMPARISON: FINDINGS: Image quality: Excellent. CSF spaces: Basal cisterns are patent. No extra-axial fluid collections. Ventricles are normal in size and shape. Brain: No midline shift. No intracranial masses or hemorrhage. [place]-white matter interface is norm al. An area of low density involving the right frontal lobe and right insula is unchanged compared t o the prior study and consistent with remote infarction. Skull and face: Calvarium and visualized facial bones are intact, without suspicious lesions. Vascu lature has atherosclerotic calcifications. Sinuses: Visualized sinuses and mastoids are clear. IMPRESSION: 1. No acute intracranial abnormality. 2. Remote infarction with encephalomalacia involving the right frontal lobe and right insula. This study fulfills neurological imaging criteria for inclusion or exclusion of acute stroke therapie s based on available published neurological imaging guidelines. Reviewed by: Sergio Fields on 05/13/2022 4:23 PM PST Approved by: Sergio Fields on 05/13/2022 4:23 PM PST Station ID: [id number]
[2022-05-13] MEDS ORDERED: iohexoL-300 100 ML VIAL ONE (16:26)
--- NOTE | 2022-05-13 16:28 | CT Report ---
PROCEDURE: ANGIO HEAD W/WO INDICATIONS: L sided facial weakness/numbness CONTRAST: 80mL Omni 300 TECHNIQUE: Precontrast 4.5 mm thick angled axial sections acquired from the foramen magnum to the vertex. Afte r the administration of intravenous contrast, 1 mm thick sections acquired through the [place] of [place] is. Postcontrast 4.5 mm thick sections then re-acquired from the foramen magnum to the vertex. 3-di mensional dkeekig-dtrgcngst-kcdvnhgkis (MIP) and/or volume rendering reformats were acquired of the c entral intracranial vasculature. For radiation dose reduction, the following was used: automated ex posure control, adjustment of mA and/or kV according to patient size. COMPARISON: None FINDINGS: Image quality: Excellent. Anterior circulation: Intracranial internal carotid arteries are normal in size and flow. The flow within the paired anterior cerebral arteries is normal and symmetric. The flow within the middle cer ebral arteries is normal and symmetric. The anterior communicating artery is seen. No aneurysms are seen. Posterior circulation: Visualized portions of the vertebral arteries demonstrate normal caliber, and join to form a normal appearing basilar artery. Flow within the posterior cerebral arteries is norm al and symmetric. No aneurysms are seen. CSF spaces: Ventricles are normal in size and shape. Basal cisterns are patent. No extra-axial flu id collections. Brain: No midline shift. No intracranial bleeds or masses. [place]-white matter interface appears int act. Skull and face: Calvarium and facial bones appear intact, without suspicious lesions. Sinuses: Visualized sinuses and mastoids are clear. IMPRESSION: Normal CTA head Reviewed by: Sergio Fields on 05/13/2022 4:26 PM PST Approved by: Sergio Fields on 05/13/2022 4:26 PM PST Station ID: [id number]
--- NOTE | 2022-05-13 16:30 | CT Report ---
PROCEDURE: ANGIO NECK W INDICATIONS: L sided facial weakness/numbness CONTRAST: 80mL Omni 300 TECHNIQUE: After the administration of intravenous contrast, 1.5 mm axial sections acquired from the aortic arch to the [place] of [place]. Coronal 3-D maximum intensity projection (MIP) and/or volume rendering ref ormats were then performed. For radiation dose reduction, the following was used: automated exposur e control, adjustment of mA and/or kV according to patient size. COMPARISON: None. FINDINGS: Image quality: Excellent. Carotid system: The great vessels demonstrate a conventional anatomy as they arise from the aortic a rch. The origins of the common carotid arteries appear patent. The common carotid arteries demonstr ate normal calibers and courses. The bifurcation regions appear normal bilaterally. The internal ca rotid arteries demonstrate normal caliber and course. Posterior circulation: The origins of the vertebral arteries appear patent. The more superior porti ons of the vertebral arteries demonstrate normal course and caliber. They join to form a normal appe aring basilar artery. Soft tissues: Visualized neck soft tissues demonstrate no suspicious abnormalities. The thyroid is normal in size and there are no incidental findings. Bones: No suspicious bony lesions. Visualized cervical spine appears normally aligned. IMPRESSION: Normal CTA neck The estimate of stenosis included in the report of the imaging study was calculated using the NASCET method Reviewed by: Sergio Fields on 05/13/2022 4:29 PM PST Approved by: Sergio Fields on 05/13/2022 4:29 PM PST Station ID: [id number]
[2022-05-13 16:38] LABS: BASOPHILS # (AUTO) 0.1 10^3/uL (0.0-0.1); BASOPHILS % (AUTO) 0.8 %; EOSINOPHILS # (AUTO) 0.1 10^3/uL (0.0-0.7); EOSINOPHILS % (AUTO) 1.8 %; HCT - HEMATOCRIT 41.5 % (42.0-52.0); HGB - HEMOGLOBIN 12.5 g/dL (14.0-18.0); LYMPHOCYTES # (AUTO) 3.6 10^3/uL (1.5-3.5); LYMPHOCYTES % (AUTO) 44.9 %; MEAN CORPUSCULAR HEMOGLOBIN 24.9 pg (27.0-31.0); MEAN CORPUSCULAR HGB CONC 30.1 g/dL (32.0-36.0); MEAN CORPUSCULAR VOLUME 82.5 fL (80.0-94.0); MEAN PLATELET VOLUME 9.3 fL (7.4-11.4); MONOCYTES # (AUTO) 0.9 10^3/uL (0.0-1.0); MONOCYTES % (AUTO) 11.2 %; NEUTROPHILS # (AUTO) 3.3 10^3/uL (1.5-6.6); NEUTROPHILS % (AUTO) 41.2 %; PLT - PLATELET COUNT 384 10^3/uL (130-450); RED BLOOD COUNT 5.03 10^6/uL (4.70-6.10); RED CELL DISTRIBUTION WIDTH 19.3 % (12.0-15.0)
[2022-05-13] MEDS ORDERED: iohexoL-300 100 ML VIAL IVP ONE (16:40)
[2022-05-13] MEDS ORDERED: LORazepam 2 MG/ML VIAL IVP STA (16:47)
[2022-05-13 16:48] LABS: PT - PROTHROMBIN TIME 11.5 secs (9.9-12.6)
[2022-05-13 16:51] LABS: ALBUMIN/GLOBULIN RATIO 1.1 (1.0-2.2); BILIRUBIN,TOTAL 0.6 mg/dL (0.2-1.0); CALCIUM 8.9 mg/dL (8.5-10.3); CREATININE 0.8 mg/dL (0.6-1.2); POTASSIUM 4.4 mmol/L (3.5-5.0); TOTAL PROTEIN 7.5 g/dL (6.7-8.2)
[2022-05-13] MEDS ORDERED: IPRATROPIUM/ALBUTEROL 3 ML NEB INH STA (16:54)
[2022-05-13 18:02] LABS: MUDS CUTOFF CONCENTRATIONS CUTOFF CONC BELOW:
[2022-05-13 18:14] LABS: BILIRUBIN,URINE NEGATIVE (NEGATIVE); GLUCOSE, URINE (UA) NEGATIVE (NEGATIVE); KETONES,URINE (UA) NEGATIVE (NEGATIVE); LEUKOCYTE ESTERASE, URINE NEGATIVE (NEGATIVE); NITRITE,URINE NEGATIVE (NEGATIVE); OCCULT BLOOD,URINE NEGATIVE (NEGATIVE); PROTEIN,URINE NEGATIVE (NEGATIVE); UROBILINOGEN,URINE 0.2 (NORMAL) E.U./dL (NORMAL)
[2022-05-13 18:16] LABS: CLARITY,URINE CLEAR (CLEAR)
[2022-05-13 18:34] LABS: AMPHETAMINE SCREEN,URINE NEGATIVE (NEGATIVE); BARBITURATE SCREEN,UR NEGATIVE (NEGATIVE); BENZODIAZEPINES SCREEN, URINE NEGATIVE (NEGATIVE); COCAINE SCREEN URINE NEGATIVE (NEGATIVE); METHADONE SCREEN, URINE NEGATIVE (NEGATIVE); METHAMPHETAMINES SCREEN, URINE NEGATIVE (NEGATIVE); OPIATE SCREEN, URINE NEGATIVE (NEGATIVE); OXYCODONE SCREEN, URINE NEGATIVE (NEGATIVE); PROPOXYPHENE SCREEN, URINE NEGATIVE (NEGATIVE); THC CANNABINOID SCREEN, URINE NEGATIVE (NEGATIVE); TRICYCLIC ANTIDEPRESSANT,URINE POSITIVE (NEGATIVE)
[2022-05-13] MEDS ORDERED: ALBUTEROL NEB 2.5 MG/3 ML INH STA (18:50)
--- NOTE | 2022-05-13 18:54 | MRI Report ---
PROCEDURE: BRAIN WO INDICATIONS: L sided facial weakness/numbness TECHNIQUE: Noncontrast axial T1 spin echo, axial T2 fast spin echo, sagittal and axial FLAIR, coronal T2 fast sp in echo, axial gradient echo, axial diffusion and ADC through the brain. COMPARISON: Correlation is made with the accompanying head and neck CT imaging, 05/13/2022. FINDINGS: Image quality: Motion artifact is noted. CSF Spaces: Basal cisterns are patent. No extra-axial fluid collections. Ventricles are normal in size and shape. Brain: No intracranial masses or hemorrhage. [place]/white matter interface is normal. Brainstem appe ars normal. Diffusion-weighted images demonstrate no acute ischemic insult. There is a remote right MCA territory infarction seen, with volume loss and encephalomalacia. Normal intravascular flow voids are present. In this patient with left-sided facial weakness, scrutiny is given to the course of the left facial n erve, including within the visualized left parotid gland. To the limits of this study, no masses or a bnormal signal can be seen. Skull and face: Calvarium has normal marrow signal. Orbits appear normal. Sinuses: Moderate fluid can be seen within the left mastoid air cells. Sinuses and mastoids are othe rwise relatively clear. IMPRESSION: No findings of acute or subacute infarction are seen. There is a remote right MCA territory infarction. Left mastoid air cell fluid can be seen. Please correlate with potential clinical mastoiditis. Reviewed by: Sebas Tilley MD on 05/13/2022 5:52 PM [place] Approved by: Sebas Tilley MD on 05/13/2022 5:52 PM [facility] Station ID: [id number]
[2022-05-13] MEDS ORDERED: ACETAMINOPHEN 325 MG TABLET PO STA (19:30)
[2022-05-13] MEDS ORDERED: BENZONATATE 100 MG CAPSULE PO STA (19:49)
[2022-05-13] MEDS ORDERED: predniSONE 20 MG TABLET PO STA (20:13)
[2022-05-13] MEDS ORDERED: valACYclovir 500 MG TABLET PO STA (20:14)
[2022-05-13 20:32] VITALS: BP 141/87
== END 2022-05-13 20:55 | disposition home or self-care (01) ==
LOC: EDUNIT# → ED 15:57
DX: F10.920 Alcohol use, unspecified with intoxication, uncomplicated (principal); J44.1 Chronic obstructive pulmonary disease with (acute) exacerbation; G51.0 Bell's palsy; I26.99 Other pulmonary embolism without acute cor pulmonale; Z86.711 Personal history of pulmonary embolism; Z79.01 Long term (current) use of anticoagulants
CPT/HCPCS: 36415; 70450; 70496; 70498; 70551; 80053; 80306; 81003; 83690; 85025; 85610; 93005; 94640; 99283; 99284; A9270; G0480; J7512; Q9967; 80320; 81001; 87086

== ENCOUNTER 2022-05-14 12:17 | Outpatient (CLI) | payer MEDICARE, MEDICAID | END 2022-05-14 12:18 | disposition critical access hospital (66) | LOC: EMS 12:17 | DX: R06.09 Other forms of dyspnea (principal) | CPT/HCPCS: A0425; A0427 ==

== ENCOUNTER 2022-05-14 12:38 | Emergency (ER) | payer MEDICARE, MEDICAID ==
[2022-05-14] MEDS ORDERED: predniSONE 20 MG TABLET PO STA (12:48)
[2022-05-14] MEDS ORDERED: ALBUTEROL NEB 2.5 MG/3 ML INH STA (12:48)
--- NOTE | 2022-05-14 12:52 | ED Physician Documentation ---
History of Present Illness - Stated complaint Stated Complaint: SOA - History obtained from History obtained from: Patient, EMS - History of Present Illness Timing: How many days ago (Several days) Pain level max: 0 Pain level now: 0 - Additonal information Additional information: Patient is a 66-year-old male with a history of COPD. 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 He was prescribed steroids. He states that he had increased work of breathing today. Feels better after nebulizer treatment with EMS. He states he does not use oxygen at home. His normal O2 sat is between 90 and 92% on room air. No fevers. No chills. Worse with walking. No chest pain. Review of Systems Constitutional: denies: Fever, Chills Nose: denies: Rhinorrhea / runny nose, Congestion Throat: denies: Sore throat Cardiac: denies: Chest pain / pressure Respiratory: reports: Dyspnea, Cough, Wheezing GI: denies: Nausea, Vomiting, Diarrhea Skin: denies: Rash Musculoskeletal: denies: Neck pain, Back pain Neurologic: denies: Headache PD PAST MEDICAL HISTORY - Past Medical History Cardiovascular: Hypertension, High cholesterol, Deep vein thrombosis, Pulmonary embolism Respiratory: COPD Neuro: CVA Endocrine/Autoimmune: HyPOthyroidism GI: None : None HEENT: None Psych: Anxiety, Bipolar disorder - Past Surgical History Past Surgical History: Yes Ortho: Arthroscopic surgery - Present Medications Home Medications: Ambulatory Orders Medication Instructions Recorded Confirmed Amitriptyline [Elavil] 50 mg PO QPM 11/09/17 05/13/22 Atorvastatin [Lipitor] 80 mg PO DAILY 11/09/17 05/13/22 Levothyroxine [Synthroid] 75 mcg PO QDAC 11/09/17 05/13/22 Losartan [Cozaar] 100 mg ORAL DAILY 11/09/17 10/12/21 Omeprazole 40 mg PO DAILY 11/09/17 05/13/22 Rivaroxaban [Xarelto] 20 mg PO QDDINNER 11/09/17 05/13/22 diltiaZEM [Cardizem] 240 mg ORAL DAILY 11/09/17 05/13/22 Albuterol 1 amp NEB PRN PRN 10/09/21 05/13/22 Fluticasone [Flonase] 2 sprays ZAHEER DAILY 10/12/21 05/13/22 Fluticasone/Salmeterol [Advair Hfa 2 puffs INH BID 10/12/21 05/13/22 230-21 Mcg Inhaler] Levetiracetam [Keppra] 1,125 mg PO BID 10/12/21 05/13/22 Tiotropium [place] [Spiriva 1 puffs INJ DAILY 10/12/21 05/13/22 Handihaler] Gabapentin [Neurontin] 300 mg PO TID 05/13/22 05/13/22 Valacyclovir HCl [Valtrex] 1,000 mg PO TID #21 tablet 05/13/22 predniSONE [Deltasone] 10 mg PO [id number] #42 tab 05/13/22 Azithromycin [Zithromax] 0 mg PO DAILY #6 tablet 05/14/22 Cefpodoxime Proxetil [Vantin] 200 mg PO Q12H #28 tablet 05/14/22 Furosemide [Lasix] 40 mg PO DAILY #7 tablet 05/14/22 - Allergies Allergies/Adverse Reactions: Allergies Allergy/AdvReac Type Severity Reaction Status Date / Time Penicillins Allergy Unknown Verified 05/13/22 16:02 - Social History Does the pt smoke?: Yes Smoking Status: Current every day smoker Does the pt drink ETOH?: Yes Does the pt have substance abuse?: No - Immunizations Immunizations are current?: No Immunizations: TDAP >10years/unknown - POLST Patient has POLST: No PD ED PE NORMAL - Vitals Vital signs reviewed: Yes - General General: Alert and oriented X 3, No acute distress - HEENT HEENT: PERRL, Moist mucous membranes - Neck Neck: Supple, no meningeal sign - Cardiac Cardiac: RRR - Respiratory Respiratory: Other (Decreased breath sounds bilaterally, mild wheezing. No respiratory distress) - Abdomen Abdomen: Soft, Non tender, Non distended - Derm Derm: Warm and dry - Extremities Extremities: No calf tenderness / cord - Neuro Neuro: Alert and oriented X 3 - Psych Psych: Normal mood, Normal affect Results - Vitals Vitals: Vital Signs - 24 hr 05/14/22 05/14/22 12:50 13:00 Temperature 37.0 C Heart Rate 117 H 105 H Respiratory 24 20 Rate Blood Pressure 159/91 H O2 Saturation 92 Oxygen O2 Source Room air - Labs Labs: Laboratory Tests 05/14/22 05/14/2205/14/22 13:35 13:35 13:35 WBC 8.3 RBC 4.80 Hgb 12.0 L Hct 39.1 L MCV 81.5 MCH 25.0 L MCHC 30.7 L RDW 19.4 H Plt Count 468 H MPV 9.0 Neut # (Auto) 4.6 Lymph # (Auto) 3.0 [place] # (Auto) 0.6 Eos # (Auto) 0.0 Baso # (Auto) 0.0 Absolute Nucleated RBC 0.00 Nucleated RBC % 0.0 Sodium 144 Potassium 4.0 Chloride 104 Carbon Dioxide 25 Anion Gap 15.0 H BUN 18 Creatinine 0.8 Estimated GFR (MDRD) 96 Glucose 114 H Calcium 8.9 Total Bilirubin 0.5 AST 24 ALT 23 Alkaline Phosphatase 87 B-Natriuretic Peptide 77 Total Protein 7.4 Albumin 4.3 Globulin 3.1 Albumin/Globulin Ratio 1.4 - Rads (name of study) Chest x-ray Radiology: Final report received, EMP read contemporaneously, See rad report PD MEDICAL DECISION MAKING - ED course Complexity details: reviewed results, re-evaluated patient, considered differential, d/w patient ED course: Patient appears to have cardiomegaly and pulmonary edema on chest x-ray. He adamantly refuses any Lasix here. Patient feels better after steroids and breathing treatments. He refuses any further care at this time. He states he just wants to be discharged home to go home. He states he will molded goods spot picker his prescriptions as previously prescribed. Patient may have infiltrate on chest x- ray. Will prescribe an antibiotic as well. Patient is well-appearing, nontoxic. He appears to have decision-making capacity at this time. He understands the risks of leaving at this time. He will return if he worsens. Patient counseled regarding signs and symptoms for which I believe and urgent re-evaluation would be necessary. Patient with good understanding of and agreement to plan and is comfortable going home at this time This document was made in part using voice recognition software. While efforts are made to proofread this document, sound alike and grammatical errors may occur. 1. Low lung volumes with vascular crowding. 2. Worsening [id number] pulmonary venous congestive pattern. 3. Stable appearance of patchy left lower lobe atelectasis versus infiltrate. Departure - Departure Disposition: 01 Home, Self Care Clinical Impression: Dyspnea Qualifiers: Dyspnea type: shortness of breath Qualified Code(s): R06.02 - Shortness of breath Pulmonary edema Qualifiers: Chronicity: acute Qualified Code(s): J81.0 - Acute pulmonary edema Condition: Good Instructions: Edema Pulmonary, ED CHF General, ED COPD Flare Follow-Up: your,doctor in 1 week [Other] Prescriptions: Furosemide [Lasix] 40 mg PO DAILY #7 tablet Cefpodoxime Proxetil [Vantin] 200 mg PO Q12H #28 tablet Azithromycin [Zithromax] 0 mg PO DAILY #6 tablet Comments: Your prescriptions were sent to [facility] in [place]. Please follow-up with y our doctor for further care. You have refused any Lasix here today. You do understand that you have fluid buildup in your lungs and that you will need an echocardiogram to evaluate for possible heart failure with your doctor. I will prescribe Lasix for you in hopes that you will take this at home. You are also being prescribed antibiotics for your COPD exacerbation. Please molded goods spot picker the prescriptions that were prescribed yesterday as well. Please return if you change your mind about further care or worsen. Discharge Date/Time: 05/14/22 14:11
[2022-05-14 12:59] VITALS: BP 159/91
--- NOTE | 2022-05-14 13:17 | XRAY Report ---
PROCEDURE: Chest 1 View X-Ray INDICATIONS: cough TECHNIQUE: One view of the chest was acquired. COMPARISON: 04/15/2022 FINDINGS: Surgical changes and devices: None. Lungs and pleura: No pleural effusions or pneumothorax. Lung volumes are low with vascular crowding. There is mild to moderate pulmonary venous congestion present. There is a patchy left lower lobe ate lectasis versus infiltrate stable. Mediastinum: Mediastinal contours appear normal. Heart size is normal. Bones and chest wall: No suspicious bony lesions. Overlying soft tissues appear unremarkable. IMPRESSION: 1. Low lung volumes with vascular crowding. 2. Worsening [id number] pulmonary venous congestive pattern. 3. Stable appearance of patchy left lower lobe atelectasis versus infiltrate. Reviewed by: Tony Padron MD on 05/14/2022 1:16 PM PST Approved by: Tony Padron MD on 05/14/2022 1:16 PM PST Station ID: [id number]
[2022-05-14] MEDS ORDERED: FUROSEMIDE 20 MG TABLET PO STA (13:27)
[2022-05-14 13:44] LABS: BASOPHILS % (AUTO) 0.2 %; HCT - HEMATOCRIT 39.1 % (42.0-52.0); LYMPHOCYTES % (AUTO) 36.3 %; MEAN CORPUSCULAR HGB CONC 30.7 g/dL (32.0-36.0); MEAN CORPUSCULAR VOLUME 81.5 fL (80.0-94.0); MONOCYTES # (AUTO) 0.6 10^3/uL (0.0-1.0); MONOCYTES % (AUTO) 7.4 %; NEUTROPHILS # (AUTO) 4.6 10^3/uL (1.5-6.6); PLT - PLATELET COUNT 468 10^3/uL (130-450); RED CELL DISTRIBUTION WIDTH 19.4 % (12.0-15.0); WHITE BLOOD COUNT 8.3 x10^3/uL (4.8-10.8)
[2022-05-14 13:56] LABS: ALBUMIN 4.3 g/dL (3.2-5.5); ALBUMIN/GLOBULIN RATIO 1.4 (1.0-2.2); BILIRUBIN,TOTAL 0.5 mg/dL (0.2-1.0); CALCIUM 8.9 mg/dL (8.5-10.3); CREATININE 0.8 mg/dL (0.6-1.2); TOTAL PROTEIN 7.4 g/dL (6.7-8.2)
== END 2022-05-14 14:11 | disposition home or self-care (01) ==
LOC: EDUNIT# → ED 12:38
DX: J81.0 Acute pulmonary edema (principal); J44.9 Chronic obstructive pulmonary disease, unspecified; R06.02 Shortness of breath; F17.200 Nicotine dependence, unspecified, uncomplicated
CPT/HCPCS: 36415; 71045; 80053; 83880; 85025; 94640; 99283; 99284; A9270; J7512

== ENCOUNTER 2022-07-05 17:56 | Outpatient (CLI) | payer MEDICARE, MEDICAID | END 2022-07-05 17:57 | disposition short-term general hospital (02) | LOC: EMS 17:56 | DX: R06.02 Shortness of breath (principal); R07.89 Other chest pain | CPT/HCPCS: A0425; A0427 ==

== ENCOUNTER 2022-10-10 02:09 | Outpatient (CLI) | payer MEDICARE, MEDICAID | END 2022-10-10 02:10 | disposition critical access hospital (66) | LOC: EMS 02:09 | DX: S00.81XA Abrasion of other part of head, initial encounter (principal); R40.4 Transient alteration of awareness; R53.1 Weakness; Y93.01 Activity, walking, marching and hiking; W18.2XXA Fall in (into) shower or empty bathtub, initial encounter; Y92.002 Bathroom of unspecified non-institutional (private) residence as the place of occurrence of the external cause | CPT/HCPCS: A0425; A0429 ==

== ENCOUNTER 2022-10-10 02:26 | Emergency (ER) | payer MEDICARE, MEDICAID ==
--- NOTE | 2022-10-10 02:31 | ED Physician Documentation ---
PD HPI Fall - Stated complaint Stated Complaint: FELL, HIT HEAD, LOC - History obtained from History obtained from: Patient, EMS - History of Present Illness Associated symptoms: LOC - Additional information Additional information: HPI from patient as well as EMS. Patient RADHA. Patient says that he was showering at approximately 5 PM today. He does not recall feeling anything unusual at the time, but subsequently found himself on the floor of the bathtub approximately 1 hour later with the water still running. He found that he was too weak to stand for nearly five hours. He eventually had enough strength to get out of the bathtub and to the phone to call 911. Patient's medication list includes xarelto for atrial fibrillation. Past medical history includes CVA which has resulted in residual slurred speech, left facial droop, and left hemiparesis. On my HPI, patient is denying any pain except chronic back pain. He denies headache, denies neck pain. He is not in a cervical collar, as he adamantly refused this in field as well as on arrival to ED. EMS is familiar with this patient and EMS reports to me that patient appears to be at his baseline mentation as well as verbalization (his slurred speech/dysarthria is c/w their previous encounters with this patient). Patient has COPD and is oxygen-dependent, uses 3-4 liters/minute NC at home Review of Systems Eyes: reports: Reviewed and negative Cardiac: reports: Reviewed and negative Respiratory: reports: Reviewed and negative PD PAST MEDICAL HISTORY - Past Medical History Cardiovascular: Hypertension, High cholesterol, Deep vein thrombosis, Pulmonary embolism Respiratory: COPD Neuro: CVA Endocrine/Autoimmune: HyPOthyroidism GI: None : None HEENT: None Psych: Anxiety, Bipolar disorder - Past Surgical History Past Surgical History: Yes Ortho: Arthroscopic surgery - Present Medications Home Medications: Ambulatory Orders Medication Instructions Recorded Confirmed Amitriptyline [Elavil] 50 mg PO QPM 11/09/17 05/13/22 Atorvastatin [Lipitor] 80 mg PO DAILY 11/09/17 05/13/22 Levothyroxine [Synthroid] 75 mcg PO QDAC 11/09/17 05/13/22 Losartan [Cozaar] 100 mg ORAL DAILY 11/09/17 10/12/21 Omeprazole 40 mg PO DAILY 11/09/17 05/13/22 Rivaroxaban [Xarelto] 20 mg PO QDDINNER 11/09/17 05/13/22 diltiaZEM [Cardizem] 240 mg ORAL DAILY 11/09/17 05/13/22 Albuterol 1 amp NEB PRN PRN 10/09/21 05/13/22 Fluticasone [Flonase] 2 sprays ZAHEER DAILY 10/12/21 05/13/22 Fluticasone/Salmeterol [Advair Hfa 2 puffs INH BID 10/12/21 05/13/22 230-21 Mcg Inhaler] Levetiracetam [Keppra] 1,125 mg PO BID 10/12/21 05/13/22 Tiotropium [place] [Spiriva 1 puffs INJ DAILY 10/12/21 05/13/22 Handihaler] Gabapentin [Neurontin] 300 mg PO TID 05/13/22 05/13/22 Valacyclovir HCl [Valtrex] 1,000 mg PO TID #21 tablet 05/13/22 predniSONE [Deltasone] 10 mg PO [id number] #42 tab 05/13/22 Azithromycin [Zithromax] 0 mg PO DAILY #6 tablet 05/14/22 Cefpodoxime Proxetil [Vantin] 200 mg PO Q12H #28 tablet 05/14/22 Furosemide [Lasix] 40 mg PO DAILY #7 tablet 05/14/22 Azithromycin [Zithromax] 250 mg PO DAILY #4 tablet 10/10/22 - Allergies Allergies/Adverse Reactions: Allergies Allergy/AdvReac Type Severity Reaction Status Date / Time Penicillins Allergy Unknown Verified 10/10/22 02:44 - Social History Does the pt smoke?: Yes Smoking Status: Current every day smoker Does the pt drink ETOH?: Yes Does the pt have substance abuse?: No - Immunizations Immunizations are current?: No Immunizations: TDAP >10years/unknown - POLST Patient has POLST: No PD ED PE NORMAL - Vitals Vital signs reviewed: Yes - General General: Alert and oriented X 3, No acute distress, Well developed/nourished - Respiratory Respiratory: No respiratory distress, Other (bilateral expiratory wheezes but good air flow) - Abdomen Abdomen: Soft, Non tender PD ED PE EXPANDED - Neuro Neuro: Alert and Oriented X 3, Weakness (mild LUE/LLE weakness (5/5 right occupational safety specialist, dorsi/plantarflexion, 4/5 left occupational safety specialist, dorsi/plantarflexion)), Left face (subtle left facial droop), Dysarthria (significant dysarthria, has to repeat sometimes for purposes of my understanding of what he is saying) - GCS Eye Opening: Spontaneous Motor: Obeys Commands Verbal: Oriented Total: 15 Results - Vitals Vitals: Oxygen O2 Source Nasal cannula - EKG (time done) No standard instances EKG releavant findings:: EKG personally interpreted by author of this note. Relevant findings are: Rate: Rate (enter#) (73) Rhythm: NSR [place]: LAD, Anterior hemiblock Intervals: Wide QRS, RBBB Ischemia: Normal ST segments Compare to prior EKG: Unchanged from prior EKG - Labs Labs: Laboratory Tests 10/10/22 10/10/22 02:33 02:33 WBC 7.0 RBC 4.69 L Hgb 12.3 L Hct 39.3 L MCV 83.8 MCH 26.2 L MCHC 31.3 L RDW 19.3 H Plt Count 318 MPV 9.6 Neut # (Auto) 3.2 Lymph # (Auto) 2.9 [place] # (Auto) 0.7 Eos # (Auto) 0.1 Baso # (Auto) 0.1 Absolute Nucleated RBC 0.00 Nucleated RBC % 0.0 Sodium 142 Potassium 4.4 Chloride 104 Carbon Dioxide 26 Anion Gap 12.0 BUN 15 Creatinine 0.8 Estimated GFR (MDRD) 96 Glucose 116 H Calcium 9.4 Total Bilirubin 0.5 AST 22 ALT 25 Alkaline Phosphatase 80 Total Protein 8.3 H Albumin 4.3 Globulin 4.0 Albumin/Globulin Ratio 1.1 Lipase 33 Ethyl Alcohol 215.2 - Rads (name of study) chest xray Relevant Findings:: Prelim report reviewed, See rad report CT cervical spine Relevant Findings:: Prelim report reviewed, See rad report CTH Relevant Findings:: Prelim report reviewed, See rad report PD Medical Decision Making - ED course Complexity details: reviewed results, re-evaluated patient, considered differential, d/w patient ED course: No concerning nor diagnostic findings on tonight's tests. 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 CXR with LLL opacities, possible atelectasis or pneumonia; for this, patient is given zithromax 500mg in ED and rx for 250mg PO QD x 4 days is e-prescribed to patient's pharmacy of choice. Mildly elevated hs- cTn but no changes on EKG compared to previous, denies chest pain/tightness/pressure. On reevaluation, patient is sitting on edge of bed (at the end of the stretcher) and requesting discharge. I reviewed results with patient and return precautions are discussed. He is gathering his belongings and starting to get dressed as I discuss results and follow-up recommendations with him, clearly anxious to be discharged. Departure - Departure Disposition: 01 Home, Self Care Clinical Impression: Fall Qualifiers: Encounter type: initial encounter Qualified Code(s): W19.XXXA - Unspecified fall, initial encounter Condition: Good Instructions: ED Fall Uncertain Cause Prescriptions: Azithromycin [Zithromax] 250 mg PO DAILY #4 tablet Comments: There were no concerning nor diagnostic findings on tonight's tests. The CT scan of your head and neck have no acute/new findings; For example, the old stroke is on the CAT scan but there is no evidence of any new stroke, no evidence of any bleeding. There is a lot of degenerative change/arthritis on the CT scan of the neck, but no evidence of any acute injury such as a fracture. There is a haziness in the lower lobe of your left lung on the chest x-ray. While this is of unknown certain significance, as we discussed, because early pneumonia would be a possible explanation, you have been given an antibiotic in the emergency department (azithromycin) and a prescription for 4 more days of this antibiotic has been electronically submitted to the [facility] in [place]. It is unclear what caused you to lose consciousness today. Certainly, seizure would be a possibility. Continue to take your anti-seizure medication as has been prescribed. Please refrain from alcohol use, as this can exacerbate many medical problems including seizures. Contact your primary care provider this morning when the office opens to arrange for next available appointment for reevaluation/follow-up. Discharge Date/Time: 10/10/22 04:40
[2022-10-10 02:44] LABS: BASOPHILS # (AUTO) 0.1 10^3/uL (0.0-0.1); BASOPHILS % (AUTO) 0.7 %; EOSINOPHILS # (AUTO) 0.1 10^3/uL (0.0-0.7); EOSINOPHILS % (AUTO) 1.7 %; HCT - HEMATOCRIT 39.3 % (42.0-52.0); HGB - HEMOGLOBIN 12.3 g/dL (14.0-18.0); LYMPHOCYTES # (AUTO) 2.9 10^3/uL (1.5-3.5); LYMPHOCYTES % (AUTO) 41.9 %; MEAN CORPUSCULAR HEMOGLOBIN 26.2 pg (27.0-31.0); MEAN CORPUSCULAR HGB CONC 31.3 g/dL (32.0-36.0); MEAN CORPUSCULAR VOLUME 83.8 fL (80.0-94.0); MEAN PLATELET VOLUME 9.6 fL (7.4-11.4); MONOCYTES # (AUTO) 0.7 10^3/uL (0.0-1.0); MONOCYTES % (AUTO) 9.9 %; NEUTROPHILS # (AUTO) 3.2 10^3/uL (1.5-6.6); NEUTROPHILS % (AUTO) 45.7 %; PLT - PLATELET COUNT 318 10^3/uL (130-450); RED BLOOD COUNT 4.69 10^6/uL (4.70-6.10); RED CELL DISTRIBUTION WIDTH 19.3 % (12.0-15.0)
[2022-10-10 02:53] LABS: ALBUMIN 4.3 g/dL (3.2-5.5); ALBUMIN/GLOBULIN RATIO 1.1 (1.0-2.2); BILIRUBIN,TOTAL 0.5 mg/dL (0.2-1.0); CALCIUM 9.4 mg/dL (8.5-10.3); CREATININE 0.8 mg/dL (0.6-1.2); ETOH - ETHANOL 215.2 mg/dL; POTASSIUM 4.4 mmol/L (3.5-5.0); TOTAL PROTEIN 8.3 g/dL (6.7-8.2)
--- OUTSIDE RECORDS SUMMARY | 2022-10-10 04:02 | EXTERNAL MEDICAL SUMMARY RPT | Continuity of Care Document ---
:1955 Author Organization [facility] Address [address] [place] [address] Phone Care Team Providers Name Role Phone Ortiz Khan Unavailable Unavailable Allergies No information. Encounters No information. Functional Status No information. Immunizations No information. Medications date description facility 2022-07-23 00:00 Rivaroxaban [facility] 2022-07-23 00:00 Albuterol Sulfate [facility] 2022-07-23 00:00 Atorvastatin [facility] 2022-07-23 00:00 Diltiazem Hcl [facility] 2022-07-23 00:00 Amitriptyline [facility] 2022-07-23 00:00 Levothyroxine [facility] 2022-07-23 00:00 [facility] Problems No information. Procedures No information. Results/Labs test date author facility value unit interpret ation Result panel 1 (unknown) (no (unknown) (unknown) (no value) (units (unk nown) date) unknown) (unknown) (no (unknown) (unknown) 07/01/21 [Rx (units (u nknown) date) Confirmed unknown) 07/23/22] (unknown) (no (unknown) (unknown) 07/23/22 (units (unkno wn) date) unknown) (unknown) (no (unknown) (unknown) 07/23/22] (units (unkn own) date) unknown) (unknown) (no (unknown) (unknown) [id number] (units (unkno wn) date) unknown) (unknown) (no (unknown) (unknown) 11:33 (units (unkno wn) date) unknown) (unknown) (no (unknown) (unknown) 66 yo male (units (unk nown) date) presents today for unknown) ER f/u [facility] for pneumonia. (unknown) (no (unknown) (unknown) Age/Sex: 66 / M (units (unknown) date) Date of Service: unknown) (unknown) (no (unknown) (unknown) Allergies (units (unkn own) date) unknown) (unknown) (no (unknown) (unknown) [place], [place] (units ( unknown) date) [id number] unknown) (unknown) (no (unknown) (unknown) Asthma (units (unkno wn) date) unknown) (unknown) (no (unknown) (unknown) Atrial (units (unkno wn) date) fibrillation unknown) (unknown) (no (unknown) (unknown) Attending Dr: (units ( unknown) date) Ortiz MONTOYA unknown) (unknown) (no (unknown) (unknown) BMI 27.3 (units (unkno wn) date) unknown) (unknown) (no (unknown) (unknown) BP 120/76 (units (unkn own) date) unknown) (unknown) (no (unknown) (unknown) Blood Pressure (units (unknown) date) Location Lt unknown) brachial (unknown) (no (unknown) (unknown) COPD (chronic (units ( unknown) date) obstructive unknown) pulmonary disease) (unknown) (no (unknown) (unknown) Colon cancer (units (u nknown) date) screening unknown) (unknown) (no (unknown) (unknown) Confirmed (units (unkn own) date) 07/23/22] unknown) (unknown) (no (unknown) (unknown) : 1955 (units (unknown) date) Acct:[id number] unknown) (unknown) (no (unknown) (unknown) Dept at (units (unkno wn) date) . unknown) (unknown) (no (unknown) (unknown) Documented By: (units (unknown) date) Ortiz Khan unknown) 07/23/22 1131 (unknown) (no (unknown) (unknown) Draft (units (unkno [...] date) inhalation BID unknown) 10/25/20 [History Confirmed 07/23/22] (unknown) (no (unknown) (unknown) HandiHaler) 1 cap (units (unknown) date) inhalation DAILY unknown) 10/25/20 [History Confirmed 07/23/22] (unknown) (no (unknown) (unknown) Height 5 ft [...] nknown) date) .Route .COMPLEX unknown) #18 grams 04/15/22 [Rx Confirmed 07/23/22] (unknown) (no (unknown) (unknown) Intake Note: (units (u nknown) date) unknown) (unknown) (no (unknown) (unknown) Intake performed (units (unknown) date) by: Selma Grover unknown) (unknown) (no (unknown) (unknown) Intake (units (unkno wn) date) unknown) (unknown) (no (unknown) (unknown) Intake- Clincial (units (unknown) date) Staff unknown) (unknown) (no (unknown) (unknown) Loc: [facility] (units (unkno wn) date) unknown) (unknown) (no (unknown) (unknown) Medical History (units (unknown) date) (Reviewed 02/07/22 unknown) @ 13:55 by LNIDSAY Coffman) (unknown) (no (unknown) (unknown) Medications (units [...] (un known) date) Allergy unknown) (Intermediate, Verified 07/23/22 11:32) (unknown) (no (unknown) (unknown) Position Sitting (units (unknown) date) unknown) (unknown) (no (unknown) (unknown) Pulmonary (units (unkn own) date) hypertension unknown) (unknown) (no (unknown) (unknown) Pulse 97 H (units (unk nown) date) unknown) (unknown) (no (unknown) (unknown) Pulse Oximetry (units (unknown) date) (%) 92 unknown) (unknown) (no (unknown) (unknown) Pulse Source [...] by LINDSAY Coffman) (unknown) (no (unknown) (unknown) This note may [...] unknown) (unknown) (no (unknown) (unknown) Visit Reasons: ER (units (unknown) date) f/u [facility] for unknown) pneumonia (unknown) (no (unknown) (unknown) Vitals (units (unkno wn) date) unknown) (unknown) (no (unknown) (unknown) Weight 179 lb 8 (units (unknown) date) oz unknown) (unknown) (no [...] mg tablet 80 mg PO unknown) DAILY #30 tabs 06/18/22 [Rx Confirmed (unknown) (no (unknown) (unknown) diltiazem HCl 240 (units (unknown) date) mg capsule,24 unknown) hr,extended release 240 mg PO DAILY #90 caps (unknown) (no (unknown) (unknown) fluticasone (units (un [...] .COMPLEX #540 mL unknown) 07/01/21 [Rx Confirmed 07/23/22] (unknown) (no (unknown) (unknown) levetiracetam 750 (units (unknown) date) mg tablet 750 mg unknown) PO Q12H 07/01/21 [History Confirmed 07/23/22] (unknown) (no (unknown) (unknown) levothyroxine 75 (units (unknown) date) mcg tablet 75 mcg unknown) PO DAILY #30 tabs 06/18/22 [Rx Confirmed (unknown) (no (unknown) (unknown) losartan 100 mg (units (unknown) date) tablet 100 mg PO unknown) DAILY #90 tabs 07/01/21 [Rx Confirmed 07/23/22] (unknown) (no (unknown) (unknown) may occur. (units [...] (u nknown) date) 08/02/18 [History unknown) Confirmed 07/23/22] (unknown) (no (unknown) (unknown) read the note (units ( unknown) date) carefully and unknown) recognize, using context, where these substitutions (unknown) (no (unknown) (unknown) rivaroxaban 20 mg (units (unknown) date) tablet (Xarelto) unknown) 20 mg PO QPM #30 tabs 06/18/22 [Rx Confirmed (unknown) (no (unknown) (unknown) software. (units (unkn own) date) Although every unknown) effort is made to edit content, inspector soldering errors (unknown) (no (unknown) (unknown) tiotropium (units (unk nown) date) bromide 18 mcg unknown) capsule with inhalation device (Spiriva with Result panel 2 (unknown) (no (unknown) (unknown) (no value) (units (unk nown) date) unknown) (unknown) (no (unknown) (unknown) 07/01/21 [Rx (units (u nknown) date) Confirmed unknown) 07/23/22] (unknown) (no (unknown) (unknown) 07/23/22 (units (unkno wn) date) unknown) (unknown) (no (unknown) (unknown) 07/23/22] (units (unkn own) date) unknown) (unknown) (no (unknown) (unknown) [id number] (units (unkno wn) date) unknown) (unknown) (no (unknown) (unknown) 11:33 (units (unkno wn) date) unknown) (unknown) (no (unknown) (unknown) 66 yo male (units (unk nown) date) presents today for unknown) ER f/[facility] for pneumonia. (unknown) (no (unknown) (unknown) 66-year-old male (units (unknown) date) presents to unknown) follow-up on hospitalization at [facility] (unknown) (no (unknown) (unknown) Age/Sex: 66 / M (units (unknown) date) Date of Service: unknown) (unknown) (no (unknown) (unknown) Allergies (units (unkn own) date) unknown) (unknown) (no (unknown) (unknown) [place], [place] (units ( unknown) date) [id number] unknown) (unknown) (no (unknown) (unknown) Asthma (units (unkno wn) date) unknown) (unknown) (no (unknown) (unknown) Atrial (units (unkno wn) date) fibrillation unknown) (unknown) (no (unknown) (unknown) Attending Dr: (units ( unknown) date) Ortiz MONTOYA unknown) (unknown) (no (unknown) (unknown) BMI 27.3 (units (unkno wn) date) unknown) (unknown) (no (unknown) (unknown) BP 120/76 (units (unkn own) date) unknown) (unknown) (no (unknown) (unknown) Blood Pressure (units (unknown) date) Location Lt unknown) brachial (unknown) (no (unknown) (unknown) COPD (chronic (units ( unknown) date) obstructive unknown) pulmonary disease) (unknown) (no (unknown) (unknown) [facility] [...] (unknown) (unknown) Confirmed (units (unkn own) date) 07/23/22] unknown) (unknown) (no (unknown) (unknown) : 1955 (units (unknown) date) Acct:[id number] unknown) (unknown) (no (unknown) (unknown) Dept at (units (unkno wn) date) . unknown) (unknown) (no (unknown) (unknown) Details: (units (unkno wn) date) unknown) (unknown) (no (unknown) (unknown) Documented By: (units (unknown) date) Ortiz Khan unknown) 07/23/22 1131 (unknown) (no (unknown) (unknown) Draft (units (unkno [...] date) inhalation BID unknown) 10/25/20 [History Confirmed 07/23/22] (unknown) (no (unknown) (unknown) HPI (units (unkno wn) date) unknown) (unknown) (no (unknown) (unknown) HandiHaler) 1 cap (units (unknown) date) inhalation DAILY unknown) 10/25/20 [History Confirmed 07/23/22] (unknown) (no (unknown) (unknown) [place], with (units (unknown) date) whom patient would unknown) have a telehealth follow-up.? (unknown) (no (unknown) (unknown) Height 172.72 cm [...] nknown) date) .Route .COMPLEX unknown) #18 grams 04/15/22 [Rx Confirmed 07/23/22] (unknown) (no (unknown) (unknown) Intake Note: (units (u nknown) date) unknown) (unknown) (no (unknown) (unknown) Intake performed (units (unknown) date) by: Selma Grover unknown) (unknown) (no (unknown) (unknown) Intake (units (unkno [...] positive stool unknown) (unknown) (no (unknown) (unknown) Ortho spine (units (un known) date) recommended unknown) patient have repeat x-rays performed 1 week after (unknown) (no (unknown) (unknown) Ortho spine was (units (unknown) date) consulted for L1 unknown) compression fracture which was deemed (unknown) (no (unknown) (unknown) Oxygen Delivery (units (unknown) date) Method room air unknown) (unknown) (no (unknown) (unknown) PFSH (units (unkno wn) date) unknown) (unknown) (no (unknown) (unknown) Patient is also (units (unknown) date) due 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 (unknown) (no (unknown) (unknown) [...] (un known) date) Allergy unknown) (Intermediate, Verified 07/23/22 11:32) (unknown) (no (unknown) (unknown) Position Sitting (units (unknown) date) unknown) (unknown) (no (unknown) (unknown) Pulmonary (units (unkn own) date) hypertension unknown) (unknown) (no (unknown) (unknown) Pulse 97 H (units (unk nown) date) unknown) (unknown) (no (unknown) (unknown) Pulse Oximetry (units (unknown) date) (%) 92 unknown) (unknown) (no (unknown) (unknown) Pulse Source [...] by LINDSAY Coffman) (unknown) (no (unknown) (unknown) This note may [...] unknown) (unknown) (no (unknown) (unknown) Visit Reasons: ER (units (unknown) date) f/u [facility] for unknown) pneumonia (unknown) (no (unknown) (unknown) Vitals (units (unkno wn) date) unknown) (unknown) (no (unknown) (unknown) Weight 81.42 kg (units (unknown) date) unknown) (unknown) (no (unknown) (unknown) [facility] (units (unknown) date) [facility] unknown) initially then was [place] due (unknown) (no (unknown) (unknown) adequate O2 [...] mg tablet 80 mg PO unknown) DAILY #30 tabs 06/18/22 [Rx Confirmed (unknown) (no (unknown) (unknown) consulted during (units (unknown) date) the unknown) hospitalization and recommended continuing the patient's (unknown) (no (unknown) (unknown) current Keppra (units (unknown) date) regimen and unknown) following up with outpatient neurologist.? There was (unknown) (no (unknown) (unknown) deemed to be (units (u nknown) date) nonoperative.? unknown) Patient required oxygen supplementation to maintain (unknown) (no (unknown) (unknown) diltiazem HCl 240 (units (unknown) date) mg capsule,24 unknown) hr,extended release 240 mg PO DAILY #90 caps (unknown) (no (unknown) (unknown) discharge with (units ( unknown) date) coordination for unknown) results/report being forwarded to Ortho Spine at (unknown) (no (unknown) (unknown) fell. He was (units (u nknown) date) hospitalized from unknown) December 29 through January 11.? He presented to (unknown) (no (unknown) (unknown) fluticasone (units (un known) date) propionate 230 unknown) mcg-salmeterol 21 mcg/actuation HFA inhaler (Advair (unknown) (no (unknown) (unknown) for pain control (units (unknown) date) since there was no unknown) mention of adding this for his anti seizure (unknown) (no (unknown) (unknown) gabapentin 300 mg (units (unknown) date) capsule 300 mg PO unknown) TID #90 caps 02/03/22 [Rx Confirmed (unknown) (no (unknown) (unknown) have occurred. If (units (unknown) date) there are any unknown) questions, please contact the Medical Records (unknown) (no (unknown) (unknown) have some studies (units (unknown) date) performed here unknown) prior to that appointment. 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 (unknown) (no (unknown) (unknown) hives (units (unkno wn) date) unknown) (unknown) (no (unknown) (unknown) household (units (unkn own) date) members: none unknown) (unknown) (no (unknown) (unknown) inhalation (units (unk nown) date) .COMPLEX #540 mL unknown) 07/01/21 [Rx Confirmed 07/23/22] (unknown) (no (unknown) (unknown) levetiracetam 750 (units (unknown) date) mg tablet 750 mg unknown) PO Q12H 07/01/21 [History Confirmed 07/23/22] (unknown) (no (unknown) (unknown) levothyroxine 75 (units (unknown) date) mcg tablet 75 mcg unknown) PO DAILY #30 tabs 06/18/22 [Rx Confirmed (unknown) (no (unknown) (unknown) losartan 100 mg (units (unknown) date) tablet 100 mg PO unknown) DAILY #90 tabs 07/01/21 [Rx Confirmed 07/23/22] (unknown) (no (unknown) (unknown) may occur. (units (unk nown) date) Occasional unknown) wrong-word or 'sound-alike' substitutions may have (unknown) (no (unknown) (unknown) no seizure (units (unk nown) date) activity noted unknown) during his hospitalization although there was concern (unknown) (no (unknown) (unknown) nonoperative.? (units (unknown) date) PT/OT evaluated unknown) the patient and advised home health services. (unknown) (no (unknown) (unknown) occurred due to (units (unknown) date) the inherent unknown) limitations of voice recognition software. Please (unknown) (no (unknown) (unknown) omeprazole 40 mg (units (unknown) date) capsule,delayed unknown) release 40 mg PO DAILY 04/27/18 [History (unknown) (no (unknown) (unknown) oxygen #1 ea (units (u nknown) date) 08/02/18 [History unknown) Confirmed 07/23/22] (unknown) (no (unknown) (unknown) potentially lead (units (unknown) date) to alcohol unknown) withdrawal in this scenario.? Neurology was (unknown) (no (unknown) (unknown) read the note (units ( unknown) date) carefully and unknown) recognize, using context, where these substitutions (unknown) (no (unknown) (unknown) regimen in the [...] he drinks only (unknown) (no (unknown) (unknown) rivaroxaban 20 mg (units (unknown) date) tablet (Xarelto) unknown) 20 mg PO QPM #30 tabs 06/18/22 [Rx Confirmed (unknown) (no (unknown) (unknown) software. (units (unkn own) date) Although every unknown) effort is made to edit content, inspector soldering errors (unknown) (no (unknown) (unknown) that seizure was (units (unknown) date) the reason for his unknown) initial fall that led to trauma. (unknown) (no (unknown) (unknown) through 12, L1 and (units (unknown) date) L2 fractures of unknown) uncertain chronicity.? The rib fractures were (unknown) (no (unknown) (unknown) tiotropium (units (unk nown) date) bromide 18 mcg unknown) capsule with inhalation device (Spiriva with (unknown) (no (unknown) (unknown) to the (units (unkno wn) date) extensiveness of unknown) the injuries.? He sustained right rib fractures 8 (unknown) (no (unknown) (unknown) very (units (unkno wn) date) moderately--1 6 unknown) pack of craft beer per week--not nearly enough to have Result panel 3 (unknown) (no (unknown) (unknown) (no value) (units (unk nown) date) unknown) (unknown) (no (unknown) (unknown) 07/01/21 [Rx (units (u nknown) date) Confirmed unknown) 07/23/22] (unknown) (no (unknown) (unknown) 07/23/22 (units (unkno wn) date) unknown) (unknown) (no (unknown) (unknown) 07/23/22] (units (unkn own) date) unknown) (unknown) (no (unknown) (unknown) [id number] (units (unkno wn) date) unknown) (unknown) (no (unknown) (unknown) 11:33 (units (unkno wn) date) unknown) (unknown) (no (unknown) (unknown) 66 yo male (units (unk nown) date) presents today for unknown) ER f/u [facility] for pneumonia. (unknown) (no (unknown) (unknown) 66-year-old male (units (unknown) date) presents to unknown) follow-up on hospitalization at [facility] (unknown) (no (unknown) (unknown) Age/Sex: 66 / M (units (unknown) date) Date of Service: unknown) (unknown) (no (unknown) (unknown) Allergies (units (unkn own) date) unknown) (unknown) (no (unknown) (unknown) [place], [place] (units ( unknown) date) [id number] unknown) (unknown) (no (unknown) (unknown) Asthma (units (unkno wn) date) unknown) (unknown) (no (unknown) (unknown) Atrial (units (unkno wn) date) fibrillation unknown) (unknown) (no (unknown) (unknown) Attending Dr: (units ( unknown) date) Ortiz MONTOYA unknown) (unknown) (no (unknown) (unknown) BMI 27.3 (units (unkno wn) date) unknown) (unknown) (no (unknown) (unknown) BP 120/76 (units (unkn own) date) unknown) (unknown) (no (unknown) (unknown) Blood Pressure (units (unknown) date) Location Lt unknown) brachial (unknown) (no (unknown) (unknown) COPD (chronic (units ( unknown) date) obstructive unknown) pulmonary disease) (unknown) (no (unknown) (unknown) [facility] [...] (unknown) (unknown) Confirmed (units (unkn own) date) 07/23/22] unknown) (unknown) (no (unknown) (unknown) : 1955 (units (unknown) date) Acct:[id number] unknown) (unknown) (no (unknown) (unknown) Dept at (units (unkno wn) date) . unknown) (unknown) (no (unknown) (unknown) Details: (units (unkno wn) date) unknown) (unknown) (no (unknown) (unknown) Documented By: (units (unknown) date) Ortiz Khan unknown) 07/23/22 1131 (unknown) (no (unknown) (unknown) Draft (units (unkno [...] date) inhalation BID unknown) 10/25/20 [History Confirmed 07/23/22] (unknown) (no (unknown) (unknown) HPI (units (unkno wn) date) unknown) (unknown) (no (unknown) (unknown) HandiHaler) 1 cap (units (unknown) date) inhalation DAILY unknown) 10/25/20 [History Confirmed 07/23/22] (unknown) (no (unknown) (unknown) [place], with (units (unknown) date) whom patient would unknown) have a telehealth follow-up.? (unknown) (no (unknown) (unknown) Height 172.72 cm [...] nknown) date) .Route .COMPLEX unknown) #18 grams 04/15/22 [Rx Confirmed 07/23/22] (unknown) (no (unknown) (unknown) Intake Note: (units (u nknown) date) unknown) (unknown) (no (unknown) (unknown) Intake performed (units (unknown) date) by: Selma Grover unknown) (unknown) (no (unknown) (unknown) Intake (units (unkno [...] positive stool unknown) (unknown) (no (unknown) (unknown) Ortho spine (units (un known) date) recommended unknown) patient have repeat x-rays performed 1 week after (unknown) (no (unknown) (unknown) Ortho spine was (units (unknown) date) consulted for L1 unknown) compression fracture which was deemed (unknown) (no (unknown) (unknown) Oxygen Delivery (units (unknown) date) Method room air unknown) (unknown) (no (unknown) (unknown) PFSH (units (unkno wn) date) unknown) (unknown) (no (unknown) (unknown) Patient is also (units (unknown) date) due 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 (unknown) (no (unknown) (unknown) [...] (un known) date) Allergy unknown) (Intermediate, Verified 07/23/22 11:32) (unknown) (no (unknown) (unknown) Position Sitting (units (unknown) date) unknown) (unknown) (no (unknown) (unknown) Pulmonary (units (unkn own) date) hypertension unknown) (unknown) (no (unknown) (unknown) Pulse 97 H (units (unk nown) date) unknown) (unknown) (no (unknown) (unknown) Pulse Oximetry (units (unknown) date) (%) 92 unknown) (unknown) (no (unknown) (unknown) Pulse Source [...] by LINDSAY Coffman) (unknown) (no (unknown) (unknown) This note may [...] unknown) (unknown) (no (unknown) (unknown) Visit Reasons: ER (units (unknown) date) f/u [facility] for unknown) pneumonia (unknown) (no (unknown) (unknown) Vitals (units (unkno wn) date) unknown) (unknown) (no (unknown) (unknown) Weight 81.42 kg (units (unknown) date) unknown) (unknown) (no (unknown) (unknown) [facility] initially then was [place] due (unknown) (no (unknown) (unknown) adequate O2 [...] mg tablet 80 mg PO unknown) DAILY #30 tabs 06/18/22 [Rx Confirmed (unknown) (no (unknown) (unknown) consulted during (units (unknown) date) the unknown) hospitalization and recommended continuing the patient's (unknown) (no (unknown) (unknown) current Keppra (units (unknown) date) regimen and unknown) following up with outpatient neurologist.? There was (unknown) (no (unknown) (unknown) deemed to be (units (u nknown) date) nonoperative.? unknown) Patient required oxygen supplementation to maintain (unknown) (no (unknown) (unknown) diltiazem HCl 240 (units (unknown) date) mg capsule,24 unknown) hr,extended release 240 mg PO DAILY #90 caps (unknown) (no (unknown) (unknown) discharge with (units ( unknown) date) coordination for unknown) results/report being forwarded to Ortho Spine at (unknown) (no (unknown) (unknown) emr after a few (units (unknown) date) days of worsening unknown) sob. (unknown) (no (unknown) (unknown) fell. He was (units (u nknown) date) hospitalized from unknown) December 29 through January 11.? He presented to (unknown) (no (unknown) (unknown) fluticasone (units (un known) date) propionate 230 unknown) mcg-salmeterol 21 mcg/actuation HFA inhaler (Advair (unknown) (no (unknown) (unknown) for pain control (units (unknown) date) since there was no unknown) mention of adding this for his anti seizure (unknown) (no (unknown) (unknown) gabapentin 300 mg (units (unknown) date) capsule 300 mg PO unknown) TID #90 caps 02/03/22 [Rx Confirmed (unknown) (no (unknown) (unknown) have occurred. If (units (unknown) date) there are any unknown) questions, please contact the Medical Records (unknown) (no (unknown) (unknown) have some studies (units (unknown) date) performed here unknown) prior to that appointment. 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 (unknown) (no (unknown) (unknown) hives (units (unkno wn) date) unknown) (unknown) (no (unknown) (unknown) household (units (unkn own) date) members: none unknown) (unknown) (no (unknown) (unknown) inhalation (units (unk nown) date) .COMPLEX #540 mL unknown) 07/01/21 [Rx Confirmed 07/23/22] (unknown) (no (unknown) (unknown) levetiracetam 750 (units (unknown) date) mg tablet 750 mg unknown) PO Q12H 07/01/21 [History Confirmed 07/23/22] (unknown) (no (unknown) (unknown) levothyroxine 75 (units (unknown) date) mcg tablet 75 mcg unknown) PO DAILY #30 tabs 06/18/22 [Rx Confirmed (unknown) (no (unknown) (unknown) losartan 100 mg (units (unknown) date) tablet 100 mg PO unknown) DAILY #90 tabs 07/01/21 [Rx Confirmed 07/23/22] (unknown) (no (unknown) (unknown) may occur. (units (unk nown) date) Occasional unknown) wrong-word or 'sound-alike' substitutions may have (unknown) (no (unknown) (unknown) no seizure (units (unk nown) date) activity noted unknown) during his hospitalization although there was concern (unknown) (no (unknown) (unknown) nonoperative.? (units (unknown) date) PT/OT evaluated unknown) the patient and advised home health services. (unknown) (no (unknown) (unknown) occurred due to (units (unknown) date) the inherent unknown) limitations of voice recognition software. Please (unknown) (no (unknown) (unknown) omeprazole 40 mg (units (unknown) date) capsule,delayed unknown) release 40 mg PO DAILY 04/27/18 [History (unknown) (no (unknown) (unknown) oxygen #1 ea (units (u nknown) date) 08/02/18 [History unknown) Confirmed 07/23/22] (unknown) (no (unknown) (unknown) potentially lead (units (unknown) date) to alcohol unknown) withdrawal in this scenario.? Neurology was (unknown) (no (unknown) (unknown) read the note (units ( unknown) date) carefully and unknown) recognize, using context, where these substitutions (unknown) (no (unknown) (unknown) regimen in the [...] he drinks only (unknown) (no (unknown) (unknown) rivaroxaban 20 mg (units (unknown) date) tablet (Xarelto) unknown) 20 mg PO QPM #30 tabs 06/18/22 [Rx Confirmed (unknown) (no (unknown) (unknown) software. (units (unkn own) date) Although every unknown) effort is made to edit content, inspector soldering errors (unknown) (no (unknown) (unknown) that seizure was (units (unknown) date) the reason for his unknown) initial fall that led to trauma. (unknown) (no (unknown) (unknown) through 12, L1 and (units (unknown) date) L2 fractures of unknown) uncertain chronicity.? The rib fractures were (unknown) (no (unknown) (unknown) tiotropium (units (unk nown) date) bromide 18 mcg unknown) capsule with inhalation device (Spiriva with (unknown) (no (unknown) (unknown) to the (units (unkno wn) date) extensiveness of unknown) the injuries.? He sustained right rib fractures 8 (unknown) (no (unknown) (unknown) very (units (unkno wn) date) moderately--1 6 unknown) pack of craft beer per week--not nearly enough to have Result panel 4 (unknown) (no (unknown) (unknown) (no value) (units (unk nown) date) unknown) (unknown) (no (unknown) (unknown) 07/01/21 [Rx (units (u nknown) date) Confirmed unknown) 07/23/22] (unknown) (no (unknown) (unknown) 07/23/22 (units (unkno wn) date) unknown) (unknown) (no (unknown) (unknown) 07/23/22] (units (unkn own) date) unknown) (unknown) (no (unknown) (unknown) [id number] (units (unkno wn) date) unknown) (unknown) (no (unknown) (unknown) 11:33 (units (unkno wn) date) unknown) (unknown) (no (unknown) (unknown) 66 yo male (units (unk nown) date) presents today for unknown) ER f/u [facility] for pneumonia. (unknown) (no (unknown) (unknown) 66-year-old male (units (unknown) date) presents to unknown) follow-up on hospitalization at [facility] (unknown) (no (unknown) (unknown) Age/Sex: 66 / M (units (unknown) date) Date of Service: unknown) (unknown) (no (unknown) (unknown) Allergies (units (unkn own) date) unknown) (unknown) (no (unknown) (unknown) [place], [place] (units ( unknown) date) [id number] unknown) (unknown) (no (unknown) (unknown) Asthma (units (unkno wn) date) unknown) (unknown) (no (unknown) (unknown) Atrial (units (unkno wn) date) fibrillation unknown) (unknown) (no (unknown) (unknown) Attending Dr: (units ( unknown) date) Ortiz MONTOYA unknown) (unknown) (no (unknown) (unknown) BMI 27.3 (units (unkno wn) date) unknown) (unknown) (no (unknown) (unknown) BP 120/76 (units (unkn own) date) unknown) (unknown) (no (unknown) (unknown) Blood Pressure (units (unknown) date) Location Lt unknown) brachial (unknown) (no (unknown) (unknown) COPD (chronic (units ( unknown) date) obstructive unknown) pulmonary disease) (unknown) (no (unknown) (unknown) [facility] [...] (unknown) (unknown) Confirmed (units (unkn own) date) 07/23/22] unknown) (unknown) (no (unknown) (unknown) : 1955 (units (unknown) date) Acct:[id number] unknown) (unknown) (no (unknown) (unknown) Dept at (units (unkno wn) date) . unknown) (unknown) (no (unknown) (unknown) Details: (units (unkno wn) date) unknown) (unknown) (no (unknown) (unknown) Documented By: (units (unknown) date) Ortiz Khan unknown) 07/23/22 1131 (unknown) (no (unknown) (unknown) Draft (units (unkno [...] date) inhalation BID unknown) 10/25/20 [History Confirmed 07/23/22] (unknown) (no (unknown) (unknown) HPI (units (unkno wn) date) unknown) (unknown) (no (unknown) (unknown) HandiHaler) 1 cap (units (unknown) date) inhalation DAILY unknown) 10/25/20 [History Confirmed 07/23/22] (unknown) (no (unknown) (unknown) [place], with (units (unknown) date) whom patient would unknown) have a telehealth follow-up.? (unknown) (no (unknown) (unknown) Height 172.72 cm [...] nknown) date) .Route .COMPLEX unknown) #18 grams 04/15/22 [Rx Confirmed 07/23/22] (unknown) (no (unknown) (unknown) Intake Note: (units (u nknown) date) unknown) (unknown) (no (unknown) (unknown) Intake performed (units (unknown) date) by: Selma Grover unknown) (unknown) (no (unknown) (unknown) Intake (units (unkno [...] positive stool unknown) (unknown) (no (unknown) (unknown) Ortho spine (units (un known) date) recommended unknown) patient have repeat x-rays performed 1 week after (unknown) (no (unknown) (unknown) Ortho spine was (units (unknown) date) consulted for L1 unknown) compression fracture which was deemed (unknown) (no (unknown) (unknown) Oxygen Delivery (units (unknown) date) Method room air unknown) (unknown) (no (unknown) (unknown) PFSH (units (unkno wn) date) unknown) (unknown) (no (unknown) (unknown) Patient is also (units (unknown) date) due 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 (unknown) (no (unknown) (unknown) [...] (un known) date) Allergy unknown) (Intermediate, Verified 07/23/22 11:32) (unknown) (no (unknown) (unknown) Position Sitting (units (unknown) date) unknown) (unknown) (no (unknown) (unknown) Pulmonary (units (unkn own) date) hypertension unknown) (unknown) (no (unknown) (unknown) Pulse 97 H (units (unk nown) date) unknown) (unknown) (no (unknown) (unknown) Pulse Oximetry (units (unknown) date) (%) 92 unknown) (unknown) (no (unknown) (unknown) Pulse Source [...] by LINDSAY Coffman) (unknown) (no (unknown) (unknown) This note may [...] unknown) (unknown) (no (unknown) (unknown) Visit Reasons: ER (units (unknown) date) f/u [facility] for unknown) pneumonia (unknown) (no (unknown) (unknown) Vitals (units (unkno wn) date) unknown) (unknown) (no (unknown) (unknown) Weight 81.42 kg (units (unknown) date) unknown) (unknown) (no (unknown) (unknown) [facility] (units (unknown) date) [facility] unknown) initially then was [place] due (unknown) (no (unknown) (unknown) adequate O2 [...] mg tablet 80 mg PO unknown) DAILY #30 tabs 06/18/22 [Rx Confirmed (unknown) (no (unknown) (unknown) consulted during (units (unknown) date) the unknown) hospitalization and recommended continuing the patient's (unknown) (no (unknown) (unknown) current Keppra (units (unknown) date) regimen and unknown) following up with outpatient neurologist.? There was (unknown) (no (unknown) (unknown) deemed to be (units (u nknown) date) nonoperative.? unknown) Patient required oxygen supplementation to maintain (unknown) (no (unknown) (unknown) diltiazem HCl 240 (units (unknown) date) mg capsule,24 unknown) hr,extended release 240 mg PO DAILY #90 caps (unknown) (no (unknown) (unknown) discharge with (units ( unknown) date) coordination for unknown) results/report being forwarded to Ortho Spine at (unknown) (no (unknown) (unknown) emr after a few (units (unknown) date) days of worsening unknown) sob. (unknown) (no (unknown) (unknown) fell. He was (units (u nknown) date) hospitalized from unknown) December 29 through January 11.? He presented to (unknown) (no (unknown) (unknown) fluticasone (units (un known) date) propionate 230 unknown) mcg-salmeterol 21 mcg/actuation HFA inhaler (Advair (unknown) (no (unknown) (unknown) for pain control (units (unknown) date) since there was no unknown) mention of adding this for his anti seizure (unknown) (no (unknown) (unknown) gabapentin 300 mg (units (unknown) date) capsule 300 mg PO unknown) TID #90 caps 02/03/22 [Rx Confirmed (unknown) (no (unknown) (unknown) had a high fever (units (unknown) date) that day. back to unknown) normal feeling. (unknown) (no (unknown) (unknown) have occurred. If (units (unknown) date) there are any unknown) questions, please contact the Medical Records (unknown) (no (unknown) (unknown) have some studies (units (unknown) date) performed here unknown) prior to that appointment. 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 (unknown) (no (unknown) (unknown) hives (units (unkno wn) date) unknown) (unknown) (no (unknown) (unknown) household (units (unkn own) date) members: none unknown) (unknown) (no (unknown) (unknown) inhalation (units (unk nown) date) .COMPLEX #540 mL unknown) 07/01/21 [Rx Confirmed 07/23/22] (unknown) (no (unknown) (unknown) levetiracetam 750 (units (unknown) date) mg tablet 750 mg unknown) PO Q12H 07/01/21 [History Confirmed 07/23/22] (unknown) (no (unknown) (unknown) levothyroxine 75 (units (unknown) date) mcg tablet 75 mcg unknown) PO DAILY #30 tabs 06/18/22 [Rx Confirmed (unknown) (no (unknown) (unknown) losartan 100 mg (units (unknown) date) tablet 100 mg PO unknown) DAILY #90 tabs 07/01/21 [Rx Confirmed 07/23/22] (unknown) (no (unknown) (unknown) may occur. (units (unk nown) date) Occasional unknown) wrong-word or 'sound-alike' substitutions may have (unknown) (no (unknown) (unknown) no seizure (units (unk nown) date) activity noted unknown) during his hospitalization although there was concern (unknown) (no (unknown) (unknown) nonoperative.? (units (unknown) date) PT/OT evaluated unknown) the patient and advised home health services. (unknown) (no (unknown) (unknown) occurred due to (units (unknown) date) the inherent unknown) limitations of voice recognition software. Please (unknown) (no (unknown) (unknown) omeprazole 40 mg (units (unknown) date) capsule,delayed unknown) release 40 mg PO DAILY 04/27/18 [History (unknown) (no (unknown) (unknown) oxygen #1 ea (units (u nknown) date) 08/02/18 [History unknown) Confirmed 07/23/22] (unknown) (no (unknown) (unknown) potentially lead (units (unknown) date) to alcohol unknown) withdrawal in this scenario.? Neurology was (unknown) (no (unknown) (unknown) read the note (units ( unknown) date) carefully and unknown) recognize, using context, where these substitutions (unknown) (no (unknown) (unknown) regimen in the [...] he drinks only (unknown) (no (unknown) (unknown) rivaroxaban 20 mg (units (unknown) date) tablet (Xarelto) unknown) 20 mg PO QPM #30 tabs 06/18/22 [Rx Confirmed (unknown) (no (unknown) (unknown) software. (units (unkn own) date) Although every unknown) effort is made to edit content, inspector soldering errors (unknown) (no (unknown) (unknown) that seizure was (units (unknown) date) the reason for his unknown) initial fall that led to trauma. (unknown) (no (unknown) (unknown) through 12, L1 and (units (unknown) date) L2 fractures of unknown) uncertain chronicity.? The rib fractures were (unknown) (no (unknown) (unknown) tiotropium (units (unk nown) date) bromide 18 mcg unknown) capsule with inhalation device (Spiriva with (unknown) (no (unknown) (unknown) to the (units (unkno wn) date) extensiveness of unknown) the injuries.? He sustained right rib fractures 8 (unknown) (no (unknown) (unknown) very (units (unkno wn) date) moderately--1 6 unknown) pack of craft beer per week--not nearly enough to have Result panel 5 (unknown) (no (unknown) (unknown) (no value) (units (unk nown) date) unknown) (unknown) (no (unknown) (unknown) (1) Interstitial (units (unknown) date) lung disease: unknown) (unknown) (no (unknown) (unknown) (2) COPD (chronic (units (unknown) date) obstructive unknown) pulmonary disease): (unknown) (no (unknown) (unknown) (3) Atrial (units (unk nown) date) fibrillation: unknown) (unknown) (no (unknown) (unknown) 07/01/21 [Rx (units (u nknown) date) Confirmed unknown) 07/23/22] (unknown) (no (unknown) (unknown) 07/23/22 (units (unkno wn) date) unknown) (unknown) (no (unknown) (unknown) 07/23/22] (units (unkn own) date) unknown) (unknown) (no (unknown) (unknown) [id number] (units (unkno wn) date) unknown) (unknown) (no (unknown) (unknown) 11:33 (units (unkno wn) date) unknown) (unknown) (no (unknown) (unknown) 66 yo male (units (unk nown) date) presents today for unknown) ER f/u [facility] for pneumonia. (unknown) (no (unknown) (unknown) 66-year-old male (units (unknown) date) presents to unknown) follow-up on hospitalization at [facility] (unknown) (no (unknown) (unknown) Age/Sex: 66 / M (units (unknown) date) Date of Service: unknown) (unknown) (no (unknown) (unknown) Allergies (units (unkn own) date) unknown) (unknown) (no (unknown) (unknown) [place], [place] (units ( unknown) date) [id number] unknown) (unknown) (no (unknown) (unknown) Assessment + Plan (units (unknown) date) unknown) (unknown) (no (unknown) (unknown) Asthma (units (unkno wn) date) unknown) (unknown) (no (unknown) (unknown) Atrial (units (unkno wn) date) fibrillation type: unknown) unspecified Qualified Code(s): I48.91 (unknown) (no (unknown) (unknown) Atrial (units (unkno wn) date) fibrillation unknown) (unknown) (no (unknown) (unknown) Attending Dr: (units ( unknown) date) Ortiz MONTOYA unknown) (unknown) (no (unknown) (unknown) BMI 27.3 (units (unkno wn) date) unknown) (unknown) (no (unknown) (unknown) BP 120/76 (units (unkn own) date) unknown) (unknown) (no (unknown) (unknown) Blood Pressure (units (unknown) date) Location Lt unknown) brachial (unknown) (no (unknown) (unknown) COPD (chronic (units ( unknown) date) obstructive unknown) pulmonary disease) (unknown) (no (unknown) (unknown) [facility] [...] (unknown) (unknown) Confirmed (units (unkn own) date) 07/23/22] unknown) (unknown) (no (unknown) (unknown) : 1955 (units (unknown) date) Acct:[id number] unknown) (unknown) (no (unknown) (unknown) Dept at (units (unkno wn) date) . unknown) (unknown) (no (unknown) (unknown) Details: (units (unkno wn) date) unknown) (unknown) (no (unknown) (unknown) Documented By: (units (unknown) date) Ortiz Khan unknown) 07/23/22 1131 (unknown) (no (unknown) (unknown) Draft (units (unkno [...] date) inhalation BID unknown) 10/25/20 [History Confirmed 07/23/22] (unknown) (no (unknown) (unknown) HPI (units (unkno wn) date) unknown) (unknown) (no (unknown) (unknown) HandiHaler) 1 cap (units (unknown) date) inhalation DAILY unknown) 10/25/20 [History Confirmed 07/23/22] (unknown) (no (unknown) (unknown) [place], with (units (unknown) date) whom patient would unknown) have a telehealth follow-up.? (unknown) (no (unknown) (unknown) Height 172.72 cm [...] nknown) date) .Route .COMPLEX unknown) #18 grams 04/15/22 [Rx Confirmed 07/23/22] (unknown) (no (unknown) (unknown) Intake Note: (units (u nknown) date) unknown) (unknown) (no (unknown) (unknown) Intake performed (units (unknown) date) by: Selma Grover unknown) (unknown) (no (unknown) (unknown) Intake (units (unkno [...] positive stool unknown) (unknown) (no (unknown) (unknown) Orders: (units (unkno wn) date) unknown) (unknown) (no (unknown) (unknown) Ortho spine (units (un known) date) recommended unknown) patient have repeat x-rays performed 1 week after (unknown) (no (unknown) (unknown) Ortho spine was (units (unknown) date) consulted for L1 unknown) compression fracture which was deemed (unknown) (no (unknown) (unknown) Oxygen Delivery (units (unknown) date) Method room air unknown) (unknown) (no (unknown) (unknown) PFSH (units (unkno wn) date) unknown) (unknown) (no (unknown) (unknown) Patient is also (units (unknown) date) due 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 (unknown) (no (unknown) (unknown) [...] (un known) date) Allergy unknown) (Intermediate, Verified 07/23/22 11:32) (unknown) (no (unknown) (unknown) Position Sitting (units (unknown) date) unknown) (unknown) (no (unknown) (unknown) Pulmonary (units (unkn own) date) hypertension unknown) (unknown) (no (unknown) (unknown) Pulse 97 H (units (unk nown) date) unknown) (unknown) (no (unknown) (unknown) Pulse Oximetry (units (unknown) date) (%) 92 unknown) (unknown) (no (unknown) (unknown) Pulse Source (units (u nknown) date) Monitor unknown) (unknown) (no (unknown) (unknown) Qualifiers: (units (un known) date) unknown) (unknown) (no (unknown) (unknown) Reason For Visit (units (unknown) date) unknown) (unknown) (no (unknown) (unknown) Referral (units (unkno wn) date) Cardiology I48.91 unknown) - Unspecified atrial fibrillation (unknown) (no (unknown) (unknown) Referral (units (unkno wn) date) Pulmonology J44.9 unknown) - Chronic obstructive pulmonary disease, (unknown) (no (unknown) (unknown) Referrals (units (unkn own) date) unknown) (unknown) (no (unknown) (unknown) Respiration 16 (units (unknown) date) unknown) (unknown) (no (unknown) (unknown) Signed By: (units (unk nown) date) unknown) (unknown) (no (unknown) (unknown) Smoking Status: (units (unknown) date) Former smoker unknown) (unknown) (no (unknown) (unknown) Social History (units (unknown) date) unknown) (unknown) (no (unknown) (unknown) Status: Acute (units ( unknown) date) unknown) (unknown) (no (unknown) (unknown) Status: Chronic (units (unknown) date) unknown) (unknown) (no (unknown) (unknown) Stroke (units (unkno wn) date) unknown) (unknown) (no (unknown) (unknown) Surgical History (units (unknown) date) (Reviewed 02/07/22 unknown) @ 13:55 by LINDSAY Coffman) (unknown) (no (unknown) (unknown) This note may (units ( unknown) date) have been all or unknown) partially generated using voice recognition (unknown) (no (unknown) (unknown) Tobacco + (units (unkn own) date) Substance Use unknown) (unknown) (no (unknown) (unknown) Tobacco Status (units (unknown) date) unknown) (unknown) (no (unknown) (unknown) Tobacco: How many (units (unknown) date) years used: 40 unknown) (unknown) (no (unknown) (unknown) Unspecified (units (un known) date) atrial unknown) fibrillation (unknown) (no (unknown) (unknown) Visit Reasons: ER (units (unknown) date) f/u [facility] for unknown) pneumonia (unknown) (no (unknown) (unknown) Vitals (units (unkno wn) date) unknown) (unknown) (no (unknown) (unknown) Weight 81.42 kg (units (unknown) date) unknown) (unknown) (no (unknown) (unknown) [facility]) initially then was [place] due (unknown) (no (unknown) (unknown) adequate O2 [...] mg tablet 80 mg PO unknown) DAILY #30 tabs 06/18/22 [Rx Confirmed (unknown) (no (unknown) (unknown) consulted during (units (unknown) date) the unknown) hospitalization and recommended continuing the patient's (unknown) (no (unknown) (unknown) current Keppra (units (unknown) date) regimen and unknown) following up with outpatient neurologist.? There was (unknown) (no (unknown) (unknown) deemed to be (units (u nknown) date) nonoperative.? unknown) Patient required oxygen supplementation to maintain (unknown) (no (unknown) (unknown) diltiazem HCl 240 (units (unknown) date) mg capsule,24 unknown) hr,extended release 240 mg PO DAILY #90 caps (unknown) (no (unknown) (unknown) discharge with (units ( unknown) date) coordination for unknown) results/report being forwarded to Ortho Spine at (unknown) (no (unknown) (unknown) emr after a few (units (unknown) date) days of worsening unknown) sob. (unknown) (no (unknown) (unknown) fell. He was (units (u nknown) date) hospitalized from unknown) December 29 through January 11.? He presented to (unknown) (no (unknown) (unknown) fluticasone (units (un known) date) propionate 230 unknown) mcg-salmeterol 21 mcg/actuation HFA inhaler (Advair (unknown) (no (unknown) (unknown) for pain control (units (unknown) date) since there was no unknown) mention of adding this for his anti seizure (unknown) (no (unknown) (unknown) gabapentin 300 mg (units (unknown) date) capsule 300 mg PO unknown) TID #90 caps 02/03/22 [Rx Confirmed (unknown) (no (unknown) (unknown) had a high fever (units (unknown) date) that day. back to unknown) normal feeling. (unknown) (no (unknown) (unknown) have occurred. If (units (unknown) date) there are any unknown) questions, please contact the Medical Records (unknown) (no (unknown) (unknown) have some studies (units (unknown) date) performed here unknown) prior to that appointment. 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 (unknown) (no (unknown) (unknown) hives (units (unkno wn) date) unknown) (unknown) (no (unknown) (unknown) household (units (unkn own) date) members: none unknown) (unknown) (no (unknown) (unknown) inhalation (units (unk nown) date) .COMPLEX #540 mL unknown) 07/01/21 [Rx Confirmed 07/23/22] (unknown) (no (unknown) (unknown) levetiracetam 750 (units (unknown) date) mg tablet 750 mg unknown) PO Q12H 07/01/21 [History Confirmed 07/23/22] (unknown) (no (unknown) (unknown) levothyroxine 75 (units (unknown) date) mcg tablet 75 mcg unknown) PO DAILY #30 tabs 06/18/22 [Rx Confirmed (unknown) (no (unknown) (unknown) losartan 100 mg (units (unknown) date) tablet 100 mg PO unknown) DAILY #90 tabs 07/01/21 [Rx Confirmed 07/23/22] (unknown) (no (unknown) (unknown) may occur. (units (unk nown) date) Occasional unknown) wrong-word or 'sound-alike' substitutions may have (unknown) (no (unknown) (unknown) no seizure (units (unk nown) date) activity noted unknown) during his hospitalization although there was concern (unknown) (no (unknown) (unknown) nonoperative.? (units (unknown) date) PT/OT evaluated unknown) the patient and advised home health services. (unknown) (no (unknown) (unknown) occurred due to (units (unknown) date) the inherent unknown) limitations of voice recognition software. Please (unknown) (no (unknown) (unknown) omeprazole 40 mg (units (unknown) date) capsule,delayed unknown) release 40 mg PO DAILY 04/27/18 [History (unknown) (no (unknown) (unknown) oxygen #1 ea (units (u nknown) date) 08/02/18 [History unknown) Confirmed 07/23/22] (unknown) (no (unknown) (unknown) potentially lead (units (unknown) date) to alcohol unknown) withdrawal in this scenario.? Neurology was (unknown) (no (unknown) (unknown) read the note (units ( unknown) date) carefully and unknown) recognize, using context, where these substitutions (unknown) (no (unknown) (unknown) regimen in the [...] he drinks only (unknown) (no (unknown) (unknown) rivaroxaban 20 mg (units (unknown) date) tablet (Xarelto) unknown) 20 mg PO QPM #30 tabs 06/18/22 [Rx Confirmed (unknown) (no (unknown) (unknown) software. (units (unkn own) date) Although every unknown) effort is made to edit content, inspector soldering errors (unknown) (no (unknown) (unknown) that seizure was (units (unknown) date) the reason for his unknown) initial fall that led to trauma. (unknown) (no (unknown) (unknown) through 12, L1 and (units (unknown) date) L2 fractures of unknown) uncertain chronicity.? The rib fractures were (unknown) (no (unknown) (unknown) tiotropium (units (unk nown) date) bromide 18 mcg unknown) capsule with inhalation device (Spiriva with (unknown) (no (unknown) (unknown) to the (units (unkno wn) date) extensiveness of unknown) the injuries.? He sustained right rib fractures 8 (unknown) (no (unknown) (unknown) unspecified, (units (u nknown) date) J84.9 - unknown) Interstitial pulmonary disease, unspecified (unknown) (no (unknown) (unknown) very (units (unkno wn) date) moderately--1 6 unknown) pack of craft beer per week--not nearly enough to have Result panel 6 (unknown) (no (unknown) (unknown) (no value) (units (unk nown) date) unknown) (unknown) (no (unknown) (unknown) (1) Interstitial (units (unknown) date) lung disease: unknown) (unknown) (no (unknown) (unknown) (2) COPD (chronic (units (unknown) date) obstructive unknown) pulmonary disease): (unknown) (no (unknown) (unknown) (3) Atrial (units (unk nown) date) fibrillation: unknown) (unknown) (no (unknown) (unknown) 07/01/21 [Rx (units (u nknown) date) Confirmed unknown) 07/23/22] (unknown) (no (unknown) (unknown) 07/23/22 (units (unkno wn) date) unknown) (unknown) (no (unknown) (unknown) 07/23/22] (units (unkn own) date) unknown) (unknown) (no (unknown) (unknown) [id number] (units (unkno wn) date) unknown) (unknown) (no (unknown) (unknown) 11:33 (units (unkno wn) date) unknown) (unknown) (no (unknown) (unknown) 66 yo male (units (unk nown) date) presents today for unknown) ER f/u [facility] for pneumonia. (unknown) (no (unknown) (unknown) 66-year-old male (units (unknown) date) presents to unknown) follow-up on hospitalization at [facility] (unknown) (no (unknown) (unknown) Age/Sex: 66 / M (units (unknown) date) Date of Service: unknown) (unknown) (no (unknown) (unknown) Allergies (units (unkn own) date) unknown) (unknown) (no (unknown) (unknown) [place], [place] (units ( unknown) date) [id number] unknown) (unknown) (no (unknown) (unknown) Assessment + Plan (units (unknown) date) unknown) (unknown) (no (unknown) (unknown) Asthma (units (unkno wn) date) unknown) (unknown) (no (unknown) (unknown) Atrial (units (unkno wn) date) fibrillation type: unknown) unspecified Qualified Code(s): I48.91 (unknown) (no (unknown) (unknown) Atrial (units (unkno wn) date) fibrillation unknown) (unknown) (no (unknown) (unknown) Attending Dr: (units ( unknown) date) Ortiz MONTOYA unknown) (unknown) (no (unknown) (unknown) BMI 27.3 (units (unkno wn) date) unknown) (unknown) (no (unknown) (unknown) BP 120/76 (units (unkn own) date) unknown) (unknown) (no (unknown) (unknown) Blood Pressure (units (unknown) date) Location Lt unknown) brachial (unknown) (no (unknown) (unknown) COPD (chronic (units ( unknown) date) obstructive unknown) pulmonary disease) (unknown) (no (unknown) (unknown) [facility] [...] (unknown) (unknown) Confirmed (units (unkn own) date) 07/23/22] unknown) (unknown) (no (unknown) (unknown) : 1955 (units (unknown) date) Acct:[id number] unknown) (unknown) (no (unknown) (unknown) Dept at (units (unkno wn) date) . unknown) (unknown) (no (unknown) (unknown) Details: (units (unkno wn) date) unknown) (unknown) (no (unknown) (unknown) Documented By: (units (unknown) date) Ortiz Khan unknown) 07/23/22 1131 (unknown) (no (unknown) (unknown) Draft (units (unkno [...] date) inhalation BID unknown) 10/25/20 [History Confirmed 07/23/22] (unknown) (no (unknown) (unknown) HPI (units (unkno wn) date) unknown) (unknown) (no (unknown) (unknown) HandiHaler) 1 cap (units (unknown) date) inhalation DAILY unknown) 10/25/20 [History Confirmed 07/23/22] (unknown) (no (unknown) (unknown) [place] [facility], with (units (unknown) date) whom patient would unknown) have a telehealth follow-up.? (unknown) (no (unknown) (unknown) Height 172.72 cm [...] nknown) date) .Route .COMPLEX unknown) #18 grams 04/15/22 [Rx Confirmed 07/23/22] (unknown) (no (unknown) (unknown) Intake Note: (units (u nknown) date) unknown) (unknown) (no (unknown) (unknown) Intake performed (units (unknown) date) by: Selma Grover unknown) (unknown) (no (unknown) (unknown) Intake (units (unkno wn) date) unknown) (unknown) (no (unknown) (unknown) Intake- Clincial (units (unknown) date) Staff unknown) (unknown) (no (unknown) (unknown) Loc: [facility] (units (unkno wn) date) unknown) (unknown) (no (unknown) (unknown) Medical History (units (unknown) date) (Reviewed 02/07/22 unknown) @ 13:55 by LINDSAY Coffman) (unknown) (no (unknown) (unknown) Medications (units (un known) date) unknown) (unknown) (no (unknown) (unknown) ORDER LINCARE 2L (units (unknown) date) OXYGEN FOR HOME unknown) FOR NIGHTTIME. [place] [employer] 6L [employer]. (unknown) (no (unknown) (unknown) Occult blood (units (u nknown) date) positive stool unknown) (unknown) (no (unknown) (unknown) Orders: (units (unkno wn) date) unknown) (unknown) (no (unknown) (unknown) Ortho spine (units (un known) date) recommended unknown) patient have repeat x-rays performed 1 week after (unknown) (no (unknown) (unknown) Ortho spine was (units (unknown) date) consulted for L1 unknown) compression fracture which was deemed (unknown) (no (unknown) (unknown) Oxygen Delivery (units (unknown) date) Method room air unknown) (unknown) (no (unknown) (unknown) PFSH (units (unkno wn) date) unknown) (unknown) (no (unknown) (unknown) Patient is also (units (unknown) date) due 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 (unknown) (no (unknown) (unknown) [...] (un known) date) Allergy unknown) (Intermediate, Verified 07/23/22 11:32) (unknown) (no (unknown) (unknown) Position Sitting (units (unknown) date) unknown) (unknown) (no (unknown) (unknown) Pulmonary (units (unkn own) date) hypertension unknown) (unknown) (no (unknown) (unknown) Pulse 97 H (units (unk nown) date) unknown) (unknown) (no (unknown) (unknown) Pulse Oximetry (units (unknown) date) (%) 92 unknown) (unknown) (no (unknown) (unknown) Pulse Source (units (u nknown) date) Monitor unknown) (unknown) (no (unknown) (unknown) Qualifiers: (units (un known) date) unknown) (unknown) (no (unknown) (unknown) Reason For Visit (units (unknown) date) unknown) (unknown) (no (unknown) (unknown) Referral (units (unkno wn) date) Cardiology I48.91 unknown) - Unspecified atrial fibrillation (unknown) (no (unknown) (unknown) Referral (units (unkno wn) date) Pulmonology J44.9 unknown) - Chronic obstructive pulmonary disease, (unknown) (no (unknown) (unknown) Referrals (units (unkn own) date) unknown) (unknown) (no (unknown) (unknown) Respiration 16 (units (unknown) date) unknown) (unknown) (no (unknown) (unknown) Signed By: (units (unk nown) date) unknown) (unknown) (no (unknown) (unknown) Smoking Status: (units (unknown) date) Former smoker unknown) (unknown) (no (unknown) (unknown) Social History (units (unknown) date) unknown) (unknown) (no (unknown) (unknown) Status: Acute (units ( unknown) date) unknown) (unknown) (no (unknown) (unknown) Status: Chronic (units (unknown) date) unknown) (unknown) (no (unknown) (unknown) Stroke (units (unkno wn) date) unknown) (unknown) (no (unknown) (unknown) Surgical History (units (unknown) date) (Reviewed 02/07/22 unknown) @ 13:55 by LINDSAY Coffman) (unknown) (no (unknown) (unknown) This note may (units ( unknown) date) have been all or unknown) partially generated using voice recognition (unknown) (no (unknown) (unknown) Tobacco + (units (unkn own) date) Substance Use unknown) (unknown) (no (unknown) (unknown) Tobacco Status (units (unknown) date) unknown) (unknown) (no (unknown) (unknown) Tobacco: How many (units (unknown) date) years used: 40 unknown) (unknown) (no (unknown) (unknown) Unspecified (units (un known) date) atrial unknown) fibrillation (unknown) (no (unknown) (unknown) Visit Reasons: ER (units (unknown) date) [facility]u [facility] for unknown) pneumonia (unknown) (no (unknown) (unknown) Vitals (units (unkno wn) date) unknown) (unknown) (no (unknown) (unknown) Weight 81.42 kg (units (unknown) date) unknown) (unknown) (no (unknown) (unknown) [facility] (units (unknown) date) [facility] unknown) initially then was [place] due (unknown) (no (unknown) (unknown) adequate O2 [...] mg tablet 80 mg PO unknown) DAILY #30 tabs 06/18/22 [Rx Confirmed (unknown) (no (unknown) (unknown) consulted during (units (unknown) date) the unknown) hospitalization and recommended continuing the patient's (unknown) (no (unknown) (unknown) current Keppra (units (unknown) date) regimen and unknown) following up with outpatient neurologist.? There was (unknown) (no (unknown) (unknown) deemed to be (units (u nknown) date) nonoperative.? unknown) Patient required oxygen supplementation to maintain (unknown) (no (unknown) (unknown) diltiazem HCl 240 (units (unknown) date) mg capsule,24 unknown) hr,extended release 240 mg PO DAILY #90 caps (unknown) (no (unknown) (unknown) discharge with (units ( unknown) date) coordination for unknown) results/report being forwarded to Ortho Spine at (unknown) (no (unknown) (unknown) emr after a few (units (unknown) date) days of worsening unknown) sob. (unknown) (no (unknown) (unknown) fell. He was (units (u nknown) date) hospitalized from unknown) December 29 through January 11.? He presented to (unknown) (no (unknown) (unknown) fluticasone (units (un known) date) propionate 230 unknown) mcg-salmeterol 21 mcg/actuation HFA inhaler (Advair (unknown) (no (unknown) (unknown) for pain control (units (unknown) date) since there was no unknown) mention of adding this for his anti seizure (unknown) (no (unknown) (unknown) gabapentin 300 mg (units (unknown) date) capsule 300 mg PO unknown) TID #90 caps 02/03/22 [Rx Confirmed (unknown) (no (unknown) (unknown) had a high fever (units (unknown) date) that day. back to unknown) normal feeling. (unknown) (no (unknown) (unknown) have occurred. If (units (unknown) date) there are any unknown) questions, please contact the Medical Records (unknown) (no (unknown) (unknown) have some studies (units (unknown) date) performed here unknown) prior to that appointment. 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 (unknown) (no (unknown) (unknown) hives (units (unkno wn) date) unknown) (unknown) (no (unknown) (unknown) household (units (unkn own) date) members: none unknown) (unknown) (no (unknown) (unknown) inhalation (units (unk nown) date) .COMPLEX #540 mL unknown) 07/01/21 [Rx Confirmed 07/23/22] (unknown) (no (unknown) (unknown) levetiracetam 750 (units (unknown) date) mg tablet 750 mg unknown) PO Q12H 07/01/21 [History Confirmed 07/23/22] (unknown) (no (unknown) (unknown) levothyroxine 75 (units (unknown) date) mcg tablet 75 mcg unknown) PO DAILY #30 tabs 06/18/22 [Rx Confirmed (unknown) (no (unknown) (unknown) losartan 100 mg (units (unknown) date) tablet 100 mg PO unknown) DAILY #90 tabs 07/01/21 [Rx Confirmed 07/23/22] (unknown) (no (unknown) (unknown) may occur. (units (unk nown) date) Occasional unknown) wrong-word or 'sound-alike' substitutions may have (unknown) (no (unknown) (unknown) no seizure (units (unk nown) date) activity noted unknown) during his hospitalization although there was concern (unknown) (no (unknown) (unknown) nonoperative.? (units (unknown) date) PT/OT evaluated unknown) the patient and advised home health services. (unknown) (no (unknown) (unknown) occurred due to (units (unknown) date) the inherent unknown) limitations of voice recognition software. Please (unknown) (no (unknown) (unknown) omeprazole 40 mg (units (unknown) date) capsule,delayed unknown) release 40 mg PO DAILY 04/27/18 [History (unknown) (no (unknown) (unknown) oxygen #1 ea (units (u nknown) date) 08/02/18 [History unknown) Confirmed 07/23/22] (unknown) (no (unknown) (unknown) potentially lead (units (unknown) date) to alcohol unknown) withdrawal in this scenario.? Neurology was (unknown) (no (unknown) (unknown) read the note (units ( unknown) date) carefully and unknown) recognize, using context, where these substitutions (unknown) (no (unknown) (unknown) referred (units (unkno wn) date) cardiology. unknown) (unknown) (no (unknown) (unknown) regimen in the [...] he drinks only (unknown) (no (unknown) (unknown) rivaroxaban 20 mg (units (unknown) date) tablet (Xarelto) unknown) 20 mg PO QPM #30 tabs 06/18/22 [Rx Confirmed (unknown) (no (unknown) (unknown) software. (units (unkn own) date) Although every unknown) effort is made to edit content, inspector soldering errors (unknown) (no (unknown) (unknown) that seizure was (units (unknown) date) the reason for his unknown) initial fall that led to trauma. (unknown) (no (unknown) (unknown) through 12, L1 and (units (unknown) date) L2 fractures of unknown) uncertain chronicity.? The rib fractures were (unknown) (no (unknown) (unknown) tiotropium (units (unk nown) date) bromide 18 mcg unknown) capsule with inhalation device (Spiriva with (unknown) (no (unknown) (unknown) to the (units (unkno wn) date) extensiveness of unknown) the injuries.? He sustained right rib fractures 8 (unknown) (no (unknown) (unknown) unspecified, (units (u nknown) date) J84.9 - unknown) Interstitial pulmonary disease, unspecified (unknown) (no (unknown) (unknown) very (units (unkno wn) date) moderately--1 6 unknown) pack of craft beer per week--not nearly enough to have Result panel 7 (unknown) (no (unknown) (unknown) (no value) (units (unk nown) date) unknown) (unknown) (no (unknown) (unknown) (1) Interstitial (units (unknown) date) lung disease: unknown) (unknown) (no (unknown) (unknown) (2) COPD (chronic (units (unknown) date) obstructive unknown) pulmonary disease): (unknown) (no (unknown) (unknown) (3) Atrial (units (unk nown) date) fibrillation: unknown) (unknown) (no (unknown) (unknown) 07/23/22 [Rx (units (u nknown) date) Confirmed unknown) 07/23/22] (unknown) (no (unknown) (unknown) 07/23/22 (units (unkno wn) date) unknown) (unknown) (no (unknown) (unknown) 07/23/22] (units (unkn own) date) unknown) (unknown) (no (unknown) (unknown) [id number] (units (unkno wn) date) unknown) (unknown) (no (unknown) (unknown) 11:33 (units (unkno wn) date) unknown) (unknown) (no (unknown) (unknown) 4 to 6 hours if (units (unknown) date) needed for unknown) shortness of breath or wheezing 18 grams 11RF (unknown) (no (unknown) (unknown) 66 yo male (units (unk nown) date) presents today for unknown) ER f/u [facility] for pneumonia. (unknown) (no (unknown) (unknown) 66-year-old male (units (unknown) date) presents to unknown) follow-up on hospitalization at [facility] (unknown) (no (unknown) (unknown) Age/Sex: 66 / M (units (unknown) date) Date of Service: unknown) (unknown) (no (unknown) (unknown) Allergies (units (unkn own) date) unknown) (unknown) (no (unknown) (unknown) [place] (units ( unknown) date) [id number] unknown) (unknown) (no (unknown) (unknown) Assessment + Plan (units (unknown) date) unknown) (unknown) (no (unknown) (unknown) Asthma (units (unkno wn) date) unknown) (unknown) (no (unknown) (unknown) Atrial (units (unkno wn) date) fibrillation type: unknown) unspecified Qualified Code(s): I48.91 (unknown) (no (unknown) (unknown) Atrial (units (unkno wn) date) fibrillation unknown) (unknown) (no (unknown) (unknown) Attending Dr: (units ( unknown) date) Ortiz MONTOYA unknown) (unknown) (no (unknown) (unknown) BMI 27.3 (units (unkno wn) date) unknown) (unknown) (no (unknown) (unknown) BP 120/76 (units (unkn own) date) unknown) (unknown) (no (unknown) (unknown) Blood Pressure (units (unknown) date) Location Lt unknown) brachial (unknown) (no (unknown) (unknown) COPD (chronic (units ( unknown) date) obstructive unknown) pulmonary disease) (unknown) (no (unknown) (unknown) [facility] [...] (unknown) (unknown) Confirmed (units (unkn own) date) 07/23/22] unknown) (unknown) (no (unknown) (unknown) : 1955 (units (unknown) date) Acct:[id number] unknown) (unknown) (no (unknown) (unknown) Dept at (units (unkno wn) date) . unknown) (unknown) (no (unknown) (unknown) Details: (units (unkno wn) date) unknown) (unknown) (no (unknown) (unknown) Documented By: (units (unknown) date) Ortiz Khan unknown) 07/23/22 1131 (unknown) (no (unknown) (unknown) Draft (units (unkno [...] date) inhalation BID unknown) 10/25/20 [History Confirmed 07/23/22] (unknown) (no (unknown) (unknown) HPI (units (unkno wn) date) unknown) (unknown) (no (unknown) (unknown) HandiHaler) 1 cap (units (unknown) date) inhalation DAILY unknown) 10/25/20 [History Confirmed 07/23/22] (unknown) (no (unknown) (unknown) [place], with (units (unknown) date) whom patient would unknown) have a telehealth follow-up.? (unknown) (no (unknown) (unknown) Height 172.72 cm [...] nknown) date) .Route .COMPLEX unknown) #18 grams 07/23/22 [Rx Confirmed 07/23/22] (unknown) (no (unknown) (unknown) Intake Note: (units (u nknown) date) unknown) (unknown) (no (unknown) (unknown) Intake performed (units (unknown) date) by: Selma Grover unknown) (unknown) (no (unknown) (unknown) Intake (units (unkno [...] nknown) date) unknown) (unknown) (no (unknown) (unknown) ORDER LINCARE 2L (units (unknown) date) OXYGEN FOR HOME unknown) FOR NIGHTTIME. [place] [employer]. (unknown) (no (unknown) (unknown) Occult blood (units (u nknown) date) positive stool unknown) (unknown) (no (unknown) (unknown) Orders: (units (unkno wn) date) unknown) (unknown) (no (unknown) (unknown) Ortho spine (units (un known) date) recommended unknown) patient have repeat x-rays performed 1 week after (unknown) (no (unknown) (unknown) Ortho spine was (units (unknown) date) consulted for L1 unknown) compression fracture which was deemed (unknown) (no (unknown) (unknown) Oxygen Delivery (units (unknown) date) Method room air unknown) (unknown) (no (unknown) (unknown) PFSH (units (unkno wn) date) unknown) (unknown) (no (unknown) (unknown) Patient is also (units (unknown) date) due 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 (unknown) (no (unknown) (unknown) [...] (un known) date) Allergy unknown) (Intermediate, Verified 07/23/22 11:32) (unknown) (no (unknown) (unknown) Position Sitting (units (unknown) date) unknown) (unknown) (no (unknown) (unknown) Pulmonary (units (unkn own) date) hypertension unknown) (unknown) (no (unknown) (unknown) Pulse 97 H (units (unk nown) date) unknown) (unknown) (no (unknown) (unknown) Pulse Oximetry (units (unknown) date) (%) 92 unknown) (unknown) (no (unknown) (unknown) Pulse Source (units (u nknown) date) Monitor unknown) (unknown) (no (unknown) (unknown) Qualifiers: (units (un known) date) unknown) (unknown) (no (unknown) (unknown) Reason For Visit (units (unknown) date) unknown) (unknown) (no (unknown) (unknown) Referral (units (unkno wn) date) Cardiology I48.91 unknown) - Unspecified atrial fibrillation (unknown) (no (unknown) (unknown) Referral (units (unkno wn) date) Pulmonology J44.9 unknown) - Chronic obstructive pulmonary disease, (unknown) (no (unknown) (unknown) Referrals (units (unkn own) date) unknown) (unknown) (no (unknown) (unknown) Refilled (units (unkno wn) date) unknown) (unknown) (no (unknown) (unknown) Respiration 16 (units (unknown) date) unknown) (unknown) (no (unknown) (unknown) Signed By: (units (unk nown) date) unknown) (unknown) (no (unknown) (unknown) Smoking Status: (units (unknown) date) Former smoker unknown) (unknown) (no (unknown) (unknown) Social History (units (unknown) date) unknown) (unknown) (no (unknown) (unknown) Status: Acute (units ( unknown) date) unknown) (unknown) (no (unknown) (unknown) Status: Chronic (units (unknown) date) unknown) (unknown) (no (unknown) (unknown) Stroke (units (unkno wn) date) unknown) (unknown) (no (unknown) (unknown) Surgical History (units (unknown) date) (Reviewed 02/07/22 unknown) @ 13:55 by LINDSAY Coffman) (unknown) (no (unknown) (unknown) This note may (units ( unknown) date) have been all or unknown) partially generated using voice recognition (unknown) (no (unknown) (unknown) Tobacco + (units (unkn own) date) Substance Use unknown) (unknown) (no (unknown) (unknown) Tobacco Status (units (unknown) date) unknown) (unknown) (no (unknown) (unknown) Tobacco: How many (units (unknown) date) years used: 40 unknown) (unknown) (no (unknown) (unknown) Unspecified (units (un known) date) atrial unknown) fibrillation (unknown) (no (unknown) (unknown) Visit Reasons: ER (units (unknown) date) f/u [facility] for unknown) pneumonia (unknown) (no (unknown) (unknown) Vitals (units (unkno wn) date) unknown) (unknown) (no (unknown) (unknown) Weight 81.42 kg (units (unknown) date) unknown) (unknown) (no (unknown) (unknown) [facility] (units (unknown) date) [facility] unknown) initially then was transported [place] due (unknown) (no (unknown) (unknown) adequate O2 (units (un known) date) sats.? On hospital unknown) day 2 the patient was determined to have been in (unknown) (no (unknown) (unknown) albuterol sulfate (units (unknown) date) 2.5 mg/3 mL (0.083 unknown) %) solution for nebulization 2.5 mg (3 mL) (unknown) (no (unknown) (unknown) albuterol sulfate (units (unknown) date) 90 mcg/actuation unknown) (Ventolin HFA) inhale 2 puffs by mouth every (unknown) (no (unknown) (unknown) albuterol sulfate (units [...] 50 mg PO unknown) BEDTIME #180 tabs 07/23/22 [Rx Confirmed (unknown) (no (unknown) (unknown) amitriptyline 50 (units (unknown) date) mg (2 x 25 mg) PO unknown) BEDTIME 180 tabs 3RF (unknown) (no (unknown) (unknown) and L1 fracture (units (unknown) date) is essentially unknown) resolved. (unknown) (no (unknown) (unknown) atorvastatin 80 (units (unknown) date) mg PO DAILY 90 unknown) tabs 3RF (unknown) (no (unknown) (unknown) atorvastatin 80 (units (unknown) date) mg tablet 80 mg PO unknown) DAILY #90 tabs 07/23/22 [Rx Confirmed (unknown) (no (unknown) (unknown) consulted during (units (unknown) date) the unknown) hospitalization and recommended continuing the patient's (unknown) (no (unknown) (unknown) current Keppra (units (unknown) date) regimen and unknown) following up with outpatient neurologist.? There was (unknown) (no (unknown) (unknown) deemed to be (units (u nknown) date) nonoperative.? unknown) Patient required oxygen supplementation to maintain (unknown) (no (unknown) (unknown) diltiazem HCl 240 (units (unknown) date) mg capsule,24 unknown) hr,extended release 240 mg PO DAILY #90 caps (unknown) (no (unknown) (unknown) diltiazem HCl ER (units (unknown) date) 240 mg PO DAILY 90 unknown) caps 3RF (unknown) (no (unknown) (unknown) discharge with (units ( unknown) date) coordination for unknown) results/report being forwarded to Ortho Spine at (unknown) (no (unknown) (unknown) emr after a few (units (unknown) date) days of worsening unknown) sob. (unknown) (no (unknown) (unknown) fell. He was (units (u nknown) date) hospitalized from unknown) December 29 through January 11.? He presented to (unknown) (no (unknown) (unknown) fluticasone (units (un known) date) propionate 230 unknown) mcg-salmeterol 21 mcg/actuation HFA inhaler (Advair (unknown) (no (unknown) (unknown) for pain control (units (unknown) date) since there was no unknown) mention of adding this for his anti seizure (unknown) (no (unknown) (unknown) gabapentin 300 mg (units (unknown) date) capsule 300 mg PO unknown) TID #90 caps 02/03/22 [Rx Confirmed (unknown) (no (unknown) (unknown) had a high fever (units (unknown) date) that day. back to unknown) normal feeling. (unknown) (no (unknown) (unknown) have occurred. If (units (unknown) date) there are any unknown) questions, please contact the Medical Records (unknown) (no (unknown) (unknown) have some studies (units (unknown) date) performed here unknown) prior to that appointment. 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 (unknown) (no (unknown) (unknown) hives (units (unkno wn) date) unknown) (unknown) (no (unknown) (unknown) household (units (unkn own) date) members: none unknown) (unknown) (no (unknown) (unknown) inhalation (units (unk nown) date) .COMPLEX #540 mL unknown) 07/01/21 [Rx Confirmed 07/23/22] (unknown) (no (unknown) (unknown) levetiracem 1000 (units (unknown) date) mg, bid by unknown) . fired his neurologist. need to get (unknown) (no (unknown) (unknown) levetiracetam 750 (units (unknown) date) mg tablet 750 mg unknown) PO Q12H 07/01/21 [History Confirmed 07/23/22] (unknown) (no (unknown) (unknown) levothyroxine 75 (units (unknown) date) mcg PO DAILY 90 unknown) tabs 3RF (unknown) (no (unknown) (unknown) levothyroxine 75 (units (unknown) date) mcg tablet 75 mcg unknown) PO DAILY #90 tabs 07/23/22 [Rx Confirmed (unknown) (no (unknown) (unknown) losartan 100 mg (units (unknown) date) PO DAILY 90 tabs unknown) 3RF (unknown) (no (unknown) (unknown) losartan 100 mg (units (unknown) date) tablet 100 mg PO unknown) DAILY #90 tabs 07/23/22 [Rx Confirmed 07/23/22] (unknown) (no (unknown) (unknown) may occur. (units (unk nown) date) Occasional unknown) wrong-word or 'sound-alike' substitutions may have (unknown) (no (unknown) (unknown) most recent (units (un known) date) notes. ? not sure unknown) if needds to see neurology again. (unknown) (no (unknown) (unknown) no seizure (units (unk nown) date) activity noted unknown) during his hospitalization although there was concern (unknown) (no (unknown) (unknown) nonoperative.? (units (unknown) date) PT/OT evaluated unknown) the patient and advised home health services. (unknown) (no (unknown) (unknown) occurred due to (units (unknown) date) the inherent unknown) limitations of voice recognition software. Please (unknown) (no (unknown) (unknown) omeprazole 40 mg (units (unknown) date) capsule,delayed unknown) release 40 mg PO DAILY 04/27/18 [History (unknown) (no (unknown) (unknown) oxygen #1 ea (units (u nknown) date) 08/02/18 [History unknown) Confirmed 07/23/22] (unknown) (no (unknown) (unknown) potentially lead (units (unknown) date) to alcohol unknown) withdrawal in this scenario.? Neurology was (unknown) (no (unknown) (unknown) read the note (units ( unknown) date) carefully and unknown) recognize, using context, where these substitutions (unknown) (no (unknown) (unknown) referred (units (unkno wn) date) cardiology. unknown) (unknown) (no (unknown) (unknown) regimen in the [...] he drinks only (unknown) (no (unknown) (unknown) rivaroxaban (units (un known) date) (Xarelto) 20 mg PO unknown) QPM 90 tabs 3RF (unknown) (no (unknown) (unknown) rivaroxaban 20 mg (units (unknown) date) tablet (Xarelto) unknown) 20 mg PO QPM #90 tabs 07/23/22 [Rx Confirmed (unknown) (no (unknown) (unknown) software. (units (unkn own) date) Although every unknown) effort is made to edit content, inspector soldering errors (unknown) (no (unknown) (unknown) that seizure was (units (unknown) date) the reason for his unknown) initial fall that led to trauma. (unknown) (no (unknown) (unknown) through 12, L1 and (units (unknown) date) L2 fractures of unknown) uncertain chronicity.? The rib fractures were (unknown) (no (unknown) (unknown) tiotropium (units (unk nown) date) bromide 18 mcg unknown) capsule with inhalation device (Spiriva with (unknown) (no (unknown) (unknown) to the (units (unkno wn) date) extensiveness of unknown) the injuries.? He sustained right rib fractures 8 (unknown) (no (unknown) (unknown) unspecified, (units (u nknown) date) J84.9 - unknown) Interstitial pulmonary disease, unspecified (unknown) (no (unknown) (unknown) very (units (unkno wn) date) moderately--1 6 unknown) pack of craft beer per week--not nearly enough to have Result panel 8 (unknown) (no (unknown) (unknown) (no value) (units (unk nown) date) unknown) (unknown) (no (unknown) (unknown) (1) Interstitial (units (unknown) date) lung disease: unknown) (unknown) (no (unknown) (unknown) (2) COPD (chronic (units (unknown) date) obstructive unknown) pulmonary disease): (unknown) (no (unknown) (unknown) (3) Atrial (units (unk nown) date) fibrillation: unknown) (unknown) (no (unknown) (unknown) 07/23/22 [Rx (units (u nknown) date) Confirmed unknown) 07/23/22] (unknown) (no (unknown) (unknown) 07/23/22 (units (unkno wn) date) unknown) (unknown) (no (unknown) (unknown) 07/23/22] (units (unkn own) date) unknown) (unknown) (no (unknown) (unknown) [id number] (units (unkno wn) date) unknown) (unknown) (no (unknown) (unknown) 1. Please place (units (unknown) date) order for unknown) supplemental oxygen and supplies, 2L through [facility]. (unknown) (no (unknown) (unknown) 11:33 (units (unkno wn) date) unknown) (unknown) (no (unknown) (unknown) 2. Request all (units (unknown) date) visit notes from unknown) Neurology, Dr. Edwards. Please keep this open (unknown) (no (unknown) (unknown) 4 to 6 hours if (units (unknown) date) needed for unknown) shortness of breath or wheezing 18 grams 11RF (unknown) (no (unknown) (unknown) 66 yo male (units (unk nown) date) presents today for unknown) ER f/u [facility] for pneumonia. (unknown) (no (unknown) (unknown) 66-year-old male (units (unknown) date) presents to unknown) follow-up on hospitalization at [facility] (unknown) (no (unknown) (unknown) Age/Sex: 66 / M (units (unknown) date) Date of Service: unknown) (unknown) (no (unknown) (unknown) Allergies (units (unkn own) date) unknown) (unknown) (no (unknown) (unknown) [address] (units ( unknown) date) [id number] unknown) (unknown) (no (unknown) (unknown) Assessment + Plan (units (unknown) date) unknown) (unknown) (no (unknown) (unknown) Asthma (units (unkno wn) date) unknown) (unknown) (no (unknown) (unknown) Atrial (units (unkno wn) date) fibrillation type: unknown) unspecified Qualified Code(s): I48.91 (unknown) (no (unknown) (unknown) Atrial (units (unkno wn) date) fibrillation unknown) (unknown) (no (unknown) (unknown) Attending Dr: (units ( unknown) date) Ortiz MONTOYA unknown) (unknown) (no (unknown) (unknown) BMI 27.3 (units (unkno wn) date) unknown) (unknown) (no (unknown) (unknown) BP 120/76 (units (unkn own) date) unknown) (unknown) (no (unknown) (unknown) Blood Pressure (units (unknown) date) Location Lt unknown) brachial (unknown) (no (unknown) (unknown) COPD (chronic (units ( unknown) date) obstructive unknown) pulmonary disease) (unknown) (no (unknown) (unknown) [facility] (unknown) (unknown) Confirmed (units (unkn own) date) 07/23/22] unknown) (unknown) (no (unknown) (unknown) : 1955 (units (unknown) date) Acct:[id number] unknown) (unknown) (no (unknown) (unknown) Dept at (units (unkno wn) date) . unknown) (unknown) (no (unknown) (unknown) Details: (units (unkno wn) date) unknown) (unknown) (no (unknown) (unknown) Documented By: (units (unknown) date) Ortiz Khan unknown) 07/23/22 1131 (unknown) (no (unknown) (unknown) Draft (units (unkno [...] date) inhalation BID unknown) 10/25/20 [History Confirmed 07/23/22] (unknown) (no (unknown) (unknown) HPI (units (unkno wn) date) unknown) (unknown) (no (unknown) (unknown) HandiHaler) 1 cap (units (unknown) date) inhalation DAILY unknown) 10/25/20 [History Confirmed 07/23/22] (unknown) (no (unknown) (unknown) [place], with (units (unknown) date) whom patient would unknown) have a telehealth follow-up.? (unknown) (no (unknown) (unknown) Height 172.72 cm [...] nknown) date) .Route .COMPLEX unknown) #18 grams 07/23/22 [Rx Confirmed 07/23/22] (unknown) (no (unknown) (unknown) Intake Note: (units (u nknown) date) unknown) (unknown) (no (unknown) (unknown) Intake performed (units (unknown) date) by: Selma Grover unknown) (unknown) (no (unknown) (unknown) Intake (units (unkno [...] nknown) date) unknown) (unknown) (no (unknown) (unknown) Not an emergency (units (unknown) date) because he already unknown) has 6L oxygen setup at home. He no longer (unknown) (no (unknown) (unknown) ORDER [facility] 2L (units (unknown) date) OXYGEN FOR HOME unknown) FOR NIGHTTIME. [place] [employer] THAN 6L [employer]. (unknown) (no (unknown) (unknown) Occult blood (units (u nknown) date) positive stool unknown) (unknown) (no (unknown) (unknown) Orders: (units (unkno wn) date) unknown) (unknown) (no (unknown) (unknown) Ortho spine (units (un known) date) recommended unknown) patient have repeat x-rays performed 1 week after (unknown) (no (unknown) (unknown) Ortho spine was (units (unknown) date) consulted for L1 unknown) compression fracture which was deemed (unknown) (no (unknown) (unknown) Oxygen Delivery (units (unknown) date) Method room air unknown) (unknown) (no (unknown) (unknown) PFSH (units (unkno wn) date) unknown) (unknown) (no (unknown) (unknown) Patient is also (units (unknown) date) due 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 (unknown) (no (unknown) (unknown) [...] (un known) date) Allergy unknown) (Intermediate, Verified 07/23/22 11:32) (unknown) (no (unknown) (unknown) Position Sitting (units (unknown) date) unknown) (unknown) (no (unknown) (unknown) Pulmonary (units (unkn own) date) hypertension unknown) (unknown) (no (unknown) (unknown) Pulse 97 H (units (unk nown) date) unknown) (unknown) (no (unknown) (unknown) Pulse Oximetry (units (unknown) date) (%) 92 unknown) (unknown) (no (unknown) (unknown) Pulse Source (units (u nknown) date) Monitor unknown) (unknown) (no (unknown) (unknown) Qualifiers: (units (un known) date) unknown) (unknown) (no (unknown) (unknown) Reason For Visit (units (unknown) date) unknown) (unknown) (no (unknown) (unknown) Referral (units (unkno wn) date) Cardiology I48.91 unknown) - Unspecified atrial fibrillation (unknown) (no (unknown) (unknown) Referral (units (unkno wn) date) Pulmonology J44.9 unknown) - Chronic obstructive pulmonary disease, (unknown) (no (unknown) (unknown) Referrals (units (unkn own) date) unknown) (unknown) (no (unknown) (unknown) Refilled (units (unkno wn) date) unknown) (unknown) (no (unknown) (unknown) Respiration 16 (units (unknown) date) unknown) (unknown) (no (unknown) (unknown) Signed By: (units (unk nown) date) unknown) (unknown) (no (unknown) (unknown) Smoking Status: (units (unknown) date) Former smoker unknown) (unknown) (no (unknown) (unknown) Social History (units (unknown) date) unknown) (unknown) (no (unknown) (unknown) Status: Acute (units ( unknown) date) unknown) (unknown) (no (unknown) (unknown) Status: Chronic (units (unknown) date) unknown) (unknown) (no (unknown) (unknown) Stroke (units (unkno wn) date) unknown) (unknown) (no (unknown) (unknown) Surgical History (units (unknown) date) (Reviewed 02/07/22 unknown) @ 13:55 by LINDSAY Coffman) (unknown) (no (unknown) (unknown) This note may (units ( unknown) date) have been all or unknown) partially generated using voice recognition (unknown) (no (unknown) (unknown) Tobacco + (units (unkn own) date) Substance Use unknown) (unknown) (no (unknown) (unknown) Tobacco Status (units (unknown) date) unknown) (unknown) (no (unknown) (unknown) Tobacco: How many (units (unknown) date) years used: 40 unknown) (unknown) (no (unknown) (unknown) Unspecified (units (un known) date) atrial unknown) fibrillation (unknown) (no (unknown) (unknown) Visit Reasons: ER (units (unknown) date) f/u [facility] for unknown) pneumonia (unknown) (no (unknown) (unknown) Vitals (units (unkno wn) date) unknown) (unknown) (no (unknown) (unknown) Weight 81.42 kg (units (unknown) date) unknown) (unknown) (no (unknown) (unknown) [facility] (units (unknown) date) [facility] unknown) initially then was transported to [place] due (unknown) (no (unknown) (unknown) adequate O2 (units (un known) date) sats.? On hospital unknown) day 2 the patient was determined to have been in (unknown) (no (unknown) (unknown) albuterol sulfate (units (unknown) date) 2.5 mg/3 mL (0.083 unknown) %) solution for nebulization 2.5 mg (3 mL) (unknown) (no (unknown) (unknown) albuterol sulfate (units (unknown) date) 90 mcg/actuation unknown) (Ventolin HFA) inhale 2 puffs by mouth every (unknown) (no (unknown) (unknown) albuterol sulfate (units [...] 50 mg PO unknown) BEDTIME #180 tabs 07/23/22 [Rx Confirmed (unknown) (no (unknown) (unknown) amitriptyline 50 (units (unknown) date) mg (2 x 25 mg) PO unknown) BEDTIME 180 tabs 3RF (unknown) (no (unknown) (unknown) and L1 fracture (units (unknown) date) is essentially unknown) resolved. (unknown) (no (unknown) (unknown) atorvastatin 80 (units (unknown) date) mg PO DAILY 90 unknown) tabs 3RF (unknown) (no (unknown) (unknown) atorvastatin 80 (units (unknown) date) mg tablet 80 mg PO unknown) DAILY #90 tabs 07/23/22 [Rx Confirmed (unknown) (no (unknown) (unknown) consulted during (units (unknown) date) the unknown) hospitalization and recommended continuing the patient's (unknown) (no (unknown) (unknown) current Keppra (units (unknown) date) regimen and unknown) following up with outpatient neurologist.? There was (unknown) (no (unknown) (unknown) deemed to be (units (u nknown) date) nonoperative.? unknown) Patient required oxygen supplementation to maintain (unknown) (no (unknown) (unknown) diltiazem HCl 240 (units (unknown) date) mg capsule,24 unknown) hr,extended release 240 mg PO DAILY #90 caps (unknown) (no (unknown) (unknown) diltiazem HCl ER (units (unknown) date) 240 mg PO DAILY 90 unknown) caps 3RF (unknown) (no (unknown) (unknown) discharge with (units ( unknown) date) coordination for unknown) results/report being forwarded to Ortho Spine at (unknown) (no (unknown) (unknown) emr after a few (units (unknown) date) days of worsening unknown) sob. (unknown) (no (unknown) (unknown) fell. He was (units (u nknown) date) hospitalized from unknown) December 29 through January 11.? He presented to (unknown) (no (unknown) (unknown) fluticasone (units (un known) date) propionate 230 unknown) mcg-salmeterol 21 mcg/actuation HFA inhaler (Advair (unknown) (no (unknown) (unknown) for pain control (units (unknown) date) since there was no unknown) mention of adding this for his anti seizure (unknown) (no (unknown) (unknown) gabapentin 300 mg (units (unknown) date) capsule 300 mg PO unknown) TID #90 caps 02/03/22 [Rx Confirmed (unknown) (no (unknown) (unknown) going before the (units (unknown) date) weekend. unknown) (unknown) (no (unknown) (unknown) had a high fever (units (unknown) date) that day. back to unknown) normal feeling. (unknown) (no (unknown) (unknown) has loud motor (units (unknown) date) and he cannot unknown) sleep. He only needs the smaller, quieter one (unknown) (no (unknown) (unknown) have occurred. If (units (unknown) date) there are any unknown) questions, please contact the Medical Records (unknown) (no (unknown) (unknown) have some studies (units (unknown) date) performed here unknown) prior to that appointment. 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 (unknown) (no (unknown) (unknown) hives (units (unkno wn) date) unknown) (unknown) (no (unknown) (unknown) household (units (unkn own) date) members: none unknown) (unknown) (no (unknown) (unknown) inhalation (units (unk nown) date) .COMPLEX #540 mL unknown) 07/01/21 [Rx Confirmed 07/23/22] (unknown) (no (unknown) (unknown) levetiracem 1000 (units (unknown) date) mg, bid by unknown) . fired his neurologist. need to get (unknown) (no (unknown) (unknown) levetiracetam 750 (units (unknown) date) mg tablet 750 mg unknown) PO Q12H 07/01/21 [History Confirmed 07/23/22] (unknown) (no (unknown) (unknown) levothyroxine 75 (units (unknown) date) mcg PO DAILY 90 unknown) tabs 3RF (unknown) (no (unknown) (unknown) levothyroxine 75 (units (unknown) date) mcg tablet 75 mcg unknown) PO DAILY #90 tabs 07/23/22 [Rx Confirmed (unknown) (no (unknown) (unknown) losartan 100 mg (units (unknown) date) PO DAILY 90 tabs unknown) 3RF (unknown) (no (unknown) (unknown) losartan 100 mg (units (unknown) date) tablet 100 mg PO unknown) DAILY #90 tabs 07/23/22 [Rx Confirmed 07/23/22] (unknown) (no (unknown) (unknown) may occur. (units (unk nown) date) Occasional unknown) wrong-word or 'sound-alike' substitutions may have (unknown) (no (unknown) (unknown) me. Thanks! (units (un known) date) unknown) (unknown) (no (unknown) (unknown) most recent (units (un known) date) notes. ? not sure unknown) if needds to see neurology again. (unknown) (no (unknown) (unknown) needs this but is (units (unknown) date) using 2L at unknown) nighttime. States the machine he has is large and (unknown) (no (unknown) (unknown) no seizure (units (unk nown) date) activity noted unknown) during his hospitalization although there was concern (unknown) (no (unknown) (unknown) nonoperative.? (units (unknown) date) PT/OT evaluated unknown) the patient and advised home health services. (unknown) (no (unknown) (unknown) occurred due to (units (unknown) date) the inherent unknown) limitations of voice recognition software. Please (unknown) (no (unknown) (unknown) omeprazole 40 mg (units (unknown) date) capsule,delayed unknown) release 40 mg PO DAILY 04/27/18 [History (unknown) (no (unknown) (unknown) oxygen #1 ea (units (u nknown) date) 08/02/18 [History unknown) Confirmed 07/23/22] (unknown) (no (unknown) (unknown) potentially lead (units (unknown) date) to alcohol unknown) withdrawal in this scenario.? Neurology was (unknown) (no (unknown) (unknown) read the note (units ( unknown) date) carefully and unknown) recognize, using context, where these substitutions (unknown) (no (unknown) (unknown) referred (units (unkno wn) date) cardiology. unknown) (unknown) (no (unknown) (unknown) regimen in the [...] he drinks only (unknown) (no (unknown) (unknown) rivaroxaban (units (un known) date) (Xarelto) 20 mg PO unknown) QPM 90 tabs 3RF (unknown) (no (unknown) (unknown) rivaroxaban 20 mg (units (unknown) date) tablet (Xarelto) unknown) 20 mg PO QPM #90 tabs 07/23/22 [Rx Confirmed (unknown) (no (unknown) (unknown) software. (units (unkn own) date) Although every unknown) effort is made to edit content, inspector soldering errors (unknown) (no (unknown) (unknown) that seizure was (units (unknown) date) the reason for his unknown) initial fall that led to trauma. (unknown) (no (unknown) (unknown) through 12, L1 and (units (unknown) date) L2 fractures of unknown) uncertain chronicity.? The rib fractures were (unknown) (no (unknown) (unknown) tiotropium (units (unk nown) date) bromide 18 mcg unknown) capsule with inhalation device (Spiriva with (unknown) (no (unknown) (unknown) to the (units (unkno wn) date) extensiveness of unknown) the injuries.? He sustained right rib fractures 8 (unknown) (no (unknown) (unknown) unspecified, (units (u nknown) date) J84.9 - unknown) Interstitial pulmonary disease, unspecified (unknown) (no (unknown) (unknown) until notes (units (un known) date) received and unknown) scanned into his record then send this message back to (unknown) (no (unknown) (unknown) very (units (unkno wn) date) moderately--1 6 unknown) pack of craft beer per week--not nearly enough to have (unknown) (no (unknown) (unknown) which can provide (units (unknown) date) 2L. Again, not an unknown) emergency but would be good to get this Result panel 9 (unknown) (no (unknown) (unknown) (no value) (units (unk nown) date) unknown) (unknown) (no (unknown) (unknown) (1) Interstitial (units (unknown) date) lung disease: unknown) (unknown) (no (unknown) (unknown) (2) COPD (chronic (units (unknown) date) obstructive unknown) pulmonary disease): (unknown) (no (unknown) (unknown) (3) Atrial (units (unk nown) date) fibrillation: unknown) (unknown) (no (unknown) (unknown) (4) Hypothyroid: (units (unknown) date) unknown) (unknown) (no (unknown) (unknown) (5) HTN (units (unkno wn) date) (hypertension): unknown) (unknown) (no (unknown) (unknown) (6) Dyslipidemia: (units (unknown) date) unknown) (unknown) (no (unknown) (unknown) (7) COPD (chronic (units (unknown) date) obstructive unknown) pulmonary disease) with acute bronchitis: (unknown) (no (unknown) (unknown) (primary) (units (unkn own) date) hypertension unknown) (unknown) (no (unknown) (unknown) 07/23/22 [Rx (units (u nknown) date) Confirmed 07/23/22] unknown) (unknown) (no (unknown) (unknown) 07/23/22 (units (unkno wn) date) unknown) (unknown) (no (unknown) (unknown) 07/23/22] (units (unkn own) date) unknown) (unknown) (no (unknown) (unknown) [id number] (units (unkno wn) date) unknown) (unknown) (no (unknown) (unknown) 1. Please place (units (unknown) date) order for unknown) supplemental oxygen and supplies, 2L through [facility]. (unknown) (no (unknown) (unknown) 1.??Schedule pt (units (unknown) date) for a 30-min unknown) in-person visit?at his convenience (not urgent--he (unknown) (no (unknown) (unknown) 11:33 (units (unkno wn) date) unknown) (unknown) (no (unknown) (unknown) 13.5 on CBC with (units (unknown) date) elevated lactic unknown) acid at 3.1, normal pH..? Had a negative (unknown) (no (unknown) (unknown) 2. Request all (units (unknown) date) visit notes from unknown) Neurology, Dr. Edwards. Please keep this open (unknown) (no (unknown) (unknown) 2.??Find out if (units (unknown) date) TSH with reflex unknown) free T4 was also done?at [facility]???If not, (unknown) (no (unknown) (unknown) 3.??Order med (units ( unknown) date) [facility] of all meds unknown) to appt.? Thanks! (unknown) (no (unknown) (unknown) 4 to 6 hours if (units (unknown) date) needed for unknown) shortness of breath or wheezing 18 grams 11RF (unknown) (no (unknown) (unknown) 66 yo male (units (unk nown) date) presents today for unknown) ER f/u [facility] for pneumonia. (unknown) (no (unknown) (unknown) 66-year-old male (units (unknown) date) presents for unknown) follow-up on recent hospitalization at [place] (unknown) (no (unknown) (unknown) Affect: normal (units (unknown) date) affect unknown) (unknown) (no (unknown) (unknown) Age/Sex: 66 / M (units (unknown) date) Date of Service: unknown) (unknown) (no (unknown) (unknown) All systems (units (un known) date) reviewed + are unknown) unremarkable except as noted in HPI and below (unknown) (no (unknown) (unknown) Allergies (units (unkn own) date) unknown) (unknown) (no (unknown) (unknown) [place], [place] (units ( unknown) date) [id number] unknown) (unknown) (no (unknown) (unknown) Appearance: (units (un known) date) grossly normal unknown) (unknown) (no (unknown) (unknown) Assessment + Plan (units (unknown) date) unknown) (unknown) (no (unknown) (unknown) Asthma (units (unkno wn) date) unknown) (unknown) (no (unknown) (unknown) Atrial (units (unkno wn) date) fibrillation type: unknown) unspecified Qualified Code(s): I48.91 (unknown) (no (unknown) (unknown) Atrial (units (unkno wn) date) fibrillation unknown) (unknown) (no (unknown) (unknown) Attending Dr: (units ( unknown) date) Ortiz MONTOYA unknown) (unknown) (no (unknown) (unknown) Attitude: (units (unkn own) date) cooperative unknown) (unknown) (no (unknown) (unknown) Auscultation: (units ( unknown) date) clear to unknown) auscultation bilaterally (unknown) (no (unknown) (unknown) BMI 27.3 (units (unkno wn) date) unknown) (unknown) (no (unknown) (unknown) BP 120/76 (units (unkn own) date) unknown) (unknown) (no (unknown) (unknown) Blood Pressure (units (unknown) date) Location Lt unknown) brachial (unknown) (no (unknown) (unknown) COPD (chronic (units ( unknown) date) obstructive unknown) pulmonary disease) (unknown) (no (unknown) (unknown) Cardio (units (unkno wn) date) unknown) (unknown) (no (unknown) (unknown) Chief Complaint (units (unknown) date) unknown) (unknown) (no (unknown) (unknown) Chief Complaint: (units (unknown) date) Follow-up unknown) hospitalization/lab review/chronic conditions/med (unknown) (no (unknown) (unknown) Cognition: normal (units (unknown) date) cognition unknown) (unknown) (no (unknown) (unknown) Colon cancer (units (u nknown) date) screening unknown) (unknown) (no (unknown) (unknown) Compression (units (un known) date) fracture vertebra: unknown) Patient reports that he has gotten his x-ray (unknown) (no (unknown) (unknown) Confirmed (units (unkn own) date) 07/23/22] unknown) (unknown) (no (unknown) (unknown) Const (units (unkno wn) date) unknown) (unknown) (no (unknown) (unknown) : 1955 (units (unknown) date) Acct:[id number] unknown) (unknown) (no (unknown) (unknown) Dept at (units (unkno wn) date) . unknown) (unknown) (no (unknown) (unknown) Details: (units (unkno wn) date) unknown) (unknown) (no (unknown) (unknown) Documented By: (units (unknown) date) Ortiz Khan unknown) 07/23/22 1131 (unknown) (no (unknown) (unknown) Draft (units (unkno wn) date) unknown) (unknown) (no (unknown) (unknown) Dyslipidemia (units (u nknown) date) unknown) (unknown) (no (unknown) (unknown) EMR arrived and (units (unknown) date) patient states that unknown) he was told he did have a high fever that (unknown) (no (unknown) (unknown) Ears: hearing (units ( unknown) date) grossly normal unknown) bilaterally, TM's normal bilaterally and EAC's (unknown) (no (unknown) (unknown) Effort + (units (unkno wn) date) Inspection: normal unknown) respiratory effort (unknown) (no (unknown) (unknown) Exam (units (unkno wn) date) unknown) (unknown) (no (unknown) (unknown) Extrem (units (unkno wn) date) unknown) (unknown) (no (unknown) (unknown) Eyes (units (unkno wn) date) unknown) (unknown) (no (unknown) (unknown) Family Practice (units (unknown) date) Office Visit unknown) (unknown) (no (unknown) (unknown) [facility]) (unknown) (no (unknown) (unknown) GERD (units (o wn) date) (gastroesophageal unknown) reflux disease) (unknown) (no (unknown) (unknown) Gait: normal gait (units (unknown) date) unknown) (unknown) (no (unknown) (unknown) General: (units (o wn) date) appearance normal, unknown) both eyes and all related structures (unknown) (no (unknown) (unknown) General: (units (o wn) date) cooperative, unknown) healthy appearing and no acute distress (unknown) (no (unknown) (unknown) General: no edema (units (unknown) date) unknown) (unknown) (no (unknown) (unknown) General: patient (units (unknown) date) alert, patient unknown) awake and patient oriented x3 (unknown) (no (unknown) (unknown) HENMT (units (o wn) date) unknown) (unknown) (no (unknown) (unknown) HFA) 2 puff (units (un known) date) inhalation BID unknown) 10/25/20 [History Confirmed 07/23/22] (unknown) (no (unknown) (unknown) HPI (units (o wn) date) unknown) (unknown) (no (unknown) (unknown) HandiHaler) 1 cap (units (unknown) date) inhalation DAILY unknown) 10/25/20 [History Confirmed 07/23/22] (unknown) (no (unknown) (unknown) He continues on (units (unknown) date) levetiracetam as unknown) seizure prophylaxis, prescribed by Neurology.? (unknown) (no (unknown) (unknown) Head: normal to (units (unknown) date) inspection and unknown) normocephalic (unknown) (no (unknown) (unknown) Heart Sounds: S1 [...] date) seizures unknown) (unknown) (no (unknown) (unknown) However, he does (units (unknown) date) not wish to return unknown) to Neurology.? He has not had any seizures (unknown) (no (unknown) (unknown) Hx of hand surgery (units (unknown) date) unknown) (unknown) (no (unknown) (unknown) Hyperglycemia (units ( unknown) date) unknown) (unknown) (no (unknown) (unknown) Hyperlipidemia (units (unknown) date) unknown) (unknown) (no (unknown) (unknown) Hypertension type: (units (unknown) date) unspecified unknown) Qualified Code(s): I10 - Essential (unknown) (no (unknown) (unknown) Hypothyroidism (units (unknown) date) type: unspecified unknown) Qualified Code(s): E03.9 (unknown) (no (unknown) (unknown) Hypothyroidism, (units (unknown) date) unspecified unknown) (unknown) (no (unknown) (unknown) Instructions (units (u nknown) date) .Route .COMPLEX #18 unknown) grams 07/23/22 [Rx Confirmed 07/23/22] (unknown) (no (unknown) (unknown) Intake Note: (units (u nknown) date) unknown) (unknown) (no (unknown) (unknown) Intake performed (units (unknown) date) by: Selma Grover unknown) (unknown) (no (unknown) (unknown) Intake (units (unkno wn) date) unknown) (unknown) (no (unknown) (unknown) Intake- Clincial (units (unknown) date) Staff unknown) (unknown) (no (unknown) (unknown) Interstitial lung (units (unknown) date) disease and COPD: unknown) Nursing staff are working with the patient (unknown) (no (unknown) (unknown) Judgment: judgment (units (unknown) date) good unknown) (unknown) (no (unknown) (unknown) Loc: [facility] (units (unkno wn) date) unknown) (unknown) (no (unknown) (unknown) Medical History (units (unknown) date) (Updated 07/25/22 @ unknown) 09:12 by LINDSAY Coffman) (unknown) (no (unknown) (unknown) Medications (units (un known) date) unknown) (unknown) (no (unknown) (unknown) Medications: (units (u nknown) date) unknown) (unknown) (no (unknown) (unknown) Mental Status: (units (unknown) date) mental status unknown) grossly normal (unknown) (no (unknown) (unknown) Mood: congruent (units (unknown) date) mood unknown) (unknown) (no (unknown) (unknown) Mouth: oral (units (un known) date) mucosae normal and unknown) oropharynx normal (unknown) (no (unknown) (unknown) Neck (units (unkno wn) date) unknown) (unknown) (no (unknown) (unknown) Neck: normal (units (u nknown) date) visual inspection unknown) and no lymphadenopathy (unknown) (no (unknown) (unknown) Neuro (units (unkno wn) date) unknown) (unknown) (no (unknown) (unknown) Neurology. (units (unk nown) date) unknown) (unknown) (no (unknown) (unknown) Nose: external (units (unknown) date) nose normal, nasal unknown) mucous membranes and turbinates normal and no (unknown) (no (unknown) (unknown) Not an emergency (units (unknown) date) because he already unknown) has 6L oxygen setup at home. He no longer (unknown) (no (unknown) (unknown) ORDER [place] 2L (units (unknown) date) OXYGEN FOR HOME FOR unknown) NIGHTTIME. [employer] THAN 6L MOTOR. (unknown) (no (unknown) (unknown) Occult blood (units (u nknown) date) positive stool unknown) (unknown) (no (unknown) (unknown) Orders: (units (unkno wn) date) unknown) (unknown) (no (unknown) (unknown) Ortho Spine as (units (unknown) date) well as with unknown) Neurology who he will be seeing for follow-up for (unknown) (no (unknown) (unknown) Oxygen Delivery (units (unknown) date) Method room air unknown) (unknown) (no (unknown) (unknown) PFSH (units (unkno wn) date) unknown) (unknown) (no (unknown) (unknown) Patient had (units (un known) date) switched to [facility] unknown) [facility] pulmonology has it was difficult (unknown) (no (unknown) (unknown) Patient has no (units (unknown) date) residual fever or unknown) other symptoms outside of his baseline (unknown) (no (unknown) (unknown) Patient has not (units (unknown) date) seen Cardiology for unknown) some time.? He does have history of (unknown) (no (unknown) (unknown) Patient states (units (unknown) date) that he is feeling unknown) much better and is back to his baseline.? He (unknown) (no (unknown) (unknown) Patient was (units (un known) date) hospitalized from unknown) July 05 through July 15.? States that (unknown) (no (unknown) (unknown) Patient was (units (un known) date) treated with unknown) cefepime and doxycycline.? Patient required 6 L of (unknown) (no (unknown) (unknown) Patient: (units (unkno wn) date) Suraj Ellis Adelaida unknown) MR#: [id number] (unknown) (no (unknown) (unknown) Penicillins (units (un known) date) Allergy unknown) (Intermediate, Verified 07/23/22 11:32) (unknown) (no (unknown) (unknown) Plan (units (unkno wn) date) unknown) (unknown) (no (unknown) (unknown) Please: (units (unkno wn) date) unknown) (unknown) (no (unknown) (unknown) Position Sitting (units (unknown) date) unknown) (unknown) (no (unknown) (unknown) Psych (units (unkno wn) date) unknown) (unknown) (no (unknown) (unknown) Pulmonary (units (unkn own) date) hypertension unknown) (unknown) (no (unknown) (unknown) Pulse 97 H (units (unk nown) date) unknown) (unknown) (no (unknown) (unknown) Pulse Oximetry (%) (units (unknown) date) 92 unknown) (unknown) (no (unknown) (unknown) Pulse Source (units (u nknown) date) Monitor unknown) (unknown) (no (unknown) (unknown) Qualifiers: (units (un known) date) unknown) (unknown) (no (unknown) (unknown) ROS (units (unkno wn) date) unknown) (unknown) (no (unknown) (unknown) Rate: regular rate (units (unknown) date) unknown) (unknown) (no (unknown) (unknown) Reason For Visit (units (unknown) date) unknown) (unknown) (no (unknown) (unknown) Referral (units (unkno wn) date) Cardiology I48.91 - unknown) Unspecified atrial fibrillation (unknown) (no (unknown) (unknown) Referral (units (unkno wn) date) Pulmonology J44.9 - unknown) Chronic obstructive pulmonary disease, (unknown) (no (unknown) (unknown) Referrals (units (unkn own) date) unknown) (unknown) (no (unknown) (unknown) Refilled (units (unkno wn) date) unknown) (unknown) (no (unknown) (unknown) Resp [...] Seizure disorder: (units (unknown) date) Advised the patient unknown) to schedule follow-up appointment with (unknown) (no [...] unknown) date) unknown) (unknown) (no (unknown) (unknown) Status: Chronic (units (unknown) date) unknown) (unknown) (no (unknown) (unknown) Stroke (units (unkno wn) date) unknown) (unknown) (no (unknown) (unknown) Surgical History (units (unknown) date) (Reviewed 07/25/22 unknown) @ 09:09 by LINDSAY Coffman) (unknown) (no (unknown) (unknown) This note may have (units (unknown) date) been all or unknown) partially generated using voice recognition (unknown) (no (unknown) (unknown) Thought Content: (units (unknown) date) normal unknown) (unknown) (no (unknown) (unknown) Thought Process: (units (unknown) date) normal unknown) (unknown) (no (unknown) (unknown) Throat: posterior (units (unknown) date) oropharynx normal unknown) (unknown) (no (unknown) (unknown) Tobacco + (units (unkn own) date) Substance Use unknown) (unknown) (no (unknown) (unknown) Tobacco Status (units (unknown) date) unknown) (unknown) (no (unknown) (unknown) Tobacco: How many (units (unknown) date) years used: 40 unknown) (unknown) (no (unknown) (unknown) Unspecified atrial (units (unknown) date) fibrillation unknown) (unknown) (no (unknown) (unknown) [facility] (units (unknown) date) for pneumonia and unknown) COPD exacerbation. In addition, he recently (unknown) (no (unknown) (unknown) Visit Reasons: ER (units (unknown) date) f[facility]u [facility] for unknown) pneumonia (unknown) (no (unknown) (unknown) Vitals (units (unkno wn) date) unknown) (unknown) (no (unknown) (unknown) Weight 81.42 kg (units (unknown) date) unknown) (unknown) (no (unknown) (unknown) albuterol sulfate (units (unknown) date) 2.5 mg/3 mL (0.083 unknown) %) solution for nebulization 2.5 mg (3 mL) (unknown) (no (unknown) (unknown) albuterol sulfate (units (unknown) date) 90 mcg/actuation unknown) (Ventolin HFA) inhale 2 puffs by mouth every (unknown) (no (unknown) (unknown) albuterol sulfate (units (unknown) date) 90 mcg/actuation unknown) aerosol inhaler (Ventolin HFA) See Rx (unknown) (no (unknown) (unknown) alcohol intake: (units (unknown) date) never unknown) (unknown) (no (unknown) (unknown) amitriptyline 25 (units (unknown) date) mg tablet 50 mg PO unknown) BEDTIME #180 tabs 07/23/22 [Rx Confirmed (unknown) (no (unknown) (unknown) amitriptyline 50 (units (unknown) date) mg (2 x 25 mg) PO unknown) BEDTIME 180 tabs 3RF (unknown) (no (unknown) (unknown) aspirin.? Chest (units (unknown) date) x-ray showed unknown) multifocal pneumonia and he had a leukocytosis of (unknown) (no (unknown) (unknown) atorvastatin 80 mg (units (unknown) date) PO DAILY 90 tabs unknown) 3RF (unknown) (no (unknown) (unknown) atorvastatin 80 mg (units (unknown) date) tablet 80 mg PO unknown) DAILY #90 tabs 07/23/22 [Rx Confirmed (unknown) (no (unknown) (unknown) conditions/medicat (units (unknown) date) ion review. unknown) (unknown) (no (unknown) (unknown) continue for this (units (unknown) date) reason. For the unknown) time being I have refilled this, although I (unknown) (no (unknown) (unknown) day.? He was (units (u ) date) transported to the unknown) ED for chest pain and shortness of breath, (unknown) (no (unknown) (unknown) diltiazem HCl 240 (units (unknown) date) mg capsule,24 unknown) hr,extended release 240 mg PO DAILY #90 caps (unknown) (no (unknown) (unknown) diltiazem HCl ER (units (unknown) date) 240 mg PO DAILY 90 unknown) caps 3RF (unknown) (no (unknown) (unknown) done at an outside (units (unknown) date) facility but has unknown) not yet had a telehealth appointment with (unknown) (no (unknown) (unknown) e [place] [facility] (units ( unknown) date) Ortho Spine unknown) providers. I have asked our nursing staff to help (unknown) (no (unknown) (unknown) facilitate (units (unk nown) date) scheduling this unknown) appointment. Patient has a new prescription for (unknown) (no (unknown) (unknown) fascicular block, (units (unknown) date) ST elevation unknown) secondary to intraventricular conduction delay. (unknown) (no (unknown) (unknown) felt he was doing (units (unknown) date) fine. Follow-up as unknown) needed for concerns. (unknown) (no (unknown) (unknown) fluticasone (units (un known) date) propionate 230 unknown) mcg-salmeterol 21 mcg/actuation HFA inhaler (Advair (unknown) (no (unknown) (unknown) fracture. He notes (units (unknown) date) that this seems to unknown) help with his tremor and would like to (unknown) (no (unknown) (unknown) gabapentin 300 mg (units (unknown) date) capsule 300 mg PO unknown) TID #90 caps 02/03/22 [Rx Confirmed (unknown) (no (unknown) (unknown) gabapentin (units (unk nown) date) documented which is unknown) presumably to address pain associated with this (unknown) (no (unknown) (unknown) going before the (units (unknown) date) weekend. unknown) (unknown) (no (unknown) (unknown) got to the point (units (unknown) date) where he felt that unknown) he truly could not breathe and called 911.? (unknown) (no (unknown) (unknown) had routine lab (units (unknown) date) work done and needs unknown) to follow-up on labs/chronic (unknown) (no (unknown) (unknown) has loud motor and (units (unknown) date) he cannot sleep. He unknown) only needs the smaller, quieter one (unknown) (no (unknown) (unknown) has transportation (units (unknown) date) challenges):? f/u unknown) labs/chronic conditions/med update. (unknown) (no (unknown) (unknown) have occurred. If (units (unknown) date) there are any unknown) questions, please contact the Medical Records (unknown) (no (unknown) (unknown) hives (units (unkno wn) date) unknown) (unknown) (no (unknown) (unknown) home, higher than (units (unknown) date) his usual nighttime unknown) 2 L of oxygen. (unknown) (no (unknown) (unknown) household members: (units (unknown) date) none unknown) (unknown) (no (unknown) (unknown) inhalation (units (unk nown) date) .COMPLEX #540 mL unknown) 07/01/21 [Rx Confirmed 07/23/22] (unknown) (no (unknown) (unknown) is currently using (units (unknown) date) no supplemental unknown) oxygen during the day as has been the case in (unknown) (no (unknown) (unknown) is larger and (units ( unknown) date) louder and he no unknown) longer has a need for higher concentrations.? (unknown) (no (unknown) (unknown) leading up to that (units (unknown) date) day he had been unknown) developing worsening shortness of breath.? He (unknown) (no (unknown) (unknown) levetiracem 1000 (units (unknown) date) mg, bid by unknown) . fired his neurologist. need to get (unknown) (no (unknown) (unknown) levetiracetam 750 (units (unknown) date) mg tablet 750 mg PO unknown) Q12H 07/01/21 [History Confirmed 07/23/22] (unknown) (no (unknown) (unknown) levothyroxine 75 (units (unknown) date) mcg PO DAILY 90 unknown) tabs 3RF (unknown) (no (unknown) (unknown) levothyroxine 75 (units (unknown) date) mcg tablet 75 mcg unknown) PO DAILY #90 tabs 07/23/22 [Rx Confirmed (unknown) (no (unknown) (unknown) losartan 100 mg PO (units (unknown) date) DAILY 90 tabs 3RF unknown) (unknown) (no (unknown) (unknown) losartan 100 mg (units (unknown) date) tablet 100 mg PO unknown) DAILY #90 tabs 07/23/22 [Rx Confirmed 07/23/22] (unknown) (no (unknown) (unknown) may occur. (units (unk nown) date) Occasional unknown) wrong-word or 'sound-alike' substitutions may have (unknown) (no (unknown) (unknown) me. Thanks! (units (un known) date) unknown) (unknown) (no (unknown) (unknown) most recent notes. (units (unknown) date) ? not sure if unknown) needds to see neurology again. (unknown) (no (unknown) (unknown) nasal discharge (units (unknown) date) noted unknown) (unknown) (no (unknown) (unknown) needs this but is (units (unknown) date) using 2L at unknown) nighttime. States the machine he has is large and (unknown) (no (unknown) (unknown) normal (units (unkno wn) date) unknown) (unknown) (no (unknown) (unknown) not have the most (units (unknown) date) recent note from unknown) Neurology available. (unknown) (no (unknown) (unknown) occurred due to (units (unknown) date) the inherent unknown) limitations of voice recognition software. Please (unknown) (no (unknown) (unknown) omeprazole 40 mg (units (unknown) date) capsule,delayed unknown) release 40 mg PO DAILY 04/27/18 [History (unknown) (no (unknown) (unknown) order for supplies (units (unknown) date) to administer 2 L unknown) of oxygen, as his new oxygen concentrator (unknown) (no (unknown) (unknown) oxygen #1 ea (units (u nknown) date) 08/02/18 [History unknown) Confirmed 07/23/22] (unknown) (no (unknown) (unknown) oxygen while (units (u nknown) date) hospitalized and unknown) was discharge with orders for 6 L of oxygen at (unknown) (no (unknown) (unknown) paroxysmal atrial (units (unknown) date) fibrillation.? unknown) (unknown) (no (unknown) (unknown) please resend (units ( unknown) date) order?to them and unknown) have him get this done. (unknown) (no (unknown) (unknown) pulmonology visit. (units (unknown) date) unknown) (unknown) (no (unknown) (unknown) read the note (units ( unknown) date) carefully and unknown) recognize, using context, where these substitutions (unknown) (no (unknown) (unknown) recommend we (units (u nknown) date) re-evaluate this in unknown) the future. He can discuss this both with (unknown) (no (unknown) (unknown) referred (units (unkno wn) date) cardiology. unknown) (unknown) (no (unknown) (unknown) review (units (unkno wn) date) unknown) (unknown) (no (unknown) (unknown) ride to [place] (units (unknown) date) when he has an unknown) appointment.? 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 He unknown) indicates that he will be able to set up a (unknown) (no (unknown) (unknown) seizure disorder. (units (unknown) date) unknown) (unknown) (no (unknown) (unknown) shortness of (units (u nknown) date) breath. unknown) (unknown) (no (unknown) (unknown) since he began on (units (unknown) date) the medication and unknown) has no problems with the medication.? I do (unknown) (no (unknown) (unknown) software. Although (units (unknown) date) every effort is unknown) made to edit content, inspector soldering errors (unknown) (no (unknown) (unknown) tachycardia as (units (unknown) date) well as chronic unknown) right bundle branch block, left anterior (unknown) (no (unknown) (unknown) tachypneic with O2 (units (unknown) date) saturation 82%.? He unknown) was given Solu-Medrol, DuoNeb and (unknown) (no (unknown) (unknown) that OT and PT (units (unknown) date) home health unknown) services were offered but he declined these as he (unknown) (no (unknown) (unknown) the past and is (units (unknown) date) using only 2 L of unknown) oxygen at night.? 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 On EKG he was unknown) seen to have sinus and ectopic atrial (unknown) (no (unknown) (unknown) unspecified, J84.9 (units (unknown) date) - Interstitial unknown) pulmonary disease, unspecified (unknown) (no (unknown) (unknown) until notes (units (un known) date) received and unknown) scanned into his record then send this message back to (unknown) (no (unknown) (unknown) was the care he (units (unknown) date) received by [facility] unknown) pulmonology and he would like to resume (unknown) (no (unknown) (unknown) which can provide (units (unknown) date) 2L. Again, not an unknown) emergency but would be good to get this Result panel 10 (unknown) (no (unknown) (unknown) (no value) (units (unk nown) date) unknown) (unknown) (no (unknown) (unknown) (1) Interstitial (units (unknown) date) lung disease: unknown) (unknown) (no (unknown) (unknown) (2) COPD (chronic (units (unknown) date) obstructive unknown) pulmonary disease): (unknown) (no (unknown) (unknown) (3) Community (units ( unknown) date) acquired pneumonia: unknown) (unknown) (no (unknown) (unknown) (4) Atrial (units (unk nown) date) fibrillation: unknown) (unknown) (no (unknown) (unknown) (5) Hypothyroid: (units (unknown) date) unknown) (unknown) (no (unknown) (unknown) (6) HTN (units (unkno wn) date) (hypertension): unknown) (unknown) (no (unknown) (unknown) (7) Dyslipidemia: (units (unknown) date) unknown) (unknown) (no (unknown) (unknown) (8) History of (units (unknown) date) seizures: unknown) (unknown) (no (unknown) (unknown) (9) History of (units (unknown) date) cerebrovascular unknown) accident: (unknown) (no (unknown) (unknown) (primary) (units (unkn own) date) hypertension unknown) (unknown) (no (unknown) (unknown) 07/23/22 [Rx (units (u nknown) date) Confirmed 07/23/22] unknown) (unknown) (no (unknown) (unknown) 07/23/22 (units (unkno wn) date) unknown) (unknown) (no (unknown) (unknown) 07/23/22] (units (unkn own) date) unknown) (unknown) (no (unknown) (unknown) 07/25/22 0929 (units ( unknown) date) unknown) (unknown) (no (unknown) (unknown) [id number] (units (unkno wn) date) unknown) (unknown) (no (unknown) (unknown) 11:33 (units (unkno wn) date) unknown) (unknown) (no (unknown) (unknown) 13.5 on CBC with (units (unknown) date) elevated lactic unknown) acid at 3.1, normal pH..? Had a negative (unknown) (no (unknown) (unknown) 4 to 6 hours if (units (unknown) date) needed for unknown) shortness of breath or wheezing 18 grams 11RF (unknown) (no (unknown) (unknown) 66 yo male (units (unk nown) date) presents today for unknown) ER f/u [facility] for pneumonia. (unknown) (no (unknown) (unknown) 66-year-old male (units (unknown) date) presents for unknown) follow-up on recent hospitalization at [facility] (unknown) (no (unknown) (unknown) ALL numbers (units (un known) date) entered in unknown) calculation for 'Time Coding Minutes Spent' are (unknown) (no (unknown) (unknown) Affect: normal (units (unknown) date) affect unknown) (unknown) (no (unknown) (unknown) Age/Sex: 66 / M (units (unknown) date) Date of Service: unknown) (unknown) (no (unknown) (unknown) All systems (units (un known) date) reviewed + are unknown) unremarkable except as noted in HPI and below (unknown) (no (unknown) (unknown) Allergies (units (unkn own) date) unknown) (unknown) (no (unknown) (unknown) [place] (units ( unknown) date) [id number] unknown) (unknown) (no (unknown) (unknown) Appearance: (units (un known) date) grossly normal unknown) (unknown) (no (unknown) (unknown) Assessment + Plan (units (unknown) date) unknown) (unknown) (no (unknown) (unknown) Asthma (units (unkno wn) date) unknown) (unknown) (no (unknown) (unknown) Atrial (units (unkno wn) date) fibrillation type: unknown) unspecified Qualified Code(s): I48.91 (unknown) (no (unknown) (unknown) Atrial (units (unkno wn) date) fibrillation unknown) (unknown) (no (unknown) (unknown) Atrial (units (unkno wn) date) fibrillation:? His unknown) heart rate is regular today in clinic.? I think that (unknown) (no (unknown) (unknown) Attending Dr: (units ( unknown) date) Ortiz MONTOYA unknown) (unknown) (no (unknown) (unknown) Attitude: (units (unkn own) date) cooperative unknown) (unknown) (no (unknown) (unknown) Auscultation: (units ( unknown) date) clear to unknown) auscultation bilaterally (unknown) (no (unknown) (unknown) BMI 27.3 (units (unkno wn) date) unknown) (unknown) (no (unknown) (unknown) BP 120/76 (units (unkn own) date) unknown) (unknown) (no (unknown) (unknown) Blood Pressure (units (unknown) date) Location Lt unknown) brachial (unknown) (no (unknown) (unknown) COPD (chronic (units ( unknown) date) obstructive unknown) pulmonary disease) (unknown) (no (unknown) (unknown) COPD type: COPD (units (unknown) date) with acute unknown) exacerbation Qualified Code(s): J44.1 (unknown) (no (unknown) (unknown) COPD with recent (units (unknown) date) exacerbation and unknown) pneumonia/ILD:? Acute symptoms have resolved (unknown) (no (unknown) (unknown) Cardio (units (unkno wn) date) unknown) (unknown) (no (unknown) (unknown) Chief Complaint (units (unknown) date) unknown) (unknown) (no (unknown) (unknown) Chief Complaint: (units (unknown) date) Follow-up unknown) hospitalization/lab review/chronic conditions/med (unknown) (no (unknown) (unknown) Chronic (units (unkno wn) date) obstructive unknown) pulmonary disease with (acute) exacerbation (unknown) (no (unknown) (unknown) Cognition: normal (units (unknown) date) cognition unknown) (unknown) (no (unknown) (unknown) Colon cancer (units (u nknown) date) screening unknown) (unknown) (no (unknown) (unknown) Confirmed (units (unkn own) date) 07/23/22] unknown) (unknown) (no (unknown) (unknown) Const (units (unkno wn) date) unknown) (unknown) (no (unknown) (unknown) Counseling and (units (unknown) date) educating the unknown) patient/family/toddler caregiver: 14 (unknown) (no (unknown) (unknown) : 1955 (units (unknown) date) Acct:[id number] unknown) (unknown) (no (unknown) (unknown) Dept at (units (unkno wn) date) . unknown) (unknown) (no (unknown) (unknown) Details: (units (unkno wn) date) unknown) (unknown) (no (unknown) (unknown) Documented By: (units (unknown) date) Ortiz Khan unknown) 07/23/22 1131 (unknown) (no (unknown) (unknown) Dyslipidemia (units (u nknown) date) unknown) (unknown) (no (unknown) (unknown) Dyslipidemia:? (units (unknown) date) Lipid profile unknown) favorable, continue regimen.? (unknown) (no (unknown) (unknown) EMR arrived and (units (unknown) date) patient states that unknown) he was told he did have a high fever that (unknown) (no (unknown) (unknown) Ears: hearing (units ( unknown) date) grossly normal unknown) bilaterally, TM's normal bilaterally and EAC's (unknown) (no (unknown) (unknown) Effort + (units (unkno wn) date) Inspection: normal unknown) respiratory effort (unknown) (no (unknown) (unknown) Exam (units (unkno wn) date) unknown) (unknown) (no (unknown) (unknown) Extrem (units (o wn) date) unknown) (unknown) (no (unknown) (unknown) Eyes (units (unkno wn) date) unknown) (unknown) (no (unknown) (unknown) Family Practice (units (unknown) date) Office Visit unknown) (unknown) (no (unknown) (unknown) [facility] unknown) (unknown) (no (unknown) (unknown) GERD (units (unkno wn) date) (gastroesophageal unknown) reflux disease) (unknown) (no (unknown) (unknown) Gait: normal gait (units (unknown) date) unknown) (unknown) (no (unknown) (unknown) General: (units (o wn) date) appearance normal, unknown) both eyes and all related structures (unknown) (no (unknown) (unknown) General: (units (o wn) date) cooperative, unknown) healthy appearing and no acute distress (unknown) (no (unknown) (unknown) General: no edema (units (unknown) date) unknown) (unknown) (no (unknown) (unknown) General: patient (units (unknown) date) alert, patient unknown) awake and patient oriented x3 (unknown) (no (unknown) (unknown) HENMT (units (unkno wn) date) unknown) (unknown) (no (unknown) (unknown) HFA) 2 puff (units (un known) date) inhalation BID unknown) 10/25/20 [History Confirmed 07/23/22] (unknown) (no (unknown) (unknown) HPI (units (unkno wn) date) unknown) (unknown) (no (unknown) (unknown) HandiHaler) 1 cap (units (unknown) date) inhalation DAILY unknown) 10/25/20 [History Confirmed 07/23/22] (unknown) (no (unknown) (unknown) He continues on (units (unknown) date) levetiracetam as unknown) seizure prophylaxis, prescribed by Neurology.? (unknown) (no (unknown) (unknown) Head: normal to (units (unknown) date) inspection and unknown) normocephalic (unknown) (no (unknown) (unknown) Heart Sounds: S1 [...] date) seizures unknown) (unknown) (no (unknown) (unknown) History seizures:? (units (unknown) date) It may be that the unknown) patient does not really need to continue (unknown) (no (unknown) (unknown) However, he does (units (unknown) date) not wish to return unknown) to Neurology.? He has not had any seizures (unknown) (no (unknown) (unknown) Hx of hand surgery (units (unknown) date) unknown) (unknown) (no (unknown) (unknown) Hyperglycemia (units ( unknown) date) unknown) (unknown) (no (unknown) (unknown) Hyperlipidemia (units (unknown) date) unknown) (unknown) (no (unknown) (unknown) Hypertension type: (units (unknown) date) unspecified unknown) Qualified Code(s): I10 - Essential (unknown) (no (unknown) (unknown) Hypothyroidism (units (unknown) date) type: unspecified unknown) Qualified Code(s): E03.9 (unknown) (no (unknown) (unknown) Hypothyroidism, (units (unknown) date) unspecified unknown) (unknown) (no (unknown) (unknown) Hypothyroidism:? (units (unknown) date) TSH was not unknown) included in his recent routine lab work; however, (unknown) (no (unknown) (unknown) Impaired fasting (units (unknown) date) glucose:? Mild.? unknown) Advise lifestyle measures.? (unknown) (no (unknown) (unknown) Instructions (units (u nknown) date) .Route .COMPLEX #18 unknown) grams 07/23/22 [Rx Confirmed 07/23/22] (unknown) (no (unknown) (unknown) Intake Note: (units (u nknown) date) unknown) (unknown) (no (unknown) (unknown) Intake performed (units (unknown) date) by: Selma Grover unknown) (unknown) (no (unknown) (unknown) Intake (units (unkno wn) date) unknown) (unknown) (no (unknown) (unknown) Intake- Clincial (units (unknown) date) Staff unknown) (unknown) (no (unknown) (unknown) Judgment: judgment (units (unknown) date) good unknown) (unknown) (no (unknown) (unknown) Lab work otherwise (units (unknown) date) generally unknown) unremarkable.? He did have a borderline anemia, (unknown) (no (unknown) (unknown) Laterality: (units (un known) date) unspecified unknown) laterality Qualified Code(s): J18.9 (unknown) (no (unknown) (unknown) Loc: [facility] (units (unkno wn) date) unknown) (unknown) (no (unknown) (unknown) Medical History (units (unknown) date) (Updated 07/25/22 @ unknown) 09:12 by LINDSAY Coffman) (unknown) (no (unknown) (unknown) Medications (units (un known) date) unknown) (unknown) (no (unknown) (unknown) Medications: (units (u nknown) date) unknown) (unknown) (no (unknown) (unknown) Mental Status: (units (unknown) date) mental status unknown) grossly normal (unknown) (no (unknown) (unknown) Mood: congruent (units (unknown) date) mood unknown) (unknown) (no (unknown) (unknown) Mouth: oral (units (un known) date) mucosae normal and unknown) oropharynx normal (unknown) (no (unknown) (unknown) Neck (units (unkno wn) date) unknown) (unknown) (no (unknown) (unknown) Neck: normal (units (u nknown) date) visual inspection unknown) and no lymphadenopathy (unknown) (no (unknown) (unknown) Neuro (units (unkno wn) date) unknown) (unknown) (no (unknown) (unknown) Nose: external (units (unknown) date) nose normal, nasal unknown) mucous membranes and turbinates normal and no (unknown) (no (unknown) (unknown) Occult blood (units (u nknown) date) positive stool unknown) (unknown) (no (unknown) (unknown) Ordering (units (unkno wn) date) medications, tests, unknown) or procedures: 1 (unknown) (no (unknown) (unknown) Orders: (units (unkno wn) date) unknown) (unknown) (no (unknown) (unknown) Oxygen Delivery (units (unknown) date) Method room air unknown) (unknown) (no (unknown) (unknown) PFSH (units (unkno wn) date) unknown) (unknown) (no (unknown) (unknown) Patient had (units (un known) date) switched to [facility] unknown) [facility] pulmonology has it was difficult (unknown) (no (unknown) (unknown) Patient has no (units (unknown) date) residual fever or unknown) other symptoms outside of his baseline (unknown) (no (unknown) (unknown) Patient has not (units (unknown) date) seen Cardiology for unknown) some time.? He does have history of (unknown) (no (unknown) (unknown) Patient states (units (unknown) date) that he is feeling unknown) much better and is back to his baseline.? He (unknown) (no (unknown) (unknown) Patient was (units (un known) date) hospitalized from unknown) July 05 through July 15.? States that (unknown) (no (unknown) (unknown) Patient was (units (un known) date) treated with unknown) cefepime and doxycycline.? Patient required 6 L of (unknown) (no (unknown) (unknown) Patient: (units (unkno wn) date) Suraj Ellis W unknown) MR#: [id number] (unknown) (no (unknown) (unknown) Penicillins (units (un known) date) Allergy unknown) (Intermediate, Verified 07/23/22 11:32) (unknown) (no (unknown) (unknown) Performing a (units (u nknown) date) medically unknown) appropriate exam and/or evaluation: 13 (unknown) (no (unknown) (unknown) Plan (units (unkno wn) date) unknown) (unknown) (no (unknown) (unknown) Pneumonia, (units (unk nown) date) unspecified unknown) organism (unknown) (no (unknown) (unknown) Position Sitting (units (unknown) date) unknown) (unknown) (no (unknown) (unknown) Preparing to see (units (unknown) date) the patient, i.e., unknown) chart review, review of tests: 10 (unknown) (no (unknown) (unknown) Psych (units (unkno wn) date) unknown) (unknown) (no (unknown) (unknown) Pulmonary (units (unkn own) date) hypertension unknown) (unknown) (no (unknown) (unknown) Pulse 97 H (units (unk nown) date) unknown) (unknown) (no (unknown) (unknown) Pulse Oximetry (%) (units (unknown) date) 92 unknown) (unknown) (no (unknown) (unknown) Pulse Source (units (u nknown) date) Monitor unknown) (unknown) (no (unknown) (unknown) Qualifiers: (units (un known) date) unknown) (unknown) (no (unknown) (unknown) ROS (units (unkno wn) date) unknown) (unknown) (no (unknown) (unknown) Rate: regular rate (units (unknown) date) unknown) (unknown) (no (unknown) (unknown) Reason For Visit (units (unknown) date) unknown) (unknown) (no (unknown) (unknown) Referral (units (unkno wn) date) Cardiology I48.91 - unknown) Unspecified atrial fibrillation (unknown) (no (unknown) (unknown) Referral (units (unkno wn) date) Pulmonology J44.9 - unknown) Chronic obstructive pulmonary disease, (unknown) (no (unknown) (unknown) Referrals (units (unkn own) date) unknown) (unknown) (no (unknown) (unknown) Referring and (units ( unknown) date) communicating with unknown) other health professionals: 1 (unknown) (no (unknown) (unknown) Refilled (units (unkno wn) date) unknown) (unknown) (no (unknown) (unknown) Resp (units (unkno wn) date) unknown) (unknown) (no (unknown) (unknown) Respiration 16 (units (unknown) date) unknown) (unknown) (no (unknown) (unknown) Rhythm: regular (units (unknown) date) rhythm unknown) (unknown) (no (unknown) (unknown) Signed By: [...] unknown) date) unknown) (unknown) (no (unknown) (unknown) Status: Chronic (units (unknown) date) unknown) (unknown) (no (unknown) (unknown) Stroke (units (unkno wn) date) unknown) (unknown) (no (unknown) (unknown) Surgical History (units (unknown) date) (Reviewed 07/25/22 unknown) @ 09:09 by LINDSAY Coffman) (unknown) (no (unknown) (unknown) This note may have (units (unknown) date) been all or unknown) partially generated using voice recognition (unknown) (no (unknown) (unknown) Thought Content: (units (unknown) date) normal unknown) (unknown) (no (unknown) (unknown) Thought Process: (units (unknown) date) normal unknown) (unknown) (no (unknown) (unknown) Throat: posterior (units (unknown) date) oropharynx normal unknown) (unknown) (no (unknown) (unknown) Time Coding (units (un known) date) Minutes Spent: unknown) (must be on same date of service/appointment ) (unknown) (no (unknown) (unknown) Time Spent (units (unk nown) date) unknown) (unknown) (no (unknown) (unknown) Time spent was (units ( unknown) date) medically necessary unknown) due to the complexity of the case in the fact (unknown) (no (unknown) (unknown) Tobacco + (units (unkn own) date) Substance Use unknown) (unknown) (no (unknown) (unknown) Tobacco Status (units (unknown) date) unknown) (unknown) (no (unknown) (unknown) Tobacco: How many (units (unknown) date) years used: 40 unknown) (unknown) (no (unknown) (unknown) Total Time: 41 (units (unknown) date) unknown) (unknown) (no (unknown) (unknown) Unspecified atrial (units (unknown) date) fibrillation unknown) (unknown) (no (unknown) (unknown) [facility] (units (unknown) date) for pneumonia and unknown) COPD exacerbation. In addition, he recently (unknown) (no (unknown) (unknown) Visit Reasons: ER (units (unknown) date) f/u [facility] for unknown) pneumonia (unknown) (no (unknown) (unknown) Vitals (units (unkno wn) date) unknown) (unknown) (no (unknown) (unknown) Weight 81.42 kg (units (unknown) date) unknown) (unknown) (no (unknown) (unknown) albuterol sulfate (units (unknown) date) 2.5 mg/3 mL (0.083 unknown) %) solution for nebulization 2.5 mg (3 mL) (unknown) (no (unknown) (unknown) albuterol sulfate (units (unknown) date) 90 mcg/actuation unknown) (Ventolin HFA) inhale 2 puffs by mouth every (unknown) (no (unknown) (unknown) albuterol sulfate (units (unknown) date) 90 mcg/actuation unknown) aerosol inhaler (Ventolin HFA) See Rx (unknown) (no (unknown) (unknown) alcohol intake: (units (unknown) date) never unknown) (unknown) (no (unknown) (unknown) amitriptyline 25 (units (unknown) date) mg tablet 50 mg PO unknown) BEDTIME #180 tabs 07/23/22 [Rx Confirmed (unknown) (no (unknown) (unknown) amitriptyline 50 (units (unknown) date) mg (2 x 25 mg) PO unknown) BEDTIME 180 tabs 3RF (unknown) (no (unknown) (unknown) and diltiazem. (units (unknown) date) unknown) (unknown) (no (unknown) (unknown) and respiratory (units (unknown) date) status returned to unknown) baseline.? Per his request we will refer to (unknown) (no (unknown) (unknown) aspirin.? Chest (units (unknown) date) x-ray showed unknown) multifocal pneumonia and he had a leukocytosis of (unknown) (no (unknown) (unknown) associated with (units (unknown) date) tasks PERFORMED ON unknown) DATE OF SERVICE. (unknown) (no (unknown) (unknown) atorvastatin 80 mg (units (unknown) date) PO DAILY 90 tabs unknown) 3RF (unknown) (no (unknown) (unknown) atorvastatin 80 mg (units (unknown) date) tablet 80 mg PO unknown) DAILY #90 tabs 07/23/22 [Rx Confirmed (unknown) (no (unknown) (unknown) conditions/medicat (units (unknown) date) ion review. unknown) (unknown) (no (unknown) (unknown) day.? He was (units (u nknown) date) transported to the unknown) ED for chest pain and shortness of breath, (unknown) (no (unknown) (unknown) diltiazem HCl 240 (units (unknown) date) mg capsule,24 unknown) hr,extended release 240 mg PO DAILY #90 caps (unknown) (no (unknown) (unknown) diltiazem HCl ER (units (unknown) date) 240 mg PO DAILY 90 unknown) caps 3RF (unknown) (no (unknown) (unknown) fascicular block, (units (unknown) date) ST elevation unknown) secondary to intraventricular conduction delay. (unknown) (no (unknown) (unknown) fluticasone (units (un known) date) propionate 230 unknown) mcg-salmeterol 21 mcg/actuation HFA inhaler (Advair (unknown) (no (unknown) (unknown) fortunately I was (units (unknown) date) able to find a TSH unknown) performed at [facility] during (unknown) (no (unknown) (unknown) gabapentin 300 mg (units (unknown) date) capsule 300 mg PO unknown) TID #90 caps 02/03/22 [Rx Confirmed (unknown) (no (unknown) (unknown) got to the point (units (unknown) date) where he felt that unknown) he truly could not breathe and called 911.? (unknown) (no (unknown) (unknown) had routine lab (units (unknown) date) work done and needs unknown) to follow-up on labs/chronic (unknown) (no (unknown) (unknown) have asked our (units (unknown) date) nursing staff to unknown) obtain these.? He showed me that his (unknown) (no (unknown) (unknown) have occurred. If (units (unknown) date) there are any unknown) questions, please contact the Medical Records (unknown) (no (unknown) (unknown) he should see (units ( unknown) date) Cardiology unknown) regularly and I have referred him.? Continue current (unknown) (no (unknown) (unknown) his (units (unkno wn) date) hospitalization.? unknown) TSH on July 05, 2022 was 0.511, in normal range.? We (unknown) (no (unknown) (unknown) hives (units (unkno wn) date) unknown) (unknown) (no (unknown) (unknown) home, higher than (units (unknown) date) his usual nighttime unknown) 2 L of oxygen. 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 I have asked our nursing staff to place (unknown) (no (unknown) (unknown) is larger and (units ( unknown) date) louder and he no unknown) longer has a need for higher concentrations.? (unknown) (no (unknown) (unknown) leading up to that (units (unknown) date) day he had been unknown) developing worsening shortness of breath.? He (unknown) (no (unknown) (unknown) levetiracetam 750 (units (unknown) date) mg tablet 750 mg PO unknown) Q12H 07/01/21 [History Confirmed 07/23/22] (unknown) (no (unknown) (unknown) levetiracetam dose (units (unknown) date) was increased from unknown) 750 mg to 1000 mg b.i.d. once we review (unknown) (no (unknown) (unknown) levothyroxine 75 (units (unknown) date) mcg PO DAILY 90 unknown) tabs 3RF (unknown) (no (unknown) (unknown) levothyroxine 75 (units (unknown) date) mcg tablet 75 mcg unknown) PO DAILY #90 tabs 07/23/22 [Rx Confirmed (unknown) (no (unknown) (unknown) losartan 100 mg PO (units (unknown) date) DAILY 90 tabs 3RF unknown) (unknown) (no (unknown) (unknown) losartan 100 mg (units (unknown) date) tablet 100 mg PO unknown) DAILY #90 tabs 07/23/22 [Rx Confirmed 07/23/22] (unknown) (no (unknown) (unknown) may occur. (units (unk nown) date) Occasional unknown) wrong-word or 'sound-alike' substitutions may have (unknown) (no (unknown) (unknown) nasal discharge (units (unknown) date) noted unknown) (unknown) (no (unknown) (unknown) normal (units (unkno wn) date) unknown) (unknown) (no (unknown) (unknown) normocytic.? (units (u nknown) date) Likely anemia of unknown) chronic disease.? Continue to monitor. (unknown) (no (unknown) (unknown) not have the most (units (unknown) date) recent note from unknown) Neurology available. (unknown) (no (unknown) (unknown) occurred due to (units (unknown) date) the inherent unknown) limitations of voice recognition software. Please (unknown) (no (unknown) (unknown) omeprazole 40 mg (units (unknown) date) capsule,delayed unknown) release 40 mg PO DAILY 04/27/18 [History (unknown) (no (unknown) (unknown) order for supplies (units (unknown) date) to administer 2 L unknown) of oxygen, as his new oxygen concentrator (unknown) (no (unknown) (unknown) orders for 2 L of (units (unknown) date) oxygen equipment unknown) set up. (unknown) (no (unknown) (unknown) oxygen #1 ea (units (u nknown) date) 08/02/18 [History unknown) Confirmed 07/23/22] (unknown) (no (unknown) (unknown) oxygen while (units (u nknown) date) hospitalized and unknown) was discharge with orders for 6 L of oxygen at (unknown) (no (unknown) (unknown) paroxysmal atrial (units (unknown) date) fibrillation.? unknown) (unknown) (no (unknown) (unknown) read the note (units ( unknown) date) carefully and unknown) recognize, using context, where these substitutions (unknown) (no (unknown) (unknown) regimens in the (units (unknown) date) meantime.? Blood unknown) pressure well controlled.? Continues on Xarelto (unknown) (no (unknown) (unknown) review (units (unkno wn) date) unknown) (unknown) (no (unknown) (unknown) ride to [place] (units (unknown) date) when he has an unknown) appointment.? (unknown) (no (unknown) (unknown) rivaroxaban (units (un known) date) (Xarelto) 20 mg PO unknown) QPM 90 tabs 3RF (unknown) (no (unknown) (unknown) rivaroxaban 20 mg (units (unknown) date) tablet (Xarelto) 20 unknown) mg PO QPM #90 tabs 07/23/22 [Rx Confirmed (unknown) (no (unknown) (unknown) routinely (units (unkn own) date) follow-up on lab unknown) work, chronic conditions, medication review. 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 He unknown) indicates that he will be able to set up a (unknown) (no (unknown) (unknown) shortness of (units (u nknown) date) breath. unknown) (unknown) (no (unknown) (unknown) since he began on (units (unknown) date) the medication and unknown) has no problems with the medication.? I do (unknown) (no (unknown) (unknown) software. Although (units (unknown) date) every effort is unknown) made to edit content, inspector soldering errors (unknown) (no (unknown) (unknown) tachycardia as (units (unknown) date) well as chronic unknown) right bundle branch block, left anterior (unknown) (no (unknown) (unknown) tachypneic with O2 (units (unknown) date) saturation 82%.? He unknown) was given Solu-Medrol, DuoNeb and (unknown) (no (unknown) (unknown) that this visit (units (unknown) date) was scheduled both unknown) as a follow-up hospitalization visit and to (unknown) (no (unknown) (unknown) the Neurology (units ( unknown) date) results we can unknown) determine he needs to follow-up with them or (unknown) (no (unknown) (unknown) the past and is (units (unknown) date) using only 2 L of unknown) oxygen at night.? 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 On EKG he was unknown) seen to have sinus and ectopic atrial (unknown) (no (unknown) (unknown) unspecified, J84.9 (units (unknown) date) - Interstitial unknown) pulmonary disease, unspecified (unknown) (no (unknown) (unknown) was the care he (units (unknown) date) received by [facility] unknown) pulmonology and he would like to resume (unknown) (no (unknown) (unknown) whether I will (units (unknown) date) assume management unknown) of the levetiracetam.? (unknown) (no (unknown) (unknown) will continue (units ( unknown) date) current regimen.? unknown) Social History date description facility 2022-07[facility]23 00[facility] measurement value units 2022-07-23 00:00 BMI 27.3 kg/m2 2022-07-23 00:00 BP_diastolic 76 mmHg 2022-07-23 00:00 BP_systolic 120 mmHg 2022-07-23 00:00 heart_rate 97 /min 2022-07-23 00:00 height_metric 172.72 cm 2022-07-23 00:00 height_standard 68 in 2022-07-23 00:00 o2_saturation 92 % 2022-07-23 00:00 respiration_rate 16 /min 2022-07-23 00:00 weight_metric 81.41 kg 2022-07-23 00:00 weight_standard 179.48 lb
[2022-10-10 04:03] VITALS: BP 126/91
[2022-10-10] MEDS ORDERED: AZITHROMYCIN 250 MG TABLET PO STA (04:29)
--- NOTE | 2022-10-10 08:11 | XRAY Report ---
PROCEDURE: Chest 1 View X-Ray INDICATIONS: fall, LOC TECHNIQUE: One view of the chest was acquired. COMPARISON: Chest x-ray, 05/24/2022. FINDINGS: Surgical changes and devices: None. Lungs and pleura: Shallow inspiration. There is vascular crowding. Left basilar opacity may be consol idation or atelectasis. No pleural effusions or pneumothorax. Mediastinum: Mediastinal contours appear normal. Heart size is normal. Bones and chest wall: No suspicious bony lesions. Overlying soft tissues appear unremarkable. Sever e shoulder joint degeneration bilaterally. IMPRESSION: 1. Shallow inspiration. 2. Left basilar opacity may be consolidation or atelectasis. No significant discrepancy with the primary interpretation. Reviewed by: Antonio Downey MD on 10/10/2022 8:09 AM PDT Approved by: Antonio Downey MD on 10/10/2022 8:09 AM PDT Station ID: [id number]
--- NOTE | 2022-10-10 08:15 | CT Report ---
PROCEDURE: HEAD WO INDICATIONS: fall, LOC, takes xarelto TECHNIQUE: Noncontrast 4.5 mm thick angled axial sections acquired from the foramen magnum to the vertex. For r adiation dose reduction, the following was used: automated exposure control, adjustment of mA and/or kV according to patient size. COMPARISON: CT head, 05/13/2022. FINDINGS: Image quality: Excellent. CSF spaces: Basal cisterns are patent. No extra-axial fluid collections. Ventricles are normal in size and shape. Brain: Old right parietal fracture with encephalomalacia. Mild cerebral volume loss and periventricu lar white matter chronic small vessel ischemic changes. No midline shift. No intracranial masses or hemorrhage. [place]-white matter interface is normal. Skull and face: Calvarium and visualized facial bones are intact, without suspicious lesions. Mild frontal scalp contusion. Sinuses: Visualized sinuses and mastoids are clear. IMPRESSION: 1. No acute intracranial abnormality. 2. Old right MCA infarct. No significant discrepancy with the preliminary interpretation. Reviewed by: Antonio Downey MD on 10/10/2022 8:14 AM PDT Approved by: Antonio Downey MD on 10/10/2022 8:14 AM PDT Station ID: [id number]
--- NOTE | 2022-10-10 08:19 | CT Report ---
PROCEDURE: CERVICAL SPINE WO INDICATIONS: fall, neck tenderness TECHNIQUE: Noncontrast 3 mm thick sections acquired from the skull base to the T4 level. Sagittal and coronal r eformats were then constructed. For radiation dose reduction, the following was used: automated exp osure control, adjustment of mA and/or kV according to patient size. COMPARISON: CT cervical spine, 12/28/2021. FINDINGS: Image quality: Excellent. Bones: No fractures or dislocations. Moderate degenerative disease, most pronounced at C5-C6. Severe facet arthropathy at C2-C3 bilaterally and C3-C4 on the left, moderate to mild facet arthropathy at other levels. Moderate to severe atlantoaxial joint degeneration. Visualized superior ribs are intact . Soft tissues: Prevertebral soft tissues are normal in thickness. No paravertebral hematomas. No ap ical pneumothoraces. IMPRESSION: 1. No acute cervical spine injury. 2. Degenerative changes in cervical spine. No significant discrepancy with the preliminary interpretation. Reviewed by: Antonio Downey MD on 10/10/2022 8:18 AM PDT Approved by: Antonio Downey MD on 10/10/2022 8:18 AM PDT Station ID: [id number]
== END 2022-10-10 04:40 | disposition home or self-care (01) ==
LOC: EDUNIT# → ED 02:26
DX: R91.8 Other nonspecific abnormal finding of lung field (principal); S91.111A Laceration without foreign body of right great toe without damage to nail, initial encounter; W18.39XA Other fall on same level, initial encounter; Y93.E1 Activity, personal bathing and showering; Y92.002 Bathroom of unspecified non-institutional (private) residence as the place of occurrence of the external cause; F17.200 Nicotine dependence, unspecified, uncomplicated; Z79.899 Other long term (current) drug therapy
CPT/HCPCS: 36415; 70450; 71045; 72125; 80053; 83690; 85025; 93005; 99284; A9270; G0480; 80320

== ENCOUNTER 2022-10-11 22:57 | Outpatient (CLI) | payer MEDICARE, MEDICAID | END 2022-10-11 22:58 | disposition EMS.NT | LOC: EMS 22:57 | DX: R06.09 Other forms of dyspnea (principal); J44.9 Chronic obstructive pulmonary disease, unspecified ==

== ENCOUNTER 2022-11-06 19:15 | Outpatient (CLI) | payer MEDICARE, MEDICAID | END 2022-11-06 23:59 | disposition critical access hospital (66) | LOC: EMS 19:15 | DX: R53.1 Weakness (principal); R47.81 Slurred speech; R29.6 Repeated falls | CPT/HCPCS: A0425; A0429 ==

== ENCOUNTER 2022-11-06 19:30 | Emergency (ER) | payer MEDICARE, MEDICAID ==
[2022-11-06 19:41] LABS: BASOPHILS # (AUTO) 0.1 10^3/uL (0.0-0.1); BASOPHILS % (AUTO) 0.6 %; EOSINOPHILS # (AUTO) 0.1 10^3/uL (0.0-0.7); EOSINOPHILS % (AUTO) 1.5 %; HGB - HEMOGLOBIN 12.1 g/dL (14.0-18.0); LYMPHOCYTES % (AUTO) 33.2 %; MEAN CORPUSCULAR HEMOGLOBIN 26.3 pg (27.0-31.0); MEAN CORPUSCULAR VOLUME 84.8 fL (80.0-94.0); MONOCYTES # (AUTO) 0.8 10^3/uL (0.0-1.0); MONOCYTES % (AUTO) 8.4 %; NEUTROPHILS % (AUTO) 56.1 %; PLT - PLATELET COUNT 404 10^3/uL (130-450); WHITE BLOOD COUNT 8.9 x10^3/uL (4.8-10.8)
--- NOTE | 2022-11-06 19:48 | ED Physician Documentation ---
PD HPI Fall - Stated complaint Stated Complaint: FELL, WEAKNESS, SLURRED SPEECH - History obtained from History obtained from: Patient - History of Present Illness Fall distance: Standing position Where injury occurred: Home Injury(ies) location: Head Pain level max: 4 Pain level now: 3 Quality of pain: Pain, Aching Associated symptoms: No: LOC, AMS, Amnesia, Seizures, Ear drainage, Nasal drainage, Neck pain, Weakness, Paresthesias, Dyspnea, Nausea / vomiting, Hematemesis, Abdominal distension Symptoms improve with: No: Rest Worsens with: No: Movement, Palpation Contributing factors: Intoxicated. No: Anticoagulated - Additional information Additional information: Patient is a 67-year-old male who presents to the emergency department after 3 ground-level falls at home today. He did strike his head. He is on Xarelto. No loss of consciousness. Has chronic slurred speech, states is no different than his usual. Has chronic left-sided weakness as well, patient states no change to this either. He struck the left side of his head. No back pain. No shoulder pain. No hip pain. No knee pain. He states he did drink "a couple beers" today. Review of Systems Constitutional: denies: Fever, Chills Cardiac: denies: Chest pain / pressure Respiratory: denies: Cough GI: denies: Abdominal Pain, Nausea, Vomiting, Diarrhea : denies: Dysuria Skin: denies: Rash Musculoskeletal: denies: Neck pain, Back pain Neurologic: denies: Focal weakness, Seizure PD PAST MEDICAL HISTORY - Past Medical History Cardiovascular: Hypertension, High cholesterol, Deep vein thrombosis, Pulmonary embolism Respiratory: COPD Neuro: CVA Endocrine/Autoimmune: HyPOthyroidism GI: None : None HEENT: None Psych: Anxiety, Bipolar disorder - Past Surgical History Past Surgical History: Yes Ortho: Arthroscopic surgery - Present Medications Home Medications: Ambulatory Orders Medication Instructions Recorded Confirmed Amitriptyline [Elavil] 50 mg PO QPM 11/09/17 05/13/22 Atorvastatin [Lipitor] 80 mg PO DAILY 11/09/17 05/13/22 Levothyroxine [Synthroid] 75 mcg PO QDAC 11/09/17 05/13/22 Losartan [Cozaar] 100 mg ORAL DAILY 11/09/17 10/12/21 Omeprazole 40 mg PO DAILY 11/09/17 05/13/22 Rivaroxaban [Xarelto] 20 mg PO QDDINNER 11/09/17 05/13/22 diltiaZEM [Cardizem] 240 mg ORAL DAILY 11/09/17 05/13/22 Albuterol 1 amp NEB PRN PRN 10/09/21 05/13/22 Fluticasone [Flonase] 2 sprays ZAHEER DAILY 10/12/21 05/13/22 Fluticasone/Salmeterol [Advair Hfa 2 puffs INH BID 10/12/21 05/13/22 230-21 Mcg Inhaler] Levetiracetam [Keppra] 1,125 mg PO BID 10/12/21 05/13/22 Tiotropium [place] [Spiriva 1 puffs INJ DAILY 10/12/21 05/13/22 Handihaler] Gabapentin [Neurontin] 300 mg PO TID 05/13/22 05/13/22 Valacyclovir HCl [Valtrex] 1,000 mg PO TID #21 tablet 05/13/22 predniSONE [Deltasone] 10 mg PO [id number] #42 tab 05/13/22 Azithromycin [Zithromax] 0 mg PO DAILY #6 tablet 05/14/22 Cefpodoxime Proxetil [Vantin] 200 mg PO Q12H #28 tablet 05/14/22 Furosemide [Lasix] 40 mg PO DAILY #7 tablet 05/14/22 Azithromycin [Zithromax] 250 mg PO DAILY #4 tablet 10/10/22 - Allergies Allergies/Adverse Reactions: Allergies Allergy/AdvReac Type Severity Reaction Status Date / Time Penicillins Allergy Unknown Verified 10/10/22 02:44 - Social History Does the pt smoke?: Yes Smoking Status: Current every day smoker Does the pt drink ETOH?: Yes Does the pt have substance abuse?: No - Immunizations Immunizations are current?: No Immunizations: TDAP >10years/unknown - POLST Patient has POLST: No PD ED PE NORMAL - Vitals Vital signs reviewed: Yes - General General: Alert and oriented X 3, No acute distress, Well developed/nourished, Other (Dysarthric, chronic, unchanged) - HEENT HEENT: Atraumatic (Tender to palpation on the left temporal area. No palpable fractures. No scalp hematomas. No abrasions or lacerations.), PERRL, Moist mucous membranes, Pharynx benign - Neck Neck: Supple, no meningeal sign, Other (Mild upper C-spine tenderness to palpation. No step-off or deformity. 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, Other (Mild left-sided weakness, chronic and unchanged) Eye Opening: Spontaneous Motor: Obeys Commands Verbal: Oriented GCS Score: 15 - Psych Psych: Normal mood, Normal affect Results - Vitals Vitals: Vital Signs - 24 hr 11/06/22 19:44 Temperature 36.2 C L Heart Rate 71 Respiratory 16 Rate Blood Pressure 122/64 O2 Saturation 100 Oxygen O2 Source Room air - Labs Labs: Laboratory Tests 11/06/22 11/06/22 19:33 19:33 WBC 8.9 RBC 4.60 L Hgb 12.1 L Hct 39.0 L MCV 84.8 MCH 26.3 L MCHC 31.0 L RDW 19.0 H Plt Count 404 MPV 9.0 Neut # (Auto) 5.0 Lymph # (Auto) 3.0 [place] # (Auto) 0.8 Eos # (Auto) 0.1 Baso # (Auto) 0.1 Absolute Nucleated RBC 0.00 Nucleated RBC % 0.0 Sodium 146 H Potassium 4.3 Chloride 111 Carbon Dioxide 28 Anion Gap 7.0 BUN 16 Creatinine 0.8 Estimated GFR (MDRD) 96 Glucose 117 H Calcium 9.2 Total Bilirubin 0.4 AST 26 ALT 28 Alkaline Phosphatase 80 Total Protein 7.7 Albumin 4.0 Globulin 3.7 Albumin/Globulin Ratio 1.1 Lipase 28 Ethyl Alcohol 282.8 - Rads (name of study) Head CT Relevant Findings:: Final report received, See rad report Cervical spine CT Relevant Findings:: Final report received, See rad report PD Medical Decision Making - ED course Complexity details: reviewed results, re-evaluated patient, considered differential, d/w patient ED course: No acute findings on head CT or cervical spine CT. Patient is intoxicated, but is ambulating without difficulty around the emergency department and removing his medical equipment. Patient adamantly refuses any further treatment. He states he does not want to be in the emergency department and wants to go home. He states he will call a cab. Recommend that he stop drinking. Attempted to get the patient to stay and allow him to sober in the emergency department, but patient walked out of the emergency department. Patient counseled regarding signs and symptoms for which I believe and urgent re-evaluation would be necessary. Patient with good understanding of and agreement to plan and is comfortable going home at this time This document was made in part using voice recognition software. While efforts are made to proofread this document, sound alike and grammatical errors may occur. Departure - Departure Disposition: 01 Home, Self Care Clinical Impression: Alcohol intoxication Qualifiers: Complication of substance-induced condition: uncomplicated Qualified Code(s): F10.920 - Alcohol use, unspecified with intoxication, uncomplicated Fall Qualifiers: Encounter type: initial encounter Qualified Code(s): W19.XXXA - Unspecified fall, initial encounter Closed head injury Qualifiers: Encounter type: initial encounter Qualified Code(s): S09.90XA - Unspecified injury of head, initial encounter Condition: Good Instructions: ED Alcohol Intoxication, ED Head Injury Closed Follow-Up: your,doctor in 1 week [Other] Comments: Your head CT and cervical spine CT did not show any acute abnormalities. Your blood alcohol is approximately 3-1/2 times the legal limit tonight. Please follow-up with your doctor for further care. Please return if you worsen. You have elected not to stay in the emergency department any longer at this time. Please do not drink any more alcohol tonight.
[2022-11-06 19:52] VITALS: BP 122/64
[2022-11-06 20:02] LABS: ALBUMIN/GLOBULIN RATIO 1.1 (1.0-2.2); BILIRUBIN,TOTAL 0.4 mg/dL (0.2-1.0); CALCIUM 9.2 mg/dL (8.5-10.3); CREATININE 0.8 mg/dL (0.6-1.2); ETOH - ETHANOL 282.8 mg/dL; POTASSIUM 4.3 mmol/L (3.5-5.0); TOTAL PROTEIN 7.7 g/dL (6.7-8.2)
--- NOTE | 2022-11-06 20:03 | CT Report ---
PROCEDURE: HEAD WO INDICATIONS: fall, head injury/neck pain TECHNIQUE: Noncontrast 4.5 mm thick angled axial sections acquired from the foramen magnum to the vertex. For r adiation dose reduction, the following was used: automated exposure control, adjustment of mA and/or kV according to patient size. COMPARISON: CT head 10/10/2022 FINDINGS: Image quality: Excellent. The ventricular system and cortical sulci demonstrate atrophy, consistent for patient's stated age. There are areas of hypodensity in the periventricular and subcortical white matter. Old right tempor al/MCA territory infarction. There is no acute intra or extra-axial fluid collection. No acute hemor rhage, mass lesion or midline shift. Brainstem is unremarkable. Globes are symmetrical. Sinuses are aerated. Osseous structures are intact. IMPRESSION: 1. No acute intracranial process. 2. Minimal to mild atrophy and chronic microvascular ischemic changes. Reviewed by: Sapna Lopez MD on 11/06/2022 8:02 PM PDT Approved by: Sapna Lopez MD on 11/06/2022 8:02 PM PDT Station ID: [id number]
--- NOTE | 2022-11-06 20:09 | CT Report ---
PROCEDURE: CERVICAL SPINE WO INDICATIONS: fall, head injury/neck pain TECHNIQUE: Noncontrast 3 mm thick sections acquired from the skull base to the T4 level. Sagittal and coronal r eformats were then constructed. For radiation dose reduction, the following was used: automated exp osure control, adjustment of mA and/or kV according to patient size. COMPARISON: CT C-spine of 10/10/2022. FINDINGS: Image quality: Excellent. Bones: No acute fracture or subluxation. There is a mild superimposed compression deformity of the T 2 vertebral body redemonstrated. There is multilevel degenerative disc disease and facet joint arthro felipe. Visualized superior ribs are intact. Soft tissues: Prevertebral soft tissues are normal in thickness. No paravertebral hematomas. No ap ical pneumothoraces. IMPRESSION: 1. No acute fracture or subluxation. Reviewed by: Greg Chamberlain MD on 11/06/2022 8:07 PM PDT Approved by: Greg Chamberlain MD on 11/06/2022 8:07 PM PDT Station ID: [id number]
== END 2022-11-06 21:02 | disposition home or self-care (01) ==
LOC: EDBD → EDUNIT# → ED 19:30
DX: S09.90XA Unspecified injury of head, initial encounter (principal); W18.30XA Fall on same level, unspecified, initial encounter; F17.200 Nicotine dependence, unspecified, uncomplicated; F10.129 Alcohol abuse with intoxication, unspecified; Y90.8 Blood alcohol level of 240 mg/100 ml or more
CPT/HCPCS: 36415; 70450; 72125; 80053; 83690; 85025; 99283; 99284; G0480; 80320

== ENCOUNTER 2024-02-06 16:25 | Outpatient (CLI) | payer MEDICARE, MEDICAID | END 2024-02-06 23:59 | disposition short-term general hospital (02) | LOC: EMS 16:25 | DX: R05.9 Cough, unspecified (principal); R06.02 Shortness of breath; Z99.81 Dependence on supplemental oxygen; J44.9 Chronic obstructive pulmonary disease, unspecified; F10.90 Alcohol use, unspecified, uncomplicated | CPT/HCPCS: A0425; A0429; A0888 ==

== ENCOUNTER 2024-02-14 18:42 | Outpatient (CLI) | payer MEDICARE, MEDICAID | END 2024-02-14 23:59 | disposition EMS.NT | LOC: EMS 18:42 | DX: S61.211A Laceration without foreign body of left index finger without damage to nail, initial encounter (principal); W26.8XXA Contact with other sharp object(s), not elsewhere classified, initial encounter; Y93.G1 Activity, food preparation and clean up; Y92.009 Unspecified place in unspecified non-institutional (private) residence as the place of occurrence of the external cause ==

== ENCOUNTER 2024-09-04 16:33 | Inpatient (IN) ==
--- NOTE | 2024-09-04 17:09 | ED Physician Documentation ---
History of Present Illness Stated complaint Stated Complaint: DIFFICULTY BREATHING/RIB PX Chief complaint Chief Complaint: Cardiac History obtained from History obtained from: Patient History of Present Illness Timing: Prior to arrival Additonal information Additional information: Patient is a 68-year-old male presenting to the emergency department with right lower back pain cough and shortness of breath patient notes symptoms came on past 24 hours. He notes he coughed shortly prior to arrival and felt severe pain in his right back he has some old bruising to that area but denies any recent trauma that he can recall. He has a history of pneumonia and has a history of PEs. He is on apixaban for his history of A-fib and has been compliant with that no missed doses. He has a history of COPD and is on 3 L nasal cannula at baseline. He has a history of smoking but does not currently smoke. He has no increase in weight no lower leg swelling no recent sick contacts. Meds/Allgy Home Medications Ambulatory Orders Medication Instructions Recorded Confirmed amitriptyline 25 mg tablet 50 mg PO QPM 11/09/17 06/06/24 atorvastatin 10 mg tablet 80 mg PO DAILY 11/09/17 06/06/24 diltiazem HCl 30 mg tablet 240 mg ORAL DAILY 11/09/17 06/06/24 levothyroxine 75 mcg tablet 75 mcg PO QDAC 11/09/17 06/06/24 losartan 50 mg tablet 100 mg ORAL DAILY 11/09/17 06/06/24 omeprazole 40 mg capsule,delayed 40 mg PO DAILY 11/09/17 06/06/24 release rivaroxaban 20 mg tablet (Xarelto) 20 mg PO QDDINNER 11/09/17 06/06/24 albuterol sulfate 2.5 mg/3 mL 1 amp NEB PRN PRN Shortness Of 10/09/21 06/06/24 (0.083 %) solution for nebulization Air/Wheezing fluticasone propionate 230 2 puff inhalation BID 10/12/21 06/06/24 mcg-salmeterol 21 mcg/actuation HFA inhaler (Advair HFA) fluticasone propionate 50 2 sprays intranasal DAILY 10/12/21 06/06/24 mcg/actuation nasal spray,suspension levetiracetam 750 mg tablet 1,125 mg PO BID 10/12/21 06/06/24 (Keppra) tiotropium bromide 18 mcg capsule 1 puff inhalation DAILY 10/12/21 06/06/24 with inhalation device (Spiriva with HandiHaler) gabapentin 300 mg capsule 300 mg PO TID 05/13/22 06/06/24 albuterol sulfate 90 mcg/actuation 2 puff inhalation Q4H PRN wheezing 06/06/24 06/06/24 aerosol inhaler (Ventolin HFA) Allergies Allergies Allergy/AdvReac Type Severity Reaction Status Date / Time Penicillins Allergy Unknown Verified 09/04/24 16:54 PFSH Active Problems All Active Problems (Updated 08/06/24 @ 00:00 by ) RBBB (Chronic) Hx of pulmonary embolus (Chronic) Hypothyroidism (Chronic) Medical History Medical History (Updated 08/06/24 @ 00:00 by ) History of COPD HLD (hyperlipidemia) HTN (hypertension) HTN (hypertension) RBBB Pulmonary embolism Hypothyroidism Social History Social History (Updated 06/06/24 @ 08:49 by Zechariah Leonard RN) Smoking Status: Former smoker If you are a former smoker, when did you quit? (Date/Year): 2009 Number of Years Smoked: 30 Living arrangement: At home Living Condition: Alone Support Person: No Relationship: Level: Independent Do you feel safe in your home environment?: Yes Suffered physical, verbal, emotional, or financial abuse?: No History of Abuse: No Frequency: Occasional Substance Use: denies use POLST Patient has POLST: No Exam Constitutional normal general appearance HENMT normocephalic, head/scalp atraumatic and hearing grossly normal bilaterally Eyes PERRL, EOMs intact bilaterally and conjunctivae normal Neck/C-Spine visual inspection normal Lymph no lymphadenopathy noted Chest inspection of chest normal Respiratory breath sounds equal bilaterally Significantly diminished bilateral breath sounds no appreciable rales or rhonchi patient speaking in short sentences does appear to be retracting on arrival Cardiovascular normal heart rate noted, regular rhythm noted and no gallop Gastrointestinal abdomen normal to inspection Genitourinary no CVA tenderness Back/Pelvis Old ecchymosis appreciated to right flank, tenderness to touch of this region Extremities normal to inspection Results Vitals Vitals: Vital Signs - 24 hr 09/04/24 16:46 09/04/24 17:27 09/04/24 18:23 Temperature 36.8 C Temperature Source Oral Pulse Rate 100 95 Respiratory Rate 20 20 Blood Pressure 154/81 H O2 Saturation 95 Oxygen Delivery Method Nasal Cannula O2 Source 3L NC baseline home O2 If not protocol: Oxygen Flow, liters/minute 3 3 Pain Intensity 10 09/04/24 18:34 09/04/24 19:40 09/04/24 20:04 Temperature Temperature Source Pulse Rate 97 97 108 H Respiratory Rate 22 24 38 H Blood Pressure 131/100 H O2 Saturation 93 Oxygen Delivery Method O2 Source Nasal cannula If not protocol: Oxygen Flow, liters/minute 9 3 Pain Intensity 8 09/04/24 20:29 09/04/24 20:53 09/04/24 21:00 Temperature Temperature Source Pulse Rate 101 H 108 H Respiratory Rate 28 H 28 H Blood Pressure 132/90 H 131/89 H O2 Saturation 95 93 Oxygen Delivery Method O2 Source Nasal cannula Nasal cannula If not protocol: Oxygen Flow, liters/minute 3 3 Pain Intensity 8 Oxygen O2 Source Nasal cannula Labs Labs: Laboratory Tests 09/04/24 17:15 WBC 10.5 RBC 5.04 Hgb 12.4 L Hct 40.2 L MCV 79.8 L MCH 24.6 L MCHC 30.8 L RDW 17.4 H Plt Count 369 MPV 9.7 Neut # (Auto) 6.6 Lymph # (Auto) 2.5 [place] # (Auto) 1.1 H Eos # (Auto) 0.2 Baso # (Auto) 0.1 Absolute Nucleated RBC 0.00 Nucleated RBC % 0.0 Sodium 139 Potassium 4.5 Chloride 106 Carbon Dioxide 25 Anion Gap 8.0 BUN 12 Creatinine 0.8 Estimated GFR (MDRD) 96 Glucose 114 H Calcium 9.9 Total Bilirubin 0.6 AST 18 ALT 20 Alkaline Phosphatase 77 Troponin I High Sens 7.5 Total Protein 6.6 Albumin 4.4 Globulin 2.2 Albumin/Globulin Ratio 2.0 Lipase 10 L PD Medical Decision Making ED course Complexity details: reviewed old records and reviewed results ED course: Patient 68-year-old presenting to the emergency department with increased shortness of breath and right-sided rib pain/flank pain. Symptoms have been going on for 2 months with increased pain last night. He was in [place] on the for similar symptoms given steroids and antibiotics but continues to have symptoms. He notes the pain is what brought him in today with increased pain to his right flank. He denies any fevers but has had occasional chills body aches increased shortness of breath. He notes he has not been coughing up anything but has persistent dry cough. He is on 3 L nasal cannula at baseline and has not had to increase at home. He denies any anterior chest pain or lower leg swelling. CXR: No acute cardiopulmonary process. Troponin within normal limits, with EKG showing RBBB and normal sinus rhythm no significant change from previous EKG. Reevaluation patient after breathing treatment and steroids showsNo improvement in patient's symptoms.Will give second DuoNeb here in the ED and reevaluate patient. Reevaluation after second DuoNeb continues to show significant shortness of breath. I opted to obtain hour-long albuterol however have long discussion with respiratory therapy they do not feel comfortable giving this as concerns this will cause problems with his atrial fibrillation and he is not appear significantly wheezy and crackly on their auscultation. Will try third DuoNeb before moving onto further interventions at this time. After third DuoNeb patient continues to report shortness of breath he was given Tylenol and the lidocaine patch for his right rib pain but continues to have persistent pain there we will obtain CT PE to evaluate for right rib pain and flank pain. As for the additional bruising to his right flank I suspect this is old as he was seen here back in May for similar pain region and noted to have a large bruise at that time this could still be a bruise decreasing in size given his history of being on blood thinners with his history of DVTs PEs and atrial fibrillation. Pending CT PE at this time given patient's persistent shortness of breath concerns for recurrent PE and no D-dimer was performed as he is on a blood thinner at this time. Patient taken over by Dr. Edwards. Discharge Plan Discharge Prescriptions: No Action losartan 50 MG tablet 100 mg ORAL DAILY atorvastatin 10 MG tablet 80 mg PO DAILY omeprazole 40 MG capsule,delayed release(DR/EC) 40 mg PO DAILY levothyroxine 75 MCG tablet 75 mcg PO QDAC amitriptyline 25 MG tablet 50 mg PO QPM diltiazem HCl 30 MG tablet 240 mg ORAL DAILY Xarelto 20 MG tablet 20 mg PO QDDINNER albuterol sulfate 2.5 MG/3 ML solution for nebulization 1 amp NEB PRN PRN (Reason: Shortness Of Air/Wheezing) Patient Comments: inhale contents of 1 vial ( 3 milliliters ) in nebulizer by mouth... (REFER TO PRESCRIPTION NOTES). levetiracetam [Keppra] 750 MG tablet 1,125 mg PO BID Patient Comments: take 1 AND 1/2 tablets by mouth every 12 hours for SEIZURE CONTROL fluticasone propionate 120 SPRAYS spray,suspension 2 sprays intranasal DAILY Patient Comments: instill 2 sprays into each nostril once daily tiotropium bromide [Spiriva with HandiHaler] 18 MCG capsule, w/inhalation device 1 puff inhalation DAILY Patient Comments: inhale THE CONTENTS OF ONE CAPSULE IN THE HANDIHALER once daily fluticasone propion-salmeterol [Advair HFA] 8 GM HFA aerosol inhaler 2 puff inhalation BID Patient Comments: INHALE 2 PUFFS BY MOUTH TWICE DAILY gabapentin 300 MG capsule 300 mg PO TID Patient Comments: take 1 capsule by mouth three times a day albuterol sulfate [Ventolin HFA] 90 mcg/actuation HFA aerosol inhaler 2 puff INHALATION Q4H PRN (Reason: wheezing) Print Language: Egyptian Stand Alone Forms: PCP List
--- OUTSIDE RECORDS SUMMARY | 2024-09-04 17:09 | EXTERNAL MEDICAL SUMMARY RPT | Continuity of Care Document ---
Author Organization [facility] Address [address] [place] [id number] Phone Care Team Providers Care Staffing Recruiter Name Role Phone Ortiz Khan Unavailable Unavailable Allergies and Intolerances date description facility reaction severity 2024-07-15 16:14:28 [facility] (no reactio n) Moderate 2024-07-15 17:14:28 [facility] (no reactio n) Moderate Medications date description facility 2024-08-29 00:00 Rivaroxaban [facility] 2024-07-15 00:00 Fluticasone Propion-Salmeterol [facility] 2024-07-15 00:00 Doxycycline Hyclate [facility] 2024-08-29 00:00 Fluticasone Propionate [facility] 2024-07-15 00:00 Prednisone [facility] 2024-08-29 00:00 Omeprazole [facility] 2024-07-15 00:00 Albuterol Sulfate [facility] 2024-08-29 00:00 Atorvastatin [facility] 2024-07-15 00:00 Azithromycin [facility] 2024-08-29 00:00 Azithromycin [facility] 2024-08-29 00:00 Levetiracetam [facility] 2024-07-15 00:00 Tiotropium [place] 2024-08-29 00:00 Diltiazem Hcl [facility] 2024-08-29 00:00 Amitriptyline [facility] 2024-08-29 00:00 Levothyroxine [facility] 2024-08-29 00:00 [facility] Problems date description facility 2024-06-10 11:22 Laceration without f oreign body of left eyelid and periocular area, initial encounter [facility] 2024-06-15 11:30 Abrasion of lower back and pelv is, initial encounter [facility] 2024-07-04 11:19 Laceration without f oreign body, right lower leg, initial encounter [facility] 2024-07-11 11:15 Abrasion of lower back and pelv is, initial encounter [facility] 2024-07-13 13:06 Abrasion of lower back and pelv is, initial encounter [facility] Social History date description facility 2024-07-15 00:00 Ex-smoker (finding) [facility] 2024-08-29 00:00 Ex-smoker (finding) [facility] Vital Signs date measurement value units 2024-07-15 00:00 BMI 28.1 kg/m2 2024-07-15 00:00 BP_diastolic 60 mmHg 2024-07-15 00:00 BP_systolic 119 mmHg 2024-07-15 00:00 heart_rate 76 /min 2024-07-15 00:00 height_metric 172.72 cm 2024-07-15 00:00 height_standard 68 in 2024-07-15 00:00 o2_saturation 98 % 2024-07-15 00:00 weight_metric 83.91 kg 2024-07-15 00:00 weight_standard 184.99 lb 2024-08-29 00:00 BMI 29.0 kg/m2 2024-08-29 00:00 BP_diastolic 65 mmHg 2024-08-29 00:00 BP_systolic 120 mmHg 2024-08-29 00:00 heart_rate 71 /min 2024-08-29 00:00 height_metric 172.72 cm 2024-08-29 00:00 height_standard 68 in 2024-08-29 00:00 o2_saturation 95 % 2024-08-29 00:00 weight_metric 86.69 kg 2024-08-29 00:00 weight_standard 191.12 lb
[2024-09-04 17:22] LABS: BASOPHILS # (AUTO) 0.1 10^3/uL (0.0-0.1); BASOPHILS % (AUTO) 0.8 %; EOSINOPHILS # (AUTO) 0.2 10^3/uL (0.0-0.7); EOSINOPHILS % (AUTO) 1.5 %; HCT - HEMATOCRIT 40.2 % (42.0-52.0); HGB - HEMOGLOBIN 12.4 g/dL (14.0-18.0); LYMPHOCYTES # (AUTO) 2.5 10^3/uL (1.5-3.5); LYMPHOCYTES % (AUTO) 23.8 %; MEAN CORPUSCULAR HEMOGLOBIN 24.6 pg (27.0-31.0); MEAN CORPUSCULAR HGB CONC 30.8 g/dL (32.0-36.0); MEAN CORPUSCULAR VOLUME 79.8 fL (80.0-94.0); MEAN PLATELET VOLUME 9.7 fL (7.4-11.4); MONOCYTES # (AUTO) 1.1 10^3/uL (0.0-1.0); MONOCYTES % (AUTO) 10.9 %; NEUTROPHILS # (AUTO) 6.6 10^3/uL (1.5-6.6); NEUTROPHILS % (AUTO) 62.7 %; PLT - PLATELET COUNT 369 10^3/uL (130-450); RED BLOOD COUNT 5.04 10^6/uL (4.70-6.10); RED CELL DISTRIBUTION WIDTH 17.4 % (12.0-15.0); WHITE BLOOD COUNT 10.5 x10^3/uL (4.8-10.8)
[2024-09-04] MEDS: IPRATROPIUM/ALBUTEROL 3 ML NEB INH STA ×2 (17:23→18:31)
[2024-09-04 17:45] LABS: ALBUMIN 4.4 g/dL (3.2-5.5); BILIRUBIN,TOTAL 0.6 mg/dL (0.2-1.0); CALCIUM 9.9 mg/dL (8.5-10.3); CREATININE 0.8 mg/dL (0.6-1.3); POTASSIUM 4.5 mmol/L (3.5-4.5); TOTAL PROTEIN 6.6 g/dL (6.4-8.9)
[2024-09-04] MEDS: predniSONE 20 MG TABLET PO STA (17:47)
[2024-09-04 17:49] LABS: TROPONIN I HIGH SENSITIVITY 7.5 ng/L (2.3-19.7)
--- NOTE | 2024-09-04 17:54 | XRAY Report ---
PROCEDURE: XR Chest 1V INDICATIONS: Chest pain TECHNIQUE: One view of the chest was acquired. COMPARISON: 10/10/2022 FINDINGS: Surgical changes and devices: None. Lungs and pleura: No pleural effusions or pneumothorax. No consolidation. Low lung volumes. Mediastinum: Mediastinal contours appear normal. Heart size is normal. Bones and chest wall: No suspicious bony lesions. Overlying soft tissues appear unremarkable. IMPRESSION: No acute cardiopulmonary process. Reviewed by: Ayden Vicente MD on 09/04/2024 5:52 PM PDT Approved by: Ayden Vicente MD on 09/04/2024 5:52 PM PDT Station ID: [id number]
[2024-09-04] MEDS: DOXYCYCLINE 100 MG TABLET PO STA (19:10)
[2024-09-04] MEDS ORDERED: IPRATROPIUM/ALBUTEROL 3 ML NEB INH ONE (19:32)
[2024-09-04] MEDS: CONCENTRATED ALBUTEROL NEB 2.5 MG/0.5 ML INH STA (19:38)
[2024-09-04] MEDS: LIDOCAINE PATCH 4% TOP STA (19:59)
[2024-09-04] MEDS: ACETAMINOPHEN 500 MG TABLET PO STA (20:53)
[2024-09-04] MEDS ORDERED: iohexoL-300 150 ML BOTTLE ONE (21:10)
[2024-09-04] MEDS: iohexoL-300 150 ML BOTTLE IVP ONE (22:14)
--- NOTE | 2024-09-04 22:46 | CT Report ---
PROCEDURE: CT Angio Chest INDICATIONS: concern for PE, hypoxic, sob, tachycardic CONTRAST: 100 ML OMNI 300 TECHNIQUE: After the administration of intravenous contrast, 2 mm axial images were acquired from the pulmonary apices to the posterior costophrenic angles during the arterial phase. In addition, 1 mm lung kernel and 5 mm soft tissue kernel reconstructions were performed. 3-dimensional coronal oblique maximum int ensity projection (MIP) reformats, 8 mm axial MIP, and 5 mm coronal and sagittal MPR reformats were t hen performed through the thorax. For radiation dose reduction, the following was used: automated exp osure control, adjustment of mA and/or kV according to patient size. COMPARISON: None. FINDINGS: Image quality: Excellent. Large vessels: No filling defects within the opacified pulmonary arteries, accounting for motion and contrast timing. No evidence of acute aortic syndrome or aortic aneurysm. Lungs and pleura: Bibasilar opacities and posterior right upper lobe opacity. Small right pleural eff usion. No suspicious nodule or mass. The lung volumes. Mediastinum: Heart size is normal. No pericardial effusion. No large vessel abnormality. No mediastin al adenopathy by size criteria. Chest wall and lower neck: Thyroid is unremarkable. No axillary or supraclavicular adenopathy by size . Bones: No aggressive osseous abnormality. Chronic appearing compression fracture of L1. Mild compress ion fractures of T2 and T3. Upper Abdomen: Unremarkable. IMPRESSION: No pulmonary embolus. Bibasilar and right posterior upper lobe alveolar opacities and trace right pleural effusion, aspirat ion, atelectasis or infection. Reviewed by: Carolina Moseley MD on 09/04/2024 10:45 PM PDT Approved by: Carolina Moseley MD on 09/04/2024 10:45 PM PDT Station ID: [id number]
--- NOTE | 2024-09-05 00:51 | ED Physician Documentation ---
ED Addendum Addendum Addendum: Patient received a signout from outgoing YOVANI, please see their documentation for further detail. Signed out to me with CT PE protocol pending. Negative for pulmonary emboli though does demonstrate areas likely infectious in nature. Reevaluation patient still endorsing for persistent shortness of breath despite prednisone, antibiotics, multiple DuoNebs. Become significantly winded during my evaluation, with even simple activities such as sitting up at bed so that I can auscultate the back. Auscultation remains somewhat diminished. He is currently on 3 L nasal cannula. Discussed with hospitalist service who graciously agreed to hospitalize for further evaluation and treatment. Discharge Plan Discharge Patient Disposition: [facility] DC/Xfer Clinical Impression: COPD exacerbation Pneumonia Qualifiers: Pneumonia type: due to unspecified organism Laterality: unspecified laterality Lung location: unspecified part of lung Qualified Code(s): J18.9 - Pneumonia, unspecified organism Interventions: ED Admission Assessment Last Done: 09/05/24 01:55
--- NOTE | 2024-09-05 01:01 | HISTORY & PHYSICAL EXAMINATION ---
Chief Complaint Chief Complaint Chief Complaint: SOB History of Present Illness Admitted From Admitted From:: ER History Obtained From Records Reviewed: Yes History obtained from: Pt, staff, chart Exam Limitations: Virtual exam History of Present Illness HPI Comment/Other: H&P was conducted via video remotely, using [employer]. Patient is in [place]. Physician is in [place]. No one is at bedside. 68 yo M with PMH of COPD, on home oxygen at 3 L PRN, HTN, Hypothyroidism, prior DVT and PE on Xarelto, Anxiety, Bipolar disorder presented to the ER with c/o 4 month h/o worsening SOB and cough, much worse x 1 week. Pt sees a Tying In Machine Operator in [place]. He was seen in the ER there on 04/18/2024 for SOB, cough and was started on a course of Prednisone. Since then, he has had F/U with his Tying In Machine Operator and has been on courses of Prednisone and antibiotics. He began to feel a little better in July, but his symptoms worsened about 1 week ago and he has had continuously worsening shortness of breath/having a hard time breathing. He has been using his O2 3L continuously, even when he left the house; he did not previously need to do this. +cough, no sputum. +chest congestion. No F/C. No abdo pain, N/V. Pt had a coughing fit yesterday and felt something on his skin pop in his R back and it has been sore since. In the ER, RR 28, Hgb 12.4, MCV 79.8, EKG showing RBBB and normal sinus rhythm no significant change from previous EKG. CXR: No acute cardiopulmonary process. Chest CTA: No pulmonary embolus. Bibasilar and right posterior upper lobe alveolar opacities and trace right pleural effusion, aspiration, atelectasis or infection. Pt was given Duonebs, Prednisone 60 mg PO, Doxycycline 100 PO in the ER. Review of Systems Status of ROS: 10 or more systems reviewed and unremarkable except as noted in history and below PFSH Active Problems All Active Problems (Updated 09/05/24 @ 00:28 by Neville Edwards MD) Pneumonia (Acute) COPD exacerbation (Acute) RBBB (Chronic) Hx of pulmonary embolus (Chronic) Hypothyroidism (Chronic) Medical History Medical History (Updated 09/05/24 @ 00:28 by Neville Edwards MD) History of COPD HLD (hyperlipidemia) HTN (hypertension) HTN (hypertension) RBBB Pulmonary embolism Hypothyroidism Social History Social History (Updated 06/06/24 @ 08:49 by Zechariah Leonard RN) Smoking Status: Former smoker If you are a former smoker, when did you quit? (Date/Year): 2009 Number of Years Smoked: 30 Living arrangement: At home Living Condition: Alone Support Person: No Relationship: Level: Independent Do you feel safe in your home environment?: Yes Suffered physical, verbal, emotional, or financial abuse?: No History of Abuse: No Frequency: Occasional Substance Use: denies use POLST Patient has POLST: No Meds/Allgy Home Medications Ambulatory Orders Medication Instructions Recorded Confirmed amitriptyline 25 mg tablet 50 mg PO QPM 11/09/17 06/06/24 atorvastatin 10 mg tablet 80 mg PO DAILY 11/09/17 06/06/24 diltiazem HCl 30 mg tablet 240 mg ORAL DAILY 11/09/17 06/06/24 levothyroxine 75 mcg tablet 75 mcg PO QDAC 11/09/17 06/06/24 losartan 50 mg tablet 100 mg ORAL DAILY 11/09/17 06/06/24 omeprazole 40 mg capsule,delayed 40 mg PO DAILY 11/09/17 06/06/24 release rivaroxaban 20 mg tablet (Xarelto) 20 mg PO QDDINNER 11/09/17 06/06/24 albuterol sulfate 2.5 mg/3 mL 1 amp NEB PRN PRN Shortness Of 10/09/21 06/06/24 (0.083 %) solution for nebulization Air/Wheezing fluticasone propionate 230 2 puff inhalation BID 10/12/21 06/06/24 mcg-salmeterol 21 mcg/actuation HFA inhaler (Advair HFA) fluticasone propionate 50 2 sprays intranasal DAILY 10/12/21 06/06/24 mcg/actuation nasal spray,suspension levetiracetam 750 mg tablet 1,125 mg PO BID 10/12/21 06/06/24 (Keppra) tiotropium bromide 18 mcg capsule 1 puff inhalation DAILY 10/12/21 06/06/24 with inhalation device (Spiriva with HandiHaler) gabapentin 300 mg capsule 300 mg PO TID 05/13/22 06/06/24 albuterol sulfate 90 mcg/actuation 2 puff inhalation Q4H PRN wheezing 06/06/24 06/06/24 aerosol inhaler (Ventolin HFA) Allergies Allergies Allergy/AdvReac Type Severity Reaction Status Date / Time Penicillins Allergy Unknown Verified 09/04/24 16:54 Exam Constitutional normal general appearance HENMT normocephalic Eyes PERRL and no scleral icterus Respiratory cart stethoscope not working; per ER Provider: Significantly diminished bilateral breath sounds no appreciable rales or rhonchi patient speaking in short sentences does appear to be retracting on arrival Cardiovascular cart stethoscope not working; per ER Provider: RRR, no murmurs Gastrointestinal Abdo: per ER Provider: non-distended, NT, Soft Extremities Extrem: per ER Provider: moves all extrem, no edema Neurology Neuro: A+Ox3, normal speech, cooperative; per ER Provider: NFD Skin per ER Provider: Old ecchymosis appreciated to right flank, tenderness to touch of this region Conclusion/Plan Problem List (1) COPD exacerbation: Plan: Acute on Chronic Respiratory Failure COPD Exacerbation COPD, on home oxygen at 3 L PRN Pneumonia Tachypnea Shortness of breath Cough -RR 28 -EKG showing RBBB and normal sinus rhythm no significant change from previous EKG. -CXR: No acute cardiopulmonary process. -Chest CTA: No pulmonary embolus. Bibasilar and right posterior upper lobe alveolar opacities and trace right pleural effusion, aspiration, atelectasis or infection. -Pt was given Duonebs, Prednisone 60 mg PO, Doxycycline 100 PO in the ER. -admit to Med Tele -Resp viral panel ordered -O2 support PRN -Duonebs PRN -continue home meds: steroid MDI, Spiriva -SoluMedrol 40 mg IV daily -Levaquin 750 mg IV daily (pt with PCN allergy) Anemia, microcytic -Hgb 12.4, MCV 79.8 -check iron studies HTN HLD -continue home medications:Diltiazem, Losartan, statin Hypothyroidism -continue home medications: Levothyroxine -check TSH H/o DVT and PE--on Xarelto -continue home medications: Xarelto Anxiety Bipolar disorder -continue home medications: Elavil, Gabapentin, Keppra GERD -continue home medications: PPI VTE Prophylaxis:on Xarelto Code Status: D/W pt; he is Full Code ~Cristina Vidal MD Hospitalist Lab Results 09/04/24 17:15 09/04/24 17:15
--- OUTSIDE RECORDS SUMMARY | 2024-09-05 01:47 | EXTERNAL MEDICAL SUMMARY RPT | Continuity of Care Document ---
Author Organization [facility] Address [address] [place] [id number] Phone Care Team Providers Care Gantry Crane Operator Name Role Phone Ortiz Khan Unavailable Unavailable Allergies and Intolerances date description facility reaction severity 2024-07-15 16:14:28 [facility] (no reactio n) Moderate 2024-07-15 17:14:28 [facility] (no reactio n) Moderate Medications date description facility 2024-08-29 00:00 Rivaroxaban [facility] 2024-07-15 00:00 Fluticasone Propion-Salmeterol [facility] 2024-07-15 00:00 Doxycycline Hyclate [facility] 2024-08-29 00:00 Fluticasone Propionate [facility] 2024-07-15 00:00 Prednisone [facility] 2024-08-29 00:00 Omeprazole [facility] 2024-07-15 00:00 Albuterol Sulfate [facility] 2024-08-29 00:00 Atorvastatin [facility] 2024-07-15 00:00 Azithromycin [facility] 2024-08-29 00:00 Azithromycin [facility] 2024-08-29 00:00 Levetiracetam [facility] 2024-07-15 00:00 Tiotropium [facility] 2024-08-29 00:00 Diltiazem Hcl [facility] 2024-08-29 00:00 Amitriptyline [facility] 2024-08-29 00:00 Levothyroxine [facility] 2024-08-29 00:00 [facility] Problems date description facility 2024-06-10 11:22 Laceration without f oreign body of left eyelid and periocular area, initial encounter [facility] 2024-06-15 11:30 Abrasion of lower back and pelv is, initial encounter [facility] 2024-07-04 11:19 Laceration without f oreign body, right lower leg, initial encounter [facility] 2024-07-11 11:15 Abrasion of lower back and pelv is, initial encounter [address] 2024-07-13 13:06 Abrasion of lower back and pelv is, initial encounter [address] Results/Labs test date facility value unit notes Result panel 1 NUCLEATED RED BLOOD CELLS AUTO 2024-09-04 17:15 [facility] 0.0 /100wbc (missing) NRBC ABSOLUTE COUNT (AUTO) 2024-09-04 17:15 [facility] 0.00 x10 3/ul (missing) BASOPHILS # (AUTO) 2024-09-04 17:15 [facility] 0.1 10 3/ul (missing) EOSINOPHILS # (AUTO) 2024-09-04 17:[address] 0.2 10 3/ul (missing) BILIRUBIN,TOTAL 2024-09-04 17:[address] 0.6 mg/dl As of December 2022 testing method has changed, this may include reference ranges. CREATININE 2024-09-04 17:[address] 0.8 mg/dl As of December 2022 testing method has changed, this may include reference ranges. MONOCYTES # (AUTO) 2024-09-04 17:15 [facility] 1.1 10 3/ul (missing) LIPASE 2024-09-04 17:[address] 10 u/l As of December 2022 testing method has changed, this may include reference ranges. WHITE BLOOD COUNT 2024-09-04 17:15 [facility] 10.5 x10 3/ul (missing) CHLORIDE 2024-09-04 17:[address] 106 mmol/l As of December 2022 testing method has changed, this may include reference ranges. GLUCOSE 2024-09-04 17:[address] 114 mg/dl As of December 2022 testing method has changed, this may include reference ranges. BUN - BLOOD UREA NITROGEN 2024-09-04 17:[address] 12 mg/dl As of December 2022 testing method has changed, this may include reference ranges. HGB - HEMOGLOBIN 2024-09-04 17:[address] 12.4 g/dl (missing) SODIUM 2024-09-04 17:15 [facility] 139 mmol/l As of December 2022 testing method has changed, this may include reference ranges. RED CELL DISTRIBUTION WIDTH 2024-09-04 17:[address] 17.4 % (missing) AST ASPARTATE AMINOTRANSFERASE 2024-09-04 17:[address] 18 iu/l As of December 2022 testing method has changed, this may include reference ranges. ALBUMIN/GLOBULIN RATIO 2024-09-04 17:[address] 2.0 (missing) (missing) GLOBULIN 2024-09-04 17:[address] 2.2 g/dl (missing) LYMPHOCYTES # (AUTO) 2024-09-04 17:[address] 2.5 10 3/ul (missing) ALT ALANINE AMINOTRANSFERASE 2024-09-04 17:[place] [address] 20 iu/l As of December 2022 testing method has changed, this may include reference ranges. MEAN CORPUSCULAR HEMOGLOBIN 2024-09-04 17:[place] [address] 24.6 pg (missing) CARBON DIOXIDE - CO2 2024-09-04 17:[place] [address] 25 mmol/l As of December 2022 testing method has changed, this may include reference ranges. MEAN CORPUSCULAR HGB CONC 2024-09-04 17:[address] 30.8 g/dl (missing) PLT - PLATELET COUNT 2024-09-04 17:[address] 369 10 3/ul (missing) ALBUMIN 2024-09-04 17:[place] [address] 4.4 g/dl As of December 2022 testing method has changed, this may include reference ranges. POTASSIUM 2024-09-04 17:[address] 4.5 mmol/l As of December 2022 testing method has changed, this may include reference ranges. HCT - HEMATOCRIT 2024-09-04 17:[address] 40.2 % (missing) RED BLOOD COUNT 2024-09-04 17:[place] [address] 5.04 10 6/ul (missing) NEUTROPHILS # (AUTO) 2024-09-04 17:[address] 6.6 10 3/ul (missing) TOTAL PROTEIN 2024-09-04 17:[place] [address] 6.6 g/dl As of December 2022 testing method has changed, this may include reference ranges. TROPONIN I HIGH SENSITIVITY 2024-09-04 17:[address] 7.5 ng/l A HIGH SENSITIVITY TROPONIN result of >= 14.9 ng/L for females is considered POSITIVE. A HIGH SENSITIVITY TROPONIN result of >= 19.8 ng/L for males is considered POSITIVE. A HIGH SENSITIVITY TROPONIN result of >= 17.9 ng/L for unspecified is considered POSITIVE. ALKALINE PHOSPHATASE 2024-09-04 17:[address] 77 iu/l As of December 2022 testing method has changed, this may include reference ranges. MEAN CORPUSCULAR VOLUME 2024-09-04 17:[address] 79.8 fl (missing) ANION GAP 2024-09-04 17:[address] 8.0 (missing) (missing) MEAN PLATELET VOLUME 2024-09-04 17:[address] 9.7 fl (missing) CALCIUM 2024-09-04 17:[address] 9.9 mg/dl As of December 2022 testing method has changed, this may include reference ranges. GFR - MDRD 2024-09-04 17:[address] 96 (missing) Social History date description facility 2024-07-15 00:00 Ex-smoker (finding) [facility] 2024-08-29 00:00 Ex-smoker (finding) [facility] Vital Signs date measurement value units 2024-07-15 [...]
[2024-09-05] MEDS ORDERED: ONDANSETRON ODT 4 MG TABLET TL PRN (01:50)
[2024-09-05] MEDS ORDERED: ONDANSETRON 4 MG/2 ML VIAL IVP PRN (01:50)
[2024-09-05] MEDS ORDERED: SODIUM CHLORIDE FLUSH 0.9% 10 ML SYRINGE IVP PRN (01:50)
[2024-09-05] MEDS: levoFLOXacin 750 MG/150 ML 750 MG/150 ML BAG IV SCH (02:15)
[2024-09-05 03:02] LABS: B. PARAPERTUSSIS- RESP PCR PAN NOT DETECTED; B. PERTUSSIS- RESP PCR PANEL NOT DETECTED; C. PNEUMONIAE- RESP PCR PANEL NOT DETECTED; CORONAVIRUS 229E-RESP PCR NOT DETECTED; CORONAVIRUS HKU1-RESP PCR NOT DETECTED; CORONAVIRUS NL63-RESP PCR NOT DETECTED; CORONAVIRUS OC43-RESP PCR NOT DETECTED; HUMAN METAPNEUMOVIRUS NOT DETECTED; INFLUENZA A- RESP PCR PANEL NOT DETECTED; M. PNEUMONIAE- RESP PCR PANEL NOT DETECTED; PARAINFLUENZA VIRUS 4 NOT DETECTED; RHINOVIRUS/ENTEROVIRUS NOT DETECTED; RSV- RESP PCR PANEL NOT DETECTED; SARS-CoV-2 -RESP PCR PANEL NOT DETECTED
[2024-09-05 03:03] LABS: INFLUENZA B - RESP PCR PANEL NOT DETECTED; PARAINFLUENZA VIRUS 1 NOT DETECTED; PARAINFLUENZA VIRUS 2 NOT DETECTED
[2024-09-05] MEDS: IPRATROPIUM/ALBUTEROL 3 ML NEB INH PRN (04:01)
[2024-09-05] MEDS: ACETAMINOPHEN 325 MG TABLET PO PRN (04:18)
[2024-09-05 05:53] LABS: BASOPHILS % (AUTO) 0.1 %; HCT - HEMATOCRIT 41.3 % (42.0-52.0); HGB - HEMOGLOBIN 12.4 g/dL (14.0-18.0); LYMPHOCYTES # (AUTO) 0.8 10^3/uL (1.5-3.5); LYMPHOCYTES % (AUTO) 8.8 %; MEAN CORPUSCULAR HEMOGLOBIN 24.4 pg (27.0-31.0); MEAN CORPUSCULAR VOLUME 81.1 fL (80.0-94.0); MEAN PLATELET VOLUME 9.9 fL (7.4-11.4); MONOCYTES # (AUTO) 0.2 10^3/uL (0.0-1.0); MONOCYTES % (AUTO) 2.2 %; NEUTROPHILS # (AUTO) 7.7 10^3/uL (1.5-6.6); NEUTROPHILS % (AUTO) 88.7 %; PLT - PLATELET COUNT 411 10^3/uL (130-450); RED BLOOD COUNT 5.09 10^6/uL (4.70-6.10); RED CELL DISTRIBUTION WIDTH 17.5 % (12.0-15.0); WHITE BLOOD COUNT 8.7 x10^3/uL (4.8-10.8)
[2024-09-05 06:07] LABS: CALCIUM 9.9 mg/dL (8.5-10.3); CREATININE 0.9 mg/dL (0.6-1.3); POTASSIUM 4.5 mmol/L (3.5-4.5)
[2024-09-05] MEDS: GABAPENTIN 300 MG CAPSULE PO SCH (06:14)
[2024-09-05] MEDS: LEVOTHYROXINE 75 MCG TABLET PO SCH (06:14)
[2024-09-05] MEDS: PANTOPRAZOLE 40 MG TABLET PO SCH (06:14)
[2024-09-05 06:23] LABS: THYROID STIMULATING HORMONE 0.88 uIU/mL (0.34-5.60)
[2024-09-05] MEDS: IPRATROPIUM 0.2 MG/ML NEB INH SCH (08:01)
[2024-09-05] MEDS: FORMOTEROL FUMARATE NEB 20 MCG/2 ML INH SCH (08:01)
[2024-09-05] MEDS: BUDESONIDE 0.5 MG/2 ML NEB INH SCH (08:01)
[2024-09-05] MEDS: SODIUM CHLORIDE FLUSH 0.9% 10 ML SYRINGE IVP SCH (08:19)
[2024-09-05] MEDS: methylPREDNISolone SUCCINATE 40 MG/ML VIAL IVP SCH ×2 (08:19→13:59)
[2024-09-05] MEDS: levETIRAcetam 250 MG TABLET PO SCH (08:23)
[2024-09-05] MEDS: ATORVASTATIN 40 MG TABLET PO SCH (08:23)
[2024-09-05] MEDS: FLUTICASONE NASAL SPRAY NAS SCH (08:23)
[2024-09-05] MEDS: diltiaZEM CD 240 MG CAPSULE PO SCH (08:24)
[2024-09-05] MEDS: LOSARTAN 50 MG TABLET PO SCH (08:24)
[2024-09-05] MEDS: APIXABAN 5 MG TABLET PO SCH (08:24)
[2024-09-05] MEDS ORDERED: FLUTICASONE PROPION SALMETEROL INH SCH (09:00)
--- NOTE | 2024-09-05 11:31 | PHARMACY PROGRESS NOTE ---
Best Possible Medication History Admit Date and Time: 09/05/24 0129 Home Medications Medication Instructions Recorded Confirmed Type amitriptyline 25 mg tablet 50 mg PO QPM 11/09/17 09/05/24 History levothyroxine 75 mcg tablet 75 mcg PO DAILY 11/09/17 09/05/24 History omeprazole 40 mg capsule,delayed 40 mg PO DAILY 11/09/17 09/05/24 History release rivaroxaban 20 mg tablet (Xarelto) 20 mg PO QDDINNER 11/09/17 09/05/24 History fluticasone propionate 230 2 puff inhalation BID 10/12/21 09/05/24 History mcg-salmeterol 21 mcg/actuation HFA inhaler (Advair HFA) fluticasone propionate 50 2 sprays intranasal DAILY 10/12/21 09/05/24 History mcg/actuation nasal spray,suspension levetiracetam 750 mg tablet 750 mg PO BID 10/12/21 09/05/24 History (Keppra) tiotropium bromide 18 mcg capsule 1 puff inhalation DAILY 10/12/21 09/05/24 History with inhalation device (Spiriva with HandiHaler) albuterol sulfate 90 mcg/actuation 2 puff inhalation Q4H PRN wheezing 06/06/24 09/05/24 History aerosol inhaler (Ventolin HFA) atorvastatin 80 mg tablet 80 mg PO DAILY 09/05/24 09/05/24 History diltiazem HCl 240 mg capsule,24 240 mg PO DAILY 09/05/24 09/05/24 History hr,extended release losartan 100 mg tablet 100 mg PO DAILY 09/05/24 09/05/24 History Processed by: Pharmacy (Medication reconciliation completed by Heel StiffenerDiane) Medications reviewed in ED?: No Patient Interview: Pt unable to participate (patient stated he didn't know any of the medications he was on and to call [facility] instead. Got list from [facility]) Secondary Source(s): Pharmacy records and Insurance records [facility] Statement: As the person ultimately responsible for medication therapy, providers are able to order a medication from an existing home medication list in [facility] via the "Reconcile Routine" prior to Confirmation of that medication by administrative support coordinator. Such practice is discouraged except when the physician, in their clinical judgment, deems that a medical need exists for a medication without regard to previous use.
[2024-09-05] MEDS: BENZOCAINE/MENTHOL LOZENGE MM PRN (13:58)
[2024-09-05] MEDS: guaiFENesin/DEXTROMETHORPHAN 10 ML UDC PO PRN (13:58)
[2024-09-05] MEDS: PHENOL THROAT SPRAY 177 ML MM PRN (13:58)
[2024-09-05] MEDS: guaiFENesin/CODEINE 5 ML UDC PO STA (17:07)
[2024-09-05] MEDS: MULTIVITAMIN W/MINERALS TABLET PO SCH (17:07)
[2024-09-05] MEDS: IPRATROPIUM/ALBUTEROL 3 ML NEB INH SCH (17:45)
[2024-09-05] MEDS: AMITRIPTYLINE 25 MG TABLET PO SCH (21:19)
[2024-09-05] MEDS: guaiFENesin/CODEINE 5 ML UDC PO PRN (22:43)
[2024-09-06 05:22] LABS: BASOPHILS % (AUTO) 0.1 %; HCT - HEMATOCRIT 36.2 % (42.0-52.0); HGB - HEMOGLOBIN 10.9 g/dL (14.0-18.0); LYMPHOCYTES % (AUTO) 6.1 %; MEAN CORPUSCULAR HEMOGLOBIN 24.5 pg (27.0-31.0); MEAN CORPUSCULAR HGB CONC 30.1 g/dL (32.0-36.0); MEAN CORPUSCULAR VOLUME 81.3 fL (80.0-94.0); MEAN PLATELET VOLUME 10.4 fL (7.4-11.4); MONOCYTES # (AUTO) 0.6 10^3/uL (0.0-1.0); MONOCYTES % (AUTO) 3.8 %; NEUTROPHILS # (AUTO) 14.7 10^3/uL (1.5-6.6); NEUTROPHILS % (AUTO) 89.6 %; PLT - PLATELET COUNT 376 10^3/uL (130-450); RED BLOOD COUNT 4.45 10^6/uL (4.70-6.10); RED CELL DISTRIBUTION WIDTH 17.6 % (12.0-15.0); WHITE BLOOD COUNT 16.4 x10^3/uL (4.8-10.8)
[2024-09-06 05:37] LABS: CALCIUM 9.6 mg/dL (8.5-10.3); POTASSIUM 4.5 mmol/L (3.5-4.5)
[2024-09-06 06:14] LABS: % IRON SATURATION 15 % (20-50); IRON 64 ug/dL (50-212); TOTAL IRON BINDING CAPACITY 423 ug/dL (250-450); TRANSFERRIN 302 mg/dL (203-362)
[2024-09-06] MEDS ORDERED: IPRATROPIUM/ALBUTEROL 3 ML NEB INH PRN (07:37)
--- NOTE | 2024-09-06 12:03 | PROVIDER PROGRESS NOTE ---
Subjective Subjective Subjective: Today, patient is feeling better. He continues to have some shortness of breath. He states his cough is improved. He is feeling a little bit better than yesterday. Current Medications Current Medications Current Medications: Current Medications Generic Name Dose Route Start Last Admin Trade Name Freq PRN Reason Stop Dose Admin Acetaminophen 650 mg 09/05/24 01:50 09/06/24 08:31 Acetaminophen 325 Mg Tablet PO 650 mg Q4HR PRN Administration Pain 1 to 4, or Fever Albuterol/Ipratropium 3 ml 09/05/24 19:00 09/06/24 05:00 Ipratropium/Albuterol 3 Ml Neb INH 3 ml RTQID LATONYA Administration Albuterol/Ipratropium 3 ml 09/06/24 07:37 Ipratropium/Albuterol 3 Ml Neb INH Q4HR PRN Wheezing Amitriptyline HCl 50 mg 09/05/24 21:00 09/05/24 21:19 Amitriptyline 25 Mg Tablet PO 50 mg QPM LATONYA Administration Apixaban 5 mg 09/05/24 09:00 09/06/24 08:19 Apixaban 5 Mg Tablet PO 5 mg BID LATONYA Administration Atorvastatin Calcium 80 mg 09/05/24 09:00 09/06/24 08:19 Atorvastatin 40 Mg Tablet PO 80 mg DAILY LATONYA Administration Budesonide 0.5 mg 09/05/24 07:00 09/06/24 05:00 Budesonide 0.5 Mg/2 Ml Neb INH 0.5 mg RTBID LATONYA Administration Diltiazem HCl 240 mg 09/05/24 09:00 09/06/24 08:20 Diltiazem Cd 240 Mg Capsule PO 240 mg DAILY LATONYA Administration Fluticasone Propionate 2 sprays 09/05/24 09:00 09/06/24 08:23 Fluticasone Nasal [place] ZAHEER 1 spr DAILY LATONYA Administration Formoterol Fumarate 20 mcg 09/05/24 07:00 09/06/24 05:00 Formoterol Fumarate Neb 20 Mcg/2 Ml INH 20 mcg RTBID LATONYA Administration Gabapentin 300 mg 09/05/24 06:00 09/06/24 06:19 Gabapentin 300 Mg Capsule PO 300 mg TID LATONYA Administration Guaifenesin/Codeine Phosphate 5 ml 09/05/24 18:39 09/05/24 22:43 Guaifenesin/Codeine 5 Ml Udc PO 5 ml Q6HR PRN Administration Cough Levofloxacin 750 mg in 150 mls @ 100 mls/hr 09/07/24 06:00 Levaquin 750 Mg/150 Ml IV 09/09/24 07:29 Q24H [facility] Levetiracetam 1,125 mg 09/05/24 09:00 09/06/24 08:20 Levetiracetam 250 Mg Tablet PO 1,125 mg BID LATONYA Administration Levothyroxine Sodium 75 mcg 09/05/24 07:00 09/06/24 06:19 Levothyroxine 75 Mcg Tablet PO 75 mcg QDAC [facility] Administration Losartan Potassium 100 mg 09/05/24 09:00 09/06/24 08:19 Losartan 50 Mg Tablet PO 100 mg DAILY LATONYA Administration Methylprednisolone 40 mg 09/06/24 21:00 Methylprednisolone Succinate 40 Mg/Ml Vial IVP BID LATONYA Multivitamins/Minerals 1 tab 09/05/24 17:00 09/06/24 08:20 Multivitamin W/Minerals Tablet PO 1 tab DAILYWM LATONYA Administration Ondansetron HCl 4 mg 09/05/24 01:50 Ondansetron Odt 4 Mg Tablet TL Q6HR PRN Nausea / Vomiting Ondansetron HCl 4 mg 09/05/24 01:50 Ondansetron 4 Mg/2 Ml Vial IVP Q6HR PRN Nausea / Vomiting Pantoprazole Sodium 40 mg 09/05/24 07:00 09/06/24 06:19 Pantoprazole 40 Mg Tablet PO 40 mg QDAC LATONYA Administration Phenol/Menthol 1 sprays 09/05/24 10:04 Phenol Throat [place] 177 Ml MM Q4HR PRN Mouth Sore Pain Sodium Chloride 10 ml 09/05/24 01:50 Sodium Chloride Flush 0.9% 10 Ml Syringe IVP PRN PRN NEEDED PER PROVIDER ORDERS Sodium Chloride 10 ml 09/05/24 09:00 09/06/24 06:19 Sodium Chloride Flush 0.9% 10 Ml Syringe IVP 10 ml 0100,0900,1700 LATONYA Administration Throat Lozenges 1 lozenge 09/05/24 10:03 09/05/24 22:49 Benzocaine/Menthol Lozenge MM 1 lozenge Q2HR PRN Administration Mouth Sore Pain Objective Vital Signs/Intake & Output Reviewed Vital Signs: Yes Vital Signs: Vital Signs x48h Temp Pulse Pulse Resp BP Pulse Ox O2 Flow Rate 09/06/24 08:19 98.1 F 91 20 123/70 89 L 3 09/06/24 05:00 98.1 F 85 22 102/73 89 L 3 09/06/24 05:00 3 09/06/24 05:00 78 20 3 Intake & Output: Intake & Output 09/03/24 09/04/24 09/05/24 09/06/24 23:59 23:59 23:59 23:59 Intake Total 2392 / 2392 590 / 590 Output Total 1250 / 1250 400 / 400 Balance 1142 / 1142 190 / 190 Weight (kg) 85.729 kg 81.5 kg Objective General Appearance: positive No acute distress, Alert and Mild distress Eyes Bilateral: positive Normal inspection, PERRL and EOMI ENT: positive ENT inspection nml, Pharynx nml and No signs of dehydration Neck: positive Nml inspection, Thyroid nml and No JVD Respiratory: positive Chest non-tender, No respiratory distress and Wheezes (diffuse wheezing noted in all lung beltran; diminished air entry, improved ) Cardiovascular: positive Regular rate & rhythm, No murmur and No gallop; negative Systolic murmur Abdomen: positive Non-tender and No distention; negative Guarding, Hepatomegaly or Splenomegaly Back: positive Nml inspection; negative CVA tenderness (R) or CVA tenderness (L) Skin: positive Color nml, Warm and Dry Extremities: positive Non-tender, Full ROM and No pedal edema Neurologic/Psychiatric: positive Oriented x3 and Mood/affect nml Lab Results 09/06/24 04:59 09/06/24 04:59 Other Labs: Lab Results x24hrs 09/06/24 Range/Units 04:59 WBC 16.4 H (4.8-10.8) x10^3/uL RBC 4.45 L (4.70-6.10) 10^6/uL Hgb 10.9 L (14.0-18.0) g/dL Hct 36.2 L (42.0-52.0) % MCV 81.3 (80.0-94.0) fL MCH 24.5 L (27.0-31.0) pg MCHC 30.1 L (32.0-36.0) g/dL RDW 17.6 H (12.0-15.0) % Plt Count 376 (130-450) 10^3/uL MPV 10.4 (7.4-11.4) fL Neut # (Auto) 14.7 H (1.5-6.6) 10^3/uL Lymph # (Auto) 1.0 L (1.5-3.5) 10^3/uL [place] # (Auto) 0.6 (0.0-1.0) 10^3/uL Eos # (Auto) 0.0 (0.0-0.7) 10^3/uL Baso # (Auto) 0.0 (0.0-0.1) 10^3/uL Absolute Nucleated RBC 0.00 x10^3/uL Nucleated RBC % 0.0 /100WBC Sodium 134 L (135-145) mmol/L Potassium 4.5 (3.5-4.5) mmol/L Chloride 102 (101-111) mmol/L Carbon Dioxide 24 (21-32) mmol/L Anion Gap 8.0 (6-13) BUN 27 H (6-20) mg/dL Creatinine 1.0 (0.6-1.3) mg/dL Estimated GFR (MDRD) 74 L (>89) Glucose 195 H (74-104) mg/dL Calcium 9.6 (8.5-10.3) mg/dL Iron 64 (50-212) ug/dL TIBC 423 (250-450) ug/dL % Saturation 15 L (20-50) % Transferrin 302 (203-362) mg/dL Diagnostic Imaging Diagnostic Imaging Results: positive Final report reviewed Assessment/Plan Problem List (1) Acute hypoxic respiratory failure: Impression: Patient presented with worsening dyspnea, wheezing, cough with sputum production. Pulmonary exam with diffuse wheezing, diminished air entry. CTA completed, showed no pulmonary embolus but did show bibasilar and right posterior upper lobe alveolar opacities, trace pleural effusion. Continue patient on scheduled DuoNebs, IV Solu-Medrol decreased from 3 times daily to twice daily. Continue symptomatic treatment with Cepacol, Chloraseptic spray, as well as Robitussin AC as needed. Concern for possible superimposed pneumonia. Complete 5-day course of levofloxacin. (2) COPD exacerbation: Impression: See above. (3) Hypothyroidism: Impression: Continue home medication, levothyroxine 75 mcg daily. Qualifiers: Hypothyroidism type: unspecified Qualified Code(s): E03.9 - Hypothyroidism, unspecified (4) Pulmonary embolism: Impression: Continue Eliquis 5 mg twice daily. Qualifiers: Acute cor pulmonale presence: unspecified Chronicity: unspecified P ulmonary embolism type: unspecified Qualified Code(s): I26.99 - Other pulmonary embolism without acute cor pulmonale (5) HTN (hypertension): Impression: Continue home diltiazem, losartan. Qualifiers: Hypertension type: unspecified Qualified Code(s): I10 - Essential (primary) hypertension (6) HLD (hyperlipidemia): Impression: Continue statin. Qualifiers: Hyperlipidemia type: unspecified Qualified Code(s): E78.5 - Hyperlipidemia, unspecified (7) Seizure disorder: Impression: Continue Keppra.
[2024-09-06] MEDS: guaiFENesin/CODEINE 5 ML UDC PO PRN (17:04)
[2024-09-06] MEDS: methylPREDNISolone SUCCINATE 40 MG/ML VIAL IVP SCH (20:25)
[2024-09-06] MEDS: BENZONATATE 100 MG CAPSULE PO PRN (21:38)
[2024-09-07 05:22] LABS: BASOPHILS % (AUTO) 0.1 %; HCT - HEMATOCRIT 35.7 % (42.0-52.0); HGB - HEMOGLOBIN 10.9 g/dL (14.0-18.0); LYMPHOCYTES % (AUTO) 5.2 %; MEAN CORPUSCULAR HEMOGLOBIN 24.9 pg (27.0-31.0); MEAN CORPUSCULAR HGB CONC 30.5 g/dL (32.0-36.0); MEAN CORPUSCULAR VOLUME 81.5 fL (80.0-94.0); MEAN PLATELET VOLUME 10.1 fL (7.4-11.4); MONOCYTES # (AUTO) 0.8 10^3/uL (0.0-1.0); NEUTROPHILS # (AUTO) 17.2 10^3/uL (1.5-6.6); NEUTROPHILS % (AUTO) 90.1 %; PLT - PLATELET COUNT 376 10^3/uL (130-450); RED BLOOD COUNT 4.38 10^6/uL (4.70-6.10); RED CELL DISTRIBUTION WIDTH 17.7 % (12.0-15.0); WHITE BLOOD COUNT 19.1 x10^3/uL (4.8-10.8)
[2024-09-07 05:34] LABS: CALCIUM 9.5 mg/dL (8.5-10.3); CREATININE 1.1 mg/dL (0.6-1.3); MAGNESIUM 2.2 mg/dL (1.7-2.3); POTASSIUM 4.3 mmol/L (3.5-4.5)
[2024-09-07] MEDS: levoFLOXacin 750 MG/150 ML 750 MG/150 ML BAG IV SCH (06:21)
[2024-09-07] MEDS: predniSONE 20 MG TABLET PO SCH (09:08)
--- NOTE | 2024-09-07 09:19 | PROVIDER PROGRESS NOTE ---
Subjective Subjective Subjective: Today, patient is feeling better. He continues to have some shortness of breath. He states his cough is improved. He is feeling a little bit better than yesterday. He is up in the chair, and is able to ambulate without significant shortness of breath. He has no fevers or chills. He still has a dry cough, and has not been producing much sputum. Current Medications Current Medications Current Medications: Current Medications Generic Name Dose Route Start Last Admin Trade Name Freq PRN Reason Stop Dose Admin Acetaminophen 650 mg 09/05/24 01:50 09/07/24 07:54 Acetaminophen 325 Mg Tablet PO 650 mg Q4HR PRN Administration Pain 1 to 4, or Fever Albuterol/Ipratropium 3 ml 09/05/24 19:00 09/07/24 07:34 Ipratropium/Albuterol 3 Ml Neb INH 3 ml RTQID LATONYA Administration Albuterol/Ipratropium 3 ml 09/06/24 07:37 Ipratropium/Albuterol 3 Ml Neb INH Q4HR PRN Wheezing Amitriptyline HCl 50 mg 09/05/24 21:00 09/06/24 20:24 Amitriptyline 25 Mg Tablet PO 50 mg QPM LATONYA Administration Apixaban 5 mg 09/05/24 09:00 09/07/24 09:08 Apixaban 5 Mg Tablet PO 5 mg BID LATONYA Administration Atorvastatin Calcium 80 mg 09/05/24 09:00 09/07/24 09:08 Atorvastatin 40 Mg Tablet PO 80 mg DAILY LATONYA Administration Benzonatate 100 mg 09/06/24 20:41 09/06/24 21:38 Benzonatate 100 Mg Capsule PO 100 mg TID PRN Administration Cough Budesonide 0.5 mg 09/05/24 07:00 09/07/24 07:35 Budesonide 0.5 Mg/2 Ml Neb INH 0.5 mg RTBID LATONYA Administration Diltiazem HCl 240 mg 09/05/24 09:00 09/07/24 09:07 Diltiazem Cd 240 Mg Capsule PO 240 mg DAILY LATONYA Administration Fluticasone Propionate 2 sprays 09/05/24 09:00 09/07/24 09:09 Fluticasone Nasal [place] ZAHEER 1 spr DAILY LATONYA Administration Formoterol Fumarate 20 mcg 09/05/24 07:00 09/07/24 07:34 Formoterol Fumarate Neb 20 Mcg/2 Ml INH 20 mcg RTBID LATONYA Administration Gabapentin 300 mg 09/05/24 06:00 09/07/24 06:16 Gabapentin 300 Mg Capsule PO 300 mg TID LATONYA Administration Guaifenesin/Codeine Phosphate 5 ml 09/06/24 15:56 09/07/24 02:14 Guaifenesin/Codeine 5 Ml Udc PO 5 ml Q8HR PRN Administration Cough Levofloxacin 750 mg in 150 mls @ 100 mls/hr 09/07/24 06:00 09/07/24 06:21 Levaquin 750 Mg/150 Ml IV 09/09/24 07:29 100 mls/hr Q24H LATONYA Administration Levetiracetam 1,125 mg 09/05/24 09:00 09/07/24 09:07 Levetiracetam 250 Mg Tablet PO 1,125 mg BID LATONYA Administration Levothyroxine Sodium 75 mcg 09/05/24 07:00 09/07/24 06:16 Levothyroxine 75 Mcg Tablet PO 75 mcg QDAC LATONYA Administration Losartan Potassium 100 mg 09/05/24 09:00 09/07/24 09:08 Losartan 50 Mg Tablet PO 100 mg DAILY LATONYA Administration Multivitamins/Minerals 1 tab 09/05/24 17:00 09/07/24 07:54 Multivitamin W/Minerals Tablet PO 1 tab DAILYWM LATONYA Administration Ondansetron HCl 4 mg 09/05/24 01:50 Ondansetron Odt 4 Mg Tablet TL Q6HR PRN Nausea / Vomiting Ondansetron HCl 4 mg 09/05/24 01:50 Ondansetron 4 Mg/2 Ml Vial IVP Q6HR PRN Nausea / Vomiting Pantoprazole Sodium 40 mg 09/05/24 07:00 09/07/24 06:15 Pantoprazole 40 Mg Tablet PO 40 mg QDAC LATONYA Administration Phenol/Menthol 1 sprays 09/05/24 10:04 Phenol Throat [place] 177 Ml MM Q4HR PRN Mouth Sore Pain Prednisone 40 mg 09/07/24 08:00 09/07/24 09:08 Prednisone 20 Mg Tablet PO 40 mg DAILYWM LATONYA Administration Sodium Chloride 10 ml 09/05/24 01:50 Sodium Chloride Flush 0.9% 10 Ml Syringe IVP PRN PRN NEEDED PER PROVIDER ORDERS Sodium Chloride 10 ml 09/05/24 09:00 09/07/24 09:09 Sodium Chloride Flush 0.9% 10 Ml Syringe IVP 10 ml 0100,0900,1700 LATONYA Administration Throat Lozenges 1 lozenge 09/05/24 10:03 09/07/24 00:55 Benzocaine/Menthol Lozenge MM 1 lozenge Q2HR PRN Administration Mouth Sore Pain Objective Vital Signs/Intake & Output Reviewed Vital Signs: Yes Vital Signs: Vital Signs x48h Temp Pulse Pulse Resp BP Pulse Ox O2 Flow Rate 09/07/24 07:42 97.9 F 89 16 119/77 92 3 09/07/24 07:41 3 09/07/24 07:39 87 24 3 Intake & Output: Intake & Output 09/04/24 09/05/24 09/06/24 09/07/24 23:59 23:59 23:59 23:59 Intake Total 2392 / 2392 1250 / 1250 1425 / 1425 Output Total 1250 / 1250 400 / 400 Balance 1142 / 1142 850 / 850 1425 / 1425 Weight (kg) 85.729 kg 81.5 kg Objective General Appearance: positive No acute distress, Alert and Mild distress Eyes Bilateral: positive Normal inspection, PERRL and EOMI ENT: positive ENT inspection nml, Pharynx nml and No signs of dehydration Neck: positive Nml inspection, Thyroid nml and No JVD Respiratory: positive Chest non-tender, No respiratory distress and Wheezes (Wheezing is improved, mild expiratory wheezing noted in upper lung beltran) Cardiovascular: positive Regular rate & rhythm, No murmur and No gallop; negative Systolic murmur Abdomen: positive Non-tender and No distention; negative Guarding, Hepatomegaly or Splenomegaly Back: positive Nml inspection; negative CVA tenderness (R) or CVA tenderness (L) Skin: positive Color nml, Warm and Dry Extremities: positive Non-tender, Full ROM and No pedal edema Neurologic/Psychiatric: positive Oriented x3 and Mood/affect nml Lab Results 09/07/24 05:08 09/07/24 05:08 Other Labs: Lab Results x24hrs 09/07/24 Range/Units 05:08 WBC 19.1 H (4.8-10.8) x10^3/uL RBC 4.38 L (4.70-6.10) 10^6/uL Hgb 10.9 L (14.0-18.0) g/dL Hct 35.7 L (42.0-52.0) % MCV 81.5 (80.0-94.0) fL MCH 24.9 L (27.0-31.0) pg MCHC 30.5 L (32.0-36.0) g/dL RDW 17.7 H (12.0-15.0) % Plt Count 376 (130-450) 10^3/uL MPV 10.1 (7.4-11.4) fL Neut # (Auto) 17.2 H (1.5-6.6) 10^3/uL Lymph # (Auto) 1.0 L (1.5-3.5) 10^3/uL [place] # (Auto) 0.8 (0.0-1.0) 10^3/uL Eos # (Auto) 0.0 (0.0-0.7) 10^3/uL Baso # (Auto) 0.0 (0.0-0.1) 10^3/uL Absolute Nucleated RBC 0.00 x10^3/uL Nucleated RBC % 0.0 /100WBC Sodium 134 L (135-145) mmol/L Potassium 4.3 (3.5-4.5) mmol/L Chloride 102 (101-111) mmol/L Carbon Dioxide 22 (21-32) mmol/L Anion Gap 10.0 (6-13) BUN 35 H (6-20) mg/dL Creatinine 1.1 (0.6-1.3) mg/dL Estimated GFR (MDRD) 66 L (>89) Glucose 208 H (74-104) mg/dL Calcium 9.5 (8.5-10.3) mg/dL Magnesium 2.2 (1.7-2.3) mg/dL Diagnostic Imaging Diagnostic Imaging Results: positive Final report reviewed Assessment/Plan Problem List (1) Acute hypoxic respiratory failure: Impression: Resolved. Patient is back to his baseline oxygen status with 3L. Patient presented with worsening dyspnea, wheezing, cough with sputum production. CTA completed, showed no pulmonary embolus but did show bibasilar and right posterior upper lobe alveolar opacities, trace pleural effusion. Continue patient on scheduled DuoNebs, IV Solu-Medrol decreased from 3 times daily to twice daily. Continue symptomatic treatment with Cepacol, Chloraseptic spray, as well as Robitussin AC as needed. Patient's leukocytosis has worsened, likely reactive to steroid dosage. Continue to trend. Concern for possible superimposed pneumonia. Complete 5-day course of levofloxacin. (2) COPD exacerbation: Impression: See above. (3) Restless leg syndrome: Impression: Patient has had restless legs for few years, and has not sought care with his primary care provider. I have ordered iron studies, we will follow-up on this and replete as necessary. Will trial gabapentin 300 mg nightly. (4) Hypothyroidism: Impression: Continue home medication, levothyroxine 75 mcg daily. Qualifiers: Hypothyroidism type: unspecified Qualified Code(s): E03.9 - Hypothyroidism, unspecified (5) Pulmonary embolism: Impression: Continue Eliquis 5 mg twice daily. Qualifiers: Acute cor pulmonale presence: unspecified Chronicity: unspecified P ulmonary embolism type: unspecified Qualified Code(s): I26.99 - Other pulmonary embolism without acute cor pulmonale (6) HTN (hypertension): Impression: Continue home diltiazem, losartan. Qualifiers: Hypertension type: unspecified Qualified Code(s): I10 - Essential (primary) hypertension (7) HLD (hyperlipidemia): Impression: Continue statin. Qualifiers: Hyperlipidemia type: unspecified Qualified Code(s): E78.5 - Hyperlipidemia, unspecified (8) Seizure disorder: Impression: Continue Keppra.
[2024-09-07 12:52] LABS: % IRON SATURATION 6 % (20-50); IRON 28 ug/dL (50-212); TOTAL IRON BINDING CAPACITY 449 ug/dL (250-450); TRANSFERRIN 321 mg/dL (203-362)
[2024-09-07] MEDS: IRON DEXTRAN 1,000 MG in SODIUM CHLORIDE 0.9% 250 ML IV ONE (13:39)
[2024-09-07] MEDS ORDERED: GABAPENTIN 300 MG CAPSULE PO SCH (21:00)
[2024-09-07] MEDS: PRAMIPEXOLE 0.25 MG TABLET PO SCH (21:46)
[2024-09-08 06:30] LABS: HGB - HEMOGLOBIN 10.3 g/dL (14.0-18.0); MEAN CORPUSCULAR HEMOGLOBIN 24.9 pg (27.0-31.0); MEAN CORPUSCULAR HGB CONC 31.2 g/dL (32.0-36.0); MEAN CORPUSCULAR VOLUME 79.9 fL (80.0-94.0); RED BLOOD COUNT 4.13 10^6/uL (4.70-6.10); RED CELL DISTRIBUTION WIDTH 17.6 % (12.0-15.0); WHITE BLOOD COUNT 12.8 x10^3/uL (4.8-10.8)
[2024-09-08 06:52] LABS: CALCIUM 9.1 mg/dL (8.5-10.3); CREATININE 0.8 mg/dL (0.6-1.3); MAGNESIUM 2.5 mg/dL (1.7-2.3); POTASSIUM 4.1 mmol/L (3.5-4.5)
[2024-09-08 08:21] VITALS: BP 132/79; TEMP 98.1; O2SAT 97
--- NOTE | 2024-09-08 08:32 | Discharge Summary ---
"Discharge Summary Admit Date: 09/05/24 Discharge Date: 09/08/24 Discharging Provider: Dr. Noe Varela Primary Care Provider: Seamus PCP - is switching over to someone closer Code Status: Attempt Resuscitation Discharge Facility Name: Home HPI History of Present Illness: Per Cristina Vidal: H&P was conducted via video remotely, using [employer]. Patient is in [place]. Physician is in [place]. No one is at bedside. 68 yo M with PMH of COPD, on home oxygen at 3 L PRN, HTN, Hypothyroidism, prior DVT and PE on Xarelto, Anxiety, Bipolar disorder presented to the ER with c/o 4 month h/o worsening SOB and cough, much worse x 1 week. Pt sees a Senior Controls Technician in [place]. He was seen in the ER there on 04/18/2024 for SOB, cough and was started on a course of Prednisone. Since then, he has had F/U with his Senior Controls Technician and has been on courses of Prednisone and antibiotics. He began to feel a little better in July, but his symptoms worsened about 1 week ago and he has had continuously worsening shortness of breath/having a hard time breathing. He has been using his O2 3L continuously, even when he left the house; he did not previously need to do this. +cough, no sputum. +chest congestion. No F/C. No abdo pain, N/V. Pt had a coughing fit yesterday and felt something on his skin pop in his R back and it has been sore since. In the ER, RR 28, Hgb 12.4, MCV 79.8, EKG showing RBBB and normal sinus rhythm no significant change from previous EKG. CXR: No acute cardiopulmonary process. Chest CTA: No pulmonary embolus. Bibasilar and right posterior upper lobe alveolar opacities and trace right pleural effusion, aspiration, atelectasis or infection. Pt was given Duonebs, Prednisone 60 mg PO, Doxycycline 100 PO in the ER. CONSULTS | PROCEDURES Consultations: RT, Social work Procedures: Chest x-ray, CTA HOSPITAL COURSE Hospital Course: Patient is a 68-year-old male with history of COPD on 3 L of oxygen who presented with worsening dyspnea, cough, fevers and chills. Initially, CTA was done, which showed no pulmonary embolism, but did show bibasilar and right posterior upper lobe opacities, as well as a trace pleural effusion. He was started on IV steroids, which were transitioned to oral steroids. He was started on antibiotics for superimposed pneumonia as well, Levaquin. He was continued on [id number] breathing treatments. His oxygen status started to improve. His wheezing improved as well, he is good air entry. His white count did increase when he was started on steroids, but it is now downtrending. Social work helped him set up a follow-up appointment with a new primary care provider. He is to follow-up with them in the next few weeks to recheck his white count. He will be discharged home on 1 more day of oral steroids, as well as 1 more day of oral antibiotics. While he was here, he had worsening of his restless leg syndrome. He is already on amitriptyline, gabapentin for this. We started home with the lowest dose of pramipexole with some relief. I will be discharging him with a 30-day supply, and he will need to follow-up with his primary care provider for ongoing up titration if needed. Overall, he was deemed stable for discharge home with close follow-up with his primary care provider. ALLERGIES Allergies Allergy/AdvReac Type Severity Reaction Status Date / Time Penicillins Allergy Unknown Verified 09/04/24 16:54 MEDICATIONS Ambulatory Orders Medication Instructions Recorded Confirmed amitriptyline 25 mg tablet 50 mg PO QPM 11/09/17 09/05/24 levothyroxine 75 mcg tablet 75 mcg PO DAILY 11/09/17 09/05/24 omeprazole 40 mg capsule,delayed 40 mg PO DAILY 11/09/17 09/05/24 release rivaroxaban 20 mg tablet (Xarelto) 20 mg PO QDDINNER 11/09/17 09/05/24 fluticasone propionate 230 2 puff inhalation BID 10/12/21 09/05/24 mcg-salmeterol 21 mcg/actuation HFA inhaler (Advair HFA) fluticasone propionate 50 2 sprays intranasal DAILY 10/12/21 09/05/24 mcg/actuation nasal spray,suspension levetiracetam 750 mg tablet 750 mg PO BID 10/12/21 09/05/24 (Keppra) tiotropium bromide 18 mcg capsule 1 puff inhalation DAILY 10/12/21 09/05/24 with inhalation device (Spiriva with HandiHaler) albuterol sulfate 90 mcg/actuation 2 puff inhalation Q4H PRN wheezing 06/06/24 09/05/24 aerosol inhaler (Ventolin HFA) atorvastatin 80 mg tablet 80 mg PO DAILY 09/05/24 09/05/24 diltiazem HCl 240 mg capsule,24 240 mg PO DAILY 09/05/24 09/05/24 hr,extended release losartan 100 mg tablet 100 mg PO DAILY 09/05/24 09/05/24 levofloxacin 750 mg tablet 750 mg PO DAILY #1 tab 09/08/24 pramipexole 0.25 mg tablet 0.125 mg (1/2 x 0.25 mg) PO QPM 09/08/24 #30 tabs prednisone 20 mg tablet 40 mg (2 x 20 mg) PO DAILYWM #2 09/08/24 tabs PHYSICAL EXAM AT DISCHARGE Vital Signs: Vital Signs x48h Temp Pulse Pulse Resp BP Pulse Ox O2 Flow Rate 09/08/24 11:38 3 09/08/24 11:38 89 18 3 09/08/24 08:15 98.1 F 71 16 132/79 H 97 3 General Appearance: positive No acute distress and Alert; negative Anxious Eyes Bilateral: positive Normal inspection, PERRL and EOMI ENT: positive ENT inspection nml, Pharynx nml and No signs of dehydration Neck: positive Nml inspection, Thyroid nml, No JVD and Trachea midline Respiratory: positive Chest non-tender, No respiratory distress and Other (Good air entry bilaterally); negative Wheezes, Rales or Rhonchi Cardiovascular: positive Regular rate & rhythm, No murmur and No gallop; negative Tachycardia Peripheral Pulses: positive 2+ Abdomen: positive Non-tender and No distention; negative Guarding, Hepatomegaly or Splenomegaly Back: positive Nml inspection; negative CVA tenderness (R) or CVA tenderness (L) Skin: positive Color nml, No rash, Warm, Dry and Other (Multiple tattoos noted) Extremities: positive Non-tender, Full ROM, Nml appearance and No pedal edema Neurologic/Psychiatric: positive Oriented x3, Sensation nml and Mood/affect nml LABS 09/08/24 05:49 09/08/24 05:49 DIAGNOSTIC IMAGING Diagnostic Imaging Results: Final report reviewed FOLLOW UP Follow Up: Follow up with primary care provider. TIME SPENT Time Spent in Discharge (Minutes): 35 Discharge Plan Discharge Patient Disposition: 01 Home, Self Care Prescriptions: New pramipexole 0.25 mg Tablet 0.125 mg PO QPM Qty: 30 0RF prednisone 20 mg Tablet 40 mg PO DAILYWM Qty: 2 0RF levofloxacin 750 mg tablet 750 mg PO DAILY Qty: 1 0RF Continued omeprazole 40 MG capsule,delayed release(DR/EC) 40 mg PO DAILY levothyroxine 75 MCG tablet 75 mcg PO DAILY amitriptyline 25 MG tablet 50 mg PO QPM Xarelto 20 MG tablet 20 mg PO QDDINNER levetiracetam [Keppra] 750 MG tablet 750 mg PO BID Patient Comments: take 1 tablets by mouth every 12 hours for SEIZURE CONTROL fluticasone propionate 120 SPRAYS spray,suspension 2 sprays intranasal DAILY Patient Comments: instill 2 sprays into each nostril once daily tiotropium bromide [Spiriva with HandiHaler] 18 MCG capsule, w/inhalation device 1 puff inhalation DAILY Patient Comments: inhale THE CONTENTS OF ONE CAPSULE IN THE HANDIHALER once daily fluticasone propion-salmeterol [Advair HFA] 8 GM HFA aerosol inhaler 2 puff inhalation BID Patient Comments: INHALE 2 PUFFS BY MOUTH TWICE DAILY albuterol sulfate [Ventolin HFA] 90 mcg/actuation HFA aerosol inhaler 2 puff INHALATION Q4H PRN (Reason: wheezing) atorvastatin 80 mg tablet 80 mg PO DAILY diltiazem HCl 240 mg capsule,extended release 24hr 240 mg PO DAILY losartan 100 mg tablet 100 mg PO DAILY Patient Comments: take 1 tablet by mouth once daily Activity Restrictions: Activity as Tolerated Diet: Regular Health Concerns: You came in because you were having shortness of breath. Chest CT was done which showed that you had a pneumonia. This likely triggered a COPD exacerbation. We had you on steroids, breathing treatments [id number], as well as antibiotics. You will need to complete one more day of steroids and antibiotics at home, which I have sent to [facility]. While you were here, your restless leg syndrome started acting up. You are already on gabapentin, which is the first-line choice for this. As such, I added pramipexole, at a very low dose. I have sent a script for this to the pharmacy as well. We are glad you're feeling better. Thank you for allowing us to take care of you. Print Language: Com[place]an Patient Instructions: COPD Dc Stand Alone Forms: PCP List Follow-up Care: Ortiz Khan ARNP [Primary Care Provider] -"
== END 2024-09-08 16:35 | disposition home or self-care (01) | DRG 189 ==
LOC: ED 16:33 → MS2 09-05 01:29
PROVIDERS: ADMIT Internal Medicine; ATTEND Internal Medicine
DX: F41.9 Anxiety disorder, unspecified; Z86.711 Personal history of pulmonary embolism; I10 Essential (primary) hypertension; I48.91 Unspecified atrial fibrillation; K21.9 Gastro-esophageal reflux disease without esophagitis; Z86.718 Personal history of other venous thrombosis and embolism; F31.9 Bipolar disorder, unspecified; J44.0 Chronic obstructive pulmonary disease with (acute) lower respiratory infection; E03.9 Hypothyroidism, unspecified; J18.9 Pneumonia, unspecified organism; D50.9 Iron deficiency anemia, unspecified; Z99.81 Dependence on supplemental oxygen; E78.5 Hyperlipidemia, unspecified; J44.1 Chronic obstructive pulmonary disease with (acute) exacerbation; G25.81 Restless legs syndrome; J96.21 Acute and chronic respiratory failure with hypoxia; R10.9 Unspecified abdominal pain; R58 Hemorrhage, not elsewhere classified; G40.909 Epilepsy, unspecified, not intractable, without status epilepticus; R07.81 Pleurodynia; I45.10 Unspecified right bundle-branch block; Z87.891 Personal history of nicotine dependence; Z79.01 Long term (current) use of anticoagulants